=== PATIENT | female | born 1995 | race Caucasian/White ===

== ENCOUNTER 2021-08-24 21:49 | Emergency (ER) | payer MEDICAID, SELFPAY ==
[2021-08-24 21:51] VITALS: BP 116/81; PULSE 118; RESP 16; TEMP 36.3; O2SAT 97; BMI 26.7
--- NOTE | 2021-08-24 22:46 | EX.ED.VIS.UR ---
HPI HPI - URI History of Present Illness Chief Complaint: Cough Narrative Narrative: 26-year-old female with no significant past medical history presenting with fever, chills for the last few days. She states that started on Sunday. She has not been tested for COVID-19. She states she has had trouble getting appointment with her primary care physician. She denies any chest pain or shortness of breath. She denies nausea vomiting. She denies loss of taste or smell. She does have a mild cough. ROS ROS ED Constitutional Constitutional ED: Reports chills and fever(s) Eyes Eyes: Denies blurry vision or change in vision ENT ENT ED: Denies rhinorrhea or sore throat Cardiovascular Cardiovascular: Denies chest pain or palpitations Respiratory/Chest Respiratory/Chest: Reports cough; Denies dyspnea Gastrointestinal Gastrointestinal: Denies abdominal pain, nausea or vomiting Genitourinary Genitourinary ED: Denies dysuria or hematuria Musculoskeletal Musculoskeletal: Denies arthralgias or myalgias Integumentary Denies rash Neurologic Neurologic: Denies headache(s) or paresthesias Psychiatric Psychiatric: Denies anxiety or depression PFSH PFSH Home Medications NK 08/24/21 [History Last Taken Unknown] Allergy/AdvReac Type Severity Reaction Status Date / Time No Known Allergies Allergy Verified 08/24/21 21:51 Social History Smoking Status: Former smoker EXAM Physical Exam Const Vital Signs: 08/24/21 21:51 08/24/21 22:55 Temperature 97.4 F L Temperature Source Temporal Pulse Rate 118 H Respiratory Rate 16 Respiratory Effort Normal Respiratory Depth Normal Respiratory Pattern Normal Blood Pressure 116/81 H Blood Pressure Mean 92 Pulse Ox 97 Oxygen Delivery Method Room Air Positive well nourished General Appearance ED: NAD; Negative for pallor HEENT Reports moist mucous membranes normocephalic and atraumatic Eyes PERRL and EOMs intact bilaterally Neck supple and no meningeal signs Resp normal respiratory effort and clear to auscultation bilaterally Cardio Rate: tachycardic Rhythm: regular rhythm GI non-tender and non-distended Palpation: soft Psych mental status grossly normal Skin General Skin Exam: Negative for jaundice or pallor MDM MDM MDM Narrative Medical decision making narrative: Patient presents with Covid symptoms. She tested positive for COVID-19 today. She does qualify for monoclonal antibodies and is amenable to this. I do not believe she needs any other work-up or imaging currently. Patient is given return precautions. Impression: 1. COVID-19 Discharge Plan Triage Chief Complaint: Cough ED Provider: Abel Barker Dx/Rx/DC Orders Instructions: Coronavirus Disease 2019 (COVID-19): Caring for Yourself or Others Prescriptions: No Action NK RF: 0 Other Ambulatory Orders: COVID Outpatient Monoclonal Antibody Referral (Routine) Timeframe: 1 Day Facility: [facility] - Location: [facility] Ordered By: Dr. Abel Barker Primary Care Provider: Amanda Morris,Out of Referrals: Amanda Morris,Out of [Primary Care Provider] - Disposition Disposition: Home, Self Care
== END 2021-08-24 23:34 | disposition home or self-care (01) ==
LOC: ED 23:26
PROVIDERS: Emergency Provider Student in an Organized Health Care Education/Training Program
DX: U07.1 COVID-19 (principal); Z87.891 Personal history of nicotine dependence
CPT/HCPCS: 87426; 99282

== ENCOUNTER → 2022-07-10 | Outpatient (CLI) | payer MEDICAID, SELFPAY ==
[2022-07-10 10:58] LABS: Absolute Neutrophil Count 7.5 X10^3/uL (2.0-7.7); Basophil# 0.04 X10^3/uL; Basophil% 0.4 % (0-1); Eosinophil# 0.11 X10^3/uL; Eosinophils% 1.1 % (0-5); Hematocrit 36.5 % (37-47); Hemoglobin 12.2 g/dL (12.0-15.0); Lymphocyte % 17.3 % (19-41); Mean Corp Hgb Conc 33.4 g/dL (32-36); Mean Corpuscular Hgb 30.8 pg (27.0-32.0); Mean Corpuscular Volume 92.2 fL (81-99); Mean Platelet Vol. 9.3 fl (6.2-12.0); Monocyte# 0.91 X10^3/uL; Monocyte% 8.7 % (0-10); NRBC Flagged by Analyzer 0 % (0-5); Platelet Count 306 K/mm3 (150-450); RBC Distribution Width CV 12.2 % (11.6-14.6); RBC Distribution Width SD 41.4 fl (35.1-43.9); Red Blood Count 3.96 M/mm3 (4.2-5.4); White Blood Count 10.4 K/mm3 (4.4-11.0)
[2022-07-10 12:04] LABS: HIV - WCH Non-Reactive (Nonreactive); Hepatitis B Surface Antigen Non-Reactive (Nonreactive); Hepatitis C Antibody Non-Reactive (Nonreactive); Rubella IgG Reactive (Nonreactive); Syphilis Antibodies Non-reactive
[2022-07-10 16:36] LABS: Amphetamine Urine VISTA NEGATIVE (<1000 ng/mL); Barbiturate Urine VISTA NEGATIVE (< 200 ng/mL); Benzodiazepine Urine VISTA NEGATIVE (< 200 ng/mL); Cocaine Urine VISTA NEGATIVE (< 300 ng/mL); Ecstacy Urine VISTA NEGATIVE (< 500 ng/mL); Methadone Urine VISTA NEGATIVE (< 300 ng/mL); PCP Urine VISTA NEGATIVE (< 25 ng/mL); THC Urine VISTA NEGATIVE (< 50 ng/mL); Vista UDS pH Range 6
[2022-07-12 21:07] LABS: Chlamydia By Nucleic Acid AMP Negative (Negative)
[2022-07-13 11:25] LABS: Gonococcus By Nucleic Acid AMP Negative (Negative)
[2022-07-20 17:30] LABS: HPV APTIMA, High Risk Positive (Negative)
== END | disposition home or self-care (01) ==
PROVIDERS: PCP Family Medicine; Referring Provider Obstetrics & Gynecology; Visit Provider Obstetrics & Gynecology
DX: O09.90 Supervision of high risk pregnancy, unspecified, unspecified trimester (principal); Z3A.08 8 weeks gestation of pregnancy
CPT/HCPCS: 36415; 80307; 85025; 86703; 86762; 86780; 86803; 86850; 86900; 86901; 87086; 87340; 87491; 87591; 87624; 88175; G0145

== ENCOUNTER → 2022-08-09 | Outpatient (CLI) | payer MEDICAID, SELFPAY ==
[2022-08-09 12:21] LABS: NATERA MAILED SPECIMEN
== END | disposition home or self-care (01) ==
PROVIDERS: Referring Provider Obstetrics & Gynecology; Visit Provider Obstetrics & Gynecology
DX: Z34.82 Encounter for supervision of other normal pregnancy, second trimester (principal)
CPT/HCPCS: 36415

== ENCOUNTER → 2022-11-22 | Outpatient (CLI) | payer MEDICAID, SELFPAY ==
[2022-11-22 11:23] LABS: Absolute Lymphocyte Count 1.88 X10^3/uL (0.83-4.51); Absolute Neutrophil Count 7.8 X10^3/uL (2.0-7.7); Basophil# 0.03 X10^3/uL; Basophil% 0.3 % (0-1); Eosinophils% 0.9 % (0-5); Hematocrit 33.8 % (37-47); Lymphocyte # 1.88 X10^3/ul (0.83-4.51); Lymphocyte % 17.8 % (19-41); Mean Corp Hgb Conc 32.5 g/dL (32-36); Mean Corpuscular Hgb 30.5 pg (27.0-32.0); Mean Corpuscular Volume 93.6 fL (81-99); Mean Platelet Vol. 9.5 fl (6.2-12.0); Monocyte# 0.69 X10^3/uL; Monocyte% 6.5 % (0-10); NRBC Flagged by Analyzer 0 % (0-5); Neutrophil # 7.82 X10^3/uL (2.7-7.7); Platelet Count 284 K/mm3 (150-450); RBC Distribution Width SD 44.7 fl (35.1-43.9); Red Blood Count 3.61 M/mm3 (4.2-5.4); White Blood Count 10.6 K/mm3 (4.4-11.0)
[2022-11-22 11:42] LABS: Glucose Challenge Gest 1H 50g 101 mg/dL (70-140)
[2022-11-22 12:16] LABS: HIV - WCH Non-Reactive (Nonreactive); Syphilis Antibodies Non-reactive
== END | disposition home or self-care (01) ==
LOC: PAVLAB 10:54
PROVIDERS: Referring Provider Obstetrics & Gynecology; Visit Provider Obstetrics & Gynecology
DX: O09.90 Supervision of high risk pregnancy, unspecified, unspecified trimester (principal)
CPT/HCPCS: 36415; 82950; 85025; 86703; 86780

== ENCOUNTER → 2023-01-17 | Outpatient (CLI) | payer MEDICAID, SELFPAY | END | disposition home or self-care (01) | PROVIDERS: Referring Provider Obstetrics & Gynecology; Visit Provider Obstetrics & Gynecology | DX: O09.90 Supervision of high risk pregnancy, unspecified, unspecified trimester (principal) | CPT/HCPCS: 87081 ==

== ENCOUNTER 2023-02-05 22:35 | Inpatient (IN) | payer MEDICAID, SELFPAY ==
[2023-02-05] VITALS (8 sets, daily range): BP systolic 107–132; BP diastolic 62–80; PULSE 80–111; TEMP 36.8–37.1; O2SAT 98–99; BMI 36.0
--- NOTE | 2023-02-05 19:19 | OB.TRI.HP_ITS ---
HPI - General HPI Narrative LLUVIA HOLLINGSWORTH, is a 27 F who presents at 38+5 with contractions and lower back pain. no lof/vb. good fm. Maternal Data Information RUFINA Calculator Estimated Delivery Date Method Current WG Current Estimate 02/14/23 LMP (Certain) 38w 5d Other Estimates 02/11/23 Ultrasound #2 39w 1d PFSH PFSH Medical History History of depression Low-lying placenta in second trimester Home Medications vitamins no.163-iron bis-gly 20 mg-folate no.10 1 mg tablet (PNV Tabs 20-1) tab PO 07/05/22 [History Last Taken 02/05/23] cetirizine 10 mg capsule (Zyrtec) 10 mg PO DAILY 12/18/22 [History Last Taken Unknown] loratadine 10 mg tablet (Claritin) 10 mg PO DAILY PRN 12/18/22 [History Last Taken Unknown] Allergy/AdvReac Type Severity Reaction Status Date / Time No Known Allergies Allergy Verified 02/05/23 16:54 Family History Aunt Ovarian cancer, Onset Age: 45 Maternal Aunt Social History adopted: No household members: significant other housing: house current occupational status: employed 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 current occupational exposures/hazards: No pets and animals: Yes (not manage litterbox) pets and animals: cat(s) and dog(s) history of recent travel: Yes ([place]) out of state: Yes out of country: No sexually active: Yes Smoking Status: Former smoker alcohol intake: former details: rarely drinks, special occasions, not while substance use type: does not use well-balanced diet: daily or most days caffeine: Yes Type: coffee Number of servings: 1 eating out: 1-3 times/week during the past year weight has: increased > 10 lbs what type of physical activity do you participate in: walking frequency: daily chriss/taoism: None seatbelt use: always do you feel safe at home: Yes additional social history: Boyfriend- J Luis - Self employed History 1 Elective abortions Hx Para 0 Spontaneous abortions Hx # Term Pregnancies Ectopic pregnancies Hx # Pregnancies Multiple births # of living children Visit Details Expected Delivery Route/Plan Labor Preferences- CB/BF classes: Ed labor support person: [] labor intervention preferences: [] pain management options preferred: epidural cut cord/dad catch: yes : maybe PP control planned: discussed discussed possible routes of delivery and associated risks: [] special requests: [] Plans Covid status: discussed Flu vaccine: discussed Tdap vaccine: declines Rhogam: na LARC form signed: yes movement and labor precautions reviewed. Problem list reviewed and updated with the most current plan of care details and appropriate orders placed. Relevant counseling for the gestational age provided. Continue routine care and follow up unless otherwise noted in visit notes/problem list details OB Flowsheet Initial Weight: Not Recorded Date -?-?-?-?-?-?-?-?-?-?-?-?- EGA Weight BP Urine Prot -?-?-?-?-?-?-?-?-?-?-?-?- Glucose FHR FuHt Pres Dilation -?-?-?-?-?-?-?-?-?-?-?-?- Effaced St Visit Note 07/10/22 -?-?-?-?-?-?-?-?-?-?-?-?- 8w 5d 165 lb 111/74 -?-?-?-?-?-?-?-?-?-?-?-?- 160 -?-?-?-?-?-?-?-?-?-?-?-?- SM- CRL 2.2cm co ns with LMP 08/09/22 -?-?-?-?-?-?-?-?-?-?-?-?- 13w 0d 169 lb 99/66 Negative -?-?-?-?-?-?-?-?-?-?-?-?- Negative 154 -?-?-?-?-?-?-?-?-?-?-?-?- JV- no complaint s. now wants to do NIPT 08/17/22 -?-?-?-?-?-?-?-?-?-?-?-?- 14w 1d 173 lb 114/64 Negative -?-?-?-?-?-?-?-?-?-?-?-?- Negative 156 -?-?-?-?-?-?-?-?-?-?-?-?- JV- colp today f or lgsil. see office procedure. 09/05/22 -?-?-?-?-?-?-?-?-?-?-?-?- 16w 6d 176 lb 118/76 Negative -?-?-?-?-?-?-?-?-?-?-?-?- Negative 151 -?-?-?-?-?-?-?-?-?-?-?-?- MH-No VB. Thinks feels flutter. No Concerns 10/10/22 -?-?-?-?-?-?-?-?-?-?-?-?- 21w 6d 185 lb 116/74 Negative -?-?-?-?-?-?-?-?-?-?-?-?- Negative 151 -?-?-?-?-?-?-?-?-?-?-?-?- MH-No VB or cram ping. Feeling good movement. Denies concerns 11/08/22 -?--?-?-?-?-?-?-?-?-?-?-?- 26w 0d 191 lb 112/67 Negative -?-?-?-?-?-?-?-?-?-?-?-?- Negative 145 -?-?-?-?-?-?-?-?-?-?-?-?- JV- no lof, vagi nal bleeding, or dec fm currently. over weekend had spotting. has low lying placenta. rpt scan ordered in 2 weeks. bleeding precautions discussed. 11/22/22 -?-?-?-?-?-?-?-?-?-?-?-?- 28w 0d 191 lb 6 oz 110/68 Nega tive -?-?-?-?-?-?-?-?-?-?-?-?- Negative 141 -?-?-?-?-?-?-?-?-?-?-?-?- MH-Pt had light spotting after US at [facility] yesterday. Reviewed US:cx >4cm. Previa resolved. VB precautions reviewed. 12/07/22 -?-?-?-?-?-?-?-?-?-?-?-?- 30w 1d 197 lb 113/71 Negative -?-?-?-?-?-?-?-?-?-?-?-?- Negative 134 33 -?-?-?-?-?-?-?-?-?-?-?-?- JV- pt has a bad cavity on the left side of her mouth. she does not have a dentist. instructed to see [facility] and starting amoxicillin. She declines pain meds. 12/18/22 -?-?-?-?-?-?-?-?-?-?-?-?- 31w 5d 199 lb 111/75 -?-?-?-?-?-?-?-?-?-?-?-?- 135 34 -?-?-?-?-?-?-?-?-?-?-?-?- SM- no vb lof go od fm no regular ctx 01/03/23 -?-?-?-?-?-?-?-?-?-?-?-?- 34w 0d 202 lb 6 oz 112/75 Trac e -?-?-?-?-?-?-?-?-?-?-?-?- Negative 140 34 Cephalic -?-?-?-?-?-?-?-?-?-?-?-?- LC- no lof/vb/ct x. good fm. having increased backpain- recommended belly band. 01/17/23 -?-?--?-?-?-?-?-?-?-?-?-?- 36w 0d 203 lb 6 oz 108/74 Nega tive -?-?-?-?-?-?-?-?-?-?-?-?- Negative 134 36 Cephalic 0 -?-?-?-?-?-?-?-?-?-?-?-?- JV- no lof, vagi nal bleeding or dec fm. gbs collected. 01/24/23 -?-?-?-?-?-?-?-?-?-?-?-?- 37w 0d 208 lb 4 oz 108/70 Nega tive -?-?-?-?-?-?-?-?-?-?-?-?- Negative 153 38 Cephalic 0 .5 -?-?-?-?-?-?-?-?-?-?-?-?- 30 KW-no lo f/vb/ctx. +fm. GBS neg. no concerns KW-no lof/vb/ctx. +fm. GBS n eg. no concerns. 01/31/23 -?--?-?-?-?-?-?-?-?-?-?-?- 38w 0d 210 lb 4 oz 105/72 Nega tive -?-?-?-?-?-?-?-?-?-?-?-?- Negative 145 38 Cephalic 0 .5 -?-?-?-?-?-?-?-?-?-?-?-?- 60 -2 KW-+fm. no lof/vb/ctx. having low back pain. discussed IOL at 40 weeks KW-+fm. no lof/vb/ctx. shilpa g low back pain. discussed IOL at 40 weeks. recommended home options to induce labor. discussed it could be long and be moved per unit staffing. set up next week. NST FHR Rate Baby A Baseline: 125 Variability:: Moderate Accelerations:: 15 x 15 Decelerations:: None NST Reactive:: Yes FHR Category:: Category I Uterine Activity:: irregular Assessment & Plan (1) Uterine contractions: COMMENT: rule out labor. no cervical change. dc home with labor precautions. PLAN: Plan Patient presents for triage evaluation secondary to contractions no change in cervical exam after observation x1.5 hours. FHT: Moderate variability reactive no decelerations category I tracing [place]: irregular Contractions Assessment and plan: Reactive NST, reassuring maternal and status patient discharged to home to follow-up in office.See problem list details for additional plan information. Charges/Coding Procedures Urinary/Genital 52xxx-59xxx: 25055-77 non-stress test Interp
--- NOTE | 2023-02-05 19:19 | OB.TRI.NOTE ---
HPI - General HPI Narrative LLUVIA HOLLINGSWORTH, is a 27 F who presents at 38+5 with contractions and lower back pain. no lof/vb. good fm. Maternal Data Information RUFINA Calculator Estimated Delivery Date Method Current WG Current Estimate 02/14/23 LMP (Certain) 38w 5d Other Estimates 02/11/23 Ultrasound #2 39w 1d PFSH PFSH Medical History History of depression Low-lying placenta in second trimester Home Medications vitamins no.163-iron bis-gly 20 mg-folate no.10 1 mg tablet (PNV Tabs 20-1) tab PO 07/05/22 [History Last Taken 02/05/23] cetirizine 10 mg capsule (Zyrtec) 10 mg PO DAILY 12/18/22 [History Last Taken Unknown] loratadine 10 mg tablet (Claritin) 10 mg PO DAILY PRN 12/18/22 [History Last Taken Unknown] Allergy/AdvReac Type Severity Reaction Status Date / Time No Known Allergies Allergy Verified 02/05/23 16:54 Family History Aunt Ovarian cancer, Onset Age: 45 Maternal Aunt Social History adopted: No household members: significant other housing: house current occupational status: employed 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 current occupational exposures/hazards: No pets and animals: Yes (not manage litterbox) pets and animals: cat(s) and dog(s) history of recent travel: Yes ([place]) out of state: Yes out of country: No sexually active: Yes Smoking Status: Former smoker alcohol intake: former details: rarely drinks, special occasions, not while substance use type: does not use well-balanced diet: daily or most days caffeine: Yes Type: coffee Number of servings: 1 eating out: 1-3 times/week during the past year weight has: increased > 10 lbs what type of physical activity do you participate in: walking frequency: daily chriss/scientologist: None seatbelt use: always do you feel safe at home: Yes additional social history: Boyfriend- J Luis - Self employed History 1 Elective abortions Hx Para 0 Spontaneous abortions Hx # Term Pregnancies Ectopic pregnancies Hx # Pregnancies Multiple births # of living children Visit Details Expected Delivery Route/Plan Labor Preferences- CB/BF classes: Ed labor support person: [] labor intervention preferences: [] pain management options preferred: epidural cut cord/dad catch: yes : maybe PP control planned: discussed discussed possible routes of delivery and associated risks: [] special requests: [] Plans Covid status: discussed Flu vaccine: discussed Tdap vaccine: declines Rhogam: na LARC form signed: yes movement and labor precautions reviewed. Problem list reviewed and updated with the most current plan of care details and appropriate orders placed. Relevant counseling for the gestational age provided. Continue routine care and follow up unless otherwise noted in visit notes/problem list details OB Flowsheet Initial Weight: Not Recorded Date <del>?</del> EGA Weight BP Urine Prot <del>?</del> Glucose FHR FuHt Pres Dilation <del>?</del> Effaced St Visit Note 07/10/22 <del>?</del> 8w 5d 165 lb 111/74 <del>?</del> 160 <del>?</del> SM- CRL 2.2cm cons with LMP 08/09/22 <del>?</del> 13w 0d 169 lb 99/66 Negative <del>?</del> Negative 154 <del>?</del> JV- no complaints. now wants to do NIPT 08/17/22 <del>?</del> 14w 1d 173 lb 114/64 Negative <del>?</del> Negative 156 <del>?</del> JV- colp today for lgsil. see office procedure. 09/05/22 <del>?</del> 16w 6d 176 lb 118/76 Negative <del>?</del> Negative 151 <del>?</del> MH-No VB. Thinks feels flutter. No Concerns 10/10/22 <del>?</del> 21w 6d 185 lb 116/74 Negative <del>?</del> Negative 151 <del>?</del> MH-No VB or cramping. Feeling good movement. Denies concerns 11/08/22 <del>?</del> 26w 0d 191 lb 112/67 Negative <del>?</del> Negative 145 <del>?</del> JV- no lof, vaginal bleeding, or dec fm currently. over weekend had spotting. has low lying placenta. rpt scan ordered in 2 weeks. bleeding precautions discussed. 11/22/22 <del>?</del> 28w 0d 191 lb 6 oz 110/68 Negative <del>?</del> Negative 141 <del>?</del> MH-Pt had light spotting after US at [facility] yesterday. Reviewed US:cx >4cm. Previa resolved. VB precautions reviewed. 12/07/22 <del>?</del> 30w 1d 197 lb 113/71 Negative <del>?</del> Negative 134 33 <del>?</del> JV- pt has a bad cavity on the left side of her mouth. she does not have a dentist. instructed to see [facility] and starting amoxicillin. She declines pain meds. 12/18/22 <del>?</del> 31w 5d 199 lb 111/75 <del>?</del> 135 34 <del>?</del> SM- no vb lof good fm no regular ctx 01/03/23 <del>?</del> 34w 0d 202 lb 6 oz 112/75 Trace <del>?</del> Negative 140 34 Cephalic <del>?</del> LC- no lof/vb/ctx. good fm. having increased backpain- recommended belly band. 01/17/23 <del>?</del> 36w 0d 203 lb 6 oz 108/74 Negative <del>?</del> Negative 134 36 Cephalic 0 <del>?</del> JV- no lof, vaginal bleeding or dec fm. gbs collected. 01/24/23 <del>?</del> 37w 0d 208 lb 4 oz 108/70 Negative <del>?</del> Negative 153 38 Cephalic 0.5 <del>?</del> 30 KW-no lof/vb/ctx. +fm. GBS neg. no concerns KW-no lof/vb/ctx. +fm. GBS neg. no concerns. 01/31/23 <del>?</del> 38w 0d 210 lb 4 oz 105/72 Negative <del>?</del> Negative 145 38 Cephalic 0.5 <del>?</del> 60 -2 KW-+fm. no lof/vb/ctx. having low back pain. discussed IOL at 40 weeks KW-+fm. no lof/vb/ctx. having low back pain. discussed IOL at 40 weeks. recommended home options to induce labor. discussed it could be long and be moved per unit staffing. set up next week. NST FHR Rate Baby A Baseline: 125 Variability:: Moderate Accelerations:: 15 x 15 Decelerations:: None NST Reactive:: Yes FHR Category:: Category I Uterine Activity:: irregular Assessment & Plan (1) Uterine contractions: COMMENT: rule out labor. no cervical change. dc home with labor precautions. PLAN: Plan Patient presents for triage evaluation secondary to contractions no change in cervical exam after observation x1.5 hours. FHT: Moderate variability reactive no decelerations category I tracing [place]: irregular Contractions Assessment and plan: Reactive NST, reassuring maternal and status patient discharged to home to follow-up in office.See problem list details for additional plan information. Charges/Coding Procedures Urinary/Genital 52xxx-59xxx: 71495-65 non-stress test Interp
[2023-02-05] MEDS: LACTATED RINGERS 500 ML 999 ML IV (22:50)
[2023-02-05 23:16] LABS: Absolute Lymphocyte Count 1.98 X10^3/uL (0.83-4.51); Basophil# 0.04 X10^3/uL; Basophil% 0.2 % (0-1); Eosinophil# 0.02 X10^3/uL; Eosinophils% 0.1 % (0-5); Hematocrit 35.4 % (37-47); Hemoglobin 11.9 g/dL (12.0-15.0); Lymphocyte # 1.98 X10^3/ul (0.83-4.51); Lymphocyte % 11.5 % (19-41); Mean Corp Hgb Conc 33.6 g/dL (32-36); Mean Corpuscular Hgb 29.5 pg (27.0-32.0); Mean Corpuscular Volume 87.8 fL (81-99); Mean Platelet Vol. 10.3 fl (6.2-12.0); Monocyte# 0.97 X10^3/uL; Monocyte% 5.6 % (0-10); NRBC Flagged by Analyzer 0 % (0-5); Neutrophil # 14.02 X10^3/uL (2.7-7.7); Neutrophil % 81.7 % (47-70); Platelet Count 288 K/mm3 (150-450); RBC Distribution Width CV 15.1 % (11.6-14.6); RBC Distribution Width SD 48.6 fl (35.1-43.9); Red Blood Count 4.03 M/mm3 (4.2-5.4); White Blood Count 17.2 K/mm3 (4.4-11.0)
[2023-02-05] MEDS: fentaNYL-bupivacaine (epidural) 100 ML BAG EPIDURAL (23:57)
[2023-02-06] VITALS (40 sets, daily range): BP systolic 93–133; BP diastolic 55–89; PULSE 74–113; RESP 16; TEMP 36.2–37.9; O2SAT 97–100
[2023-02-06] MEDS: Lactated Ringers 1,000 ML 200 ML IV ×3 (00:14→09:07)
[2023-02-06 00:22] LABS: Syphilis Antibodies Non-reactive
--- NOTE | 2023-02-06 02:55 | HP.PCM.OB_ITS ---
HPI - General General Date of Admission: 02/05/23 Chief Complaint: contractions HPI Narrative LLUVIA HOLLINGSWORTH, is a 27 F who presents with increasing contractions strength and frequency, unable to breathe through contractions. denies lof/vb. good fm. uncomplicated. hx of depression no medications in . Maternal Data Information RUFINA Calculator Estimated Delivery Date Method Current WG Current Estimate 02/14/23 LMP (Certain) 38w 6d Other Estimates 02/11/23 Ultrasound #2 39w 2d Final RUFINA: 02/14/23 Final RUFINA Source: LMP Gestational age: 38+6 PFSH PFSH Medical History History of depression Low-lying placenta in second trimester Home Medications vitamins no.163-iron bis-gly 20 mg-folate no.10 1 mg tablet (PNV Tabs 20-1) 1 tab PO DAILY supplement 07/05/22 [History Last Taken 02/05/23] cetirizine 10 mg capsule (Zyrtec) 10 mg PO DAILY PRN allergies 12/18/22 [History Last Taken Unknown] Allergy/AdvReac Type Severity Reaction Status Date / Time No Known Allergies Allergy Verified 02/05/23 22:35 Family History Aunt Ovarian cancer, Onset Age: 45 Maternal Aunt Social History adopted: No household members: significant other housing: house current occupational status: employed 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 current occupational exposures/hazards: No pets and animals: Yes (not manage litterbox) pets and animals: cat(s) and dog(s) history of recent travel: Yes ([place]) out of state: Yes out of country: No sexually active: Yes Smoking Status: Former smoker alcohol intake: former details: rarely drinks, special occasions, not while substance use type: does not use well-balanced diet: daily or most days caffeine: Yes Type: coffee Number of servings: 1 eating out: 1-3 times/week during the past year weight has: increased > 10 lbs what type of physical activity do you participate in: walking frequency: daily chriss/advent: None seatbelt use: always do you feel safe at home: Yes additional social history: Boyfriend- J Luis - Self employed History 1 Elective abortions Hx Para 0 Spontaneous abortions Hx # Term Pregnancies Ectopic pregnancies Hx # Pregnancies Multiple births # of living children Visit Details Expected Delivery Route/Plan Labor Preferences- CB/BF classes: Ed labor support person: [] labor intervention preferences: [] pain management options preferred: epidural cut cord/dad catch: yes : maybe PP control planned: discussed discussed possible routes of delivery and associated risks: [] special requests: [] Plans Covid status: discussed Flu vaccine: discussed Tdap vaccine: declines Rhogam: na LARC form signed: yes movement and labor precautions reviewed. Problem list reviewed and updated with the most current plan of care details and appropriate orders placed. Relevant counseling for the gestational age provided. Continue routine care and follow up unless otherwise noted in visit notes/problem list details OB Flowsheet Initial Weight: Not Recorded Date -?-?-?-?-?-?-?-?-?-?-?-?- EGA Weight BP Urine Prot -?-?-?-?-?-?-?-?-?-?-?-?- Glucose FHR FuHt Pres Dilation -?-?-?-?-?-?-?-?-?-?-?-?- Effaced St Visit Note 07/10/22 -?-?-?-?-?-?-?-?-?-?-?-?- 8w 5d 165 lb 111/74 -?-?-?-?-?--?-?-?-?-?-?-?- 160 -?-?-?-?-?-?-?-?-?-?-?-?- SM- CRL 2.2cm co ns with LMP 08/09/22 -?-?-?-?-?-?-?-?-?-?-?-?- 13w 0d 169 lb 99/66 Negative -?-?-?-?-?-?-?-?-?-?-?-?- Negative 154 -?-?-?-?-?-?-?-?-?-?-?-?- JV- no complaint s. now wants to do NIPT 08/17/22 -?-?-?-?-?-?-?-?-?-?-?-?- 14w 1d 173 lb 114/64 Negative -?-?-?-?-?-?-?-?-?-?-?-?- Negative 156 -?-?-?-?-?-?-?-?-?-?-?-?- JV- colp today f or lgsil. see office procedure. 09/05/22 -?-?-?-?-?-?-?-?-?-?-?-?- 16w 6d 176 lb 118/76 Negative -?-?-?-?-?-?-?-?-?-?-?-?- Negative 151 -?-?-?-?-?-?-?-?-?-?-?-?- MH-No VB. Thinks feels flutter. No Concerns 10/10/22 -?-?-?-?-?-?-?-?-?-?-?-?- 21w 6d 185 lb 116/74 Negative -?-?-?-?-?-?-?-?-?-?-?-?- Negative 151 -?-?-?-?-?-?-?-?-?-?-?-?- MH-No VB or cram ping. Feeling good movement. Denies concerns 11/08/22 -?-?-?-?-?-?-?-?-?-?-?-?- 26w 0d 191 lb 112/67 Negative -?-?-?-?-?-?-?-?-?-?-?-?- Negative 145 -?-?-?-?-?-?-?-?-?-?-?-?- JV- no lof, vagi nal bleeding, or dec fm currently. over weekend had spotting. has low lying placenta. rpt scan ordered in 2 weeks. bleeding precautions discussed. 11/22/22 -?-?-?-?-?-?-?-?-?-?-?-?- 28w 0d 191 lb 6 oz 110/68 Nega tive -?-?-?-?-?-?-?-?-?-?-?-?- Negative 141 -?-?-?-?-?-?-?-?-?-?-?-?- MH-Pt had light spotting after US at [facility] yesterday. Reviewed US:cx >4cm. Previa resolved. VB precautions reviewed. 12/07/22 -?-?-?-?-?-?-?-?-?-?-?-?- 30w 1d 197 lb 113/71 Negative -?-?-?-?-?-?-?-?-?-?-?-?- Negative 134 33 -?-?-?--?-?-?-?-?-?-?-?-?- JV- pt has a bad cavity on the left side of her mouth. she does not have a dentist. instructed to see [facility] and starting amoxicillin. She declines pain meds. 12/18/22 -?-?-?-?-?-?-?-?-?-?-?-?- 31w 5d 199 lb 111/75 -?-?-?-?-?-?-?-?-?-?-?-?- 135 34 -?-?-?-?-?-?-?-?-?-?-?-?- SM- no vb lof go od fm no regular ctx 01/03/23 -?-?-?-?-?-?-?-?-?-?-?-?- 34w 0d 202 lb 6 oz 112/75 Trac e -?-?-?-?-?-?-?-?-?-?-?-?- Negative 140 34 Cephalic -?-?-?-?-?-?-?-?-?-?-?-?- LC- no lof/vb/ct x. good fm. having increased backpain- recommended belly band. 01/17/23 -?-?-?-?-?-?-?-?-?-?-?-?- 36w 0d 203 lb 6 oz 108/74 Nega tive -?-?-?-?-?-?-?-?-?-?-?-?- Negative 134 36 Cephalic 0 -?-?-?-?-?-?-?-?-?-?-?-?- JV- no lof, vagi nal bleeding or dec fm. gbs collected. 01/24/23 -?-?-?-?-?-?-?-?-?-?-?-?- 37w 0d 208 lb 4 oz 108/70 Nega tive -?-?-?-?-?-?-?-?-?-?-?-?- Negative 153 38 Cephalic 0 .5 -?-?--?-?-?-?-?-?-?-?-?-?- 30 KW-no lo f/vb/ctx. +fm. GBS neg. no concerns KW-no lof/vb/ctx. +fm. GBS n eg. no concerns. 01/31/23 -?-?-?-?-?-?-?-?-?-?-?-?- 38w 0d 210 lb 4 oz 105/72 Nega tive -?-?-?-?-?-?-?-?-?-?-?-?- Negative 145 38 Cephalic 0 .5 -?-?-?-?-?-?-?-?-?-?-?-?- 60 -2 KW-+fm. no lof/vb/ctx. having low back pain. discussed IOL at 40 weeks KW-+fm. no lof/vb/ctx. shilpa kessler low back pain. discussed IOL at 40 weeks. recommended home options to induce labor. discussed it could be long and be moved per unit staffing. set up next week. 02/05/23 -?-?-?-?-?-?-?-?-?-?-?-?- 38w 5d 123/79 129/80 132/73 115/65 107/62 114/80 114/72 126/60 119/78 118/72 120/75 116/61 104/74 -?-?-?-?-?-?-?-?-?-?-?-?- -?-?-?-?-?-?-?-?-?-?-?-?- NST FHR Rate Baby A Baseline: 135 Variability:: Moderate Accelerations:: 15 x 15 Decelerations:: None NST Reactive:: Yes FHR Category:: Category I Uterine Activity:: q2-7 minutes ROS Cardiovascular Cardiovascular: Denies abdominal pain, chest pain, diaphoresis or dyspnea Genitourinary Genitourinary: Reports change in urinary stream Musculoskeletal Musculoskeletal: Reports none Integumentary Integumentary: Reports none Neurologic Neurologic: Reports none Psychiatric Psychiatric: Reports none Endocrine Endocrinology: Reports none Hematologic/Lymphatic Hematologic/Lymphatic: Reports none Allergic/Immunologic Allergic/Immunologic: Reports none Vital Signs Vital Signs Vital Signs: 02/05/23 16:55 02/05/23 16:55 02/05/23 16:55 Temperature 98.2 F Temperature Source Tympanic Pulse Rate Blood Pressure BP Systolic BP Diastolic Pulse Ox 98 02/05/23 22:23 02/05/23 22:23 02/05/23 22:23 Temperature Temperature Source Pulse Rate 80 97 Blood Pressure 123/79 H BP Systolic 123 BP Diastolic 79 Pulse Ox 02/05/23 22:23 02/05/23 23:38 02/05/23 23:38 Temperature Temperature Source Pulse Rate 111 H Blood Pressure BP Systolic BP Diastolic Pulse Ox 99 99 02/05/23 22:23 02/05/23 22:23 02/05/23 22:23 Temperature 98.7 F Temperature Source Temporal Pulse Rate Blood Pressure BP Systolic BP Diastolic Pulse Ox 98 02/05/23 23:43 02/05/23 23:43 02/05/23 23:43 Temperature Temperature Source Pulse Rate 97 Blood Pressure 129/80 H BP Systolic 129 BP Diastolic 80 Pulse Ox 98 02/05/23 23:49 02/05/23 23:49 02/05/23 23:48 Temperature Temperature Source Pulse Rate 90 Blood Pressure 132/73 H BP Systolic 132 BP Diastolic 73 Pulse Ox 99 02/05/23 23:53 02/05/23 23:53 02/05/23 23:53 Temperature Temperature Source Pulse Rate 97 Blood Pressure 115/65 BP Systolic 115 BP Diastolic 65 Pulse Ox 98 02/05/23 23:58 02/05/23 23:58 02/05/23 23:58 Temperature Temperature Source Pulse Rate 96 Blood Pressure 107/62 BP Systolic 107 BP Diastolic 62 Pulse Ox 98 02/06/23 00:04 02/06/23 00:04 02/06/23 00:03 Temperature Temperature Source Pulse Rate 96 Blood Pressure 114/80 BP Systolic 114 BP Diastolic 80 Pulse Ox 99 02/06/23 00:08 02/06/23 00:08 02/06/23 00:08 Temperature Temperature Source Pulse Rate 106 H Blood Pressure 114/72 BP Systolic 114 BP Diastolic 72 Pulse Ox 99 02/06/23 00:13 02/06/23 00:13 02/06/23 00:15 Temperature Temperature Source Pulse Rate 87 Blood Pressure 126/60 H BP Systolic 126 BP Diastolic 60 Pulse Ox 100 02/06/23 00:15 02/06/23 00:18 02/06/23 00:18 Temperature Temperature Source Pulse Rate 88 90 Blood Pressure BP Systolic BP Diastolic Pulse Ox 100 02/06/23 00:20 02/06/23 00:20 02/06/23 00:23 Temperature Temperature Source Pulse Rate 84 94 Blood Pressure 119/78 BP Systolic 119 BP Diastolic 78 Pulse Ox 02/06/23 00:23 02/06/23 00:25 02/06/23 00:25 Temperature Temperature Source Pulse Rate 84 Blood Pressure 118/72 BP Systolic 118 BP Diastolic 72 Pulse Ox 99 02/06/23 00:29 02/06/23 00:29 02/06/23 00:28 Temperature Temperature Source Pulse Rate 93 Blood Pressure 120/75 BP Systolic 120 BP Diastolic 75 Pulse Ox 99 02/06/23 01:15 02/06/23 01:15 02/06/23 01:16 Temperature Temperature Source Pulse Rate 112 H Blood Pressure 116/61 BP Systolic 116 BP Diastolic 61 Pulse Ox 99 02/06/23 01:16 02/06/23 02:34 02/06/23 02:34 Temperature Temperature Source Pulse Rate 86 87 Blood Pressure BP Systolic BP Diastolic Pulse Ox 99 02/06/23 02:35 02/06/23 02:35 02/06/23 02:35 Temperature Temperature Source Temporal Pulse Rate 78 Blood Pressure 104/74 BP Systolic 104 BP Diastolic 74 Pulse Ox 02/06/23 02:35 Temperature 97.4 F L Temperature Source Pulse Rate Blood Pressure BP Systolic BP Diastolic Pulse Ox Weight Weight: 210 lb Body Mass Index (BMI) 36.0 Physical Exam Const alert and oriented x3 General Appearance: cooperative, comfortable and well kempt Orientation / Consciousness: awake Exam Limitations: no limitations Neck full ROM Chest inspection of chest normal Resp normal respiratory effort, normal air movement and no retractions Cardio regular rate Peripheral Pulses: pulses 2+ throughout GI normal to inspection, nondistended, normoactive bowel sounds Inspection: gravid no CVA tenderness and appearance of the vagina normal External Female Exam: normal appearance of the urethra; Negative for external lesion OB / External & Speculum: external exam normal Manual OB Exam: estimated gestational size appropriate and presentation cephalic Uterus Palpation: Negative for uterus tender Extremity normal to inspection Skin no rashes or lesions noted Psych Activity / Motor Behavior: appropriate eye contact Speech: normal speech Labs Labs Labs: Blood Type A POSITIVE Antibody Screen NEGATIVE Hct 35.4 % (37-47) L Hgb 11.9 g/dL (12.0-15.0) L Syphilis Total Ab Non-reactive Rubella IgG Antibody Reactive (Nonreactive) Hep Bs Antigen Non-Reactive (Nonreactive) Chlamydia DNA (ANDER) Negative (Negative) Neisseria gonorrhoeae DNA (ANDER) Negative (Negative) HIV 1&2 Antibody Non-Reactive (Nonreactive) Glucose 1 Hr 50 gm 101 mg/dL (70-140) Assessment & Plan (1) Spontaneous onset of labor: COMMENT: 38+5 with spontaneous labor. AROM for clear fluid PLAN: Patient presents IAL, plan expectant management for , pitocin/AROM PRN if needed. routine orders Pain management: plans epidural. GBS negative. Management of any complications: none I have reviewed the [facility] and made any clinically relevant updates. updated on admission, poc and exam. agrees with primary midwifery management.
[2023-02-06 03:39] LABS: Amphetamine Urine VISTA NEGATIVE (<1000 ng/mL); Barbiturate Urine VISTA NEGATIVE (< 200 ng/mL); Benzodiazepine Urine VISTA NEGATIVE (< 200 ng/mL); Cocaine Urine VISTA NEGATIVE (< 300 ng/mL); Ecstacy Urine VISTA NEGATIVE (< 500 ng/mL); Methadone Urine VISTA NEGATIVE (< 300 ng/mL); PCP Urine VISTA NEGATIVE (< 25 ng/mL); THC Urine VISTA NEGATIVE (< 50 ng/mL); Vista UDS pH Range 7
[2023-02-06] MEDS: fentaNYL-bupivacaine (epidural) 100 ML BAG EPIDURAL ×2 (04:23→09:34)
--- NOTE | 2023-02-06 07:43 | PN_ITS ---
Progress Note patient comfortable with epidural current tracing: FHT: 135 Moderate variability reactive no decelerations category I tracing [place]: regular strong Contractions every 2-3 minutes apart SVE: 8/90/0 at 0630 per nursing exam A/P: continue position changes Start pitocin PRN Anticipate Reviewed with JV, agrees with Plan of Care
[2023-02-06] MEDS: Oxytocin 15 Units/NS 250ml 15 UNITS/250 ML IV.SOLN 2 UNITS IV (11:02)
[2023-02-06] MEDS: Oxytocin 15 Units/NS 250ml 15 UNITS/250 ML IV.SOLN 83 UNITS IV (12:28)
--- NOTE | 2023-02-06 12:38 | OP.PCM_ITS ---
Assessment & Plan (1) Spontaneous vaginal delivery: COMMENT: KW IAL 38 weeks bottle feeding Maternal Data Information RUFINA Calculator Estimated Delivery Date Method Current WG Current Estimate 02/14/23 LMP (Certain) 38w 6d Other Estimates 02/11/23 Ultrasound #2 39w 2d Final RUFINA: 02/14/23 Gestational age: 38 weeks 6 days Vaginal Delivery Maternal Presentation Maternal Presentation: Active Labor Maternal Presentation: Patient began pushing and delivered the head in the APOLLO presentation. The head was delivered atraumatically. The anterior and posterior shoulders delivered without complication followed by the rest of the and the infant was placed on the maternal abdomen. Delayed cord clamping was employed for approximately 3 minutes. Cord was clamped and cut and gentle traction was applied to the cord and the placenta delivered spontaneously immediately following it was noted to be intact with three-vessel cord. The perineum and vagina were inspected and noted to have laceration was repaired by Dr De Jesus. EBL was 200 ml. Patient and infant tolerated delivery well. Apgars 9/9. Operative Information Date of Procedure: 02/06/23 Pre-Operative Diagnosis: See AP comments Post-Operative Diagnosis: Same Surgery / Procedure Performed: Spontaneous Vaginal Delivery Type of Anesthesia: Epidural Estimated Blood Loss: 200 Findings Presentation: Vertex Amniotic Membrane Rupture Type: Artificial Time of Membrane Rupture: 0240 Amniotic Fluid Description: Clear Placental Delivery Description: Spontaneous Placenta Disposition: [facility] Cord Vessel Description: 3 Vessels Cord Entanglement: None Infant A Gender: Male (1 minute): 9 (5 minute): 9 Delayed Cord Clamping: Yes Post Vaginal Delivery Medications Given After Delivery: IV Pitocin Episiotomy Description: None Laceration: 2nd degree (repaired by Dr De Jesus) Complication Complications: None Multi Select Codes Urinary/Genital Urinary/Genital CPT Codes: 22002 Vaginal Delivery+ PP Care([facility])
--- NOTE | 2023-02-06 12:48 | DCINST_ITS ---
Discharge Instructions Diet Discharge Diet: No restrictions Activity Discharge Activity: Return to Normal Activity May resume sexual activity in: 6-8 weeks Dressing / Incision Call your doctor if you observe: Fever of 101 or Higher, Coldness, Increased Pain, Numbness or Tingling, Change in Color, Inability to urinate, Inability to have a bowel movement, Using more than 1 pad per hour, Shortness of breath, Dizziness, Fainting spells, Swelling in the ankles, Chest pain, Increased palpitations (irregular heartbeat), Calf discomfort and Uncontrolled pain Follow Up Care Please Follow Up With: Lizzette Zheng CNM When: Please call the office to schedule your follow up appointment in 6 weeks. If you had high blood pressure please call to schedule an appointment in 2 weeks. Test Results: Test results from this visit will be discussed in further detail at your follow- up appointment, if applicable. Discharge Plan Admission Admit Date/Time: 02/05/23 22:35 Attending Provider: Lizzette Zheng Primary Care Provider: Care Physician,No Primary Instructions Patient Instructions: Kick Counts, ED False Labor, OB Triage: Return to Hospital or Notify Physician if you Experience: Discharge Orders/Prescriptions Prescriptions: No Action PNV Tabs 20-1 20 mg iron- 1 mg tablet 1 tab PO DAILY Zyrtec 10 mg capsule 10 mg PO DAILY PRN (Reason: allergies) Referrals / Follow Up: Care Physician,No Primary [Primary Care Provider] -
[2023-02-06] MEDS: 0.9% Saline Lock 10 ML Syringe IV (15:38)
[2023-02-06] MEDS: Ibuprofen 600 MG Tablet PO (16:29)
[2023-02-06] MEDS: Benzocaine/Lanolin/Aloe Vera 1 SPRAY EACH TOPICAL (16:30)
[2023-02-07] VITALS: BP 118/75; PULSE 108; RESP 18
[2023-02-07] MEDS: Ibuprofen 600 MG Tablet PO ×2 (03:02→15:37)
[2023-02-07 03:45] VITALS: BP 107/60; PULSE 80; RESP 16
--- NOTE | 2023-02-07 07:50 | PCM.PN.OB ---
Subjective Subjective Patient doing well without complaints. Tolerating PO. Ambulating and voiding without difficulty. Feeding well. Denies chest pain, shortness of breath, calf pain/swelling, fevers, chills, lightheadedness. Objective Data Objective Data Vital Signs: Vital Signs Temp Pulse Resp BP Pulse Ox O2 Del Method 98.9 F 80 16 107/60 97 Room Air 02/06/23 19:45 02/07/23 03:45 02/07/23 03:45 02/07/23 03:45 02/06/23 19:45 02/06/23 19:45 Oxygen Delivery Method Room Air Weight: 210 lb Body Mass Index (BMI) 36.0 Intake & Output: Intake and Output for Last 24 Hours 02/05/23 02/06/23 02/07/23 23:59 23:59 23:59 Intake Total 500 / 500 2732.20 / 2732.20 Output Total 1800 / 1800 500 / 500 Balance 500 / 500 932.20 / 932.20 -500 / -500 Lab / Micro Data Result Diagrams: 02/05/23 22:50 Physical Exam Const alert and oriented x3 HEENT normocephalic Eyes PERRL Neck full ROM Resp normal respiratory effort GI soft to palpation GI Narrative: FF below U Assessment & Plan (1) Spontaneous vaginal delivery: COMMENT: KW IAL 38 weeks bottle feeding [place] PLAN: Plan s/p PPD # 1 1. routine post delivery care 2. bottle feeding- support given 3. rh positive 4. rubella immune
[2023-02-07 08:32] VITALS: BP 113/66; PULSE 87; RESP 16; TEMP 36.6; O2SAT 98
[2023-02-07] MEDS: Acetaminophen 500 MG Tablet 1000 MG PO (08:57)
--- NOTE | 2023-02-07 11:19 | CASEMGMT ---
Social Work Assessment Labor and Delivery Unit Date/Time of Referral: 02/05/23, 22:56 Referred by: Opal Golden Date/Time of intervention: 02/07/23 at 11am Reason for referral: history of substance abuse History obtained from: TEE Household Composition: MOB and FOBlake, FOBlake's father lives there occasionally, and now baby [place]. TEE and FOBlake have been together for 3 years. Parent/Guardian Status: MOB is guardian of the child. Neither parent has any other children. Medical History: MOB: History of anxiety and depression, low lying placenta in the 2nd trimester. Baby: Born 02/06/23, 11:52am, 3740 grams, Apgars 9 and 9 at one and five minutes. Educational history: MOB completed high school, some college. ANJELICA also completed high school, some college. Financial Status: No concerns. ANJELICA has his own [employer] company. TEE was working, quit January 06. 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 Infant supplies: They have all needed supplies including car seat, bassinet, crib, clothing, diapers, wipes, formula and bottles Childcare/Caregivers: TEE's mom and sister can help, ANJELICA's dad and sister can also help Transportation: They have two vehicles, a truck and car Programs/Agencies involved: None Children's Services/Legal issues: None Behavioral Health issues: Substance abuse: FOB: None. MOB: MOB explains that she has been clean for several years. MOB states she quit smoking weed three years ago. She used Shauna and Acid senior year of high school, and quit using these substances 7 years ago. MOB states she drinks but very occasionally, only on special occasions. Her father also has a substance abuse history, she states he lives in [place] with his and she has no contact with him. Tox screens negative on 07/10/22 and 02/07/23, Tox screen for baby negative, meconium pending. Safety concerns: No safety concerns as per MOB. Mental Health: FOB: None. MOB: History of depression and anxiety. MOB states has not been in counseling since she was in elementary school. She has never taken medications for anxiety or depression, never felt like it was that bad to need this, or to need counseling at present. She states has been doing well since being . Prior to this, she states she had my moments but overall was managing well. Family/Social stressors: None reported other than being a new mom and learning what to do. MOB encouraged her to ask a lot of questions while here, she states the nurses have helped her to try different things, in particular around feeding. Support Systems: MOB reports family as outlined above and friends Depression and Anxiety/Shaken baby/Safe Sleeping/Help Me Grow/Mental Health Resources. SW gave MOB information on all of these topics and reviewed them with her. SW reviewed in particular the signs of depression and anxiety. SW suggested if she is having depressive or anxiety symptoms to speak w/her physician about medication as it can help some new moms who may be having symptoms. SW also suggested if she is having a difficult time w/depression and anxiety to consider counseling, list of counseling agencies given. MOB states understanding. Assessment: MOB appropriate, very tired. She was in labor for almost 24 hours. MOB answered all questions, did not observe interaction w/baby as baby was asleep in bassinet. Plan: Baby to go home w/MOB and FOB when discharged. No further social service needs requested or indicated. WILL [place]
[2023-02-07 15:20] VITALS: BP 113/56; PULSE 76; RESP 16; TEMP 36.8
[2023-02-07 21:03] VITALS: BP 104/55; PULSE 80; RESP 18
== END 2023-02-07 21:45 | disposition home or self-care (01) | DRG 560 ==
LOC: WPOUT 22:36 → WP 22:36
PROVIDERS: Admitting Provider Registered Nurse; Visit Provider Advanced Practice Midwife
DX: O70.1 Second degree perineal laceration during delivery (principal); Z37.0 Single live birth; Z87.891 Personal history of nicotine dependence; Z3A.38 38 weeks gestation of pregnancy
CPT/HCPCS: 59025; 59050; 80307; 85025; 86780; 86850; 86900; 86901; 99221; J7120; A4216; G0378

== ENCOUNTER → 2023-03-28 | Outpatient (CLI) | payer MEDICAID, SELFPAY ==
[2023-04-04 20:24] LABS: HPV Reflexed? NOT INDICATED
== END | disposition home or self-care (01) ==
LOC: LABSPEC 14:26
PROVIDERS: Referring Provider Advanced Practice Midwife; Visit Provider Advanced Practice Midwife
DX: Z12.4 Encounter for screening for malignant neoplasm of cervix (principal)
CPT/HCPCS: 88175; G0145

== ENCOUNTER → 2023-04-17 | Outpatient (CLI) | payer MEDICAID, SELFPAY ==
[2023-04-20 05:07] LABS: Chlamydia By Nucleic Acid AMP Negative (Negative); Gonococcus By Nucleic Acid AMP Negative (Negative)
== END | disposition home or self-care (01) ==
PROVIDERS: Referring Provider Advanced Practice Midwife; Visit Provider Advanced Practice Midwife
DX: Z11.3 Encounter for screening for infections with a predominantly sexual mode of transmission (principal); A07.8 Other specified protozoal intestinal diseases
CPT/HCPCS: 87070; 87077; 87205; 87491; 87591

== ENCOUNTER → 2023-05-17 | Outpatient (CLI) | payer MEDICAID, SELFPAY ==
--- NOTE | 2023-05-17 | IMM_PTH ---
PATIENT: LLUVIA HOLLINGSWORTH LOC: [facility] U#:[id number] AGE/SX: 27/F ROOM: RE05/17/[address]: Dr. Geni De Jesus DO : 1995 BED: DIS: 05/17/2023 SPEC #: [id number] RECD: 05/18/23 13:13 STATUS: MATTHEW RENatalie #: [id number] WARREN: 05/17/23 00:[address]: Shauna Gómez NP DEPT: IMMUNOHISTOCHEMISTRY RECD BY: Princess Hartman ENTERED: 05/18/23 13:15 SP TYPE: IMMUNO OTHR DR: Dr. Geni De Jesus DO Tissues: A - Uterine cervix, NOS Procedures: p16 (initial) KI-67 (add) PHYSICIAN & INSTITUTION [place] [id number] SPECIMEN INFORMATION: Tissue Source: A - Cervix at 6 o'clock Clinical Info: [facility] Specimen Number: [id number] CPT code: 83088, 31358 METHODOLOGY: Deparaffinized sections of prefer/formalin-fixed tissue or PAP/DQ stained slides are incubated with monoclonal/polyclonal antibodies/oligonucleotide probes. Localization is made via biotin free immunoperoxidase method. Appropriate controls are performed and reacted as expected. Results on target cell population are indicated in the following table: RESULTS: ANTIBODY / CLONE RESULT Block A P16 (E6H4) negative Ki-67 (30-9) positive, low These tests were developed and their performance characteristics determined by [facility]. They may not have been cleared or approved by the U.S. Food and Drug Administration. The FDA has determined that such clearance or approval is not necessary. The above immunohistochemical/dualISH markers are ordered and reviewed by the Pathologist. INTERPRETATION: A. Cervix at 6 o'clock, biopsy: No evidence of dysplasia. AM:mary 05/21/2023
--- NOTE | 2023-05-17 | CER_PTH ---
PATIENT: LLUVIA HOLLINGSWORTH [facility]: [facility] U#:[id number] AGE/SX: 27/F ROOM: RE05/17/[address]: Dr. Geni De Jesus DO : 1995 BED: DIS: 05/17/2023 SPEC #: [id number] RECD: 05/17/23 13:55 STATUS: MATTHEW REQ #: [id number] WARREN: 05/17/23 00:[address]: Shauna Gómez NP DEPT: SURGICAL PATHOLOGY RECD BY: Michael Dhillon ENTERED: 05/17/23 13:55 SP TYPE: CERV OTHR DR: No Primary Care Phys Tissues: A - Uterine cervix, NOS B - Endocervical Procedures: Surgery Specimen Level IV Comments: @ Originally on account #[id number] Req #[id number] HEADER OPERATION: Cervical biopsy PRE-OP DIAGNOSIS: LGSIL TISSUE SUBMITTED: A - Cervix 6 o'clock biopsy, B - Endocervical curettings MICROSCOPIC DIAGNOSIS A. Cervix, 6 o'clock, biopsy: Moderate acute and chronic inflammation. Negative for dysplasia. See comment. B. Endocervical curettings: Scant benign endocervical epithelial cells and mucous. See comment. SJ:mary 05/18/2023 COMMENT A. Immunohistochemistry ([id number]) for surrogate HPV marker (p16) supports the above diagnosis. B. The specimen contains a scant amount of mucoid tissue. Case has been reviewed in consultation with Dr. Marina who concurs with the above diagnosis. IDC:[email or web address] MICROSCOPIC DESCRIPTION Slides are reviewed. GROSS DESCRIPTION A - Received in fixative is one container labeled with the patient's name and designated 6 o'clock. The specimen consists of one irregular fragment of light ray soft tissue that measures 0.6 x 0.4 x 0.1 cm. The specimen is totally submitted in one cassette. B - Received is a metallic endoscopic cytobrush with adherent minute fragments of ray-red tissue brush in 2 ml of clear red fluid and labeled with the patient's name and and designated per the requisition as ECC brush. The material is dislodged from the brush and submitted for cytology preparation including cell block. / ERIKA:mary 05/17/2023 TC:3 CPT: 77585 x2
== END | disposition home or self-care (01) ==
LOC: LABSPEC 13:10
PROVIDERS: Referring Provider Obstetrics & Gynecology; Visit Provider Obstetrics & Gynecology
DX: R87.612 Low grade squamous intraepithelial lesion on cytologic smear of cervix (LGSIL) (principal)
CPT/HCPCS: 88305; 88341; 88342

== ENCOUNTER → 2024-04-22 | Outpatient (CLI) | payer MEDICAID, SELFPAY ==
[2024-04-25 07:08] LABS: Chlamydia By Nucleic Acid AMP Negative (Negative); Gonococcus By Nucleic Acid AMP Negative (Negative)
== END | disposition home or self-care (01) ==
PROVIDERS: Referring Provider Advanced Practice Midwife; Visit Provider Advanced Practice Midwife
DX: O99.210 Obesity complicating pregnancy, unspecified trimester (principal); E66.9 Obesity, unspecified; Z3A.00 Weeks of gestation of pregnancy not specified
CPT/HCPCS: 87086; 87491; 87591

== ENCOUNTER → 2024-05-02 | Outpatient (CLI) | payer MEDICAID, SELFPAY ==
[2024-05-02 11:45] LABS: Absolute Lymphocyte Count 2.17 X10^3/uL (0.83-4.51); Absolute Neutrophil Count 6.8 X10^3/uL (2.0-7.7); Basophil# 0.03 X10^3/uL; Basophil% 0.3 % (0-1); Eosinophil# 0.13 X10^3/uL; Eosinophils% 1.3 % (0-5); Hematocrit 38.9 % (37-47); Hemoglobin 13.3 g/dL (12.0-15.0); Lymphocyte # 2.17 X10^3/ul (0.83-4.51); Mean Corp Hgb Conc 34.2 g/dL (32-36); Mean Corpuscular Hgb 31.1 pg (27.0-32.0); Mean Corpuscular Volume 91.1 fL (81-99); Mean Platelet Vol. 9.4 fl (6.2-12.0); Monocyte# 0.73 X10^3/uL; Monocyte% 7.4 % (0-10); NRBC Flagged by Analyzer 0 % (0-5); Neutrophil # 6.79 X10^3/uL (2.7-7.7); Neutrophil % 68.7 % (47-70); Platelet Count 310 K/mm3 (150-450); RBC Distribution Width CV 12.7 % (11.6-14.6); RBC Distribution Width SD 41.6 fl (35.1-43.9); Red Blood Count 4.27 M/mm3 (4.2-5.4); White Blood Count 9.9 K/mm3 (4.4-11.0)
[2024-05-02 12:07] LABS: Hemoglobin A1c 4.8 % (3.8-5.6)
[2024-05-02 12:44] LABS: HIV - WCH Non-Reactive (Nonreactive); Hepatitis B Surface Antigen Non-Reactive (Nonreactive); Hepatitis C Antibody Non-Reactive (Nonreactive); Rubella IgG Equiv (Nonreactive); Syphilis Antibodies Non-reactive
== END | disposition home or self-care (01) ==
LOC: PAVLAB 11:16
PROVIDERS: Referring Provider Advanced Practice Midwife; Visit Provider Advanced Practice Midwife
DX: Z34.01 Encounter for supervision of normal first pregnancy, first trimester (principal)
CPT/HCPCS: 36415; 83036; 85025; 86703; 86762; 86780; 86803; 86850; 86900; 86901; 87340

== ENCOUNTER → 2024-06-16 | Outpatient (CLI) | payer MEDICAID, SELFPAY ==
[2024-06-19 13:34] LABS: Miscellaneous Lab Procedure A
== END | disposition home or self-care (01) ==
PROVIDERS: Referring Provider Nurse Practitioner Women's Health; Visit Provider Nurse Practitioner Women's Health
DX: Z34.90 Encounter for supervision of normal pregnancy, unspecified, unspecified trimester (principal); Z3A.00 Weeks of gestation of pregnancy not specified
CPT/HCPCS: 36415

== ENCOUNTER → 2024-09-11 | Outpatient (CLI) | payer MEDICAID, SELFPAY ==
[2024-09-11 14:49] LABS: Absolute Lymphocyte Count 1.49 X10^3/uL (0.83-4.51); Absolute Neutrophil Count 5.6 X10^3/uL (2.0-7.7); Basophil# 0.01 X10^3/uL; Basophil% 0.1 % (0-1); Eosinophil# 0.05 X10^3/uL; Eosinophils% 0.6 % (0-5); Hematocrit 36.2 % (37-47); Hemoglobin 12.2 g/dL (12.0-15.0); Lymphocyte # 1.49 X10^3/ul (0.83-4.51); Mean Corp Hgb Conc 33.7 g/dL (32-36); Mean Corpuscular Hgb 31.8 pg (27.0-32.0); Mean Corpuscular Volume 94.3 fL (81-99); Mean Platelet Vol. 9.8 fl (6.2-12.0); Monocyte# 0.72 X10^3/uL; Monocyte% 9.2 % (0-10); NRBC Flagged by Analyzer 0 % (0-5); Neutrophil # 5.55 X10^3/uL (2.7-7.7); Neutrophil % 70.7 % (47-70); Platelet Count 235 K/mm3 (150-450); RBC Distribution Width CV 13.8 % (11.6-14.6); RBC Distribution Width SD 47.8 fl (35.1-43.9); Red Blood Count 3.84 M/mm3 (4.2-5.4); White Blood Count 7.9 K/mm3 (4.4-11.0)
[2024-09-11 15:04] LABS: Glucose Challenge Gest 1H 50g 88 mg/dL (70-140)
[2024-09-11 15:50] LABS: HIV - WCH Non-Reactive (Nonreactive); Syphilis Antibodies Non-reactive
== END | disposition home or self-care (01) ==
LOC: BWCLAB 13:24
PROVIDERS: Obstetrics & Gynecology; Referring Provider Obstetrics & Gynecology; Visit Provider Obstetrics & Gynecology
DX: O09.92 Supervision of high risk pregnancy, unspecified, second trimester (principal); Z13.1 Encounter for screening for diabetes mellitus; Z3A.00 Weeks of gestation of pregnancy not specified
CPT/HCPCS: 36415; 82950; 85025; 86703; 86780

== ENCOUNTER → 2024-11-05 | Outpatient (CLI) | payer MEDICAID, SELFPAY | END | disposition home or self-care (01) | LOC: LABSPEC 14:56 | PROVIDERS: Referring Provider Obstetrics & Gynecology; Visit Provider Obstetrics & Gynecology | DX: O09.93 Supervision of high risk pregnancy, unspecified, third trimester (principal); Z3A.00 Weeks of gestation of pregnancy not specified | CPT/HCPCS: 87077; 87081; 87186 ==

== ENCOUNTER 2024-11-16 07:45 | Inpatient (IN) | payer MEDICAID, SELFPAY ==
[2024-11-16] VITALS (53 sets, daily range): BP systolic 90–126; BP diastolic 51–81; PULSE 75–116; RESP 16–18; TEMP 36.3–36.9; O2SAT 96–100; BMI 39.6
[2024-11-16 07:45] LABS: ROM Internal Control Test YES-OK TO RESULT pt. (Internal QC); ROM Patient Test POSITIVE (Negative)
[2024-11-16 07:46] LABS: Record Kit Lot#, ROM+ K2871
[2024-11-16] MEDS: Lactated Ringers 1,000 ML 50 ML IV ×2 (09:00→14:02)
[2024-11-16] MEDS: Penicillin G Pot 5,000,000 UNITS in 0.9% Normal Saline (100mL MB+) 100 ML 150 UNITS IV (09:11)
[2024-11-16 09:26] LABS: Absolute Lymphocyte Count 2.06 X10^3/uL (0.83-4.51); Absolute Neutrophil Count 7.9 X10^3/uL (2.0-7.7); Basophil# 0.03 X10^3/uL; Basophil% 0.3 % (0-1); Eosinophils% 0.9 % (0-5); Hematocrit 40.1 % (37-47); Hemoglobin 13.4 g/dL (12.0-15.0); Lymphocyte # 2.06 X10^3/ul (0.83-4.51); Lymphocyte % 18.7 % (19-41); Mean Corp Hgb Conc 33.4 g/dL (32-36); Mean Corpuscular Hgb 31.1 pg (27.0-32.0); Mean Platelet Vol. 10.7 fl (6.2-12.0); Monocyte# 0.83 X10^3/uL; Monocyte% 7.5 % (0-10); NRBC Flagged by Analyzer 0 % (0-5); Neutrophil # 7.94 X10^3/uL (2.7-7.7); Neutrophil % 72.1 % (47-70); Platelet Count 241 K/mm3 (150-450); RBC Distribution Width CV 13.7 % (11.6-14.6); RBC Distribution Width SD 46.7 fl (35.1-43.9); Red Blood Count 4.31 M/mm3 (4.2-5.4)
[2024-11-16 10:09] LABS: Syphilis Antibodies Non-reactive
--- NOTE | 2024-11-16 10:33 | HP.PCM.OB_ITS ---
HPI - General General Date of Admission: 11/16/24 HPI Narrative LLUVIA HOLLINGSWORTH, is a 29 y/o @ 38 weeks 5 days who presents to L&D with the complaint of leaking fluid starting at 5 am. She was not chaitanya initially but has started to supervisor opening and picking in the last hour with contractions every 3-4 minutes Maternal Data Information RUFINA Calculator Estimated Delivery Date Method Current WG Current Estimate 11/27/24 LMP (Certain) 38w 3d PFSH PFS Medical History Spontaneous vaginal delivery Spontaneous onset of labor Uterine contractions Low-lying placenta in second trimester Supervision of high-risk History of depression Home Medications ?Medication ?Instructions ?Recorded ?Last Taken ?Type multivitamin no.47-iron fum 27 1 cap PO DAILY pergnanc y 04/18/24 11/15/24 History mg-folate no.1 1 mg-dha 300 mg capsule (PNV-DHA) Allergy/AdvReac Type Severity Reaction Status Date / Time No Known Allergies Allergy Verified 11/16/24 07:07 Family History Aunt Ovarian cancer, Onset Age: 45 Maternal Aunt Mother Miscarriage 2 or 3 miscarriages- before and after of pt. Surgical History (Updated 11/16/24 @ 08:26 by Veronique Viveros) History of surgery Social History adopted: No household members: significant other and children housing: house number of children: 1 current occupational status: unemployed current occupation: [employer] current occupational exposures/hazards: No pets and animals: Yes (not manage litterbox) pets and animals: cat(s) and dog(s) history of recent travel: No ([place]) sexually active: Yes Smoking Status: Former smoker alcohol intake: former details: rarely drinks, special occasions, not while substance use type: does not use well-balanced diet: daily or most days caffeine: No eating out: 1-3 times/week during the past year weight has: remained stable what type of physical activity do you participate in: walking frequency: daily duration: 15-30 minutes/day chriss/hoahaoism: None seatbelt use: always do you feel safe at home: Yes additional social history: J Luis - Self employed History 2 Elective abortions Hx Para 1 Spontaneous abortions Hx # Term Pregnancies 1 Ectopic pregnancies Hx # Pregnancies Multiple births # of living children 1 Past Pregnancies Del. Date Name GA/Weeks Outcome Route Bth Weight Gen Labor Lgth Anesthesia Del Locatn Provider FOB 02/06/23 [facility] 38 live - full term 8#4oz Male epid ural [facility] J Luis Visit Details Expected Delivery Route/Plan Labor Preferences- CB/BF classes: [] labor support person: [] labor intervention preferences: [] pain management options preferred: [] cut cord/dad catch: [] : [] PP control planned: [] discussed possible routes of delivery and associated risks: [] special requests: [] Plans Covid status: [] Flu vaccine: no Tdap vaccine: [] Rhogam: na LARC form signed: [] Problem list reviewed and updated with the most current plan of care details and appropriate orders placed. Relevant counseling for the gestational age provided. Continue routine care and follow up unless otherwise noted in visit notes/problem list details OB Flowsheet Initial Weight: Not Recorded Date -?-?-?-?-?-?-?-?-?-?-?-?- EGA Weight BP Urine Prot -?-?-?-?-?-?-?-?-?-?-?-?- Glucose FHR FuHt Pres Dilation -?-?-?-?-?-?-?-?-?-?-?-?- Effaced St Visit Note 04/22/24 -?-?-?-?-?-?-?-?-?-?-?-?- 8w 5d 188 lb 2 oz 117/66 -?-?-?-?-?-?-?-?--?-?-?-?- 180 -?-?-?-?-?-?-?-?-?-?-?-?- KW- cons with da hilda. 21mm. accepts NIPT. 05/20/24 -?-?-?-?-?-?-?-?-?-?-?-?- 12w 5d 191 lb 107/69 Negative -?-?-?-?-?-?-?-?-?-?-?-?- Negative 160 -?-?-?-?-?-?-?-?-?-?-?-?- SM- no vb crmapi ng 06/16/24 -?-?-?-?-?-?-?-?-?-?-?-?- 16w 4d 195 lb 8 oz 100/68 Nega tive -?-?-?-?-?-?-?-?-?-?-?-?- Negative 152 -?-?-?-?-?-?-?-?-?-?-?-?- MH-No VB. Noting round ligament pain. Wants AFP. MFM US anatomy ordered. Also echo for 22 wk 07/14/24 -?-?-?-?-?-?-?-?-?-?-?-?- 20w 4d 204 lb 102/63 Negative -?-?-?-?-?-?-?-?-?-?-?-?- Negative 155 20 -?-?-?-?-?-?-?-?-?-?-?-?- KW- no vb/crampi ng. good fm. anatomy US nl. 08/13/24 -?-?-?-?-?-?-?-?-?-?-?-?- 24w 6d 211 lb 6 oz 105/72 Nega tive -?-?-?-?-?-?-?-?-?-?-?-?- Negative 161 24 -?-?-?-?-?-?-?-?-?-?-?-?- MH-No VB, LOF. G ood FM. Denies concerns 09/11/24 -?-?-?-?-?-?-?-?-?-?-?-?- 29w 0d 211 lb 4 oz 112/73 Nega tive -?-?-?-?-?-?-?-?-?-?-?-?- Negative 150 29 -?-?-?-?-?-?-?-?-?-?-?-?- JV_ gct done tod ay. results pending .declines tdap today but may do it next visit. no other complaints. just getting over GI virus 09/26/24 -?-?-?-?-?-?-?-?-?-?-?-?- 31w 1d 217 lb 4 oz 112/75 Trac e -?-?-?-?-?-?-?-?-?-?-?-?- Negative 150 32 Breech -?-?-?-?-?-?-?-?-?-?-?-?- LC- no vb/ctx/lo f. good fm. tdap next visit. larc done today 10/07/24 -?-?-?-?-?-?-?-?-?-?-?-?- 32w 5d 220 lb 6 oz 122/70 Nega tive -?-?-?-?-?-?-?-?-?-?-?-?- Negative 141 33 -?-?-?-?-?-?-?-?-?-?-?-?- MH-No Vb, LOF. G ood FM. Denies concerns 10/21/24 -?-?-?-?-?-?-?-?-?-?-?-?- 34w 5d 225 lb 2 oz 110/60 Nega tive -?-?-?-?-?-?-?-?-?-?-?-?- Negative 140 34 -?-?-?-?-?-?-?-?-?-?-?-?- SM- no vb lof go od fm no reuglar ctx co low back pain 11/05/24 -?-?-?-?-?-?-?-?-?-?-?-?- 36w 6d 228 lb 8 oz 124/74 Nega tive -?-?-?-?-?-?-?-?-?-?-?-?- Negative 145 37.5 Cephalic 1 -?-?-?-?-?-?-?-?-?-?-?-?- 0 -4 JV- gbs co llected today. no complaints other than some gio garcia. 11/13/24 -?-?-?-?-?-?-?-?-?-?-?-?- 38w 0d 231 lb 131/83 Negative -?-?-?-?-?-?-?-?-?-?-?-?- Negative 140 40 Cephalic 1 -?-?-?-?-?-?-?-?-?-?-?-?- -4 KW- no v b/lof/regular ctx. good fm. growth US ordered ROS Constitutional Constitutional: Denies change in weight, fatigue, fever(s), headache(s), poor appetite or weakness Eyes Eyes: Denies blurry vision, change in vision, seeing flashes or spots in vision ENT HEENT: Denies dizziness, headache(s), loss taste/smell or sore throat Cardiovascular Cardiovascular: Denies chest pain, dizziness, dyspnea, irregular heart rhythm, leg edema, palpitations, rapid heart rate or vomiting Respiratory/Chest Respiratory/Chest: Denies chest tightness, cough, dyspnea or breast pain Gastrointestinal Gastrointestinal: Denies abdominal pain, anorexia, constipation, cramping, diarrhea, hemorrhoids, vomiting or weight changes Genitourinary Genitourinary: Denies dysuria, flank pain, genital lesions, genital pain, urinary frequency or urinary urgency Musculoskeletal Musculoskeletal: Denies back pain, difficulty walking, joint pain, limited range of motion, muscle cramps or numbness Integumentary Integumentary: Denies lesions or unusual bruising Neurologic Neurologic: Denies abnormal movements, abnormal speech, dizziness, numbness, seizure-like activity or syncope Psychiatric Psychiatric: Denies anxiety, behavioral changes, change in appetite, change in libido, cognitive impairment, confusion, depression, difficulty concentrating, hallucinations or suicidal thoughts Endocrine Endocrinology: Denies excessive sweating, polydipsia or polyuria Hematologic/Lymphatic Hematologic/Lymphatic: Denies easy bleeding, easy bruising or lymphadenopathy Allergic/Immunologic Allergic/Immunologic: Denies itchy eyes, lip swelling, seasonal rhinorrhea, rhinitis, throat swelling, tongue swelling, eczemia, wheezing or asthma Vital Signs Vital Signs Vital Signs: 11/16/24 06:52 11/16/24 06:52 11/16/24 06:52 Temperature Temperature Source Pulse Rate 96 Respiratory Rate Blood Pressure 124/76 H BP Systolic 124 BP Diastolic 76 Pulse Ox 97 11/16/24 06:52 11/16/24 06:52 11/16/24 06:52 Temperature 97.6 F L Temperature Source Temporal Pulse Rate Respiratory Rate 18 Blood Pressure BP Systolic BP Diastolic Pulse Ox 11/16/24 10:30 11/16/24 10:30 11/16/24 10:30 Temperature Temperature Source Oral Pulse Rate 90 Respiratory Rate Blood Pressure 117/79 BP Systolic 117 BP Diastolic 79 Pulse Ox 11/16/24 10:30 11/16/24 10:30 11/16/24 10:30 Temperature 98.3 F Temperature Source Pulse Rate Respiratory Rate 16 Blood Pressure BP Systolic BP Diastolic Pulse Ox 97 Weight Weight: 231 lb Body Mass Index (BMI) 39.6 Physical Exam Const alert, oriented x3, no apparent distress and healthy appearing General Appearance: cooperative; Negative for anxious HEENT normocephalic Face and Sinus: normal facial exam Eyes EOMs intact bilaterally and no scleral icterus General Eye: normal appearance of both eyes Neck full ROM and supple Lymph Lymphatic: no lymphadenopathy noted Chest Chest: abnormal inspection of the chest Resp normal respiratory effort Effort and Inspection: able to speak in complete sentences Cardio regular rate GI soft to palpation and non-tender Inspection: gravid Palpation: soft; Negative for tender external exam normal Amniotic Fluid: ROM+plus Back/Spine no CVA tenderness Extremity normal to inspection, full ROM and no clubbing, cyanosis or edema General Extremity: Negative for calf tenderness or edema Skin Lesions: no lesions Rashes: no rashes Psych mental status grossly normal Labs Labs Labs: Blood Type A POSITIVE Antibody Screen NEGATIVE Hct 40.1 % (37-47) Hgb 13.4 g/dL (12.0-15.0) Syphilis Total Ab Non-reactive Rubella IgG Antibody Equiv (Nonreactive) Hep Bs Antigen Non-Reactive (Nonreactive) Hepatitis C Antibody Non-Reactive (Nonreactive) Chlamydia DNA (ANDER) Negative (Negative) N.gonorrhoeae DNA (ANDER) Negative (Negative) HIV 1&2 Antibody Non-Reactive (Nonreactive) Glucose 1 Hr 50 gm 88 mg/dL (70-140) Rhogam given: No Miscellaneous Test A Assessment & Plan (1) Positive GBS test: (2) Rubella non-immune status, antepartum: COMMENT: offer MMR PP (3) Obesity (BMI 30.0-34.9): COMMENT: HgbA1c 1 TM. BMI 32. encouraged healthy weight gain (4) Supervision of high-risk : QUALIFIERS: Trimester: third trimester Qualified Code(s): O09.93 - Supervision of high risk , unspecified, third trimester COMMENT: PRR,, RUFINA 11/27/24, girl Keysha Ahuja, J Luis (5) : QUALIFIERS: Weeks of gestation: 38 weeks Qualified Code(s): Z3A.38 - 38 weeks gestation of COMMENT: normal anatomy, low risk NIPT. carrier declined. AFP neg (6) LGSIL on Pap smear of cervix: COMMENT: colp normal on 08/17/22. rpt pap post . 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 MFM anatomy scan, echo @ 22 wks:nl (8) History of depression: COMMENT: untreated, feeling good now. PLAN: Plan Patient presents IOL, plan management for with pitocin Pain management: plans epidural. GBS positive- pcn started . Management of any complications: see above I have reviewed the [facility] and made any clinically relevant updates.
[2024-11-16] MEDS: Oxytocin 15 Units/NS 250ml 15 UNITS/250 ML IV.SOLN 2 UNITS IV (11:34)
[2024-11-16] MEDS: Hydrocortisone 2.5% Ointment 20 gm tube 1 APPLIC TOPICAL (11:54)
[2024-11-16] MEDS: Penicillin G 3,000,000 Units 50 ML 100 UNITS IV ×2 (13:24→18:03)
[2024-11-16] MEDS: Lactated Ringers 1,000 ML 200 ML IV (15:39)
[2024-11-16] MEDS: fentaNYL-bupivacaine (epidural) 100 ML BAG EPIDURAL (15:51)
--- NOTE | 2024-11-16 17:56 | PCM.PN.BLA ---
Progress Note patient is comfortable with epidural now. nurse is struggling to keep the monitor on and had to decrease the pitocin for tachysystole. She consents to internal monitors current tracing: FHT: 150 Moderate variability reactive no decelerations category I tracing Flushing: 1-4 minutes Contractions cx is 4/80/0 mid position and soft reviewed tracing abnormalities since last note: no changes A/P: srom- continue pitocin. making cervical change slowly
[2024-11-16] MEDS: LACTATED RINGERS 500 ML 999 ML IV (19:46)
--- NOTE | 2024-11-16 21:15 | OB.VAGDELI_ITS ---
Assessment & Plan (1) Uterine size date discrepancy : (2) Positive GBS test: (3) Rubella non-immune status, antepartum: COMMENT: offer MMR PP (4) Obesity (BMI 30.0-34.9): COMMENT: HgbA1c 1 TM. BMI 32. encouraged healthy weight gain (5) Supervision of high-risk : QUALIFIERS: Trimester: third trimester Qualified Code(s): O09.93 - Supervision of high risk , unspecified, third trimester COMMENT: PRR,, RUFINA 11/27/24, girl Keysha Ahuja, J Luis (6) : QUALIFIERS: Weeks of gestation: 38 weeks Qualified Code(s): Z3A.38 - 38 weeks gestation of COMMENT: normal anatomy, low risk NIPT. carrier declined. AFP neg (7) LGSIL on Pap smear of cervix: COMMENT: colp normal on 08/17/22. rpt pap post . 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 MFM anatomy scan, echo @ 22 wks:nl (9) History of depression: COMMENT: untreated, feeling good now. Maternal Data Information RUFINA Calculator Estimated Delivery Date Method Current WG Current Estimate 11/27/24 LMP (Certain) 38w 3d Final RUFINA: 11/27/24 Final RUFINA Source: LMP Vaginal Delivery Maternal Presentation Maternal Presentation: Spontaneous Rupture of Membranes Type of Induction: Pitocin Vaginal Delivery Information Procedure Performed: Spontaneous Vaginal Delivery Surgeon/Practitioner: Geni De Jesus Date of Procedure: 11/16/24 Pre-Procedure Diagnosis: 29 y/o @ 38 weeks 3 days, SROM Post-Procedure Diagnosis: 29 y/o @ 38 weeks 3 days, SROM Type of anesthesia: Epidural Estimated Blood Loss: 100cc Time of Delivery: 20:56 Findings Description of procedure: Patient began pushing and delivered the head in the JENN presentation. The head was delivered atraumatically. The anterior and posterior shoulders delivered without complication followed by the rest of the and the was placed on the maternal abdomen. Delayed cord clamping was employed for approximately 60 seconds. Cord was clamped and cut and gentle traction was applied to the cord and the placenta delivered spontaneously immediately following it was noted to be intact with three-vessel cord. The perineum and vagina were inspected and noted to have no laceration. EBL was 100 cc. Patient and tolerated delivery well. Procedure findings: viable female infant apgars 9/9 Keysha Presentation: Vertex Amniotic Membrane Rupture Type: Spontaneous Amniotic Fluid Description: Clear Placental Delivery Description: Spontaneous Placenta Disposition: [facility] Specimen collected: No Cord Vessel Description: 3 Vessels Cord Entanglement: None Infant A Gender: Female (1 minute): 9 (5 minute): 9 Delayed Cord Clamping: Yes Lens Generating Machine Tender supervisory aide: No Post Vaginal Deli Medications given after delivery: IV Pitocin Episiotomy Description: None Laceration: None Complication Complications: No Procedures Urinary/Genital [id number]: [id number] Vaginal Delivery Only
--- NOTE | 2024-11-16 21:18 | DCINST_ITS ---
Discharge Instructions Diet Discharge Diet: No restrictions DC O2, CPAP, BIPAP needs Home O2 Discharge instructions: No Dressing / Incision Discharge Activity: Return to Normal Activity, May Not Drive (while taking narcotic pain medications.) and May Shower May resume sexual activity in: 4-6 weeks Dressing / Incision Call your doctor if your incision/area has: Continuous Slow Oozing, Sudden Increased Bleeding, Increased Pain/ Swelling, Increased Redness and Foul Smelling Discharge Follow Up Care Please Follow Up With: Geni De Jesus DO When: Call [phone] to make an appointment with your doctor in 6 weeks. If you had elevated blood pressure or 4th degree laceration, you will need to be seen in 2 weeks. Test Results: Test results from this visit will be discussed in further detail at your follow- up appointment, if applicable. Discharge Plan Admission Admit Date/Time: 11/16/24 07:45 Attending Provider: Geni De Jesus Primary Care Provider: Care Physician,No Primary Discharge Orders/Prescriptions Prescriptions: No Action PNV-DHA 27 mg iron-1 mg -300 mg capsule 1 cap PO DAILY Referrals / Follow Up: Care Physician,No Primary [Primary Care Provider] -
[2024-11-16] MEDS: Oxytocin 15 Units/NS 250ml 15 UNITS/250 ML IV.SOLN 83 UNITS IV (22:11)
[2024-11-17] MEDS: Acetaminophen 500 MG Tablet 1000 MG PO ×2 (04:04→12:29)
[2024-11-17 04:10] VITALS: BP 118/80; PULSE 96; RESP 16; TEMP 36.7; O2SAT 97
[2024-11-17 07:54] VITALS: BP 113/72; PULSE 85; RESP 17; TEMP 36.7
[2024-11-17] MEDS: Ibuprofen 600 MG Tablet PO ×2 (08:09→21:18)
--- NOTE | 2024-11-17 08:55 | PN.OBGYN_ITS ---
Subjective Subjective Patient doing well without complaints. Tolerating PO. Ambulating and voiding without difficulty. Feeding well. Denies chest pain, shortness of breath, calf pain/swelling, fevers, chills, lightheadedness. Objective Data Objective Data Vital Signs: Vital Signs Temp Pulse Resp BP Pulse Ox O2 Del Method 98.0 F 85 17 113/72 97 Room Air 11/17/24 07:54 11/17/24 07:54 11/17/24 07:54 11/17/24 07:54 11/17/24 04:10 11/17/24 07:54 Oxygen Delivery Method Room Air Weight: 231 lb Body Mass Index (BMI) 39.6 Intake & Output: Intake and Output for Last 24 Hours 11/15/24 11/16/24 11/17/24 23:59 23:59 23:59 Intake Total 2973.00 / 2973.00 250 / 250 Output Total 500 / 500 1200 / 1200 Balance 2473.00 / 2473.00 -950 / -950 Lab / Micro Data 11/16/24 09:00 Labs: Laboratory Results - last 24 hr 11/16/24 09:00: WBC 11.0, RBC 4.31, Hgb 13.4, Hct 40.1, MCV 93.0, MCH 31.1, MCHC 33.4, RDW Std Deviation 46.7 H, RDW Coeff of Eli 13.7, Plt Count 241, MPV 10.7, Immature Gran % (Auto) 0.500, Neut % (Auto) 72.1 H, Lymph % (Auto) 18.7 L, [place]ax % (Auto) 7.5, Eos % (Auto) 0.9, Baso % (Auto) 0.3, Absolute Neuts (auto) 7.9 H, Absolute Lymphs (auto) 2.06, Nucleated RBC % 0, Syphilis Total Ab Non-reactive, Blood Type A POSITIVE, Antibody Screen NEGATIVE ROS Constitutional Constitutional: Reports systems reviewed and no addt'l complaints, except as documented; Denies anorexia or headache(s) Cardiovascular Cardiovascular: Reports systems reviewed and no addt'l complaints, except as documented; Denies dizziness, dyspnea, nausea or tachypnea Respiratory/Chest Respiratory/Chest: Reports systems reviewed and no addt'l complaints, except as documented; Denies cough, dyspnea, shortness of breath at rest or tachypnea Gastrointestinal Gastrointestinal: Reports systems reviewed and no addt'l complaints, except as documented; Denies abdominal pain, constipation or nausea Genitourinary Genitourinary: Reports systems reviewed and no addt'l complaints, except as documented; Denies burning urination, difficulty urinating, dysuria, urinary frequency or urinary incontinence Musculoskeletal Musculoskeletal: Reports systems reviewed and no addt'l complaints, except as documented Integumentary Integumentary: Reports systems reviewed and no addt'l complaints, except as documented Neurologic Neurologic: Reports systems reviewed and no addt'l complaints, except as documented; Denies abnormal speech, dizziness or headache(s) Psychiatric Psychiatric: Reports systems reviewed and no addt'l complaints, except as documented Endocrine Endocrinology: Reports systems reviewed and no addt'l complaints, except as documented Hematologic/Lymphatic Hematologic/Lymphatic: Reports systems reviewed and no addt'l complaints, except as documented Physical Exam Const alert, oriented x3 and no apparent distress Neck full ROM Resp normal respiratory effort, normal air movement and no retractions Effort and Inspection: able to speak in complete sentences and symmetric chest movement GI soft to palpation Bladder / Kidney Exam: bladder normal to palpation Uterus Palpation: uterus fundus firm Extremity normal to inspection and full ROM Psych mental status grossly normal, thought process normal and cooperative Assessment & Plan (1) Vaginal delivery: PLAN: s/p PPD # 1 1. routine post delivery care 2. breast feeding- support given 3. rh positive 4. rubella immune (2) Uterine size date discrepancy : (3) Positive GBS test: (4) Rubella non-immune status, antepartum: COMMENT: offer MMR PP (5) Supervision of high-risk : QUALIFIERS: Trimester: third trimester Qualified Code(s): O09.93 - Supervision of high risk , unspecified, third trimester COMMENT: PRR,, RUFINA 11/27/24, girl Keysha Ahuja, J Luis (6) : QUALIFIERS: Weeks of gestation: 38 weeks Qualified Code(s): Z 3A.38 - 38 weeks gestation of COMMENT: normal anatomy, low risk NIPT. carrier declined. AFP neg (7) LGSIL on Pap smear of cervix: COMMENT: colp normal on 08/17/22. rpt pap post . 03/2023 LSIL and +Trich (8) Obesity (BMI 30.0-34.9): COMMENT: HgbA1c 1 TM. BMI 32. encouraged healthy weight gain (9) History of cardiac anomaly: COMMENT: patient had two holes in her heart at but closed spontaneously. MFM anatomy scan, echo @ 22 wks:nl (10) History of depression: COMMENT: untreated, feeling good now. Charges/Coding Multi Select Codes Urinary/Genital Urinary/Genital CPT Codes: No Charge
[2024-11-17 12:25] VITALS: BP 106/70; PULSE 81; RESP 18; TEMP 36.8
[2024-11-17 16:07] VITALS: BP 112/73; PULSE 87; RESP 17; TEMP 36.7
[2024-11-17 20:55] VITALS: BP 122/75; PULSE 86; RESP 15; TEMP 36.8; O2SAT 97
[2024-11-18 01:47] VITALS: BP 123/73; PULSE 78; RESP 16; TEMP 36.6; O2SAT 100
[2024-11-18 07:34] VITALS: BP 122/83; PULSE 80; RESP 16; TEMP 36.8; O2SAT 99
--- NOTE | 2024-11-18 07:52 | PCM.PN.OB ---
Subjective Subjective Patient doing well without complaints. Tolerating PO. Ambulating and voiding without difficulty. Feeding well. Denies chest pain, shortness of breath, calf pain/swelling, fevers, chills, lightheadedness. Objective Data Objective Data Vital Signs: Vital Signs Temp Pulse Resp BP Pulse Ox O2 Del Method 98.2 F 80 16 122/83 H 99 Room Air 11/18/24 07:34 11/18/24 07:34 11/18/24 07:34 11/18/24 07:34 11/18/24 07:34 11/18/24 07:34 Oxygen Delivery Method Room Air Weight: 231 lb Body Mass Index (BMI) 39.6 Intake & Output: Intake and Output for Last 24 Hours 11/16/24 11/17/24 11/18/24 23:59 23:59 23:59 Intake Total 2973.00 / 2973.00 250 / 250 Output Total 500 / 500 1200 / 1200 Balance 2473.00 / 2473.00 -950 / -950 Lab / Micro Data 11/16/24 09:00 Physical Exam Const alert and oriented x3 HEENT normocephalic Eyes PERRL Neck full ROM Resp normal respiratory effort GI soft to palpation GI Narrative: FF below U Assessment & Plan (1) Vaginal delivery: COMMENT: 11/16/24 PRIYA Chopra (2) Rubella non-immune status, antepartum: COMMENT: offer MMR PP PLAN: Plan s/p PPD # 2 1. routine post delivery care 2. breast feeding- support given 3. rh positive 4. rubella non immune 5. home today
--- NOTE | 2024-11-18 07:58 | DCINST_ITS ---
Discharge Instructions Diet Discharge Diet: No restrictions DC O2, CPAP, BIPAP needs Home O2 Discharge instructions: No Dressing / Incision Discharge Activity: Return to Normal Activity, May Not Drive (while taking narcotic pain medications.) and May Shower May resume sexual activity in: 4-6 weeks Additional Activity Instructions:: Nothing in the vagina for 4-6 weeks. You may return to work/school in 6 weeks. Dressing / Incision Call your doctor if your incision/area has: Continuous Slow Oozing, Sudden Increased Bleeding, Increased Pain/ Swelling, Increased Redness and Foul Smelling Discharge Follow Up Care Please Follow Up With: Geni De Jesus, DO When: Call to make an appointment with your doctor in 6 weeks. If you had elevated Blood Pressure or 4th degree laceration you will need to be seen in 2 weeks. Test Results: Test results from this visit will be discussed in further detail at your follow- up appointment, if applicable. Discharge Plan Admission Admit Date/Time: 11/16/24 07:45 Attending Provider: Geni De Jesus Primary Care Provider: Care Physician,Shana Primary Discharge Orders/Prescriptions Prescriptions: No Action PNV-DHA 27 mg iron-1 mg -300 mg capsule 1 cap PO DAILY Referrals / Follow Up: Care Physician,No Primary [Primary Care Provider] - Disposition Disposition (needs filled in before D/C Order can be placed): Home, Self Care
[2024-11-18 14:05] VITALS: BP 118/68; PULSE 89; RESP 18; TEMP 36.6; O2SAT 96
[2024-11-18] MEDS: Acetaminophen 500 MG Tablet 1000 MG PO (14:12)
--- NOTE | 2024-11-18 15:10 | CASEMGMT ---
Social Work Assessment - Labor and Delivery Unit Patient Address: [address] [place] [address] Phone number: [phone] Date and Time of Referral:?11/17/24, 0209 Referred By: Dr. De Jesus Date and time of intervention:? 11/18/24, 1230 Reason for Referral:?? mental health Sw completed chart review and acknowledges social work consult due to maternal mental health. Sw presented to bedside and introduced self to mother of baby (MOB- Lucy) and father of baby (FOB- J Luis Franks). Sw explained reason for sw involvement and completed psychosocial assessment. Informant:?? Medical record and mother of baby (MOB) and father of baby (FOB) History:? TEE is 29 year old female who is 2, para 1- now 2 following labor and delivery of . TEE received routine care during with [facility]. TEE presented to hospital and delivered baby via vaginal delivery on 11/16/24 at 38 weeks gestation. Baby girl named Keysha Santana, was born weighing 8lb 6oz with apgars of 9 and 9 at one and five minutes of life, respectfully. This is second baby for MOB and FOB together, they also have a 1 year old, Seymour. At this time TEE's mom and sister are caring for Seymour while parents are at the hospital. TEE reports that she currentloy resides with paternal grandpa, and states that there are no housing concerns- the home is safe and secure. TEE has reliable transportation and has obtained all necessary baby supplies, including: car seat, safe sleep space, clothes, diapers and wipes. TEE states that she graduated high school and has some college education but did not graduate. At this time TEE is unemployed and paternal grandpa and FOB provide for MOB financially. TEE is connected to community resources through [employer] and medical. FOB reports to being self employed. TEE reports to having been diagnosed with anxiety and depression, she is not currently prescribed any medications to help her manage symptoms. TEE states that she did not experience any baby blues or after her son was born, and currently reports to feeling well mentally- denies feeling anxious, sad or overwhelmed. TEE states that she has cried some here and there, but knows that some emotions are normal to experience after baby is born. Sw educated MOB on what is normal/ to be expected and at what point her symptoms may be a red flag and she should speak to a mental health provider. MOB expressed understanding. MOB denies substance use prior to and during , and does admit that her mom was an addict previously, but is now sober after going through treatment. MOB encouraged to utilize safe and healthy coping mechanisms opposed to seeking comfort from drugs and/ or alcohol. MOB expresses understanding. Assessment:?MOB and baby admitted following labor and delivery. MOB was receptive to meeting with sw and was open and talkative throughout completion of psychosocial assessment. MOB states that she and FOB have been together for five years after meeting while previously working together at [facility] [employer]. MOB denies any domestic violence or intimate partner violence. MOB states that she has a lot of natural supports in place and has obtained all necessary baby supplies. MOB reports to having a strong means with baby, which was demonstrated by MOB holding and caring for baby. MOB fed baby while meeting with sw and cared for her tenderly. Plan:??? MOB and baby to be discharged when medically ready. Handouts provided, including: safe sleep, shaken baby prevention, Help Me Grow, list of community resources and signs and symptoms of baby blues and depression/ anxiety. No further needs requested or indicated Chuck Dickerson, TECHNICIAN [employer], DIRECTOR OF GLOBAL MARKETING
== END 2024-11-18 17:45 | disposition home or self-care (01) | DRG 566 ==
LOC: WPOUT 08:13 → WP 08:14
PROVIDERS: Admitting Provider Obstetrics & Gynecology; Visit Provider Obstetrics & Gynecology
DX: O26.843 Uterine size-date discrepancy, third trimester (principal); E66.9 Obesity, unspecified; O99.213 Obesity complicating pregnancy, third trimester; O99.820 Streptococcus B carrier state complicating pregnancy; Z3A.38 38 weeks gestation of pregnancy; Z87.891 Personal history of nicotine dependence
CPT/HCPCS: 59025; 59050; 84112; 85025; 86780; 86850; 86900; 86901

== ENCOUNTER 2025-01-12 15:51 | Observation (INO) | payer MEDICAID, SELFPAY ==
[2025-01-12] VITALS (8 sets, daily range): BP systolic 100–136; BP diastolic 69–88; PULSE 74–103; RESP 15–19; TEMP 36.3–36.8; O2SAT 94–99; BMI 34.5; BMI 34.7
[2025-01-12 16:57] LABS: Absolute Lymphocyte Count 1.61 X10^3/uL (0.83-4.51); Absolute Neutrophil Count 15.4 X10^3/uL (2.0-7.7); Basophil# 0.06 X10^3/uL; Basophil% 0.3 % (0-1); Eosinophil# 0.27 X10^3/uL; Eosinophils% 1.4 % (0-5); Hematocrit 39.6 % (37-47); Hemoglobin 13.1 g/dL (12.0-15.0); Lymphocyte # 1.61 X10^3/ul (0.83-4.51); Lymphocyte % 8.6 % (19-41); Mean Corp Hgb Conc 33.1 g/dL (32-36); Mean Corpuscular Hgb 30.8 pg (27.0-32.0); Mean Platelet Vol. 9.9 fl (6.2-12.0); Monocyte# 1.32 X10^3/uL; NRBC Flagged by Analyzer 0 % (0-5); Neutrophil % 82.1 % (47-70); Platelet Count 307 K/mm3 (150-450); RBC Distribution Width CV 12.5 % (11.6-14.6); Red Blood Count 4.26 M/mm3 (4.2-5.4); White Blood Count 18.8 K/mm3 (4.4-11.0)
--- NOTE | 2025-01-12 17:08 | ED.VIS.BACK ---
HPI History of Present Illness Chief Complaint: Back [facility] Medical History Contraceptive management Spontaneous vaginal delivery Spontaneous onset of labor Uterine contractions Low-lying placenta in second trimester Supervision of high-risk History of depression Home Medications ?Medication ?Instructions ?Recorded ?Last Taken ?Type multivitamin no.47-iron fum 27 1 cap PO DAILY pergnancy 04/18/24 11/15/24 History mg-folate no.1 1 mg-dha 300 mg capsule (PNV-DHA) Allergy/AdvReac Type Severity Reaction Status Date / Time No Known Allergies Allergy Verified 12/29/24 15:29 Family History Aunt Ovarian cancer, Onset Age: 45 Maternal Aunt Mother Miscarriage 2 or 3 miscarriages- before and after of pt. Surgical History History of surgery Social History adopted: No household members: significant other and children housing: house number of children: 1 current occupational status: unemployed current occupation: [employer] current occupational exposures/hazards: No pets and animals: Yes (not manage litterbox) pets and animals: cat(s) and dog(s) history of recent travel: No ([place]) sexually active: Yes Smoking Status: Current some day smoker tobacco type: e-cigarettes alcohol intake: former details: rarely drinks, special occasions, not while substance use type: does not use well-balanced diet: daily or most days caffeine: No eating out: 1-3 times/week during the past year weight has: remained stable what type of physical activity do you participate in: walking frequency: daily duration: 15-30 minutes/day chriss/jain: None seatbelt use: always do you feel safe at home: Yes additional social history: J Luis - Self employed EXAM Physical Exam Const Vital Signs: 01/12/25 15:52 01/12/25 15:53 01/12/25 17:23 Temperature 97.4 F L 97.4 F L Temperature Source Oral Temporal Pulse Rate 101 H 103 H Respiratory Rate 19 H 18 Respiratory Effort Normal Non-Labored Respiratory Pattern Normal Blood Pressure 136/80 H 136/80 H Blood Pressure Mean 98 98 Pulse Ox 99 99 Oxygen Delivery Method Room Air Room Air 01/12/25 17:28 01/12/25 19:00 Temperature Temperature Source Pulse Rate 81 Respiratory Rate 16 Respiratory Effort Respiratory Pattern Blood Pressure 100/69 Blood Pressure Mean 79 Pulse Ox 98 96 Oxygen Delivery Method Room Air [facility] Narrative Medical decision making narrative: HISTORY OF PRESENT ILLNESS: Chief complaint: Back pain 29-year-old female G3, P2 presents with multiple complaints. She states the reason she presents to the ED was because she was concerned about lower abdominal pain began this morning. No she still has her appendix. Notes nausea. No severe pain in the right lower quadrant. Normal bowel movements. Normal urinary habits. No history of kidney stones. She is currently 8 weeks REVIEW OF SYSTEMS: Pertinent positives: Abdominal pain, left breast pain Pertinent negatives: Vomiting, vaginal bleeding PHYSICAL EXAM: Nursing triage notes reviewed, Vital signs reviewed Constitutional: please see [facility] HENT: MMM Eyes: Pupils equal round and reactive to light, Extraocular muscles intact Neck: No stridor, no JVD, full neck ROM Lungs: Clear to auscultation, No wheezing or rales. No increased work of breathing, no conversational dyspnea, no accessory muscle use, no nasal flaring. No respiratory distress noted Heart: Regular rate and rhythm, No murmurs, No rubs and No gallops, 2+ distal pulses (radial, femoral, posterior tibial) in all extremities Breast: Performed with Chetna JIN present showed signs of left breast redness, mastitis, no palpable abscess noted. Abdomen: Soft, right lower quadrant TTP but no rigidity, rebound or guarding, no obvious peritoneal signs, no palpable pulsatile abdominal masses, no auscultated abdominal bruit : No CVAT Extremities: No edema Neuro: No new focal neurological deficits, cranial nerves II through XII intact, 5/5 strength in all present extremities. Intact sensation to light touch in all present extremities, 2+ reflexes bilateral patella tendons. Skin: No rash or lesions noted MEDICAL DECISION MAKING: Chief Complaint: please see [facility] External records reviewed: Reviewed prior imaging studies, allergies Factors affecting care: none Social determinants of health: none History obtained from others: none Consults: General Surgery (Dr. Martin) [facility] Narrative: The patient was initially hemodynamically stable, afebrile saturating 99% on room air. Exam with right lower quadrant TTP. Left breast consistent with mastitis. Cannot palpate an obvious abscess. Initially treat the patient 1 L normal saline, 4 mg IV Zofran and 15 mg IV Toradol. I considered the following differential diagnosis: AAA, small bowel obstruction, abdominal perforation, appendicitis, pancreatitis, hepatobiliary pathology (acute cholecystitis), mesenteric ischemia, pathology (ie nephrolithiasis, pyelonephritis). ALL IMAGES (IF OBTAINED) HAVE BEEN PERSONALLY REVIEWED AND INTERPRETED BY MYSELF. CBC with leukocytosis suggestive of systemic summation, no anemia or thrombocytopenia noted BMP without evidence of significant electrolyte abnormalities, no anion gap, no acute kidney injury. LFTs with mild elevation alk phos and ALT, no evidence of hyperbilirubinemia Lipase is wnl indicating no pancreatic inflammation. Urine has Urinalysis shows no evidence of urinary inflammation suggestive of UTI CT scan of the abdomen pelvis with IV contrast showed evidence of acute appendicitis Urine test negative The synthesis of the patient's history, physical exam, labs images suggest likely acute appendicitis as well as mastitis. Patient was given Zosyn for antimicrobial prophylaxis for appendicitis and vancomycin for antimicrobial prophylaxis for mastitis. I discussed the case with general surgery Dr. Martin to recommend admitting to his service to await prompt operation in the a.m. Patient was admitted in stable condition. The patient and/or family, caregivers express understanding. The patient and/or family, caregivers agrees with the plan. Shared decision making: I will have a discussion with the patient and or visitors regarding risk/benefits of further testing or admission. They will be made aware of of the risk/benefits inherent in this decision they will be given the opportunity to voice understanding. Total critical care time today provided was at least 0 minutes. This excludes separately billable procedures. Critical care time (if documented) is secondary to the patient having high probability of clinically significant/life threatening deterioration in the patient's condition which required my urgent intervention. Impression: 1. Acute abdominal pain 2. Acute appendicitis 3. Mastitis Dispo: Discharge This note was generated with Localist dictation software. It may contain incorrect words, spelling, and punctuation that were not noted in review of the chart prior to signing. Lab Data Labs: Laboratory Results - last 24 hr 01/12/25 01/12/25 16:30 17:35 WBC 18.8 H RBC 4.26 Hgb 13.1 Hct 39.6 MCV 93.0 MCH 30.8 MCHC 33.1 RDW Std Deviation 43.0 RDW Coeff of Eli 12.5 Plt Count 307 MPV 9.9 Immature Gran % (Auto) 0.600 Neut % (Auto) 82.1 H Lymph % (Auto) 8.6 L [place] % (Auto) 7.0 Eos % (Auto) 1.4 Baso % (Auto) 0.3 Absolute Neuts (auto) 15.4 H Absolute Lymphs (auto) 1.61 Nucleated RBC % 0 Sodium 138 Potassium 4.2 Chloride 104 Carbon Dioxide 20.7 L Anion Gap 14 BUN 14 Creatinine 0.68 L Estim Creat Clear Calc 134.83 Est GFR (MDRD) Non-Af 122 BUN/Creatinine Ratio 21.3 H Glucose 99 Calcium 9.3 Total Bilirubin 0.46 AST 23 ALT 38 H Alkaline Phosphatase 152 H Total Protein 7.6 Albumin 4.3 Globulin 3.3 Albumin/Globulin Ratio 1.3 Lipase 21 Serum , Qual NEGATIVE Urine Color Yellow Urine Clarity Clear Urine pH 7.0 Ur Specific [place] 1.010 Urine Protein 15 H Urine Glucose (UA) Normal Urine Ketones Negative Urine Occult Blood 10 H Urine Nitrite Negative Urine Bilirubin Negative Urine Urobilinogen Normal Ur Leukocyte Esterase Negative Urine RBC 0 SEEN Urine WBC 0 SEEN Ur Squamous Epith Cells 0-5 SEEN Urine Bacteria RARE Urine Mucus 0 SEEN Radiography Diagnostic Testing: Clinical Impression(s) from Imaging Studies Abdomen/Pelvis CT 01/12/25 17:58 IMPRESSION: Mildly dilated appendix with wall thickening mild hyperemia surrounding soft tissue stranding, concerning for acute appendicitis. Hepatomegaly and a 12 mm right hepatic lobe slightly enhancing lesion. Differential considerations include hemangioma, adenoma versus FNH. Recommend further evaluation with MRI of the liver with contrast. Reading Location: [facility] Discharge Plan Disposition Disposition: Acute Care Hospital [facility] Discharge Date/Time: 01/12/25 20:59
[2025-01-12 17:15] LABS: ALB/GLOB Ratio 1.3 RATIO (0.9-2.4); AST(SGOT) 23 U/L (<=31); Alanine Aminotransfer ALT/SGPT 38 U/L (<=34); Albumin, Serum 4.3 g/dL (3.5-5.0); Alkaline Phosphatase 152 U/L (35-104); Anion Gap 14 (5-15); BUN 14 mg/dL (4-19); BUN/Creat Ratio 21.3 RATIO (10-20); Calcium,Total 9.3 mg/dL (7.6-11.0); Carbon Dioxide 20.7 mmol/L (21.0-32.0); Chloride 104 mmol/L (98-108); Creatinine, Serum 0.68 mg/dL (0.70-1.20); EST Glomerular Filtration Rate 122 (>60); Estimated Creatinine Clearance 134.83 ml/min (50-250); Globulin 3.3 g/dL (2.2-4.2); Glucose 99 mg/dL (70-99); Lipase 21 U/L (13-75); Potassium 4.2 mmol/L (3.3-5.1); Protein, Total 7.6 g/dL (5.9-8.4); Sodium Level 138 mmol/L (133-145); Total Bilirubin 0.46 mg/dL (0.00-1.30)
[2025-01-12 17:18] LABS: Internal QC Validated? YES +Cl - CLEAR BKGD; Pregnancy, Serum, hCG Quali. NEGATIVE Negative
--- NOTE | 2025-01-12 17:58 | CT_ITS ---
PROCEDURE: ABDOMEN/PELVIS W IV CONT ONLY 01/12/2025 REASON FOR EXAM: RIGHT LOWER QUADRANT ABDOMINAL PAIN TECHNIQUE: Abdomen and pelvis CT with intravenous contrast. Coronal and Sagittal reconstruction series were provided. PATIENT PREPARATION: Per protocol ORAL CONTRAST TYPE: None. AMOUNT: mL CONTRAST: Omnipaque 350 VOLUME: 100 mL Gauge IV One or more dose reduction techniques were used (e.g., Automated exposure control, adjustment of the mA and/or kV according to patient size, use of iterative reconstruction technique. COMPARISON: None FINDINGS: Lung bases: Unremarkable. Liver: Hepatomegaly, craniocaudal length 19.7 cm. Homogeneous attenuation. 12 mm posterior right hepatic lobe slightly enhancing lesion (series 2, image 22).. Gallbladder: No intrahepatic or extrahepatic ductal dilation. Gallbladder is unremarkable. Spleen: Normal size. Pancreas: Normal size without evidence of mass surrounding inflammation or ductal dilation. Adrenals: Unremarkable. Kidneys: Normal renal sizes. No hydronephrosis. Bladder: No abnormal urinary bladder wall thickening. Reproductive Organs: Bilateral adnexal cysts. Small amount of fluid within the endometrial canal. Bowel: Stomach is unremarkable. No bowel dilation. Descending colon and rectosigmoid wall thickening and mild surrounding mesenteric soft tissue stranding, concerning for infectious colitis. Moderate colonic stool. Appendix: Mildly dilated appendix with wall thickening, submucosal hyperemia and surrounding soft tissue stranding (series 2 images 73-86, series 601 image 56). Findings suggestive of acute appendicitis. Lymph nodes: Unremarkable. Vasculature: The abdominal aorta and IVC are normal. Peritoneum / Retroperitoneum: No pneumoperitoneum. No ascites. Bones: No acute osseous abnormality. CT/Abdomen/Pelvis W IV Cont ONLY IMPRESSION: Mildly dilated appendix with wall thickening mild hyperemia surrounding soft ti ssue stranding, concerning for acute appendicitis. Hepatomegaly and a 12 mm right hepatic lobe slightly enhancing lesion. Differe ntial considerations include hemangioma, adenoma versus FNH. Recommend further evaluation with MRI of the liver with contrast. Reading Location: [facility]
[2025-01-12] MEDS: Ondansetron 4 MG/2 ML Vial IV (18:34)
[2025-01-12] MEDS: 0.9% Normal Saline (1000mL) 1,000 ML 999 ML IV (18:34)
[2025-01-12] MEDS: Ketorolac 15 MG/ML Vial IV (18:35)
[2025-01-12 18:37] LABS: Mucous, Urine 0 SEEN /hpf (<or=2+); Red Blood Cells-Urine 0 SEEN /hpf (0-5); White Blood Cells 0 SEEN /hpf (0-5)
[2025-01-12 18:39] LABS: Color, Urine Yellow (Yellow); Glucose, Dipstick Normal (Normal); Ketone-Dipstick Negative (Negative); Leukocyte Esterase-Dipstick Negative /ul (Negative); Nitrite-Dipstick Negative (Negative); Occult Blood-Urine 10 /ul (Negative); Protein-Dipstick 15 mg/dl (Negative); Urine Bilirubin Dipstick Negative (Negative); Urine Clarity Clear (Clear); Urine Urobilinogen Normal (Normal)
[2025-01-12 18:47] LABS: Bacteria RARE /hpf (None Seen); Squamous Epithelial Cells - UA 0-5 SEEN /hpf (5-10)
--- NOTE | 2025-01-12 20:31 | HP.PCM.SX_ITS ---
HPI - General HPI Narrative LLUVIA HOLLINGSWORTH, is a 29 F who presents with lower abdominal pain. Patient says that yesterday she was feeling like she had the chills and then she was feeling little bit better but then this morning she started having severe pain. She has the pain is in the lower abdomen area. She denies nausea or vomiting. She denies fever. [facility] Medical History (Updated 01/12/25 @ 20:[address] Anthony Martin MD) Contraceptive management Spontaneous vaginal delivery Spontaneous onset of labor Uterine contractions Low-lying placenta in second trimester Supervision of high-risk History of depression Home Medications ?Medication ?Instructions ?Recorded ?Last Taken ?Type multivitamin no.47-iron fum 27 1 cap PO DAILY pergnanc y 04/18/24 11/15/24 History mg-folate no.1 1 mg-dha 300 mg capsule (PNV-DHA) Allergy/AdvReac Type Severity Reaction Status Date / Time No Known Allergies Allergy Verified 12/29/24 15:29 Family History Aunt Ovarian cancer, Onset Age: 45 Maternal Aunt Mother Miscarriage 2 or 3 miscarriages- before and after of pt. Surgical History History of surgery Social History adopted: No household members: significant other and children housing: house number of children: 1 current occupational status: unemployed current occupation: [employer] current occupational exposures/hazards: No pets and animals: Yes (not manage litterbox) pets and animals: cat(s) and dog(s) history of recent travel: No ([place]) sexually active: Yes Smoking Status: Current some day smoker tobacco type: e-cigarettes alcohol intake: former details: rarely drinks, special occasions, not while substance use type: does not use well-balanced diet: daily or most days caffeine: No eating out: 1-3 times/week during the past year weight has: remained stable what type of physical activity do you participate in: walking frequency: daily duration: 15-30 minutes/day chriss/moravian: None seatbelt use: always do you feel safe at home: Yes additional social history: J Luis - Self employed Vital Signs Vital Signs Vital Signs: 01/12/25 15:52 01/12/25 15:53 01/12/25 17:23 Temperature 97.4 F L 97.4 F L Temperature Source Oral Temporal Pulse Rate 101 H 103 H Respiratory Rate 19 H 18 Respiratory Effort Normal Non-Labored Respiratory Pattern Normal Blood Pressure 136/80 H 136/80 H Blood Pressure Mean 98 98 Pulse Ox 99 99 Oxygen Delivery Method Room Air Room Air 01/12/25 17:28 01/12/25 19:00 Temperature Temperature Source Pulse Rate 81 Respiratory Rate 16 Respiratory Effort Respiratory Pattern Blood Pressure 100/69 Blood Pressure Mean 79 Pulse Ox 98 96 Oxygen Delivery Method Room Air Weight Weight: 201 lb 4.8 oz Body Mass Index (BMI) 34.5 Physical Exam Const oriented x3 and no apparent distress Resp normal respiratory effort Cardio regular rate and regular rhythm GI soft to palpation Palpation: tender RLQ and suprapubic Extremity normal to inspection Results Lab / Micro Data 01/12/25 16:30 01/12/25 16:30 Labs: Laboratory Results - last 24 hr 01/12/25 16:30: WBC 18.8 H, RBC 4.26, Hgb 13.1, Hct 39.6, MCV 93.0, MCH 30.8, MCHC 33.1, RDW Std Deviation 43.0, RDW Coeff of Eli 12.5, Plt Count 307, MPV 9.9, Immature Gran % (Auto) 0.600, Neut % (Auto) 82.1 H, Lymph % (Auto) 8.6 L, [place] % (Auto) 7.0, Eos % (Auto) 1.4, Baso % (Auto) 0.3, Absolute Neuts (auto) 15.4 H, Absolute Lymphs (auto) 1.61, Nucleated RBC % 0, Sodium 138, Potassium 4.2, Chloride 104, Carbon Dioxide 20.7 L, Anion Gap 14, BUN 14, Creatinine 0.68 L, Estim Creat Clear Calc 134.83, Est GFR (MDRD) Non-Af 122, BUN/Creatinine Ratio 21.3 H, Glucose 99, Calcium 9.3, Total Bilirubin 0.46, AST 23, ALT 38 H, A lkaline Phosphatase 152 H, Total Protein 7.6, Albumin 4.3, Globulin 3.3, Albumin/Globulin Ratio 1.3, Lipase 21, Serum , Qual NEGATIVE 01/12/25 17:35: Urine Color Yellow, Urine Clarity Clear, Urine pH 7.0, Ur Specific [place] 1.010, Urine Protein 15 H, Urine Glucose (UA) Normal, Urine Ketones Negative, Urine Occult Blood 10 H, Urine Nitrite Negative, Urine Bilirubin Negative, Urine Urobilinogen Normal, Ur Leukocyte Esterase Negative, Urine RBC 0 SEEN, Urine WBC 0 SEEN, Ur Squamous Epith Cells 0-5 SEEN, Urine Bacteria RARE, Urine Mucus 0 SEEN Imaging Radiology Impression Abdomen/Pelvis CT 01/12/25 17:58 IMPRESSION: Mildly dilated appendix with wall thickening mild hyperemia surrounding soft tissue stranding, concerning for acute appendicitis. Hepatomegaly and a 12 mm right hepatic lobe slightly enhancing lesion. Differential considerations include hemangioma, adenoma versus FNH. Recommend further evaluation with MRI of the liver with contrast. Reading Location: [facility] Assessment & Plan Assessment/Plan (1) Acute appendicitis: PLAN: The patient a CT scan which showed acute appendicitis. The patient has a white count and right lower quadrant pain as well as chills. I discussed performing a laparoscopic appendectomy in the morning. The patient understands the risks. I discussed the risks of bleeding, infection, injury other organs such as the bowel, bladder, ureter. Patient understands all the risks and is willing to proceed. Patient will be given antibiotics and admitted to the floor until surgery in the morning. Anthony Martin MD Pager: [facility] [address] [place] [address], [address] [place] [address] Office:
[2025-01-12] MEDS: Piperacil/Tazobactam 3.375 GM in 0.9% Normal Saline (50mL MB+) 50 ML IV (20:50)
[2025-01-12] MEDS: Vancomycin HCl 1,250 MG in 0.9% Normal Saline (250mL Bag) 250 ML 167 MG IV (21:39)
[2025-01-12] MEDS: 0.9% Normal Saline (1000mL) 1,000 ML 100 ML IV (21:54)
[2025-01-12] MEDS: Morphine 2 MG/ML Syringe IV (23:05)
[2025-01-13] VITALS (13 sets, daily range): BP systolic 90–131; BP diastolic 59–90; PULSE 56–116; RESP 15–18; TEMP 36.3–37.4; O2SAT 89–99; BMI 34.4
[2025-01-13] MEDS: Ketorolac 15 MG/ML Vial IV (04:04)
[2025-01-13] MEDS: Piperacil/Tazobactam 3.375 GM in 0.9% Normal Saline (50mL MB+) 50 ML IV ×3 (06:00→22:07)
--- NOTE | 2025-01-13 06:01 | PCM.PRE.AN2 ---
ASA Classification* ASA Classification ASA Classification: 2 and E Assessment & Plan Anesthesia* Anesthesia Assessment Anesthesia Assessment: Discussed sedation and/or anesthesia options, risks, benefits, and alternatives with patient/parents/legal guardian/POA. Questions invited. The patient/parents/legal guardian/POA seems to understand and agrees to proceed with anesthesia plan. Reviewed the physical assessment, medical history, allergy history and patient home medications list prior to surgery/procedure/anesthetic and documented any changes. Performed airway and anesthesia risk assessments. Anesthesia Type Anesthesia Type: General History Source History Obtained from:: Patient and Chart Anesthesia Focused Assessment* Temperature: 98.3 F Pulse Rate: 95 Blood Pressure: 104/59 Respiratory Rate: 15 Pulse Ox: 98 Oxygen Delivery Method: Room Air Airway Assessment Mouth opens: >3 cm Mallampati Score: III Teeth Condition: Intact Neck Range of motion (ROM): Full ROM Focused Labs Anesthesia Preop lab: CBC WBC 18.8 K/mm3 (4.4-11.0) H 01/12/25 16:30 01/12/25 RBC 4.26 M/mm3 (4.2-5.4) 01/12/25 16:30 01/12/25 Hgb 13.1 g/dL (12.0-15.0) 01/12/25 16:30 01/12/25 Hct 39.6 % (37-47) 01/12/25 16:30 01/12/25 Plt Count 307 K/mm3 (150-450) 01/12/25 16:30 01/12/25 CHEMISTRY Potassium 4.2 mmol/L (3.3-5.1) 01/12/25 16:30 01/12/25 Sodium 138 mmol/L (133-145) 01/12/25 16:30 01/12/25 BUN 14 mg/dL (4-19) 01/12/25 16:30 01/12/25 Creatinine 0.68 mg/dL (0.70-1.20) L 01/12/25 16:30 01/12/25 Glucose 99 mg/dL (70-99) 01/12/25 16:30 01/12/25 COAG Tst Clinic Negative 05/17/23 10:01 08/10/23 Pre-Assessment Diagnosis/Proposed Procedure Planned Operative Procedure(s): Laparoscopic appendectomy Anesthesia History Anesthesia History - human resources records clerk: Anesthesia History - human resources records clerk Hx Hospitalization Any Problems With Anesthesia No 01/12/25 21:33 Cholinesterase deficiency No 01/12/25 21:33 You/Your Family Experience No 01/12/25 21:33 fever (hyperthermia) with Relationship Recent Exposure to Contagious No 01/12/25 21:33 Disease Does patient have nerve No 01/12/25 21:33 stimulator Patient instructed to have No 01/12/25 21:33 device shut off --Does patient have Pacemaker No 01/13/25 04:08 or ICD? When Was Last Pacemaker Check QUESTION #4 FULL TEXT: You/Your Family Experience fever (hyperthermia) with Anesthesia Last Oral Intake Last Oral intake: Last Oral Intake NPO since 00:00 01/13/25 04:08 Meds taken in AM with sips of water? Meds patient instructed to take am of surgery PONV PONV - human resources records clerk: PONV - human resources records clerk Female HX of Motion Sickness HX of N/V After Surgery Non-Smoker Duration of Surgery greater than 60 minutes Number of Risk Factors PONV Score Height & Weight Height & Weight: Anesthesia: Height & Weight Height 5 ft 4 in 01/13/25 04:08 Weight: 91 kg 01/13/25 04:08 Body Mass Index (BMI) 34.4 01/13/25 04:08 Respiratory Assessment Respiratory Assessment - human resources records clerk: Respiratory Tract Infection Hx - human resources records clerk Hx Respiratory Tract Infection No 01/12/25 21:33 STOP Sleep Apnea STOP Sleep Apnea - human resources records clerk: STOP Sleep Apnea - human resources records clerk Hx Hypertension No 01/12/25 21:32 Hx Sleep Apnea No 01/12/25 21:32 CPAP BIPAP Do you snore loudly (louder Yes 01/12/25 21:32 than talking or can be heard Do you often feel tired/ No 01/12/25 21:32 fatigued/ sleepy during daytime? Has anyone observed you stop No 01/12/25 21:32 breathing during sleep? STOP Results Negative 01/12/25 21:32 QUESTION #5 FULL TEXT : Do you snore loudly (louder than talking or can be heard through closed doors)? Tobacco Use History Tobacco Use History - human resources records clerk: Tobacco Use History - human resources records clerk Tobacco Use Smoking Status Current some day smoker 01/12/25 21:32 Hx Tobacco Use Yes: Vaping-prior to 01/12/25 21:32 Years Smoking Packs Smoked per Day Smoking Cessation Date was within the last 15 years Hx Smoking Cessation Date 01/12/25 17:21 Hx Smoking Cessation Counseling Hematologic Medial History Hematologic Hx - human resources records clerk: Hematologic Medical Hx - contamination consultant Hx of Blood Transfusion No 01/12/25 21:32 Hx of Transfusion in last 3 No 01/12/25 21:32 Months Date of Last Transfusion (if within last 3 months) Ever experience any problems No 01/12/25 21:32 with transfusion(s)? Specify any problems Hx of Preganancy in last 3 No 01/12/25 21:32 Months Nurse Filling Out Transfusion DREDICK 01/12/25 21:32 & Questions: Date: 01/12/25 01/12/25 21:32 Time: 21:33 01/12/25 21:32 Patient unable to answer at this time (ie. confused, unrespo /Reproduction History /Reproductive History - human resources records clerk: /Reproductive Hx- human resources records clerk Hx Now No 01/12/25 21:33 Gestational Age (in weeks): EDC: Hx Hx Para Hx Section SAB Yes 01/12/25 21:33 Active Medications Active Medications: Current Medications Generic Name Dose Route Start Last Admin Trade Name Freq PRN Reason Stop Dose Admin Sodium Chloride 1,000 mls @ 100 mls/hr 01/12/25 20:35 01/12/25 21:54 IV 100 mls/hr .Q10H ANAYA Administration Piperacillin Sod/Tazobactam 50 mls @ 12.5 mls/hr 01/13/25 06:00 Sod 3.375 gm/ Sodium Chloride IV Q8 ANAYA Sodium Chloride 100 mls @ 15 mls/hr 01/12/25 21:28 IV .Q6H40M PRN Saline Flush Sodium Chloride 100 mls @ 15 mls/hr 01/12/25 21:28 IV .Q6H40M PRN Additional IVPB Infusion Ketorolac Tromethamine 15 mg 01/12/25 20:33 01/13/25 04:04 Ketorolac 15 Mg/Ml Vial IV 01/14/25 20:34 15 mg Q8H PRN PRN Administration Pain Score 4-10 Morphine Sulfate 2 - 4 mg 01/12/25 20:33 01/12/25 23:05 Morphine 2 Mg/Ml Syringe IV 2 mg Q2H PRN PRN Administration Pain Score 4-10 Morphine Sulfate 2 - 4 mg 01/12/25 20:46 Morphine 4 Mg/Ml Syringe IV Q2H PRN PRN Pain Score 4-10 Ondansetron HCl 4 mg 01/12/25 20:33 Ondansetron 4 Mg/2 Ml Vial IV Q6H PRN PRN NAUSEA/VOMITING Sodium Chloride 10 - 40 ml 01/12/25 20:33 0.9% Saline Lock 10 Ml Syringe IV UD PRN SALINE FLUSH Sodium Chloride 10 - 40 ml 01/12/25 21:28 0.9% Saline Lock 10 Ml Syringe IV UD PRN SALINE FLUSH PFSH Medical History Contraceptive management Spontaneous vaginal delivery Spontaneous onset of labor Uterine contractions Low-lying placenta in second trimester Supervision of high-risk History of depression Home Medications ?Medication ?Instructions ?Recorded ?Last Taken ?Type multivitamin no.47-iron fum 27 1 cap PO DAILY pergnancy 04/18/24 11/15/24 History mg-folate no.1 1 mg-dha 300 mg capsule (PNV-DHA) Allergy/AdvReac Type Severity Reaction Status Date / Time No Known Allergies Allergy Verified 12/29/24 15:29 Family History Aunt Ovarian cancer, Onset Age: 45 Maternal Aunt Mother Miscarriage 2 or 3 miscarriages- before and after of pt. Surgical History History of surgery Social History adopted: No household members: significant other and children housing: house number of children: 1 current occupational status: unemployed current occupation: [employer] current occupational exposures/hazards: No pets and animals: Yes (not manage litterbox) pets and animals: cat(s) and dog(s) history of recent travel: No ([place]) sexually active: Yes Smoking Status: Current some day smoker tobacco type: e-cigarettes alcohol intake: former details: rarely drinks, special occasions, not while substance use type: does not use well-balanced diet: daily or most days caffeine: No eating out: 1-3 times/week during the past year weight has: remained stable what type of physical activity do you participate in: walking frequency: daily duration: 15-30 minutes/day chriss/anabaptist: None seatbelt use: always do you feel safe at home: Yes additional social history: J [employer] - Self employed Review of Systems (Anesthesia) ROS Narrative System reviewed and no additional complaints, except as documented.
--- NOTE | 2025-01-13 06:20 | APP_PTH ---
PATIENT: LLUVIA HOLLINGSWORTH LOC: [facility] U#:[id number] AGE/SX: 29/F ROOM: [facility]319 RE01/12/[address]: Dr. Anthony Martin MD : 1995 BED: 1 DIS: 01/14/2025 SPEC #: [id number] RECD: 01/13/25 10:51 STATUS: MATTHEW REAGAN #: [id number] WARREN: 01/13/25 06:[address]: Anthony Martin DEPT: SURGICAL PATHOLOGY RECD BY: Riki Vickers ENTERED: 01/13/25 10:51 SP TYPE: APPENDIX OTHR DR: Shana Primary Care Phys Tissues: A - Appendix, NOS Procedures: Surgery Specimen Level III HEADER OPERATION: Laparoscopic appendectomy PRE-OP DIAGNOSIS: Acute appendicitis TISSUE SUBMITTED: A- Appendix MICROSCOPIC DIAGNOSIS A. Appendix, acute appendicitis, appendectomy: * Acute appendicitis, acute serositis. MICROSCOPIC DESCRIPTION Slides are reviewed. GROSS DESCRIPTION A. Received in formalin in a container labeled with the patient's name, date of , and appendix is an intact 7.2 x 1.0 cm appendectomy specimen with mesoappendix measuring up to 3 cm in thickness. The serosa is ray-pink and roughened with an abundance of adherent white-velez exudate. The stapled resection margin is inked black and serial sections reveal a 0.4 cm lumen filled with red and brown creamy material. There is an average wall thickness of 0.4 cm. No distinct perforation or fecalith is grossly recognized. Vending Machine Assembler sections:A1. Margin, en face with cross-sectionsA2. Tip, bisected [facility] 01-13-2025 CPT:46040
[2025-01-13] MEDS: Bupiv/Epi 0.25% 30 ML Vial (06:31)
--- NOTE | 2025-01-13 06:41 | OP.PCM_ITS ---
Operative Report (Standard) Operative Information Date of Procedure: 01/13/25 Pre-Operative Diagnosis: Acute appendicitis Post-Operative Diagnosis: Acute appendicitis Surgery/Procedure Performed: Laparoscopic appendectomy saw superintendent: No Type of Anesthesia: General/Regional RN Documented Start/Stop Times: Operation Date: 01/13/25 06:20 Case Time Anesthesia Start 01/13/25 06:00 Into Room 01/13/25 06:00 Procedure Start 01/13/25 06:15 Anesthesia End 01/13/25 06:34 Out of Room 01/13/25 06:34 Procedure End 01/13/25 06:34 Procedure Start Time: 06:15 Procedure Stop Time: 06:34 Select all DRAINS/GRAFTS/IMPLANTS that apply: None Estimated Blood Loss: 5 Specimen collected: Yes Description of specimen(s) removed: Appendix Description of surgery: The patient was brought into the operating room and general anesthesia was induced. The left arm was tucked and the abdomen was prepped and draped in usual sterile fashion. A small midline incision was made superior to the umbilicus and deepened to the level of the fascia. The fascia was elevated and incised. The peritoneum was also elevated and incised. A finger sweep was p erformed and a balloon trocar was placed into the abdomen and inflated. The abdomen was insufflated to 15 mmHg and the camera was inserted and the abdomen was inspected for any injuries upon entering the abdomen. There were none. The patient was placed in Trendelenburg position and a 5 mm ports placed in the left lower quadrant and suprapubic areas under direct visualization. Next using atraumatic bowel graspers the appendix was identified. The appendix was grasped and elevated and Enseal was used to take down the mesoappendix. A stapler was used to come across the base of the appendix. The appendix was then placed in Endo Catch bag and removed through the umbilical incision. The staple line was inspected and found to be hemostatic and intact. The 2 5 mm ports are removed under direct visualization. The balloon trocar was deflated and removed and all the air was removed from the abdomen. The umbilical incision fascia was closed with an 0 Vicryl [id number] suture. The incisions were then irrigated with saline and dried. Local anesthetic was injected into the incision sites. The skin incisions were then closed with interrupted 4-0 Monocryl suture and Steri- Strips. Bandages were applied and the patient was awoken and taken to PACU in stable condition. Patient tolerated the procedure well. Surgical Findings: Inflamed appendix with purulence wound class III Complications Complications: No Admit VTE Documentation VTE Mechan Device Prophylaxis: SCD's
--- NOTE | 2025-01-13 06:44 | DCINST_ITS ---
Discharge Instructions Procedure Appendectomy Diet Discharge Diet: Light diet - advance as tolerated Activity Discharge Activity: May Not Drive (for 2-3 days or while taking narcotic pain medications.) May shower in (days): 1 Lifting Restrictions: 20 lbs for 2 weeks Dressing / Incision Call your doctor if your incision/area has: Continuous Slow Oozing, Sudden Increased Bleeding, Increased Pain/ Swelling, Increased Redness and Foul Smelling Discharge Call your doctor if you observe: Fever of 101 or Higher Suture Line Care: Avoid Pulling/Pushing and Avoid Pinching/Bending Remove Dressing in: 2 days Cleanse incision/area with: Soap & Water Additional Dressing/Incision Instructions:: Keep dressing clean and dry. Change or remove dressing in 2 days. Leave steri strips for 1 week. May protect with a gauze bandaid. Follow Up Care Please Follow Up With: Anthony Martin MD When: Please call to schedule 2 week follow up appointment. [phone] Test Results: Test results from this visit will be discussed in further detail at your follow- up appointment, if applicable. Discharge Plan Admission Admit Date/Time: 01/12/25 20:33 Attending Provider: Anthony Martin Primary Care Provider: Care Physician,No Primary Discharge Orders/Prescriptions Prescriptions: New oxycodone 5 mg Tablet 5 - 10 mg PO Q4H PRN PRN (Reason: Pain Score 4-10) 5 Days Qty: 14 0RF Continued PNV-DHA 27 mg iron-1 mg -300 mg capsule 1 cap PO DAILY Referrals / Follow Up: Care Physician,No Primary [Primary Care Provider] - Disposition Disposition (needs filled in before D/C Order can be placed): Home, Self Care
--- NOTE | 2025-01-13 06:45 | PCM.POST.ANE ---
Anesthesia: Postop Eval I Current Vital Signs Temperature: 98 F Pulse Rate: 94 Blood Pressure: 110/66 Respiratory Rate: 16 Pulse Ox: 94 Oxygen Delivery Method: Room Air Assessment Airway patent: Yes Spontaneous unlabored respirations: Yes Mental status: Awake and Calm nausea: No Vomiting: No Anesthesia Complication: No Fluid Hydration Crystalloid volume administer (ml): 500 Total IV fluid infused: 500 Progress Note Anesthesia document: Postop Eval 1 completed: Yes
--- NOTE | 2025-01-13 09:24 | CASEMGMT ---
ANNABEL CM into pt room, pt sitting up in bed. Pt reports being indep at home, denies any homegoing needs. Provided pt with a local healthcare directory pamphlet as pt does not have a pcp. Pt states she is able to set up the appt on own and denies need for assistance with this.
[2025-01-13] MEDS: oxyCODONE 5 MG Tablet PO ×2 (10:05→18:55)
--- NOTE | 2025-01-13 12:33 | POSTOPAN2_ITS ---
Anesthesia Postop Eval I Sum Postop Eval Completion status Anesthesia document: Postop Eval 1 completed: Yes Anesthesia Postop Eval I Summary Anesthesia Postop Eval I Summary: Anesthesia Postop Eval I: Assessment Summary Airway patent Yes 01/13/25 06:45 PANTS CLOSER.MDOT Spontaneous unlabored Yes 01/13/25 06:45 PANTS CLOSER.MDOT respirations Mental status Awake,Calm 01/13/25 06:45 PANTS CLOSER.MDOT nausea No 01/13/25 06:45 PANTS CLOSER.MDOT Vomiting No 01/13/25 06:45 PANTS CLOSER.MDOT Anesthesia Postop Eval I: Fluid Summary Crystalloid volume administer 500 01/13/25 06:45 PANTS CLOSER.MDOT (ml) Colloids volume administered ( ml) Blood Product volume administered (ml) Total IV fluid infused 500 01/13/25 06:45 PANTS CLOSER.MDOT Anesthesia Postop Eval I: Summary Notes Anesthesia Complication No 01/13/25 06:45 PANTS CLOSER.MDOT Anesthesia Complication Comment: Post-operative progress note Anesthesia: Postop Eval II Evaluation Mental status: Awake and Calm Pain Level: 1 nausea: No Vomiting: No Complications Anesthesia Complication: No
--- NOTE | 2025-01-13 12:33 | PCM.POSTANE2 ---
Anesthesia Postop Eval I Sum Postop Eval Completion status Anesthesia document: Postop Eval 1 completed: Yes Anesthesia Postop Eval I Summary Anesthesia Postop Eval I Summary: Anesthesia Postop Eval I: Assessment Summary Airway patent Yes 01/13/25 06:45 DIP TANKER.MDOT Spontaneous unlabored Yes 01/13/25 06:45 DIP TANKER.MDOT respirations Mental status Awake,Calm 01/13/25 06:45 DIP TANKER.MDOT nausea No 01/13/25 06:45 DIP TANKER.MDOT Vomiting No 01/13/25 06:45 DIP TANKER.MDOT Anesthesia Postop Eval I: Fluid Summary Crystalloid volume administer 500 01/13/25 06:45 DIP TANKER.MDOT (ml) Colloids volume administered ( ml) Blood Product volume administered (ml) Total IV fluid infused 500 01/13/25 06:45 DIP TANKER.MDOT Anesthesia Postop Eval I: Summary Notes Anesthesia Complication No 01/13/25 06:45 DIP TANKER.MDOT Anesthesia Complication Comment: Post-operative progress note Anesthesia: Postop Eval II Evaluation Mental status: Awake and Calm Pain Level: 1 nausea: No Vomiting: No Complications Anesthesia Complication: No
--- NOTE | 2025-01-13 13:50 | NURSING ---
IBCLC at the bedside speaking with the patient. The patient states she is trying to dry my milk up myself and for the last few days has noted a red streak up the breast with tenderness. Pt had other symptoms of potential mastitis, but also had appendicitis and unsure if the two were related. Pt no longer has a red streak, but does have some discoloration to the left breast on the inner part of her breast. Pt does have pain, but her breasts are a bit engorged. Pt has pumped once today, but feels like the pain is tolerable so she does not wish to pump yet. Pt does leak a lot, so she has a towel on her breast. Encouraged the pt to make sure she is changing out the towel when wet. Discussed ways to manage symptoms and to help dry her milk. Pt aware to use ice packs and motrin for pain/inflammation. Pt to discuss with provider and this IBCLC will discuss with her RN medications to use to try to dry her milk up. I.e. Sudafed or Benadryl. Pt has a f/u up with her OB in one week, but is aware that if the symptoms persist or get worse to reach out to her provider. OPENER TENDER from the unit reached out to this IBCLC and she is updated on recommendations and encouraged to prescribe or provide dosages for Sudafed or Benadryl.
--- NOTE | 2025-01-13 15:26 | PHA.DC.MC.R ---
Pharmacy [facility] has performed discharge medication reconciliation and counseling for this patient. The patient's discharge medication list was reviewed for discrepancies and discrepancies were resolved. The patient was counseled on the following discharge medications and changes in medications for homegoing were reviewed. The Reason for Use, instructions for use, and potential side effects were reviewed for all new medications. The patient's questions regarding all of their medications were answered. 1. Oxycodone 5-10 mg PO Q4H PRN pain x 5 days The patient was able to verbally demonstrate an understanding of their discharge medications. Medications at Discharge Home Medications multivitamin no.47-iron fum 27 mg-folate no.1 1 mg-dha 300 mg capsule (PNV-DHA) 1 cap PO DAILY pergnancy 04/18/24 oxycodone 5 mg tablet 5 - 10 mg (1 - 2 x 5 mg) PO Q4H PRN PRN Pain Score 4-10 5 days #14 tabs 01/13/25
--- NOTE | 2025-01-13 15:33 | PCM.PN.BLA ---
Progress Note Patient evaluated this afternoon. Patient has been dealing with mastitis that started yesterday with a red streak on her inner upper quadrant of the breast. She notes being able to try an wean herself from . She apparently is pumping and dumping. She has been trying to dry up for weeks. She has not tried any medication, however she has tried icing. She notes the red streak is gone. She notes her abdomen is painful and she is requesting to stay over night for additional observation. We will continue IV antibiotics. She will receive a dose of Sudafed today. Likely discharge tomorrow morning. She will need to be d/c' d home on dicloxacillin 500 mg q 6H for 10 days for the mastitis and follow-up with OB in 1 week, which she already has an appointment in 1 week.
[2025-01-13] MEDS: 0.9% Normal Saline (1000mL) 1,000 ML 100 ML IV (18:55)
[2025-01-14 04:00] VITALS: BP 136/93; PULSE 65; RESP 15; TEMP 36.6; O2SAT 97
[2025-01-14] MEDS: Piperacil/Tazobactam 3.375 GM in 0.9% Normal Saline (50mL MB+) 50 ML IV (06:21)
[2025-01-14] MEDS: oxyCODONE 5 MG Tablet PO (06:24)
[2025-01-14 07:40] LABS: Absolute Lymphocyte Count 2.39 X10^3/uL (0.83-4.51); Absolute Neutrophil Count 9.2 X10^3/uL (2.0-7.7); Basophil# 0.03 X10^3/uL; Basophil% 0.2 % (0-1); Eosinophil# 0.13 X10^3/uL; Lymphocyte # 2.39 X10^3/ul (0.83-4.51); Lymphocyte % 18.7 % (19-41); Mean Corp Hgb Conc 33.3 g/dL (32-36); Mean Corpuscular Hgb 30.9 pg (27.0-32.0); Mean Corpuscular Volume 92.7 fL (81-99); Mean Platelet Vol. 10.1 fl (6.2-12.0); Monocyte# 0.95 X10^3/uL; Monocyte% 7.4 % (0-10); NRBC Flagged by Analyzer 0 % (0-5); Neutrophil # 9.22 X10^3/uL (2.7-7.7); Neutrophil % 72.2 % (47-70); Platelet Count 261 K/mm3 (150-450); RBC Distribution Width CV 12.5 % (11.6-14.6); RBC Distribution Width SD 43.1 fl (35.1-43.9); Red Blood Count 3.56 M/mm3 (4.2-5.4); White Blood Count 12.8 K/mm3 (4.4-11.0)
[2025-01-14 07:57] VITALS: BP 131/86; PULSE 52; RESP 16; TEMP 36.5; O2SAT 96
[2025-01-14 08:13] LABS: Anion Gap 17 (5-15); BUN 8 mg/dL (4-19); Calcium,Total 8.3 mg/dL (7.6-11.0); Carbon Dioxide 13.5 mmol/L (21.0-32.0); Chloride 105 mmol/L (98-108); Creatinine, Serum 0.49 mg/dL (0.70-1.20); EST Glomerular Filtration Rate 132 (>60); Estimated Creatinine Clearance 186.78 ml/min (50-250); Glucose 80 mg/dL (70-99); Potassium 4.1 mmol/L (3.3-5.1); Sodium Level 136 mmol/L (133-145)
--- NOTE | 2025-01-14 08:53 | PCM.DC.SUM ---
Providers Date of Admission: 01/12/25 Primary Care Physician: No Primary Care Phys Reason For Visit: ACUTE APPENDICITIS Diagnosis Discharge Diagnosis (1) Acute appendicitis: Status: Acute Code(s): K35.80 - Unspecified acute appendicitis Medications at Discharge Home Medications multivitamin no.47-iron fum 27 mg-folate no.1 1 mg-dha 300 mg capsule (PNV-DHA) 1 cap PO DAILY pergnancy 04/18/24 oxycodone 5 mg tablet 5 - 10 mg (1 - 2 x 5 mg) PO Q4H PRN PRN Pain Score 4-10 5 days #14 tabs 01/13/25 dicloxacillin 500 mg capsule 500 mg PO Q6H 10 days #40 caps 01/14/25 Hospital Course Operations appendectomy Summary of Care Provided Minutes Spent on Discharge: 30 Hospital Course: Patient is a 29 y/o F who presented with abdominal pain in the lower right quadrant x 1 day. She associated this pain with flu-like symptoms. Pain became worse and she presented to the ED. A CT scan of the ab/pel was obtained and demonstrated acute appendicitis. Dr. Martin performed a laparoscopic appendectomy on 01/13/25. Patient tolerated the procedure well. Patient also mentioned during her hospitalization she was dealing with left sided breast mastitis as she is 2 months post- and trying to wean from . She was evaluated by the nurse and Sudafed was provided to the patient over 2 days. Patient stated this was helping with decreasing her milk production. I spoke with Dr. Castro who recommended Dicloxacillin 500 mg 4 times per day. Patient will follow-up with their office next Sunday. She will need to follow-up with our office in 2 weeks for a follow-up. Upon discharge, patient's abdominal pain was well controlled. She is tolerating her diet well. She denies any nausea, vomiting. She voices readiness for discharge. Weight / BMI Weight Weight: 200 lb 9.93 oz Body Mass Index (BMI) 34.4 ABG / Lab / Microbiology Data 01/14/25 07:16 01/14/25 07:16 Laboratory: Laboratory Results - last 24 hr 01/14/25 07:16: WBC 12.8 H, RBC 3.56 L, Hgb 11.0 L, Hct 33.0 L, MCV 92.7, MCH 30.9, MCHC 33.3, RDW Std Deviation 43.1, RDW Coeff of Eli 12.5, Plt Count 261, MPV 10.1, Immature Gran % (Auto) 0.500, Neut % (Auto) 72.2 H, Lymph % (Auto) 18.7 L, [place] % (Auto) 7.4, Eos % (Auto) 1.0, Baso % (Auto) 0.2, Absolute Neuts (auto) 9.2 H, Absolute Lymphs (auto) 2.39, Nucleated RBC % 0, Sodium 136, Potassium 4.1, Chloride 105, Carbon Dioxide 13.5 L, Anion Gap 17 H, BUN 8, Creatinine 0.49 L, Estim Creat Clear Calc 186.78, Est GFR (MDRD) Non-Af 132, BUN/Creatinine Ratio 17.0, Glucose 80, Calcium 8.3 D/C Instructions Discharge Diet: Light diet - advance as tolerated May shower in (days): 1 Call your doctor if your incision/area has: Continuous Slow Oozing, Sudden Increased Bleeding, Increased Pain/ Swelling, Increased Redness and Foul Smelling Discharge Call your doctor if you observe: Fever of 101 or Higher Suture Line Care: Avoid Pulling/Pushing and Avoid Pinching/Bending Cleanse incision/area with: Soap & Water Additional Dressing/Incision Instructions: Keep dressing clean and dry. Change or remove dressing in 2 days. Leave steri strips for 1 week. May protect with a gauze bandaid. DC O2, CPAP, BIPAP Needs Home O2 Discharge instructions: No Please Follow Up With: Anthony Martin MD When: Please call to schedule 2 week follow up appointment. [phone] Meaningful Use Info Meaningful Use Meaningful Use Diagnoses (Choose all that apply): None applicable Ischemic Stroke Statin Dosing Therapy Reference: STATIN DOSE THERAPY REFERENCE: * Patients > 75 years receive moderate or high dose statin therapy. * Patients 75 years or YOUNGER should receive HIGH intensity statin dose unless contraindicated. You will be required to document reason for non-treatment if statin daily dose does not meet guidelines. HIGH DOSE STATIN THERAPY DAILY Atorvastatin > than or = to 40 mg Rosuvastatin > than or = to 20 mg Amlodipine + Atorvastatin > than or = to 2.5/40 mg Ezetimibe + Simvastatin 10/80 mg Simvastatin 80mg Discharge Plan Admission Admit Date/Time: 01/12/25 20:33 Primary Reason for Your Visit: ACUTE APPENDICITIS Attending Provider: Anthony Martin Primary Care Provider: Care Physician,No Primary Discharge Orders/Prescriptions Prescriptions: New oxycodone 5 mg Tablet 5 - 10 mg PO Q4H PRN PRN (Reason: Pain Score 4-10) 5 Days Qty: 14 0RF dicloxacillin 500 mg capsule 500 mg PO Q6H 10 Days Qty: 40 0RF Continued PNV-DHA 27 mg iron-1 mg -300 mg capsule 1 cap PO DAILY Referrals / Follow Up: Care Physician,No Primary [Primary Care Provider] - Disposition Disposition (needs filled in before D/C Order can be placed): Home, Self Care Charges/Coding Visit Charges Inpatient E&M: 13307 Disch Hosp (no charge; post-op)
[2025-01-14 10:30] VITALS: BP 128/78; PULSE 77; RESP 16; TEMP 36.6; O2SAT 97
--- NOTE | 2025-01-14 10:51 | PHA.DC.MC.R ---
Pharmacy [facility] Service has performed discharge medication reconciliation and counseling for this patient. 1. DICLOXACILLIN 500MG PO Q6H X 10 DAYS The patient's discharge medication list was reviewed for discrepancies and discrepancies were resolved. The patient was counseled on the following discharge medications and changes in medications for homegoing were reviewed. The Reason for Use, instructions for use, and potential side effects were reviewed for all new medications. The patient's questions regarding all of their medications were answered. The patient was able to verbally demonstrate an understanding of their discharge medications. Medications at Discharge Home Medications multivitamin no.47-iron fum 27 mg-folate no.1 1 mg-dha 300 mg capsule (PNV-DHA) 1 cap PO DAILY pergnancy 04/18/24 oxycodone 5 mg tablet 5 - 10 mg (1 - 2 x 5 mg) PO Q4H PRN PRN Pain Score 4-10 5 days #14 tabs 01/13/25 dicloxacillin 500 mg capsule 500 mg PO Q6H 10 days #40 caps 01/14/25
== END 2025-01-14 11:22 | disposition home or self-care (01) ==
LOC: ED 17:16 → MS3 20:43
PROVIDERS: Physician Assistant; Admitting Provider Surgery; Emergency Provider Emergency Medicine; Visit Provider Surgery
PROC: 0DTJ4ZZ Resection of Appendix, Percutaneous Endoscopic Approach (ICD-10-PCS; CPT 44970; principal; 2025-01-13 06:00)
DX: K35.80 Unspecified acute appendicitis (principal); N61.0 Mastitis without abscess; F17.290 Nicotine dependence, other tobacco product, uncomplicated
CPT/HCPCS: 44970; 00840; 36415; 74177; 80048; 80053; 81001; 83690; 84703; 85025; 88304; 96361; 96365; 96366; 96367; 96375; 96376; 99221; 99285; Q9967; A4216; G0378; J2405

== ENCOUNTER → 2025-01-20 | Outpatient (CLI) | payer MEDICAID, SELFPAY ==
[2025-01-24 08:25] LABS: HPV Reflexed? NOT INDICATED
== END | disposition home or self-care (01) ==
LOC: LABSPEC 11:40
PROVIDERS: Referring Provider Nurse Practitioner Women's Health; Visit Provider Nurse Practitioner Women's Health
DX: R87.612 Low grade squamous intraepithelial lesion on cytologic smear of cervix (LGSIL) (principal)
CPT/HCPCS: 88175; G0145

== ENCOUNTER 2025-05-10 21:36 | Emergency (ER) | payer MEDICAID, SELFPAY ==
[2025-05-10 21:36] VITALS: BP 131/74; PULSE 87; RESP 16; TEMP 36.6; O2SAT 100; BMI 34.4
--- NOTE | 2025-05-10 22:15 | ED.VIS.LOWEX ---
HPI History of Present Illness Chief Complaint: Lower Extremity Injury Informant: patient and spouse/S.O. Narrative Narrative: Worsening right foot pain over the past couple months. Symptoms started after stepping on a rock outside. Progressively worsening last week. No additional injuries. Pain under the heel. Use ibuprofen previously with transient minimal relief. No history of similar. She states she runs around the 2-year-old and a 6-month-old. Prior similar symptoms: No PFSH PFSH Medical History Acute appendicitis Vaginal delivery Rubella non-immune status, antepartum Contraceptive management Spontaneous vaginal delivery Spontaneous onset of labor Uterine contractions Low-lying placenta in second trimester Supervision of high-risk History of depression Home Medications ?Medication ?Instructions ?Recorded ?Last Taken ?Type multivitamin no.47-iron fum 27 1 cap PO DAILY pergnancy 04/18/24 11/15/24 History mg-folate no.1 1 mg-dha 300 mg capsule (PNV-DHA) levonorgestrel (Mirena) 1 device intrauterine ONCE 02/19/25 Unknown History Allergy/AdvReac Type Severity Reaction Status Date / Time No Known Allergies Allergy Verified 05/10/25 21:38 Family History Aunt Ovarian cancer, Onset Age: 45 Maternal Aunt Mother Miscarriage 2 or 3 miscarriages- before and after of pt. Surgical History History of appendectomy History of surgery Social History adopted: No household members: significant other and children housing: house number of children: 1 current occupational status: unemployed current occupation: [employer] current occupational exposures/hazards: No pets and animals: Yes (not manage litterbox) pets and animals: cat(s) and dog(s) history of recent travel: [place] ([place]) sexually active: Yes Smoking Status: Current every day smoker tobacco type: e-cigarettes alcohol intake: former details: rarely drinks, special occasions, not while substance use type: does not use well-balanced diet: daily or most days caffeine: No eating out: 1-3 times/week during the past year weight has: remained stable what type of physical activity do you participate in: walking frequency: daily duration: 15-30 minutes/day chriss/bahai: None seatbelt use: always do you feel safe at home: Yes additional social history: [employer] - Self employed ROS ROS ED Constitutional Constitutional ED: Denies fever(s) Cardiovascular Cardiovascular: Denies chest pain Respiratory/Chest Respiratory/Chest: Denies cough Gastrointestinal Gastrointestinal: Denies diarrhea or vomiting Musculoskeletal Musculoskeletal: Reports none and other Details: Right foot pain Integumentary Denies rash or wounds Neurologic Neurologic: Denies weakness EXAM Physical Exam Const Vital Signs: 05/10/25 21:36 Temperature 97.8 F Temperature Source Oral Pulse Rate 87 Respiratory Rate 16 Blood Pressure 131/74 H Blood Pressure Mean 93 Pulse Ox 100 Oxygen Delivery Method Room Air Positive well nourished and well developed General Appearance ED: well developed HEENT normocephalic and atraumatic Eyes General Eye ED: Yes normal appearance of both eyes Neck full ROM Resp normal respiratory effort and normal air movement Cardio regular rate and regular rhythm GI soft to palpation Extremity Extremity Narrative: Right lower extremity: No ankle or midfoot tenderness. No proximal or distal tenderness. Tender palpation at the heel and medial aspect of insertion of the plantar fascia. Skin is intact. No erythema. No swelling. Neuro oriented x3 Skin no rashes or lesions noted and no wounds MDM MDM MDM Narrative Medical decision making narrative: Interventions / MDM: Differential diagnosis: Plantar fasciitis, heel spur Diagnosis considered but do not suspect: Fracture x-ray negative My EKG interpretation: N/A Imaging independently reviewed and interpreted by myself: Right foot x-ray 3 views: Small heel spur. No fractures. Also read by radiology. External documents reviewed: N/A Test considered but not ordered:N/A ED course: Worsening right heel pain after stepping on a rock. Pain at the heel and right at the plantar fascia. Ibuprofen ordered, right foot x-ray. X-rays small calcaneal spur noted. Clinical plantar fasciitis. Postop shoe provided. She has ibuprofen at home to use up to 10 mg every 6 hours as needed. Referred to podiatry for outpatient evaluation and further treatment plans. All questions were answered. Re-evaluation: stable Disposition discussed with patient/family/significant other: Patient and significant other Case discussed with consulting clinician: N/A This note was generated with [employer] software. It may contain incorrect words, spelling, and punctuation that were not noted in checking the note before signing. Radiography Diagnostic Testing: Clinical Impression(s) from Imaging Studies Foot X-Ray 05/10/25 22:20 IMPRESSION: No acute findings. Reading Location: [place] [address] Discharge Plan Triage Chief Complaint: Lower Extremity Injury ED Provider: Ramy Quach Dx/Rx/DC Orders Clinical Impression: Calcaneal spur, right, Plantar fasciitis of right foot Instructions: ED Heel Spur, ED Plantar Fasciitis Prescriptions: No Action PNV-DHA 27 mg iron-1 mg -300 mg capsule 1 cap PO DAILY Mirena 21 mcg/24hr (up to 8 yrs) 52 mg intrauterine device 1 device intrauterine ONCE Rx Instructions: as a single dose Primary Care Provider: Care Physician,No Primary Referrals: Darvin Saba DPM [Med Staff - Active Staff] - 1-2 Weeks Care Physician,No Primary [Primary Care Provider] - Activity Restrictions/Additional Instructions: X-ray negative for fracture small heel spur. Also clinical plantar fasciitis. Postop shoe for comfort. Continue ibuprofen up to 600 once every 6 hours. Follow-up with podiatry. Print Language: Mexican Disposition Disposition: Home, Self Care
--- NOTE | 2025-05-10 22:20 | RAD_ITS ---
PROCEDURE: FOOT MIN 3 VIEWS 05/10/2025 REASON FOR EXAM: HEEL PAIN TECHNIQUE: FOOT MIN 3 VIEWS COMPARISON: No FINDINGS: Small plantar calcaneal spur. No acute bone or soft tissue pathology. RAD/Foot min 3 Views IMPRESSION: No acute findings. Reading Location: [place] [address]
--- OUTSIDE RECORDS SUMMARY | 2025-05-10 22:40 | XMS RPT_ITS | CCD ---
Author Organization [facility] Care Team Providers Care Croze Cutter Helper Name Role Phone [facility] Doctor, Out of Primary Care Provider Unavai [facility] Doctor, Out of Referring Provider Unavailab Dr. Lenora Torres Attending Provider [phone] Dr. Geni De Jesus Attending Provider [phone] Dr. Rosalina Perez Primary Care Provider [facility] Doctor, Out of Referring Provider Unavailab Dr. Rosalina Eckert Referring Provider Care Physician, No Primary Primary Care Provider Unavailable Rico BUSINESS CONTINUITY DIRECTOR, BUSINESS CONTINUITY DIRECTOR-C Ken Attending Provider [phone] Care Physician, No Primary Referring Provider Un available Care Physician, No Primary Primary Care Provider Unavailable Care Physician, No Primary Referring Provider Un available Rico BUSINESS CONTINUITY DIRECTOR, BUSINESS CONTINUITY DIRECTOR-C Ken Attending Provider [phone] Dr. Geni De Jesus Attending Provider [phone] Dr. Lenora Castro Attending Provider [phone] CLARA Golden Attending Provider CLARA Zheng Attending Provider [phone] CLARA Golden Other Provider CLARA Golden Admit Provider CLARA Zheng Other Provider [phone] Care Physician, No Primary Primary Care Provider Unavailable Care Physician, No Primary Referring Provider Un available Dr. Geni De Jesus Attending Provider [phone] Rico BUSINESS CONTINUITY DIRECTOR, BUSINESS CONTINUITY DIRECTOR-C Ken Attending Provider Care Physician, No Primary Primary Care Provider Unavailable Care Physician, No Primary Referring Provider Un available Dr. Geni De Jesus Attending Provider Care Physician, No Primary Primary Care Provider Unavailable Care Physician, No Primary Referring Provider Un available CLARA Golden Attending Provider [phone] Geni De Jesus Attending Provider [phone] RICO KEN S Referring Unavailable SARA STEPHENSONRINA Primary Care Unavailable SILVANO HORTA Attending Unavailable SILVANO HORTA Attending Unavailable RICO, KEN S Referring Unavailable SRIKANTH SOM, JOSE ALFREDO Primary Care Unavailable Care Physician, No Primary Primary Care Provider Unavailable Care Physician, No Primary Referring Provider Un available Opal Golden CNM Attending Provider [phone] Rico BUSINESS CONTINUITY DIRECTOR-CKen Attending Provider [phone] Gasper MARIE, Dr. Cooley Attending Provider Dr. Geni De Jesus DO Attending Provider Dr. Geni De Jesus DO Referring Provider Lizzette Zheng CNM Attending Provider [phone] Dr. Geni De eJsus DO Admit Provider [phone] Dr. Geni De Jesus DO Other Provider [phone] Dr. Mookie Morales DO Emergency Provider Dr. Anthony Martin MD Attending Provider [phone] Veronica MARIE, Dr. Cruz Admit Provider Veronica MARIE, Dr. Cruz Other Provider Sharmin Bautista PA-C Attending Provider Care Physician, No Primary Primary Care Provider Unavailable Care Physician, No Primary Referring Provider Un available Rico BUSINESS CONTINUITY DIRECTOR-CKen Attending Provider Sharmin Bautista PA-C Attending Provider Rico BUSINESS CONTINUITY DIRECTOR-CKen Referring Provider Care Physician, No Primary Primary Care Unava ilable Geni De Jesus Attending Unavailabl e Hortenciae Tatiana, Geni Referring Unavailabl e Lizzette Zheng Referring Unavailable Lizzette Zheng Attending Unavailable Care Physician, No Primary Primary Care Unava ilable Rico BUSINESS CONTINUITY DIRECTOR, Ken Attending Unavailable Care Physician, No Primary Primary Care Unava ilable [place] BUSINESS CONTINUITY DIRECTOR, Ken Referring Unavailable Care Physician, No Primary Primary Care Unava ilable Rico BUSINESS CONTINUITY DIRECTOR, Ken Attending Unavailable Rico BUSINESS CONTINUITY DIRECTOR, Ken Referring Unavailable Care Physician, No Primary Referring Unava ilable Care Physician, No Primary Primary Care Unava ilable Lenora Castro Attending Unavailable Care Physician, No Primary Referring Unava ilable Care Physician, No Primary Primary Care Unava ilable Lenora Castro Attending Unavailable Care Physician, No Primary Referring Unava ilable Care Physician, No Primary Primary Care Unava ilable Geni De Jesus Attending Unavailabl e Anthony Martin Admitting Unavailable Care Physician, No Primary Primary Care Unava ilable Anthony Martin Attending Unavailable Care Physician, No Primary Referring Unava ilable Care Physician, No Primary Primary Care Unava ilable Geni De Jesus Attending Unavailabl e Care Physician, No Primary Primary Care Unava ilable Anthony Martin Attending Unavailable Care Physician, No Primary Primary Care Unava ilable Geni De Jesus Consulting Unavailabl e Hortenciae Tatiana, Geni Attending Unavailabl e Hortenciae Vellon, Geni Admitting Unavailabl e CalAnthony little Admitting Unavailable Anthony Martin Consulting Unavailable Care Physician, No Primary Primary Care Unava ilable Anthony Martin Attending Unavailable Sharmin Lackey Attending Unavailable Lizzette Zheng Attending Unavailable Rico BUSINESS CONTINUITY DIRECTOR, Ken Attending Unavailable Care Physician, No Primary Referring Unava ilable Care Physician, No Primary Primary Care Unava ilable Opal Golden Attending Unavailable [place] BUSINESS CONTINUITY DIRECTOR, Ken Attending Unavailable Care Physician, No Primary Referring Unava ilable Care Physician, No Primary Primary Care Unava ilable Care Physician, No Primary Referring Unava ilable Care Physician, No Primary Primary Care Unava ilable Rico BUSINESS CONTINUITY DIRECTOR, Ken Attending Unavailable Care Physician, No Primary Referring Unava ilable Care Physician, No Primary Primary Care Unava ilable Sharmin Lackey Attending Unavailable Care Physician, No Primary Referring Unava ilable Care Physician, No Primary Primary Care Unava ilable Rico BUSINESS CONTINUITY DIRECTOR, Ken Attending Unavailable Care Physician, No Primary Referring Unava ilable Care Physician, No Primary Primary Care Unava ilable Rico BUSINESS CONTINUITY DIRECTOR, Ken Attending Unavailable Care Physician, No Primary Primary Care Unava ilable Geni De Jesus Attending Unavailabl e Geni De Jesus Admitting Unavailabl e Care Physician, No Primary Referring Unava ilable Care Physician, No Primary Primary Care Unava ilable Lizzette Zheng Attending Unavailable Care Physician, No Primary Primary Care Unava ilable Lizzette Zheng Referring Unavailable Norm, Lizzette Attending Unavailable Norm, Lizzette Attending Unavailable Care Physician, No Primary Referring Unava ilable Care Physician, No Primary Primary Care Unava ilable Lizzette Zheng Attending Unavailable Rico BUSINESS CONTINUITY DIRECTOR, Ken Attending Unavailable Care Physician, No Primary Referring Unava ilable Care Physician, No Primary Primary Care Unava ilable Care Physician, No Primary Referring Unava ilable Care Physician, No Primary Primary Care Unava ilable Lenora Castro Attending Unavailable Care Physician, No Primary Primary Care Unava ilable Care Physician, No Primary Referring Unava ilable Lizzette Zheng Attending Unavailable Care Physician, No Primary Primary Care Unava ilable Lenora Castro Attending Unavailable Lenora Castro Referring Unavailable Allergies Allergy Classification Reported Allergen(s) Allergy Type Date of Onset Reaction(s) Facility (1 source) Seasonal allergy; Translations: [SEASONAL ALLERGIES] Propensity to adverse reactions (disorder) 3 [facility] Repository Medications Current Medications Medication Drug Class(es) Dates Sig (Normalized) Sig (Original) levonorgestrel 0.344550 mg/hr intrauterine system (1 source) Progestin, Progestin-containi ng Intrauterine Device Start: 02-19-2025 Levonorgestrel (Mirena) 21 mcg/24hr (up to 8 yrs) 52 mg intrauterine device Active 1 NMA INTRA-UTER ONCE February 19, 2025 12:00am as a single dose loratadine 10 mg oral tablet (1 source) Start: 12-18-2022 take 1 tablet by mouth once daily Loratadine (Claritin) 10 mg tablet Active 10 MG PO DAILY December 18, 2022 12:00am Multivit 76-Tnem-Vzfnwn 1-Dha (Pnv-Dha) 27 mg iron-1 mg -300 mg capsule (3 sources) Start: 04-18-2024 Multivit 77-Gsvl-Ofjxap 1-Dha (Pnv-Dha) 27 mg iron-1 mg -300 mg capsule Active 1 NMA PO DAILY April 18, 2024 12:00am Completed/Discontinued Medications Medication Drug Class(es) Dates Sig (Normalized) Sig (Original) amoxicillin 500 mg oral capsule (8 sources) Penicillin-class Antibacterial Start: 12-07-2022 End: 12-18-2022 take 1 capsule by mouth twice daily Amoxicillin 500 mg capsule Discontinued 500 mg PO TWICE A DAY December 07, 2022 1:00am December 18, 2022 11:54am cetirizine hydrochloride 10 mg oral capsule (8 sources) Histamine-1 Receptor Antagonist Start: 12-18-2022 End: 11-16-2024 take 1 capsule by mouth once daily as needed Cetirizine (Zyrtec) 10 mg capsule Discontinued 10 mg PO DAILY as needed for allergies December 18, 2022 12:00am November 16, 2024 8:08am dicloxacillin 500 mg oral capsule (2 sources) Penicillin-class Antibacterial Start: 01-14-2025 End: 03-03-2025 take 1 capsule by mouth every six hours Dicloxacillin 500 mg capsule Discontinued 500 mg PO EVERY 6 HOURS 40 10 January 14, 2025 12:00am March 03, 2025 10:53am Iron (10 sources) Start: 07-05-2022 End: 05-17-2023 Pnv No.944-Rnvd-Ithtkn No.10 (Pnv Tabs 20-1) 20 mg iron- 1 mg tablet Discontinued 1 {tbl} PO DAILY July 05, 2022 12:00am May 17, 2023 9:59am Start: 07-05-2022 End: 05-17-2023 Pnv No.852-Tvpp-Uliscw No.10 (Pnv Tabs 20-1) 20 mg iron- 1 mg tablet Discontinued 1 TABLET PO DAILY July 05, 2022 12:00am May 17, 2023 9:59am Start: 07-05-2022 Pnv No.163-Iro n-Folate No.10 (Pnv Tabs 20-1) 20 mg iron- 1 mg tablet Active 1 TABLET PO DAILY July 05, 2022 12:00am Start: 07-05-2022 Pnv No.163-Iro n-Folate No.10 (Pnv Tabs 20-1) 20 mg iron- 1 mg tablet Active TABLET PO July 05, 2022 12:00am Start: 07-05-2022 Pnv No.163-Iro n-Folate No.10 (Pnv Tabs 20-1) 20 mg iron- 1 mg tablet Active TABLET PO July 04, 2022 11:00pm metroNIDAZOLE 500 mg oral tablet (10 sources) Nitroimidazole Antimicrobial Start: 04-20-2023 End: 05-17-2023 take 1 tablet by mouth twice daily Metronidazole 500 mg tablet Discontinued 500 mg PO TWICE A DAY April 20, 2023 12:00am May 17, 2023 9:58am Start: 04-04-2023 End: 04-17-2023 take 1 tablet by mouth twice daily Metronidazole 500 mg tablet Discontinued 500 mg PO TWICE A DAY April 04, 2023 12:00am April 17, 2023 10:59am oxyCODONE hydrochloride 5 mg oral tablet (2 sources) Opioid Agonist Start: 01-13-2025 End: 03-03-2025 take 5-10 mg by mouth every four hours as needed for pain Oxycodone 5 mg Tablet Discontinued 5 - 10 mg PO EVERY 4 HOURS NEEDED as needed for Pain Score 4-10 14 5 January 13, 2025 March 03, 2025 10:53am Problems Active Problems Problem Classification Problem Date Documented Date Episodic/Chronic Abdominal pain (1 source) Unspecified abdominal pain; Translations: [Unspecified abdominal pain] Onset: 01-23-2025 Episodic Appendicitis and other appendiceal conditions (7 sources) Acute appendicitis; Translations: [Unspecified acute appendicitis] Onset: 01-23-2025 01-12-2025 Episodic Cancer of cervix (20 sources) Low grade squamous intraepithelial lesion on cervical Papanicolaou smear; Translations: [Low grade squamous intraepithelial lesion on cytologic smear of cervix (LGSIL)] Onset: 11-27-2024 Episodic Comment on above: colp normal on 08/17. rpt pap post . 03/2023 LSIL and +Trich colp normal on 08/17. rpt pap post . 03/2023 LSIL and +Trich; 01/2025 neg pap Contraceptive and procreative management (5 sources) Intrauterine contraceptive device in situ; Translations: [Presence of (intrauterine) contraceptive device] Onset: 01-20-2025 01-20-2025 Episodic Early or threatened labor (7 sources) Uterine contractions present; Translations: [False labor, unspecified] 02-06-2023 Episodic Comment on above: rule out labor. no c ervical change. dc home with labor precautions. Genitourinary symptoms and ill-defined conditions (11 sources) History of urinary tract infection; Translations: [Personal history of urinary (tract) infections] Episodic Comment on above: 2 this year Hemorrhage during ; abruptio placenta; placenta previa (20 sources) Low lying placenta; Translations: [Low lying placenta NOS or without hemorrhage, second trimester] 11-22-2022 Episodic Comment on above: repeat US @ 28 wks: 11/20 resolved Other complications of (1 source) Obesity complicating , unspecified trimester; Translations: [Obesity complicating , unspecified trimester] Onset: 05-08-2024 Chronic Other complications of (20 sources) High risk ; Translations: [Supervision of high risk , unspecified, unspecified trimester] 09-05-2022 Episodic Comment on above: PRR,, RUFINA 6, girl Keysha BRANDIN Ahuja, J Luis PRR , boy, Bentl ey RUFINA 02/14/23, Boyfriend- J Luis Other complications of (18 sources) Rubella non-immune; Translations: [Supervision of other high risk pregnancies, unspecified trimester] 05-05-2024 Episodic Comment on above: offer MMR PP Other complications of (9 sources) Fundal height high for dates; Translations: [Uterine size-date discrepancy, unspecified trimester] 11-21-2024 Episodic Other female genital disorders (10 sources) History of gynecological disorder; Translations: [Personal history of other diseases of the female genital tract] 07-10-2022 Episodic Other nutritional; endocrine; and metabolic disorders (18 sources) Obese class I; Translations: [Class 1 obesity] 05-20-2024 Chronic Comment on above: HgbA1c 1 TM. BMI 32. encouraged healthy weight gain Other nutritional; endocrine; and metabolic disorders (2 sources) Obesity, unspecified; Translations: [Obesity, unspecified] Onset: 11-13-2024 Chronic Other nutritional; endocrine; and metabolic disorders (10 sources) Overweight in adulthood with body mass index of 25 or more but less than 30; Translations: [Body mass index (BMI) 26.0-26.9, adult] 07-10-2022 Episodic Other and delivery including normal (20 sources) ; Translations: [Encounter for supervision of normal , unspecified, unspecified trimester] Onset: 05-26-2024 Episodic Comment on above: 11/16/24 PRIYA Chopra KW IAL 38 weeks bottle feeding Ahuja normal anatomy, low risk NIPT. carrier declined. AFP neg GBS Negative, anatom y nl, NIPT low risk, declined carrier testing, nl 1 HR GCT, Other upper respiratory disease (10 sources) Seasonal allergy; Translations: [Other seasonal allergic rhinitis] 07-10-2022 Chronic Comment on above: worst in Spring & [place] mmer Unclassified (2 sources) Other underimmunization status; Translations: [Other underimmunization status] Onset: 11-13-2024 Viral infection (10 sources) Disease caused by 2019-nCoV; Translations: [COVID-19] 07-10-2022 Episodic Past or Other Problems Problem Classification Problem Date Documented Date Episodic/Chronic Bacterial infection; unspecified site (10 sources) Bacteria present; Translations: [Streptococcus, group B, as the cause of diseases classified elsewhere] Onset: 11-13-2024 11-10-2024 Episodic Cardiac and circulatory congenital anomalies (20 sources) H/O: cardiac anomaly; Translations: [Personal history of (corrected) congenital malformations of heart and circulatory system] Onset: 11-13-2024 Episodic Comment on above: patient had two hole s in her heart at but closed spontaneously. MFM anatomy scan, echo @ 22 wks:nl Immunizations and screening for infectious disease (11 sources) Patient encounter status; Translations: [Encounter for screening for infections with a predominantly sexual mode of transmission] Onset: 04-22-2024 04-17-2023 Episodic Comment on above: No PA needed for IUD with insurance type Intestinal infection (6 sources) Intestinal trichomoniasis; 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] Onset: 04-22-2024 04-04-2023 Episodic Other complications of (16 sources) Supervision of high risk , unspecified, unspecified trimester; Translations: [Supervision of unspecified high-risk ] Onset: 05-20-2024 Episodic Other complications of (2 sources) Supervision of other high risk pregnancies, unspecified trimester; Translations: [Supervision of other high risk pregnancies, unspecified trimester] Onset: 11-13-2024 Episodic Other complications of (2 sources) Supervision of high risk , unspecified, third trimester; Translations: [Supervision of high risk , unspecified, third trimester] Onset: 11-27-2024 Episodic Other complications of (2 sources) Uterine size-date discrepancy, unspecified trimester; Translations: [Uterine size-date discrepancy, unspecified trimester] Onset: 11-13-2024 Episodic Other complications of (1 source) Supervision of high risk , unspecified, second trimester; Translations: [Supervision of high risk , unspecified, second trimester] Onset: 10-10-2024 Episodic Residual codes; unclassified (2 sources) 38 weeks gestation of ; Translations: [38 weeks gestation of ] Onset: 11-13-2024 Episodic Residual codes; unclassified (1 source) 36 weeks gestation of ; Translations: [36 weeks gestation of ] Onset: 11-05-2024 Episodic Residual codes; unclassified (1 source) 31 weeks gestation of ; Translations: [31 weeks gestation of ] Onset: 09-26-2024 Episodic Residual codes; unclassified (1 source) 20 weeks gestation of ; Translations: [20 weeks gestation of ] Onset: 07-14-2024 Episodic Residual codes; unclassified (1 source) 16 weeks gestation of ; Translations: [16 weeks gestation of ] Onset: 06-16-2024 Episodic Residual codes; unclassified (1 source) 12 weeks gestation of ; Translations: [12 weeks gestation of ] Onset: 05-20-2024 Episodic Screening and history of mental health and substance abuse codes (20 sources) H/O: depression; Translations: [Personal history of other mental and behavioral disorders] Onset: 11-13-2024 Episodic Comment on above: untreated, feeling g ood now. Unclassified (7 sources) Spontaneous onset of labor; Translations: [Spontaneous onset of labor] 02-06-2023 Comment on above: 38+5 with spontaneou s labor. AROM for clear fluid Results Test Name Value Interpretation Reference Range Facility 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 Reporton 03-03-2025 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 Report [facility] [address] [place] [address], [address] [place] [address] OFFICE VISIT Date of Service: 03/03/25 MR#: [id number] Acct: [id number] Name: LLUVIA HOLLINGSWORTH Rep #: [id number] : 1995 Provider: LUIS cox Age/Sex: 29/F Location: [facility] Status: Signed Intake Vital Signs 01/20/25 10:26 03/03/25 10:50 03/03/25 10:54 Height 5 ft 4 in 5 ft 4 in 5 ft 4 in Weight: 205 lb 2 oz BMI 35.2 BP 124/70 H Intake Visit Reasons: 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 Skill Training Program Required: No Is patient in pain?: No Allergies No Known Allergies Allergy (Verified 03/03/25 10:50) Medications ???Medication ???Instructions ???Recorded ???Confirmed ???Type multivitamin no.47-iron fum 27 1 cap PO DAILY pergnancy 04/18/24 03/03/25 History mg-folate no.1 1 mg-dha 300 mg capsule (PNV-DHA) levonorgestrel (Mirena) 1 device intrauterine ONCE 5 02/19/25 History Is last menstrual period known: No Post menopausal: No Patient : No : No Control Method: Mirena [facility] Medical History Acute appendicitis Vaginal delivery Rubella non-immune status, antepartum Contraceptive management Spontaneous vaginal delivery Spontaneous onset of labor Uterine contractions Low-lying placenta in second trimester Supervision of high-risk History of depression Surgical History History of appendectomy History of surgery Family History Aunt Ovarian cancer, Onset Age: 45 Maternal Aunt Mother Miscarriage 2 or 3 miscarriages- before and after of pt. Social History adopted: No household members: significant other and children housing: house number of children: 1 current occupational status: unemployed current occupation: [employer] current occupational exposures/hazards: No pets and animals: Yes (not manage litterbox) pets and animals: cat(s) and dog(s) history of recent travel: No ([place]) sexually active: Yes Smoking Status: Current some day smoker tobacco type: e-cigarettes alcohol intake: former details: rarely drinks, special occasions, not while substance use type: does not use well-balanced diet: daily or most days caffeine: No eating out: 1-3 times/week during the past year weight has: remained stable what type of physical activity do you participate in: walking frequency: daily duration: 15-30 minutes/day chriss/baptism: None seatbelt use: always do you feel safe at home: Yes additional social history: J Luis - Self employed HPI 6 wk string check Details: LLUVIA HOLLINGSWORTH is a 29 year old who presents for IUD check. States some initial spotting but has resolved and denies discomfort. History 2 Elective abortions Hx Para 1 Spontaneous abortions Hx # Term Pregnancies 2 Ectopic pregnancies Hx # Pregnancies Multiple births # of living children 2 Past Pregnancies Del. Date Name GA/Weeks Outcome Route Bth Weight Infant Gen Labor Lgth Anesthesia Del Locatn Provider FOB 02/06/23 [place] 38 live - full term 8#4oz Male epidural [facility] KW J Luis 11/16/24 Renetta 38 live - full term 8lb 6oz Female epidural [facility] J V J Luis Delivery Date: 11/16/24 Last Updated by: Sammie Law RN See problem list for complications ROS Const Constitutional: Reports system reviewed and no additional complaints, except as documented Eyes Eyes: Reports system reviewed and no additional complaints, except as documented GI GI: Denies abdominal pain or change in bowel habits : Reports as per HPI Exam Const General: cooperative and no acute distress Orientation: oriented x3 General: bladder normal to palpation External Female Exam: normal external appearance and normal appearance of the urethra Urethra: normal appearance of the urethra Speculum Exam - Vagina: normal appearance of the vagina, normal vaginal discharge, no lesions and nontender Speculum Exam - Cervix: normal appearance of the cervix (IUD strings noted 3cm from os) Bimanual Exam- Vagina Uterus: normal bimanual exam, uterine size normal, bladder normal to palpation, uterine shape normal, uterine mobility normal and non-tender Bimanual Exam- Adnexa, other: normal adnexae, no masses and non-tender Coding Level of Care Code Off vis,est,level 2 Diagnoses IUD check up Z30.431 Assessment and Plan Assessment and Plan (1) IUD check up: Plan IUD appropriately placed RTO annual exam, prn 03/03/25 1101 Date _ (more content not included)... Normal [facility] Surgery Visit Reporton 01-27 Surgery Visit Report [facility] [address] [place] [address] OFFICE VISIT Date of Service: 01/27/25 MR#: [id number] Acct: [id number] Name: LLUVIA HOLLINGSWORTH Rep #: [id number] : 1995 Provider: CODY kauffman Age/Sex: 29/F Location: [facility] Status: Signed Intake Vital Signs 01/13/25 04:08 01/20/25 10:26 Height 5 ft 4 in 5 ft 4 in Intake Visit Reasons: APPY 4-8 Chief Complaint: F/U Appendectomy 01/13/25 Coordinator Skill Training Program Required: No Is patient in pain?: No Allergies No Known Allergies Allergy (Verified 01/27/25 13:23) Medications ???Medication ???Instructions ???Recorded ???Confirmed ???Type multivitamin no.47-iron fum 27 1 cap PO DAILY pergnancy 04/18/24 01/27/25 History mg-folate no.1 1 mg-dha 300 mg capsule (PNV-DHA) oxycodone 5 mg tablet 5 - 10 mg (1 - 2 x 5 mg) PO Q4H 01/27/25 Rx PRN PRN Pain Score 4-10 5 days #14 tabs dicloxacillin 500 mg capsule 500 mg PO Q6H 10 days #40 caps 07/0201/27/25 Rx Subjective Details: Patient is a 29 y/o F I am following s/p laparoscopic appendectomy with Dr. Martin on 01/13/25. Patient tolerated the procedure well. Patient denies any nausea, vomiting, fever since the procedure. Patient denies any abdominal or incisional pain/discomfort. Patient notes appetite and bowel habits are slowly returning to normal. Patient notes her mastitis has resolved. Pathology demonstrated acute appendicitis. Objective Details: Abdomen- soft, nontender. Incisions c/d/i. No erythema or infection noted. Coding Level of Care Code Global Post Op Diagnoses S/P appendectomy Z90.49 [facility] Medical History Acute appendicitis Vaginal delivery Rubella non-immune status, antepartum Contraceptive management Spontaneous vaginal delivery Spontaneous onset of labor Uterine contractions Low-lying placenta in second trimester Supervision of high-risk History of depression Surgical History (Updated 01/27/25 @ 13:33 by Sharmin KENNY, PASharynC) History of appendectomy History of surgery Family History Aunt Ovarian cancer, Onset Age: 45 Maternal Aunt Mother Miscarriage 2 or 3 miscarriages- before and after of pt. Social History adopted: No household members: significant other and children housing: house number of children: 1 current occupational status: unemployed current occupation: [employer] current occupational exposures/hazards: No pets and animals: Yes (not manage litterbox) pets and animals: cat(s) and dog(s) history of recent travel: [place] ([place]) sexually active: Yes Smoking Status: Current some day smoker tobacco type: e-cigarettes alcohol intake: former details: rarely drinks, special occasions, not while substance use type: does not use well-balanced diet: daily or most days caffeine: No eating out: 1-3 times/week during the past year weight has: remained stable what type of physical activity do you participate in: walking frequency: daily duration: 15-30 minutes/day chriss/baptism: None seatbelt use: always do you feel safe at home: Yes additional social history: J Luis - Self employed Assessment and Plan (No Qualifiers) Assessment and Plan (1) S/P appendectomy: Status: Acute Plan: Recommend no strenuous activity for 2 weeks Discussed signs of infection Follow-up as needed 01/27/25 1337 Date Sharmin Michele Godwinigner Signature: Date (if applicable) CC: Normal [facility] PAP I-G w/rfx hrHPV-Aptimaon 01-23-2025 ADEQ Comment Normal . [facility] Comment on above: Order Comment: Michael hancock Comment: [id number] Comment: Source.............CervixSpecimen Comment: LMP / Prev Treat...[id number] Comment: No. of containers..01 ThinPrep Vial Result Comment: Sati sfactory for evaluation. Endocervical and/or squamous metaplastic cells (endocervical component) are present. Performed By: #### L 7400.0353 ####[facility] [address] [place], [address] COMM . Normal . [facility] Comment on above: Order Comment: Michael hancock Comment: [id number] Comment: Source.............CervixSpecimen Comment: LMP / Prev Treat...[id number] Comment: No. of containers..01 ThinPrep Vial Performed By: #### L 7400.0353 ####[facility] [address] [facility] [place], [place], [id number] COMMENT Comment Normal . [facility] Comment on above: Order Comment: Michael hancock Comment: [id number] Comment: Source.............CervixSpecimen Comment: LMP / Prev Treat...[id number] Comment: No. of containers..01 ThinPrep Vial Result Comment: This liquid based ThinPrep(R) pap test was screened with the use of an image guided system. Performed By: #### L 7400.0353 ####[facility] [address] [place], [place], [id number] DIAG Comment Normal . [facility] Comment on above: Order Comment: Speci men Comment: [id number] Comment: Source.............CervixSpecimen Comment: LMP / Prev Treat...[id number] Comment: No. of containers..01 ThinPrep Vial Result Comment: NEGA TIVE FOR INTRAEPITHELIAL LESION OR MALIGNANCY. Performed By: #### L 7400.0353 ####[facility] [address] [place], [place], [id number] HPV RFLX Comment Normal . [facility] Comment on above: Order Comment: Speci men Comment: [id number] Comment: Source.............CervixSpecimen Comment: LMP / Prev Treat...[id number] Comment: No. of containers..01 ThinPrep Vial Result Comment: The HPV DNA reflex criteria were not met with this specimen result therefore, no HPV testing was performed. Performed at: [address] [id number] Change Room Attendant: Noe Amador PhD, Phone: [phone] Performed at: [address] [id number] Change Room Attendant: Megan Lawrence MD, Phone: [phone] Performed By: #### L 7400.0353 ####[facility] [address] [place], [place], [id number] PAPSMR Comment Normal . [facility] Comment on above: Order Comment: Speci men Comment: [id number] Comment: Source.............CervixSpecimen Comment: LMP / Prev Treat...[id number] Comment: No. of containers..01 ThinPrep Vial Result Comment: The Pap smear is a screening test designed to aid in the detection of premalignant and malignant conditions of the uterine cervix. It is not a diagnostic procedure and should not be used as the sole means of detecting cervical cancer. Both false-positive and false-negative reports do occur. Performed By: #### L 7400.0353 ####[facility] [address] [place], [address] PERFORM Comment Normal . [facility] Comment on above: Order Comment: Speci men Comment: [id number] Comment: Source.............CervixSpecimen Comment: LMP / Prev Treat...[id number] Comment: No. of containers..01 ThinPrep Vial Result Comment: Tala Sotelo, Viticulturist (ASCP) Performed By: #### L 7400.0353 ####[facility] [address] [place], [address] Cervical or vagninal specime n microscopic examination by cytology stain (reported asOrdered By: Ken Gómez on 01-20-2025 Cytology report Cyto stain Doc (Cvx/Vag) Comment . [facility] Comment on above: The Pap smear is a s creening test designed to aid in thedetection of premalignant and malignant conditions of theuterine cervix. It is not a diagnostic procedure andshould not be used as the sole means of detecting cervicalcancer. Both false-positive and false-negative reports dooccur. Laboratory - Chemistry and C hemistry - challengeOrdered By: Ken Gómez on 01-20-2025 HCG ( test) Ql (U) Negative [facility] Laboratory - CytologyOrdered By: Ken Gómez on 01-20-2025 Rock Mason Apprentice Cyto stain Nom (Cvx/Vag) [ID] Comment . [facility] Comment on above: Kindra Sotelo, Viticulturist (ASCP) Laboratory - Miscellaneous t estsOrdered By: Ken Gómez on 01-20-2025 Service comment (Unsp spec) [Interp] . . [facility] No Panel InformationOrdered By: Ken Gómez on 01-20-2025 Pap Smear Specimen Adequacy Comment . [facility] Comment on above: Satisfactory for alex luation. Endocervical and/or squamous metaplasticcells (endocervical component) are present. 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 Reporton 01-20-2025 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 Report [facility] [address], [address] [place] [address] OFFICE VISIT Date of Service: 01/20/25 MR#: [id number] Acct: [id number] Name: LLUVIA HOLLINGSWORTH Rep #: [id number] : 1995 Provider: LUIS cox Age/Sex: 29/F Location[facility] Status: Signed Intake Vital Signs 12/29/24 15:25 01/13/25 04:08 01/20/25 10:15 01/20/25 10:26 Height 5 ft 4 in 5 ft 4 in 5 ft 4 in 5 ft 4 in Weight: 200 lb 4 oz BMI 34.3 BP 120/76 Intake Visit Reasons: IUD insertion Mirena Chief Complaint: IUD insertion Coordinator Skill Training Program Required: No Is patient in pain?: No Allergies No Known Allergies Allergy (Verified 01/20/25 10:32) Medications ???Medication ???Instructions ???Recorded ???Confirmed ???Type multivitamin no.47-iron fum 27 1 cap PO DAILY pergnancy 04/18/24 01/20/25 History mg-folate no.1 1 mg-dha 300 mg capsule (PNV-DHA) oxycodone 5 mg tablet 5 - 10 mg (1 - 2 x 5 mg) PO Q4H 01/20/25 Rx PRN PRN Pain Score 4-10 5 days #14 tabs dicloxacillin 500 mg capsule 500 mg PO Q6H 10 days #40 caps 07/0201/20/25 Rx Is last menstrual period known: Yes Last Menstrual Period: 01/03/25 Post menopausal: No Patient : No : No PFSH PFSH Medical History (Updated 01/20/25 @ 10:45 by Ken Gómez BUSINESS CONTINUITY DIRECTOR, BUSINESS CONTINUITY DIRECTOR-C) Vaginal delivery Rubella non-immune status, antepartum Contraceptive management Spontaneous vaginal delivery Spontaneous onset of labor Uterine contractions Low-lying placenta in second trimester Supervision of high-risk History of depression Surgical History History of surgery Family History Aunt Ovarian cancer, Onset Age: 45 Maternal Aunt Mother Miscarriage 2 or 3 miscarriages- before and after of pt. Social History adopted: No household members: significant other and children housing: house number of children: 1 current occupational status: unemployed current occupation: [employer] current occupational exposures/hazards: No pets and animals: Yes (not manage litterbox) pets and animals: cat(s) and dog(s) history of recent travel: No ([place]) sexually active: Yes Smoking Status: Current some day smoker tobacco type: e-cigarettes alcohol intake: former details: rarely drinks, special occasions, not while substance use type: does not use well-balanced diet: daily or most days caffeine: No eating out: 1-3 times/week during the past year weight has: remained stable what type of physical activity do you participate in: walking frequency: daily duration: 15-30 minutes/day chriss/baptism: None seatbelt use: always do you feel safe at home: Yes 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 Date Name GA/Weeks Outcome Route Bth Weight Infant Gen Labor Lgth Anesthesia Del Locatn Provider ANJELICA 02/06/23 Se[place] 38 live - full term 8#4oz Male epidural [facility] J Luis 11/16/24 Renetta 38 live - full term 8lb 6oz Female epidural [facility] Christine Dietz Delivery Date: 11/16/24 Last Updated by: Sammie Law RN See problem list for complications HPI IUD insertion Mirena Details: LLUVIA HOLLINGSWORTH is a 29 year old who presents for mirena IUD insertion. Female Reproductive History Last Menstrual Period: 01/03/25 ROS Const Constitutional: Reports system reviewed and no additional complaints, except as documented Eyes Eyes: Reports system reviewed and no additional complaints, except as documented GI GI: Denies abdominal pain or change in bowel habits : Reports as per HPI Office Procedures IUD Insertion IUD GC/Chlamydia:: not done Test: Yes Negative Consent Signed: Yes Time out checklist: patient, procedure, site marked/identified, positioning of patient, supplies available, allergies confirmed and team agrees on procedure IUD: Yes Mirena IUD inserted Time out time: 10:30 Details: Sign in Communication: Completed Sign out documentation: Completed The uterus sounded to 7 cm. After prepping the cervix with betadine and using sterile technique, the cervix was grasped with a single tooth tenaculum and the IUD was inserted without difficulty and the string was cut to 3cm from the external os of the cervix. All instruments were removed from the vagina and excellent hemostasis was noted. Procedure Summary: patient tolerated the pro (more content not included)... Normal [facility] Absolute lymphocyte countOrd ered By: Sharmin Bautista on 01-14-2025 Lymphocytes Auto (Unsp spec) [#/Vol] 2.39 10*3/uL 0.83-4.51 [facility] Absolute neutrophil countOrd ered By: Sharmin Bautista on 01-14-2025 Neutrophils (Bld) [#/Vol] 9.2 10*3/uL High 2.0-7.7 [facility] Anion gap in Serum or Plasma Ordered By: Sharmin Bautista on 01-14-2025 Anion gap [Moles/Vol] 17 mmol/L High 5-15 [facility] Automated lymphocyte count a s percentage of total leukocytesOrdered By: Sharmin Bautista on 01-14-2025 Lymphocytes/100 WBC Auto (Unsp spec) 18.7 % Low 19-41 [facility] BUN/creatinine ratioOrdered By: Sharmin Bautista on 01-14-2025 Urea nitrogen/Creatinine [Mass ratio] 17.0 mg/mg 10-20 [facility] Basic Metabolic Profile (BMP )on 01-14-2025 BUN/CRE 17.0 RATIO Normal - [facility] Comment on above: Performed By: #### L 500.2500, L100.0100 ####[facility] [address] [place], [address] Calcium [Mass/Vol] 8.3 mg/dL Normal 7.6-11.0 [facility] Comment on above: Performed By: #### L 500.2500, L100.0100 ####[facility] [address] [place], [address] Chloride [Moles/Vol] 105 mmol/L Normal 98-108 [facility] Comment on above: Performed By: #### L 500.2500, L100.0100 ####[facility] [address] [place], [address] CO2 [Moles/Vol] 13.5 mmol/L Low 21.0-32.0 [facility] Comment on above: Performed By: #### L 500.2500, L100.0100 ####[facility] [address] [place], [address] Creatinine [Mass/Vol] 0.49 mg/dL Low 0.70-1.20 [facility] Comment on above: Performed By: #### L 500.2500, L100.0100 ####[facility] [address] [place], [address] ECRCL 186.78 ml/min Normal 50-250 [facility] Comment on above: Performed By: #### L 500.2500, L100.0100 ####[facility] [address] [place], [address] GAP 17 High 5-15 [facility] Comment on above: Performed By: #### L 500.2500, L100.0100 ####[facility] [address] [place], [address] GFR/1.73 sq M.predicted among non-blacks MDRD (S/P/Bld) [Vol rate/Area] 132 mL/min/{1.73_m2} Normal >60 [facility] Comment on above: Result Comment: mL/m in/1.73m2 CKD-EPI Creatinine Equation (2020) Performed By: #### L 500.2500, L100.0100 ####[facility] [address] [place], [address] Glucose [Mass/Vol] 80 mg/dL Normal 70-99 [facility] Comment on above: Performed By: #### L 500.2500, L100.0100 ####[facility] [address] [place], [address] Potassium [Moles/Vol] 4.1 mmol/L Normal 3.3-5.1 [facility] Comment on above: Performed By: #### L 500.2500, L100.0100 ####[facility] [address] [place], [address] Sodium [Moles/Vol] 136 mmol/L Normal 133-145 [facility] Comment on above: Performed By: #### L 500.2500, L100.0100 ####[facility] [address] [place], [address] Urea nitrogen [Mass/Vol] 8 mg/dL Normal 4-19 [facility] Comment on above: Performed By: #### L 500.2500, L100.0100 ####[facility] [address] [place], [address] Basophil percentageOrdered B y: Sharmin Bautista on 01-14-2025 Basophils/100 WBC (Bld) 0.2 % 0-1 [facility] CBC W/Diff, Automatedon 04-0 Absolute Lymph 2.39 X10 3/uL Normal 0.83-4.51 [facility] Comment on above: Performed By: #### L 500.2500, L100.0100 ####[facility] [address] [place], [address] Absolute Neut 9.2 X10 3/uL High 2.0-7.7 [facility] Comment on above: Performed By: #### L 500.2500, L100.0100 ####[facility] [address] [place], [address] Basophils/100 WBC (Bld) 0.2 % Normal 0-1 [facility] Comment on above: Performed By: #### L 500.2500, L100.0100 ####[facility] [address] [place], [address] Eosinophils/100 WBC (Bld) 1.0 % Normal 0-5 [facility] Comment on above: Performed By: #### L 500.2500, L100.0100 ####[facility] [address] [place], [address] Erythrocyte distribution width (RBC) [Ratio] 12.5 % Normal 11.6-14.6 [facility] Comment on above: Performed By: #### L 500.2500, L100.0100 ####[facility] [address] [place], [address] Hematocrit (Bld) [Volume fraction] 33.0 % Low 37-47 [facility] Comment on above: Performed By: #### L 500.2500, L100.0100 ####[facility] [address] [place], [address] Hemoglobin (Bld) [Mass/Vol] 11.0 g/dL Low 12.0-15.0 [facility] Comment on above: Performed By: #### L 500.2500, L100.0100 ####[facility] [address] [place], [address] IG% 0.500 Normal 0.0-0.9 [facility] Comment on above: Result Comment: IG% - Immature Granulocytes (promyelocytes, myelocytes and metamyelocytes) > 1% indicates that a LEFT SHIFT is Present. Performed By: #### L 500.2500, L100.0100 ####[facility] [address] [place], [address] Lymphocytes/100 WBC (Bld) 18.7 % Low 19-41 [facility] Comment on above: Performed By: #### L 500.2500, L100.0100 ####[facility] [address] [place], [address] MCH (RBC) [Entitic mass] 30.9 pg Normal 27.0-32.0 [facility] Comment on above: Performed By: #### L 500.2500, L100.0100 ####[facility] [address] [place], [address] MCHC (RBC) [Mass/Vol] 33.3 g/dL Normal 32-36 [facility] Comment on above: Performed By: #### L 500.2500, L100.0100 ####[facility] [address] [place], [address] MCV (RBC) [Entitic vol] 92.7 fL Normal 81-99 [facility] Comment on above: Performed By: #### L 500.2500, L100.0100 ####[facility] [address] [place], [address] Monocytes/100 WBC (Bld) 7.4 % Normal 0-10 [facility] Comment on above: Performed By: #### L 500.2500, L100.0100 ####[facility] [address] [place], [address] Neutrophils/100 WBC (Bld) 72.2 % High 47-70 [facility] Comment on above: Performed By: #### L 500.2500, L100.0100 ####[facility] [address] [place], [address] Nucleated RBC (Bld) [#/Vol] 0 10*3/uL Normal 0-5 [facility] Comment on above: Performed By: #### L 500.2500, L100.0100 ####[facility] [address] [place], [address] Platelet mean volume (Bld) [Entitic vol] 10.1 fL Normal 6.2-12.0 [facility] Comment on above: Performed By: #### L 500.2500, L100.0100 ####[facility] [address] [place], [address] Platelets (Bld) [#/Vol] 261 10*3/uL Normal 150-450 [facility] Comment on above: Performed By: #### L 500.2500, L100.0100 ####[facility] [address] [place], [address] RBC (Bld) [#/Vol] 3.56 10*6/uL Low 4.2-5.4 [facility] Comment on above: Performed By: #### L 500.2500, L100.0100 ####[facility] [address] [place], [address] RDW SD 43.1 fl Normal 35.1-43.9 [facility] Comment on above: Performed By: #### L 500.2500, L100.0100 ####[facility] [address] [place], [address] WBC (Bld) [#/Vol] 12.8 10*3/uL High 4.4-11.0 [facility] Comment on above: Performed By: #### L 500.2500, L100.0100 ####[facility] [address] [place], [address] Carbon dioxide, total [Moles /volume] in Central venous bloodOrdered By: Sharmin Bautista on 01-14-2025 CO2 [Moles/Vol] 13.5 mmol/L Low 21.0-32.0 [facility] Chloride assayOrdered By: Peter Bautista on 01-14-2025 Chloride [Moles/Vol] 105 mmol/L 98-108 [facility] Eosinophil percentageOrdered By: Sharmin Bautista on 01-14-2025 Eosinophils/100 WBC (Bld) 1.0 % 0-5 [facility] Erythrocyte distribution wid th (RBC) [Ratio]Ordered By: Sharmin Bautista on 01-14-2025 Erythrocyte distribution width (RBC) [Entitic vol] 43.1 fL 35.1-43.9 [facility] Erythrocyte distribution wid th ratioOrdered By: Sharmin Bautista on 01-14-2025 Erythrocyte distribution width (RBC) [Ratio] 12.5 % 11.6-14.6 [facility] Erythrocyte distribution wid th standard deviationOrdered By: Sharmin Bautista on 01-14-2025 Erythrocyte distribution width (RBC) [Ratio] 43.1 fl 35.1-43.9 [facility] Estimation of creatinine mary ellen aranceOrdered By: Sharmin Bautista on 01-14-2025 Estimated Creatinine Clearance Calc 186.78 ml/min 50-250 [facility] GFR/1.73 sq M.predicted gabrielle g non-blacks MDRD (S/P/Bld) [Vol rate/Area]Ordered By: Sharmin Bautista on 01-14-2025 Estimated GFR (MDRD) Non-Af Amer 132 >60 [facility] Comment on above: mL/min/1.73m2 CKD-EP I Creatinine Equation (2020) Glomerular filtration rate ( GFR) estimation/1.73 sq m using serum, plasma, or whole bOrdered By: Sharmin Bautista on 01-14-2025 GFR/1.73 sq M.predicted among non-blacks MDRD (S/P/Bld) [Vol rate/Area] 132 mL/min/{1.73_m2} >60 [facility] Comment on above: mL/min/1.73m2 CKD-EP I Creatinine Equation (2020) Hematocrit Auto (Bld) [Volum e fraction]Ordered By: Sharmin Bautista on 01-14-2025 Hematocrit (Bld) [Volume fraction] 33.0 % Low 37-47 [facility] [place] Hemoglobin measurementOrdere d By: Sharmin Bautista on 01-14-2025 Hemoglobin (Bld) [Mass/Vol] 11.0 g/dL Low 12.0-15.0 [facility] [place] Immature granulocytes/100 WB C Auto (Bld)Ordered By: Sharmin Bautista on 01-14-2025 Immature granulocytes/100 WBC (Bld) 0.500 % 0.0-0.9 [facility] [place] Comment on above: IG% - Immature Granu locytes (promyelocytes, myelocytes and metamyelocytes) > 1% indicates that a LEFT SHIFT is Present. Lymphocytes Auto (Unsp spec) [#/Vol]Ordered By: Sharmin Bautista on 01-14-2025 Lymphocytes (Bld) [#/Vol] 2.39 10*3/uL 0.83-4.51 [facility] [place] Lymphocytes/100 WBC Auto (Un sp spec)Ordered By: Sharmin Bautista on 01-14-2025 Lymphocytes/100 WBC (Bld) 18.7 % Low 19-41 [facility] MCV (mean corpuscular volume ) determinationOrdered By: Sharmin Bautista on 01-14-2025 MCV (RBC) [Entitic vol] 92.7 fL 81-99 [facility] Mean corpuscular hemoglobin (MCH) determinationOrdered By: Sharmin Bautista on 01-14-2025 MCH (RBC) [Entitic mass] 30.9 pg 27.0-32.0 [facility] Mean corpuscular hemoglobin concentration (MCHC) determinationOrdered By: Sharmin Bautista on 01-14-2025 MCHC (RBC) [Mass/Vol] 33.3 g/dL 32-36 [facility] Mean platelet volume determi nationOrdered By: Sharmin Bautista on 01-14-2025 Platelet mean volume (Bld) [Entitic vol] 10.1 fL 6.2-12.0 [facility] Monocyte percentageOrdered B y: Sharmin Bautista on 01-14-2025 Monocytes/100 WBC (Bld) 7.4 % 0-10 [facility] Neutrophil percentageOrdered By: Sharmin Bautista on 01-14-2025 Neutrophils/100 WBC (Bld) 72.2 % High 47-70 [facility] [place] Nucleated red blood cell per centageOrdered By: Sharmin Bautista on 01-14-2025 Nucleated RBC/100 WBC (Bld) [Ratio] 0 % 0-5 [facility] Platelet countOrdered By: Peter Bautista on 01-14-2025 Platelets (Bld) [#/Vol] 261 10*3/uL 150-450 [facility] Potassium (Unsp spec) [Mass/ Vol]Ordered By: Sharmin Bautista on 01-14-2025 Potassium [Moles/Vol] 4.1 mmol/L 3.3-5.1 [facility] Potassium measurement (mass/ volume)Ordered By: Sharmin Bautista on 01-14-2025 Potassium (Unsp spec) [Mass/Vol] 4.1 mmol/L 3.3-5.1 [facility] RBC Auto (Bld) [#/Vol]Ordere d By: Sharmin Bautista on 01-14-2025 RBC (Bld) [#/Vol] 3.56 10*6/uL Low 4.2-5.4 [facility] Serum creatinine measurement (mass/volume)Ordered By: Sharmin Bautista on 01-14-2025 Creatinine [Mass/Vol] 0.49 mg/dL Low 0.70-1.20 [facility] Serum glucose measurement (m ass/volume)Ordered By: Sharmin Bautista on 01-14-2025 Glucose [Mass/Vol] 80 mg/dL 70-99 [facility] Serum or plasma calcium jocelyn urement (mass/volume)Ordered By: Sharmin Bautista on 01-14-2025 Calcium [Mass/Vol] 8.3 mg/dL 7.6-11.0 [facility] Serum or plasma urea nitroge n measurement (mass/volume)Ordered By: Sharmin Bautista on 01-14-2025 Urea nitrogen [Mass/Vol] 8 mg/dL 4-19 [facility] Sodium levelOrdered By: Linus Mccurdy on 01-14-2025 Sodium [Moles/Vol] 136 mmol/L 133-145 [facility] White blood cell (WBC) count Ordered By: Sharmin Bautista on 01-14-2025 WBC (Bld) [#/Vol] 12.8 10*3/uL High 4.4-11.0 [facility] Discharge Instructionon 04-0 Discharge Instruction [facility] Medical Records Department [address] [place] [address] Instructions for Home/Discharge Instructions 01/13/25 0644 MR#: [id number] Acct: [id number] Name: LLUVIA HOLLINGSWORTH Rep #: [id number] : 1995 29 From: Anthony Martin MD PCP: Care Physician,No Primary Status:ADM FARTUN Discharge Instructions Procedure Appendectomy Diet Discharge Diet: Light diet - advance as tolerated Activity Discharge Activity: May Not Drive (for 2-3 days or while taking narcotic pain medications.) May shower in (days): 1 Lifting Restrictions: 20 lbs for 2 weeks Dressing / Incision Call your doctor if your incision/area has: Continuous Slow Oozing, Sudden Increased Bleeding, Increased Pain/ Swelling, Increased Redness and Foul Smelling Discharge Call your doctor if you observe: Fever of 101 or Higher Suture Line Care: Avoid Pulling/Pushing and Avoid Pinching/Bending Remove Dressing in: 2 days Cleanse incision/area with: Soap Water Additional Dressing/Incision Instructions:: Keep dressing clean and dry. Change or remove dressing in 2 days. Leave steri strips for 1 week. May protect with a gauze bandaid. Follow Up Care Please Follow Up With: Anthony Martin MD When: Please call to schedule 2 week follow up appointment. [phone] Test Results: Test results from this visit will be discussed in further detail at your follow-up appointment, if applicable. Discharge Plan Admission Admit Date/Time: 01/12/25 20:33 Attending Provider: Anthony Martin Primary Care Provider: Care Physician,No Primary Discharge Orders/Prescriptions Prescriptions: New oxycodone 5 mg Tablet 5 - 10 mg PO Q4H PRN PRN (Reason: Pain Score 4-10) 5 Days Qty: 14 0RF Continued PNV-DHA 27 mg iron-1 mg -300 mg capsule 1 cap PO DAILY Referrals / Follow Up: Care Physician,No Primary [Primary Care Provider] - Disposition Disposition (needs filled in before D/C Order can be placed): Home, Self Care 01/13/25644 Anthony Martin MD CC: No Primary Care Physician Signed [facility] MR/POSTOP.ANE 01-13-2025 MR/POSTOP.[facility] Medical Records Department [address] [place] [address] Anesthesia Postop Eval I 01/13/2545 MR#: [id number] Acct: [id number] Name: LLUVIA HOLLINGSWORTH Rep #: [id number] : 1995 29 From: Luis E Villareal PCP: Care Physician,No Primary Status:ADM FARTUN Y Race: C Location: [place] [address] Anesthesia: Postop Eval I Current Vital Signs Temperature: 98 F Pulse Rate: 94 Blood Pressure: 110/66 Respiratory Rate: 16 Pulse Ox: 94 Oxygen Delivery Method: Room Air Assessment Airway patent: Yes Spontaneous unlabored respirations: Yes Mental status: Awake and Calm nausea: No Vomiting: No Anesthesia Complication: No Fluid Hydration Crystalloid volume administer (ml): 500 Total IV fluid infused: 500 Progress Note Anesthesia document: Postop Eval 1 completed: Yes 01/13/2545 Date Luis E Nascimento Signature: Date CC: Signed [facility] MR/[id number] 01-13-2025 MR/POST[address] Medical Records Department [address] [place] [address] Anesthesia Postop Eval II 01/13/25 1233 MR#: [id number] Acct: [id number] Name: LLUVIA HOLLINGSWORTH Rep #: [id number] : 1995 29 From: Nile Ross MD PCP: Care Physician,No Primary Status:ADM FARTUN Y Race: C [place] [facility] [id number] Anesthesia Postop Eval I Sum Postop Eval Completion status Anesthesia document: Postop Eval 1 completed: Yes Anesthesia Postop Eval I Summary Anesthesia Postop Eval I Summary: Anesthesia Postop Eval I: Assessment Summary Airway patent Yes 01/13/25 06:45 PLANT FACILITIES TECHNICIAN.MDOT Spontaneous unlabored Yes 01/13/25 06:45 PLANT FACILITIES TECHNICIAN.MDOT respirations Mental status Awake,Calm 01/13/25 06:45 PLANT FACILITIES TECHNICIAN.MDOT nausea No 01/13/25 06:45 PLANT FACILITIES TECHNICIAN.MDOT Vomiting No 01/13/25 06:45 PLANT FACILITIES TECHNICIAN.MDOT Anesthesia Postop Eval I: Fluid Summary Crystalloid volume administer 500 01/13/25 06:45 PLANT FACILITIES TECHNICIAN.MDOT (ml) Colloids volume administered ( ml) Blood Product volume administered (ml) Total IV fluid infused 500 01/13/25 06:45 PLANT FACILITIES TECHNICIAN.MDOT Anesthesia Postop Eval I: Summary Notes Anesthesia Complication No 01/13/25 06:45 PLANT FACILITIES TECHNICIAN.MDOT Anesthesia Complication Comment: Post-operative progress note Anesthesia: Postop Eval II Evaluation Mental status: Awake and Calm Pain Level: 1 nausea: No Vomiting: No Complications Anesthesia Complication: No 01/13/25 1233 Date Nile Ross MD Cosigner Signature: Date CC: Signed Normal [facility] Operative Reporton 5 Operative Report [facility] Medical Records Department [address] [place] [address] Operative Report 01/13/25 0641 MR#: [id number] Acct: [id number] Name: LLUVIA HOLLINGSWORTH Rep #: [id number] : 1995 29 From: Anthony Martin MD PCP: Care Physician,No Primary Status:ADM FARTUN Location: [place] [id number] Operative Report (Standard) Operative Information Date of Procedure: 01/13/25 Pre-Operative Diagnosis: Acute appendicitis Post-Operative Diagnosis: Acute appendicitis Surgery/Procedure Performed: Laparoscopic appendectomy vegetable scullion: No Type of Anesthesia: General/Regional RN Documented Start/Stop Times: Operation Date: 01/13/25 06:20 Case Time Anesthesia Start 01/13/25 06:00 Into Room 01/13/25 06:00 Procedure Start 01/13/25 06:15 Anesthesia End 01/13/25 06:34 Out of Room 01/13/25 06:34 Procedure End 01/13/25 06:34 Procedure Start Time: 06:15 Procedure Stop Time: 06:34 Select all DRAINS/GRAFTS/IMPLANTS that apply: None Estimated Blood Loss: 5 Specimen collected: Yes Description of specimen(s) removed: Appendix Description of surgery: The patient was brought into the operating room and general anesthesia was induced. The left arm was tucked and the abdomen was prepped and draped in usual sterile fashion. A small midline incision was made superior to the umbilicus and deepened to the level of the fascia. The fascia was elevated and incised. The peritoneum was also elevated and incised. A finger sweep was performed and a balloon trocar was placed into the abdomen and inflated. The abdomen was insufflated to 15 mmHg and the camera was inserted and the abdomen was inspected for any injuries upon entering the abdomen. There were none. The patient was placed in Trendelenburg position and a 5 mm ports placed in the left lower quadrant and suprapubic areas under direct visualization. Next using atraumatic bowel graspers the appendix was identified. The appendix was grasped and elevated and Enseal was used to take down the mesoappendix. A stapler was used to come across the base of the appendix. The appendix was then placed in Endo Catch bag and removed through the umbilical incision. The staple line was inspected and found to be hemostatic and intact. The 2 5 mm ports are removed under direct visualization. The balloon trocar was deflated and removed and all the air was removed from the abdomen. The umbilical incision fascia was closed with an 0 Vicryl [id number] suture. The incisions were then irrigated with saline and dried. Local anesthetic was injected into the incision sites. The skin incisions were then closed with interrupted 4-0 Monocryl suture and Steri- Strips. Bandages were applied and the patient was awoken and taken to PACU in stable condition. Patient tolerated the procedure well. Surgical Findings: Inflamed appendix with purulence wound class III Complications Complications: No Admit VTE Documentation VTE Mechan Device Prophylaxis: SCD's 01/13/25 0643 Cosigner Signature (if applicable): CC: Dr. Anthony Martin MD; No Primary Care Physician Signed Normal [facility] Surgery Specimen Level IIIon 01-13-2025 Surgery Specimen Level III Patient Age/Sex Location Account Attending Physician LLUVIA HOLLINGSWORTH 29/F MS3 [id number] Dr. Anthony Martin MD Specimen: [id number] Received: 01/13/25 Status: MATTHEW Méndez Num: [id number] Spec Type: APPENDIX Subm Dr: Dr. Anthony Martin MD HEADER OPERATION: Laparoscopic appendectomy PRE-OP DIAGNOSIS: Acute appendicitis TISSUE SUBMITTED: A- Appendix MICROSCOPIC DIAGNOSIS A. Appendix, acute appendicitis, appendectomy: * Acute appendicitis, acute serositis. MICROSCOPIC DESCRIPTION Slides are reviewed. GROSS DESCRIPTION A. Received in formalin in a container labeled with the patient's name, date of , and appendix is an intact 7.2 x 1.0 cm appendectomy specimen with mesoappendix measuring up to 3 cm in thickness. The serosa is ray-pink and roughened with an abundance of adherent white-velez exudate. The stapled resection margin is inked black and serial sections reveal a 0.4 cm lumen filled with red and brown creamy material. There is an average wall thickness of 0.4 cm. No distinct perforation or fecalith is grossly recognized. Protein Scientist sections:A1. Margin, en face with cross-sectionsA2. Tip, bisected [facility] 01-13-2025 CPT:05874 Patient Age/Sex Location Account Attending Physician LLUVIA HOLLINGSWORTH 29/ MS3 [id number] Dr. Anthony Martin MD Signed (signature on file) Dr. Portia Rothman MD 01/22/25 1552 Normal [facility] Comment on above: Performed By: #### P SUIII ####[facility] [address] [facility] [place], [place], [id number] Abdomen/Pelvis W IV Cont ONL Yon 01-12-2025 Abdomen/Pelvis W IV Cont ONLY [facility] Imaging Services [address] [place], [place] [address] Abdomen/Pelvis W IV Cont ONLY MR#: [id number] Acct: [id number] Name: LLUVIA HOLLINGSWORTH Rep #: [id number] : 1995 F 29 From: Sal turk MD PCP: Care Physician,No Primary Status: REG ER Study: Abdomen/Pelvis W IV Cont ONLY Date of Exam: Exam# [id number] Ordering Dr: Mookie Morales DO PROCEDURE: ABDOMEN/PELVIS W IV CONT ONLY 01/12/2025 REASON FOR EXAM: RIGHT LOWER QUADRANT ABDOMINAL PAIN TECHNIQUE: Abdomen and pelvis CT with intravenous contrast. Coronal and Sagittal reconstruction series were provided. PATIENT PREPARATION: Per protocol ORAL CONTRAST TYPE: None. AMOUNT: mL CONTRAST: Omnipaque 350 VOLUME: 100 mL Gauge IV One or more dose reduction techniques were used (e.g., Automated exposure control, adjustment of the mA and/or kV according to patient size, use of iterative reconstruction technique. COMPARISON: None FINDINGS: Lung bases: Unremarkable. Liver: Hepatomegaly, craniocaudal length 19.7 cm. Homogeneous attenuation. 12 mm posterior right hepatic lobe slightly enhancing lesion (series 2, image 22).. Gallbladder: No intrahepatic or extrahepatic ductal dilation. Gallbladder is unremarkable. Spleen: Normal size. Pancreas: Normal size without evidence of mass surrounding inflammation or ductal dilation. Adrenals: Unremarkable. Kidneys: Normal renal sizes. No hydronephrosis. Bladder: No abnormal urinary bladder wall thickening. Reproductive Organs: Bilateral adnexal cysts. Small amount of fluid within the endometrial canal. Bowel: Stomach is unremarkable. No bowel dilation. Descending colon and rectosigmoid wall thickening and mild surrounding mesenteric soft tissue stranding, concerning for infectious colitis. Moderate colonic stool. Appendix: Mildly dilated appendix with wall thickening, submucosal hyperemia and surrounding soft tissue stranding (series 2 images 73-86, series 601 image 56). Findings suggestive of acute appendicitis. Lymph nodes: Unremarkable. Vasculature: The abdominal aorta and IVC are normal. Peritoneum / Retroperitoneum: No pneumoperitoneum. No ascites. Bones: No acute osseous abnormality. CT/Abdomen/Pelvis W IV Cont ONLY IMPRESSION: Mildly dilated appendix with wall thickening mild hyperemia surrounding soft tissue stranding, concerning for acute appendicitis. Hepatomegaly and a 12 mm right hepatic lobe slightly enhancing lesion. Differential considerations include hemangioma, adenoma versus FNH. Recommend further evaluation with MRI of the liver with contrast. Reading Location: [facility] CC: Dr. Mookie Morales, DO; No Primary Care Physician Railway Switchman: Signed Normal [facility] Absolute neutrophil countOrd ered By: ED PROVIDER on 01-12-2025 Neutrophils (Bld) [#/Vol] 15.4 10*3/uL High 2.0-7.7 [facility] Anion gap in Serum or Plasma Ordered By: Mookie Morales on 01-12-2025 Anion gap [Moles/Vol] 14 mmol/L 5-15 [facility] BUN/creatinine ratioOrdered By: Mookie Morales on 01-12-2025 Urea nitrogen/Creatinine [Mass ratio] 21.3 mg/mg High 10-20 [facility] Bacteria LM.HPF (Urine sed) [#/Area]Ordered By: Mookie Morales on 01-12-2025 Urine Bacteria RARE /hpf None Seen [facility] Basophil percentageOrdered B y: ED PROVIDER on 01-12-2025 Basophils/100 WBC (Bld) 0.3 % 0-1 [facility] Beta HCG ( test) Ql Ordered By: Mookie Morales on 01-12-2025 Serum Test, Qualitative Negative [facility] Bilirubin Test strip Ql (U)O rdered By: Mookie Morales on 01-12-2025 Bilirubin Ql (U) Negative Negative [facility] Bilirubin, totalOrdered By: Mookie Morales on 01-12-2025 Bilirubin [Mass/Vol] 0.46 mg/dL 0.00-1.30 [facility] CBC W/Diff, Automatedon Absolute Lymph 1.61 X10 3/uL Normal 0.83-4.51 [facility] Comment on above: Performed By: #### L 500.4050, L700.6800, L100.0100, L501.2450 ####[facility] [address] [place], [address] Absolute Neut 15.4 X10 3/uL High 2.0-7.7 [facility] Comment on above: Performed By: #### L 500.4050, L700.6800, L100.0100, L501.2450 ####[facility] [address] [place], [address] Basophils/100 WBC (Bld) 0.3 % Normal 0-1 [facility] Comment on above: Performed By: #### L 500.4050, L700.6800, L100.0100, L501.2450 ####[facility] [address] [place], [address] Eosinophils/100 WBC (Bld) 1.4 % Normal 0-5 [facility] Comment on above: Performed By: #### L 500.4050, L700.6800, L100.0100, L501.2450 ####[facility] [address] [place], [address] Erythrocyte distribution width (RBC) [Ratio] 12.5 % Normal 11.6-14.6 [facility] Comment on above: Performed By: #### L 500.4050, L700.6800, L100.0100, L501.2450 ####[facility] [address] [place], [address] Hematocrit (Bld) [Volume fraction] 39.6 % Normal 37-47 [facility] Comment on above: Performed By: #### L 500.4050, L700.6800, L100.0100, L501.2450 ####[facility] [address] [place], [address] Hemoglobin (Bld) [Mass/Vol] 13.1 g/dL Normal 12.0-15.0 [facility] Comment on above: Performed By: #### L 500.4050, L700.6800, L100.0100, L501.2450 ####[facility] [address] [place], [address] IG% 0.600 Normal 0.0-0.9 [facility] Comment on above: Result Comment: IG% - Immature Granulocytes (promyelocytes, myelocytes and metamyelocytes) > 1% indicates that a LEFT SHIFT is Present. Performed By: #### L 500.4050, L700.6800, L100.0100, L501.2450 ####[facility] [address] [place], [address] Lymphocytes/100 WBC (Bld) 8.6 % Low 19-41 [facility] Comment on above: Performed By: #### L 500.4050, L700.6800, L100.0100, L501.2450 ####[facility] [address] [place], [address] MCH (RBC) [Entitic mass] 30.8 pg Normal 27.0-32.0 [facility] Comment on above: Performed By: #### L 500.4050, L700.6800, L100.0100, L501.2450 ####[facility] [address] [place], [address] MCHC (RBC) [Mass/Vol] 33.1 g/dL Normal 32-36 [facility] Comment on above: Performed By: #### L 500.4050, L700.6800, L100.0100, L501.2450 ####[facility] [address] [place], [address] MCV (RBC) [Entitic vol] 93.0 fL Normal 81-99 [facility] Comment on above: Performed By: #### L 500.4050, L700.6800, L100.0100, L501.2450 ####[facility] [address] [place], [address] Monocytes/100 WBC (Bld) 7.0 % Normal 0-10 [facility] Comment on above: Performed By: #### L 500.4050, L700.6800, L100.0100, L501.2450 ####[facility] [address] [place], [address] Neutrophils/100 WBC (Bld) 82.1 % High 47-70 [facility] Comment on above: Performed By: #### L 500.4050, L700.6800, L100.0100, L501.2450 ####[facility] [address] [place], [address] Nucleated RBC (Bld) [#/Vol] 0 10*3/uL Normal 0-5 [facility] Comment on above: Performed By: #### L 500.4050, L700.6800, L100.0100, L501.2450 ####[facility] [address] [place], [address] Platelet mean volume (Bld) [Entitic vol] 9.9 fL Normal 6.2-12.0 [facility] Comment on above: Performed By: #### L 500.4050, L700.6800, L100.0100, L501.2450 ####[facility] [address] [place], [address] Platelets (Bld) [#/Vol] 307 10*3/uL Normal 150-450 [facility] Comment on above: Performed By: #### L 500.4050, L700.6800, L100.0100, L501.2450 ####[facility] [address] [place], [address] RBC (Bld) [#/Vol] 4.26 10*6/uL Normal 4.2-5.4 [facility] Comment on above: Performed By: #### L 500.4050, L700.6800, L100.0100, L501.2450 ####[facility] [address] [place], [address] RDW SD 43.0 fl Normal 35.1-43.9 [facility] Comment on above: Performed By: #### L 500.4050, L700.6800, L100.0100, L501.2450 ####[facility] [address] [place], [address] WBC (Bld) [#/Vol] 18.8 10*3/uL High 4.4-11.0 [facility] Comment on above: Performed By: #### L 500.4050, L700.6800, L100.0100, L501.2450 ####[facility] [address] [place], [address] [place] dioxide, total [Moles /volume] in Central venous bloodOrdered By: Mookie Morales on 01-12-2025 CO2 [Moles/Vol] 20.7 mmol/L Low 21.0-32.0 [facility] Chloride assayOrdered By: Shruti Morales on 01-12-2025 Chloride [Moles/Vol] 104 mmol/L 98-108 [facility] Comprehensive Metabolic Prof ilon 01-12-2025 Albumin [Mass/Vol] 4.3 g/dL Normal 3.5-5.0 [facility] Comment on above: Performed By: #### L 500.4050, L700.6800, L100.0100, L501.2450 ####[facility] [address] [place], [address] Albumin/Globulin [Mass ratio] 1.3 {ratio} Normal 0.9-2.4 [facility] Comment on above: Performed By: #### L 500.4050, L700.6800, L100.0100, L501.2450 ####[facility] [address] [place], [address] ALK PHOS 152 U/L High 35-104 [facility] Comment on above: Performed By: #### L 500.4050, L700.6800, L100.0100, L501.2450 ####[facility] [address] [place], [address] ALT [Catalytic activity/Vol] 38 U/L High <=34 [facility] Comment on above: Performed By: #### L 500.4050, L700.6800, L100.0100, L501.2450 ####[facility] [address] [place], [address] AST [Catalytic activity/Vol] 23 U/L Normal <=31 [facility] Comment on above: Performed By: #### L 500.4050, L700.6800, L100.0100, L501.2450 ####[facility] [address] [place], [address] Bilirubin [Mass/Vol] 0.46 mg/dL Normal 0.00-1.30 [facility] Comment on above: Performed By: #### L 500.4050, L700.6800, L100.0100, L501.2450 ####[facility] [id number] [place], [address] BUN/CRE 21.3 RATIO High 10-20 [facility] Comment on above: Performed By: #### L 500.4050, L700.6800, L100.0100, L501.2450 ####[facility] [address] [place], [address] Calcium [Mass/Vol] 9.3 mg/dL Normal 7.6-11.0 [facility] Comment on above: Performed By: #### L 500.4050, L700.6800, L100.0100, L501.2450 ####[facility] [address] [place], [address] Chloride [Moles/Vol] 104 mmol/L Normal 98-108 [facility] Comment on above: Performed By: #### L 500.4050, L700.6800, L100.0100, L501.2450 ####[facility] [address] [place], [address] CO2 [Moles/Vol] 20.7 mmol/L Low 21.0-32.0 [facility] Comment on above: Performed By: #### L 500.4050, L700.6800, L100.0100, L501.2450 ####[facility] [address] [place], [address] Creatinine [Mass/Vol] 0.68 mg/dL Low 0.70-1.20 [facility] Comment on above: Performed By: #### L 500.4050, L700.6800, L100.0100, L501.2450 ####[facility] [address] [place], [address] ECRCL 134.83 ml/min Normal 50-250 [facility] Comment on above: Performed By: #### L 500.4050, L700.6800, L100.0100, L501.2450 ####[facility] [address] [place], [address] GAP 14 Normal 5-15 [facility] Comment on above: Performed By: #### L 500.4050, L700.6800, L100.0100, L501.2450 ####[facility] [address] [place], [address] GFR/1.73 sq M.predicted among non-blacks MDRD (S/P/Bld) [Vol rate/Area] 122 mL/min/{1.73_m2} Normal >60 [facility] Comment on above: Result Comment: mL/m in/1.73m2 CKD-EPI Creatinine Equation (2020) Performed By: #### L 500.4050, L700.6800, L100.0100, L501.2450 ####[facility] [address] [place], [address] Globulin (S) [Mass/Vol] 3.3 g/dL Normal 2.2-4.2 [facility] Comment on above: Performed By: #### L 500.4050, L700.6800, L100.0100, L501.2450 ####[facility] [address] [place], [address] Glucose [Mass/Vol] 99 mg/dL Normal 70-99 [facility] Comment on above: Performed By: #### L 500.4050, L700.6800, L100.0100, L501.2450 ####[facility] [address] [place], [address] Potassium [Moles/Vol] 4.2 mmol/L Normal 3.3-5.1 [facility] Comment on above: Performed By: #### L 500.4050, L700.6800, L100.0100, L501.2450 ####[facility] [address] [place], [address] Sodium [Moles/Vol] 138 mmol/L Normal 133-145 [facility] Comment on above: Performed By: #### L 500.4050, L700.6800, L100.0100, L501.2450 ####[facility] [address] [place], [address] T PROT 7.6 g/dL Normal 5.9-8.4 [facility] Comment on above: Performed By: #### L 500.4050, L700.6800, L100.0100, L501.2450 ####[facility] [address] [place], [address] Urea nitrogen [Mass/Vol] 14 mg/dL Normal 4-19 [facility] Comment on above: Performed By: #### L 500.4050, L700.6800, L100.0100, L501.2450 ####[facility] [address] [place], [address] Emergency Department Summary on 01-12-2025 Emergency Department Summary [facility] Medical Records Department [address] [place] [address] Emergency Department Summary 01/12/25 MR#: [id number] Acct: [id number] Name: LLUVIA HOLLINGSWORTH Rep #: [id number] : 1995 29 From: Mookie Morales DO PCP: Care Physician,No Primary Status:ADM FARTUN Location: MS3 [id number] [facility] History of Present Illness Chief Complaint: Back PFSH PFS Medical History Contraceptive management Spontaneous vaginal delivery Spontaneous onset of labor Uterine contractions Low-lying placenta in second trimester Supervision of high-risk History of depression Home Medications ???Medication ???Instructions ???Recorded ???Last Taken ???Type multivitamin no.47-iron fum 27 1 cap PO DAILY pergnancy 04/18/24 11/15/24 History mg-folate no.1 1 mg-dha 300 mg capsule (PNV-DHA) Allergy/AdvReac Type Severity Reaction Status Date / Time No Known Allergies Allergy Verified 12/29/24 15:29 Family History Aunt Ovarian cancer, Onset Age: 45 Maternal Aunt Mother Miscarriage 2 or 3 miscarriages- before and after of pt. Surgical History History of surgery Social History adopted: No household members: significant other and children housing: house number of children: 1 current occupational status: unemployed current occupation: [employer] current occupational exposures/hazards: No pets and animals: Yes (not manage litterbox) pets and animals: cat(s) and dog(s) history of recent travel: No ([place]) sexually active: Yes Smoking Status: Current some day smoker tobacco type: e-cigarettes alcohol intake: former details: rarely drinks, special occasions, not while substance use type: does not use well-balanced diet: daily or most days caffeine: No eating out: 1-3 times/week during the past year weight has: remained stable what type of physical activity do you participate in: walking frequency: daily duration: 15-30 minutes/day chriss/baptism: None seatbelt use: always do you feel safe at home: Yes additional social history: [employer] - Self employed EXAM Physical Exam Const Vital Signs: 01/12/25 15:52 01/12/25 15:53 01/12/25 17:23 Temperature 97.4 F L 97.4 F L Temperature Source Oral Temporal Pulse Rate 101 H 103 H Respiratory Rate 19 H 18 Respiratory Effort Normal Non-Labored Respiratory Pattern Normal Blood Pressure 136/80 H 136/80 H Blood Pressure Mean 98 98 Pulse Ox 99 99 Oxygen Delivery Method Room Air Room Air 01/12/25 17:28 01/12/25 19:00 Temperature Temperature Source Pulse Rate 81 Respiratory Rate 16 Respiratory Effort Respiratory Pattern Blood Pressure 100/69 Blood Pressure Mean 79 Pulse Ox 98 96 Oxygen Delivery Method Room Air MDM MDM MDM Narrative Medical decision making narrative: HISTORY OF PRESENT ILLNESS: Chief complaint: Back pain 29-year-old female G3, P2 presents with multiple complaints. She states the reason she presents to the ED was because she was concerned about lower abdominal pain began this morning. No she still has her appendix. Notes nausea. No severe pain in the right lower quadrant. Normal bowel movements. Normal urinary habits. No history of kidney stones. She is currently 8 weeks REVIEW OF SYSTEMS: Pertinent positives: Abdominal pain, left breast pain Pertinent negatives: Vomiting, vaginal bleeding PHYSICAL EXAM: Nursing triage notes reviewed, Vital signs reviewed Constitutional: please see mdm HENT: MMM Eyes: Pupils equal round and reactive to light, Extraocular muscles intact Neck: No stridor, no JVD, full neck ROM Lungs: Clear to auscultation, No wheezing or rales. No increased work of breathing, no conversational dyspnea, no accessory muscle use, no nasal flaring. No respiratory distress noted Heart: Regular rate and rhythm, No murmurs, No rubs and No gallops, 2+ distal pulses (radial, femoral, posterior tibial) in all extremities Breast: Performed with Chetna JIN present showed signs of left breast redness, mastitis, no palpable abscess noted. Abdomen: Soft, right lower quadrant TTP but no rigidity, rebound or guarding, no obvious peritoneal signs, no palpable pulsatile abdominal masses, no auscultated abdominal bruit : No CVAT Extremities: No edema Neuro: No new focal neurological deficits, cranial nerves II through XII intact, 5/5 strength in all present extremities. Intact sensation to light touch in all present extremities, 2+ reflexes bilateral patella tendons. Skin: No rash or lesions noted MEDICAL DECISION MAKING: C (more content not included)... Normal [facility] Eosinophil percentageOrdered By: ED PROVIDER on 01-12-2025 Eosinophils/100 WBC (Bld) 1.4 % 0-5 [facility] Epithelial cells.squamous LM Ql (Urine sed)Ordered By: Mookie Morales on 01-12-2025 Epithelial cells.squamous LM.HPF (Urine sed) [#/Area] 0 /[HPF] 5-10 [facility] Erythrocyte distribution wid th (RBC) [Ratio]Ordered By: ED PROVIDER on 01-12-2025 Erythrocyte distribution width (RBC) [Entitic vol] 43.0 fL 35.1-43.9 [facility] Erythrocyte distribution wid th ratioOrdered By: ED PROVIDER on 01-12-2025 Erythrocyte distribution width (RBC) [Ratio] 12.5 % 11.6-14.6 [facility] Estimation of creatinine mary ellen aranceOrdered By: Mookie Morales on 01-12-2025 Estimated Creatinine Clearance Calc 134.83 ml/min 50-250 [facility] GFR/1.73 sq M.predicted gabrielle g non-blacks MDRD (S/P/Bld) [Vol rate/Area]Ordered By: Mookie Morales on 01-12-2025 Estimated GFR (MDRD) Non-Af Amer 122 >60 [facility] Comment on above: mL/min/1.73m2 CKD-EP I Creatinine Equation (2020) Glucose Ql (U)Ordered By: Shruti Morales on 01-12-2025 Urine Glucose (UA) Normal mg/dl Normal [facility] H AND P Exam - Surgicalon H&P Exam - Surgical [facility] Medical Records Department [address] [place] [address] H P Exam - Surgical 01/12/252030 MR#: [id number] Acct: [id number] Name: LLUVIA HOLLINGSWORTH Rep #: [id number] : 1995 29 From: Anthony Martin MD PCP: Care Physician,No Primary Status:REG ER Location: ED HPI - General HPI Narrative LLUVIA HOLLINGSWORTH, is a 29 F who presents with lower abdominal pain. Patient says that yesterday she was feeling like she had the chills and then she was feeling little bit better but then this morning she started having severe pain. She has the pain is in the lower abdomen area. She denies nausea or vomiting. She denies fever. [facility] Medical History (Updated 01/12/25 @ 20:[address] Anthony Martin MD) Contraceptive management Spontaneous vaginal delivery Spontaneous onset of labor Uterine contractions Low-lying placenta in second trimester Supervision of high-risk History of depression Home Medications ???Medication ???Instructions ???Recorded ???Last Taken ???Type multivitamin no.47-iron fum 27 1 cap PO DAILY pergnancy 04/18/24 11/15/24 History mg-folate no.1 1 mg-dha 300 mg capsule (PNV-DHA) Allergy/AdvReac Type Severity Reaction Status Date / Time No Known Allergies Allergy Verified 12/29/24 15:29 Family History Aunt Ovarian cancer, Onset Age: 45 Maternal Aunt Mother Miscarriage 2 or 3 miscarriages- before and after of pt. Surgical History History of surgery Social History adopted: No household members: significant other and children housing: house number of children: 1 current occupational status: unemployed current occupation: [employer] current occupational exposures/hazards: No pets and animals: Yes (not manage litterbox) pets and animals: cat(s) and dog(s) history of recent travel: No ([place]) sexually active: Yes Smoking Status: Current some day smoker tobacco type: e-cigarettes alcohol intake: former details: rarely drinks, special occasions, not while substance use type: does not use well-balanced diet: daily or most days caffeine: No eating out: 1-3 times/week during the past year weight has: remained stable what type of physical activity do you participate in: walking frequency: daily duration: 15-30 minutes/day chriss/baptism: None seatbelt use: always do you feel safe at home: Yes additional social history: [employer] - Self employed Vital Signs Vital Signs Vital Signs: 01/12/25 15:52 01/12/25 15:53 01/12/25 17:23 Temperature 97.4 F L 97.4 F L Temperature Source Oral Temporal Pulse Rate 101 H 103 H Respiratory Rate 19 H 18 Respiratory Effort Normal Non-Labored Respiratory Pattern Normal Blood Pressure 136/80 H 136/80 H Blood Pressure Mean 98 98 Pulse Ox 99 99 Oxygen Delivery Method Room Air Room Air 01/12/25 17:28 01/12/25 19:00 Temperature Temperature Source Pulse Rate 81 Respiratory Rate 16 Respiratory Effort Respiratory Pattern Blood Pressure 100/69 Blood Pressure Mean 79 Pulse Ox 98 96 Oxygen Delivery Method Room Air Weight Weight: 201 lb 4.8 oz Body Mass Index (BMI) 34.5 Physical Exam Const oriented x3 and no apparent distress Resp normal respiratory effort Cardio regular rate and regular rhythm GI soft to palpation Palpation: tender RLQ and suprapubic Extremity normal to inspection Results Lab / Micro Data 01/12/25 16:30 01/12/25 16:30 Labs: Laboratory Results - last 24 hr 01/12/25 16:30: WBC 18.8 H, RBC 4.26, Hgb 13.1, Hct 39.6, MCV 93.0, MCH 30.8, MCHC 33.1, RDW Std Deviation 43.0, RDW Coeff of Eli 12.5, Plt Count 307, MPV 9.9, Immature Gran % (Auto) 0.600, Neut % (Auto) 82.1 H, Lymph % (Auto) 8.6 L, [place] % (Auto) 7.0, Eos % (Auto) 1.4, Baso % (Auto) 0.3, A bsolute Neuts (auto) 15.4 H, Absolute Lymphs (auto) 1.61, Nucleated RBC % 0, Sodium 138, Potassium 4.2, Chloride 104, Carbon Dioxide 20.7 L, Anion Gap 14, BUN 14, Creatinine 0.68 L, Estim Creat Clear Calc 134.83, Est GFR (MDRD) Non-Af 122, BUN/Creatinine Ratio 21.3 H, Glucose 99, Calcium 9.3, Total Bilirubin 0.46, AST 23, ALT 38 H, Alkaline Phosphatase 152 H, Total Protein 7.6, Albumin 4.3, Globulin 3.3, Albumin/Globulin Ratio 1.3, Lipase 21, Serum , Qual NEGATIVE 01/12/25 17:35: Urine Color Yellow, Urine Clarity Clear, Urine pH 7.0, Ur Specific [place] 1.010, U rine Protein 15 H, Urine Glucose (UA) Normal, Urine Ketones Negative, Urine Occult Blood 10 H, Urine Nitrite Negative, Urine Bilirubin Negative, Urine Urobilinogen Normal, Ur Leukocyte Esterase Negative, Urine RBC 0 SEEN, Urine WBC 0 (more content not included)... Normal [facility] Hematocrit Auto (Bld) [Volum e fraction]Ordered By: ED PROVIDER on 01-12-2025 Hematocrit (Bld) [Volume fraction] 39.6 % 37-47 [facility] Hemoglobin measurementOrdere d By: ED PROVIDER on 01-12-2025 Hemoglobin (Bld) [Mass/Vol] 13.1 g/dL 12.0-15.0 [facility] Immature granulocytes/100 WB C Auto (Bld)Ordered By: ED PROVIDER on 01-12-2025 Immature granulocytes/100 WBC (Bld) 0.600 % 0.0-0.9 [facility] Comment on above: IG% - Immature Granu locytes (promyelocytes, myelocytes and metamyelocytes) > 1% indicates that a LEFT SHIFT is Present. Ketones Test strip Ql (U)Ord ered By: Mookie Morales on 01-12-2025 Ketones Ql (U) Negative Negative [facility] Laboratory - Chemistry and C hemistry - challengeOrdered By: Mookie Morales on 01-12-2025 AST [Catalytic activity/Vol] 23 U/L <32 [facility] Lipaseon 01-12-2025 Lipase [Catalytic activity/Vol] 21 U/L Normal 13-75 [facility] Comment on above: Result Comment: Tomer corona note: LIPASE revised reference range effective 23. New Lipase methodology. Expected to produce lower values than the previous assay method. NEW Reference Range: 13 - 75 U/L Performed By: #### L 500.4050, L700.6800, L100.0100, L501.2450 ####[facility] [address] [place], [address] Lipase measurementOrdered By : Mookie Morales on 01-12-2025 Lipase [Catalytic activity/Vol] 21 U/L 13-75 [facility] Comment on above: Please note:LIPASE r evised reference range effective 23. New Lipase methodology. Expected to produce lower values than the previous assay method. NEW Reference Range: 13 - 75 U/L Lymphocytes Auto (Unsp spec) [#/Vol]Ordered By: ED PROVIDER on 01-12-2025 Lymphocytes (Bld) [#/Vol] 1.61 10*3/uL 0.83-4.51 [facility] Lymphocytes/100 WBC Auto (Un sp spec)Ordered By: ED PROVIDER on 01-12-2025 Lymphocytes/100 WBC (Bld) 8.6 % Low 19-41 [facility] MCV (mean corpuscular volume ) determinationOrdered By: ED PROVIDER on 01-12-2025 MCV (RBC) [Entitic vol] 93.0 fL 81-99 [facility] Mean corpuscular hemoglobin (MCH) determinationOrdered By: ED PROVIDER on 01-12-2025 MCH (RBC) [Entitic mass] 30.8 pg 27.0-32.0 [facility] Mean corpuscular hemoglobin concentration (MCHC) determinationOrdered By: ED PROVIDER on 01-12-2025 MCHC (RBC) [Mass/Vol] 33.1 g/dL 32-36 [facility] Mean platelet volume determi nationOrdered By: ED PROVIDER on 01-12-2025 Platelet mean volume (Bld) [Entitic vol] 9.9 fL 6.2-12.0 [facility] Microscopic analysis of urin e for red blood cells (RBC)Ordered By: Mookie Morales on 01-12-2025 Microscopic analysis of urine for red blood cells (RBC) 0 SEEN /hpf 0-5 [facility] Urine RBC 0 SEEN /hpf 0-5 [facility] Monocyte percentageOrdered B y: ED PROVIDER on 01-12-2025 Monocytes/100 WBC (Bld) 7.0 % 0-10 [facility] Mucus LM Ql (Urine sed)Order ed By: Mookie Morales on 01-12-2025 Mucus Ql (Urine sed) 0 SEEN /hpf [facility] Neutrophil percentageOrdered By: ED PROVIDER on 01-12-2025 Neutrophils/100 WBC (Bld) 82.1 % High 47-70 [facility] Nitrite Test strip Ql (U)Ord ered By: Mookie Morales on 01-12-2025 Nitrite Ql (U) Negative Negative [facility] Nucleated red blood cell per centageOrdered By: ED PROVIDER on 01-12-2025 Nucleated RBC/100 WBC (Bld) [Ratio] 0 % 0-5 [facility] Platelet countOrdered By: ED PROVIDER on 01-12-2025 Platelets (Bld) [#/Vol] 307 10*3/uL 150-450 [facility] Potassium (Unsp spec) [Mass/ Vol]Ordered By: Mookie Morales on 01-12-2025 Potassium [Moles/Vol] 4.2 mmol/L 3.3-5.1 [facility] ,Serum,hCG Quali.on 01-12-2025 HCG, SERUM QUAL Negative Normal [facility] Comment on above: Performed By: #### L 500.4050, L700.6800, L100.0100, L501.2450 ####[facility] [address] [place], [place], [id number] Protein Test strip Ql (U)Ord ered By: Mookie Morales on 01-12-2025 Protein Ql (U) 15 mg/dl High Negative [facility] RBC Auto (Bld) [#/Vol]Ordere d By: ED PROVIDER on 01-12-2025 RBC (Bld) [#/Vol] 4.26 10*6/uL 4.2-5.4 [facility] Serum beta-hCG test, qualita tiveOrdered By: Mookie Morales on 01-12-2025 Beta HCG ( test) Ql Negative [facility] Serum creatinine measurement (mass/volume)Ordered By: Mookie Morales on 01-12-2025 Creatinine [Mass/Vol] 0.68 mg/dL Low 0.70-1.20 [facility] Serum globulin measurementOr dered By: Mookie Morales on 01-12-2025 Globulin (S) [Mass/Vol] 3.3 g/dL 2.2-4.2 [facility] Serum glucose measurement (m ass/volume)Ordered By: Mookie Morales on 01-12-2025 Glucose [Mass/Vol] 99 mg/dL 70-99 [facility] Serum or plasma alanine coy otransferase (ALT) measurementOrdered By: Mookie Morales on 01-12-2025 ALT [Catalytic activity/Vol] 38 U/L High <35 [facility] Serum or plasma albumin jocelyn urement (mass/volume)Ordered By: Mookie Morales on 01-12-2025 Albumin [Mass/Vol] 4.3 g/dL 3.5-5.0 [facility] Serum or plasma albumin/glob ulin mass ratioOrdered By: Mookie Morales on 01-12-2025 Albumin/Globulin [Mass ratio] 1.3 {ratio} 0.9-2.4 [facility] Serum or plasma alkaline kvng sphatase measurementOrdered By: Mookie Morales on 01-12-2025 ALP [Catalytic activity/Vol] 152 U/L High 35-104 [facility] Serum or plasma calcium jocelyn urement (mass/volume)Ordered By: Mookie Morales on 01-12-2025 Calcium [Mass/Vol] 9.3 mg/dL 7.6-11.0 [facility] Serum or plasma urea nitroge n measurement (mass/volume)Ordered By: Mookie Morales on 01-12-2025 Urea nitrogen [Mass/Vol] 14 mg/dL 4-19 [facility] Sodium levelOrdered By: Suleiman Morales on 01-12-2025 Sodium [Moles/Vol] 138 mmol/L 133-145 [facility] Squamous epithelial cells de tection in urine sediment by light microscopyOrdered By: Mookie Morales on 01-12-2025 Epithelial cells.squamous LM Ql (Urine sed) 0-5 SEEN /hpf 5-10 [facility] Total proteinOrdered By: Rosio Morales on 01-12-2025 Protein [Mass/Vol] 7.6 g/dL 5.9-8.4 [facility] Urinalysis, Completeon 01-12 BACTERIA RARE Normal None Seen [facility] Comment on above: Order Comment: CLEAN CATCH Performed By: #### L 400.0001 ####[facility] [id number] [place], [address] EPI,SQUAMOUS 0-5 SEEN Normal 5-10 [facility] Comment on above: Order Comment: CLEAN CATCH Performed By: #### L 400.0001 ####[facility] [id number] [place], [place], [id number] Mucus Ql (Urine sed) 0 SEEN Normal [facility] Comment on above: Order Comment: CLEAN CATCH Performed By: #### L 400.0001 ####[facility] [id number] [place], [address] RBC 0 SEEN Normal 0-5 [facility] Comment on above: Order Comment: CLEAN CATCH Performed By: #### L 400.0001 ####[facility] [id number] [place], [place], [id number] WBC 0 SEEN Normal 0-5 [facility] Comment on above: Order Comment: CLEAN CATCH Performed By: #### L 400.0001 ####[facility] [id number] [place], [place], [id number] Urine blood detectionOrdered By: Mookie Morales on 01-12-2025 Urine Occult Blood 10 /ul High Negative [facility] Urine clarityOrdered By: Rosio Morales on 01-12-2025 Clarity (U) Clear Clear [facility] Urine color determinationOrd ered By: Mookie Morales on 01-12-2025 Color (U) Yellow Yellow [facility] Urine glucose detectionOrder ed By: Mookie Morales on 01-12-2025 Glucose Ql (U) Normal mg/dl Normal [facility] Urine leukocyte esterase det ection by dipstickOrdered By: Mookie Morales on 01-12-2025 Leukocyte esterase Test strip Ql (U) Negative Negative [facility] Urine pHOrdered By: Mookie webb on 01-12-2025 pH (U) 7.0 [pH] 5.0 - 8.0 [facility] Urine sediment bacteria coun t by microscopy (number/high power field)Ordered By: Mookie Morales on 01-12-2025 Bacteria LM.HPF (Urine sed) [#/Area] RARE /hpf None Seen [facility] Urine specific gravity measu rementOrdered By: Mookie Morales on 01-12-2025 Specific gravity (U) [Rel density] 1.010 1.002-1.030 [facility] Urine urobilinogen measureme ntOrdered By: Mookie Morales on 01-12-2025 Urobilinogen Ql (U) Normal mg/dl Normal [facility] Urobilinogen Ql (U)Ordered B y: Mookie Morales on 01-12-2025 Urine Urobilinogen Normal mg/dl Normal [facility] White blood cell (WBC) count Ordered By: ED PROVIDER on 01-12-2025 WBC (Bld) [#/Vol] 18.8 10*3/uL High 4.4-11.0 [facility] White blood cell countOrdere d By: Mookie Morales on 01-12-2025 Urine WBC 0 SEEN /hpf 0-5 [facility] White blood cell count 0 SEEN /hpf 0-5 [facility] 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 Reporton 12-29-2024 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 Report [facility] [address], [address] [place] [address] OFFICE VISIT Date of Service: 12/29/24 MR#: [id number] Acct: [id number] Name: LLUVIA HOLLINGSWORTH Rep #: [id number] : 1995 Provider: CLARA Shrestha ams Age/Sex: 29/F Location: [facility] Status: Signed Intake Vital Signs 11/16/24 06:40 12/29/24 15:25 Height 5 ft 4 in 5 ft 4 in Weight: 200 lb BMI 34.3 BP 124/82 H Intake Visit Reasons: visit (obstetrics) Chief Complaint: visit Is patient in pain?: No Allergies No Known Allergies Allergy (Verified 12/29/24 15:29) Medications ???Medication ???Instructions ???Recorded ???Confirmed ???Type multivitamin no.47-iron fum 27 1 cap PO DAILY pergnancy 04/18/24 12/29/24 History mg-folate no.1 1 mg-dha 300 mg capsule (PNV-DHA) : No PFSH Medical History Spontaneous vaginal delivery Spontaneous onset of labor Uterine contractions Low-lying placenta in second trimester Supervision of high-risk History of depression Surgical History History of surgery Family History Aunt Ovarian cancer, Onset Age: 45 Maternal Aunt Mother Miscarriage 2 or 3 miscarriages- before and after of pt. Social History adopted: No household members: significant other and children housing: house number of children: 1 current occupational status: unemployed current occupation: [employer] current occupational exposures/hazards: No pets and animals: Yes (not manage litterbox) pets and animals: cat(s) and dog(s) history of recent travel: [place] ([place]) sexually active: Yes Smoking Status: Former smoker alcohol intake: former details: rarely drinks, special occasions, not while substance use type: does not use well-balanced diet: daily or most days caffeine: No eating out: 1-3 times/week during the past year weight has: remained stable what type of physical activity do you participate in: walking frequency: daily duration: 15-30 minutes/day chriss/baptism: None seatbelt use: always do you feel safe at home: Yes 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 Date Name GA/Weeks Outcome Route Bth Weight Gen Labor Lgth Anesthesia Del Locatn Provider FOB 02/06/23 Ahuja 38 live - full term 8#4oz Male epidural [facility] KW J Luis 11/16/24 Renetta 38 live - full term 8lb 6oz Female epidural [facility] Christine Dietz Delivery Date: 11/16/24 Last Updated by: Sammie Law, RN See problem list for complications Depression Screen PHQ-2/9 PHQ-2 Over the last 2 weeks, how often have you been bothered by any of the following problems? 1. Little interest or pleasure in doing things: not at all 2. Feeling down, depressed, or hopeless: not at all Total score: 0 Post HPI Routine Follow-Up: Details: LLUVIA HOLLINGSWORTH is a 29 year old who presents for her post visit. Having right sided breast pain. Infant Feeding: Both Menses resumed: No [place] since delivery: No Emotional Support: Yes Last Pap:: 2022 Control Method: IUD ROS Const All systems reviewed are unremarkable except as noted in H Reports system reviewed and no additional complaints, except as documented Card Reports system reviewed and no additional complaints, except as documented GI Reports system reviewed and no additional complaints, except as documented Neuro Yes system reviewed and no additional complaints, except as documented Psych Reports system reviewed and no additional complaints, except as documented, Denies anhedonia, Denies depression, Denies homicidal ideation and Denies suicidal ideation Exam Const General: cooperative, healthy appearing and comfortable Nutritional Appearance: average body habitus Orientation: alert, awake and oriented x3 Neck Neck: normal visual inspection and full ROM Resp Effort Inspection: normal respiratory effort, able to speak in complete sentences and symmetric chest movement GI Inspection: normal to inspection Palpation: soft External Female Exam: normal external appearance and normal appearance of the urethra Urethra: normal appearance of the urethra Speculum Exam - Vagina: normal appearance of the vagina and normal vaginal discharge Bimanual Exam- Vagina Uterus: normal bimanual exam, normal palpation (more content not included)... Normal [facility] Discharge Instructionon 11-08 Discharge Instruction [facility] Medical Records Department [address] [place] [address] Instructions for Home/Discharge Instructions 11/18/24 0758 MR#: [id number] Acct: [id number] Name: LLUVIA HOLLINGSWORTH Rep #: [id number] : 1995 29 From: Ken Gómez NP BUSINESS CONTINUITY DIRECTOR-C PCP: Care Physician,No Primary Status:ADM IN Discharge Instructions Diet Discharge Diet: No restrictions DC O2, CPAP, BIPAP needs Home O2 Discharge instructions: No Dressing / Incision Discharge Activity: Return to Normal Activity, May Not Drive (while taking narcotic pain medications.) and May Shower May resume sexual activity in: 4-6 weeks Additional Activity Instructions:: Nothing in the vagina for 4-6 weeks. You may return to work/school in 6 weeks. Dressing / Incision Call your doctor if your incision/area has: Continuous Slow Oozing, Sudden Increased Bleeding, Increased Pain/ Swelling, Increased Redness and Foul Smelling Discharge Follow Up Care Please Follow Up With: Geni De Jesus DO When: Call to make an appointment with your doctor in 6 weeks. If you had elevated Blood Pressure or 4th degree laceration you will need to be seen in 2 weeks. Test Results: Test results from this visit will be discussed in further detail at your follow-up appointment, if applicable. Discharge Plan Admission Admit Date/Time: 11/16/24 07:45 Attending Provider: Geni De Jesus Primary Care Provider: Care Physician,Shana Primary Discharge Orders/Prescriptions Prescriptions: No Action PNV-DHA 27 mg iron-1 mg -300 mg capsule 1 cap PO DAILY Referrals / Follow Up: Care Physician,No Primary [Primary Care Provider] - Disposition Disposition (needs filled in before D/C Order can be placed): Home, Self Care 11/18/24 0758 Ken Gómez NP BUSINESS CONTINUITY DIRECTOR-C CC: No Primary Care Physician Signed Normal [facility] (ROM) Rupture Of Membraneson 11-16-2024 ROM Positive Abnormal Negative [facility] Comment on above: Result Comment: Amni otic fluid present indicates rupture of Membranes. RESULTS CALLED TO VERONIQUE LEE 11/16/24 5222 Fabiola Carter. REPORT READ BACK BY SAME. Performed By: #### L 509.8000, L100.0100, L501.0250, L3890.6005 #### [facility] Laboratory [address] [place], [address] Absolute lymphocyte countOrd ered By: Geni Simpson on 11-16-2024 Lymphocytes Auto (Unsp spec) [#/Vol] 2.06 10*3/uL 0.83-4.51 [facility] Absolute neutrophil countOrd ered By: Geni Simpson on 11-16-2024 Neutrophils (Bld) [#/Vol] 7.9 10*3/uL High 2.0-7.7 [facility] Automated blood erythrocyte countOrdered By: Geni Simpson on 11-16-2024 RBC (Bld) [#/Vol] 4.31 10*6/uL Normal 4.2-5.4 [facility] Comment on above: Performed By: #### L 509.8000, L100.0100, L501.0250, L3890.6005 #### [facility] Laboratory [address] [place], [address] Automated blood hematocrit ( percentage)Ordered By: Geni Simpson on 11-16-2024 Hematocrit (Bld) [Volume fraction] 40.1 % Normal 37-47 [facility] Comment on above: Performed By: #### L 509.8000, L100.0100, L501.0250, L3890.6005 #### [facility] Laboratory [address] [place], [address] Automated lymphocyte count a s percentage of total leukocytesOrdered By: Geni Simpson on 11-16-2024 Lymphocytes/100 WBC (Bld) 18.7 % Low 19-41 [facility] Comment on above: Performed By: #### L 509.8000, L100.0100, L501.0250, L3890.6005 #### [facility] Laboratory [address] [place], [address] Lymphocytes/100 WBC Auto (Unsp spec) 18.7 % Low -41 [facility] Basophil percentageOrdered B y: Geni Simpson on 11-16-2024 Basophils/100 WBC (Bld) 0.3 % Normal 0-1 [facility] Comment on above: Performed By: #### L 509.8000, L100.0100, L501.0250, L3890.6005 #### [facility] Laboratory [address] [place], [address] CBC W/Diff, Automatedon 02-0 Absolute Lymph 2.06 X10 3/uL Normal 0.83-4.51 [facility] Comment on above: Performed By: #### L 509.8000, L100.0100, L501.0250, L3890.6005 #### [facility] Laboratory [address] [place], [address] Absolute Neut 7.9 X10 3/uL High 2.0-7.7 [facility] Comment on above: Performed By: #### L 509.8000, L100.0100, L501.0250, L3890.6005 #### [facility] Laboratory [address] [place], [address] IG% 0.500 Normal 0.0-0.9 [facility] Comment on above: Result Comment: IG% - Immature Granulocytes (promyelocytes, myelocytes and metamyelocytes) > 1% indicates that a LEFT SHIFT is Present. Performed By: #### L 509.8000, L100.0100, L501.0250, L3890.6005 #### [facility] Laboratory [address] [place], [address] Nucleated RBC (Bld) [#/Vol] 0 10*3/uL Normal 0-5 [facility] Comment on above: Performed By: #### L 509.8000, L100.0100, L501.0250, L3890.6005 #### [facility] Laboratory [address] [place], [address] RDW SD 46.7 fl High 35.1-43.9 [facility] Comment on above: Performed By: #### L 509.8000, L100.0100, L501.0250, L3890.6005 #### [facility] Laboratory [address] [place], [address] Discharge Instructionon Discharge Instruction [facility] Medical Records Department [address] [place] [address] Instructions for Home/Discharge Instructions 11/16/248 MR#: [id number] Acct: [id number] Name: DARRICKLLUVIA DICKINSON Rep #: [id number] : 1995 29 From: Geni De Jesus DO PCP: Jovanny PhysicianShana Primary Status:ADM IN Discharge Instructions Diet Discharge Diet: No restrictions DC O2, CPAP, BIPAP needs Home O2 Discharge instructions: No Dressing / Incision Discharge Activity: Return to Normal Activity, May Not Drive (while taking narcotic pain medications.) and May Shower May resume sexual activity in: 4-6 weeks Dressing / Incision Call your doctor if your incision/area has: Continuous Slow Oozing, Sudden Increased Bleeding, Increased Pain/ Swelling, Increased Redness and Foul Smelling Discharge Follow Up Care Please Follow Up With: Geni De Jesus DO When: Call [phone] to make an appointment with your doctor in 6 weeks. If you had elevated blood pressure or 4th degree laceration, you will need to be seen in 2 weeks. Test Results: Test results from this visit will be discussed in further detail at your follow-up appointment, if applicable. Discharge Plan Admission Admit Date/Time: 11/16/24 07:45 Attending Provider: Geni De Jesus Primary Care Provider: Jovanny Physician,Shana Primary Discharge Orders/Prescriptions Prescriptions: No Action PNV-DHA 27 mg iron-1 mg -300 mg capsule 1 cap PO DAILY Referrals / Follow Up: Jovanny Taylor,No Primary [Primary Care Provider] - 11/16/242117 Geni De Jesus DO CC: No Primary Care Physician Signed Normal [facility] Eosinophil percentageOrdered By: Geni Simpson on 11-16-2024 Eosinophils/100 WBC (Bld) 0.9 % Normal 0-5 [facility] Comment on above: Performed By: #### L 509.8000, L100.0100, L501.0250, L3890.6005 #### [facility] [address] [place], [address] Erythrocyte distribution wid th (RBC) [Ratio]Ordered By: Geni Simpson on 11-16-2024 Erythrocyte distribution width (RBC) [Entitic vol] 46.7 fL High 35.1-43.9 [facility] Erythrocyte distribution wid th ratioOrdered By: Geni Simpson on 11-16-2024 Erythrocyte distribution width (RBC) [Ratio] 13.7 % Normal 11.6-14.6 [facility] Comment on above: Performed By: #### L 509.8000, L100.0100, L501.0250, L3890.6005 #### [facility] Laboratory [address] [place], [address] Erythrocyte distribution wid th standard deviationOrdered By: Geni Simpson on 11-16-2024 Erythrocyte distribution width (RBC) [Ratio] 46.7 fl High 35.1-43.9 [facility] H AND P Exam - OB/GYNon H&P Exam - NET APPLICATION SUPPORT SPECIALIST [facility] Medical Records Department [address] [place] [address] H P Exam - NET APPLICATION SUPPORT SPECIALIST 11/16/24 1033 MR#: [id number] Acct: [id number] Name: LLUVIA HOLLINGSWORTH Rep #: [id number] : 1995 29 From: Geni De Jesus DO PCP: Care Physician,No Primary Status:ADM IN Location: [place] 134706-1 HPI - General General Date of Admission: 11/16/24 HPI Narrative LLUVIA HOLLINGSWORTH, is a 29 y/o @ 38 weeks 5 days who presents to L D with the complaint of leaking fluid starting at 5 am. She was not chaitanya initially but has started to picker packer in the last hour with contractions every 3-4 minutes Maternal Data Information RUFINA Calculator Estimated Delivery Date Method Current WG Current Estimate 11/27/24 LMP (Certain) 38w 3d PFSH PFS Medical History Spontaneous vaginal delivery Spontaneous onset of labor Uterine contractions Low-lying placenta in second trimester Supervision of high-risk History of depression Home Medications ???Medication ???Instructions ???Recorded ???Last Taken ???Type multivitamin no.47-iron fum 27 1 cap PO DAILY pergnancy 04/18/24 11/15/24 History mg-folate no.1 1 mg-dha 300 mg capsule (PNV-DHA) Allergy/AdvReac Type Severity Reaction Status Date / Time No Known Allergies Allergy Verified 11/16/24 07:07 Family History Aunt Ovarian cancer, Onset Age: 45 Maternal Aunt Mother Miscarriage 2 or 3 miscarriages- before and after of pt. Surgical History (Updated 11/16/24 @ 08:26 by Veronique Lee) History of surgery Social History adopted: No household members: significant other and children housing: house number of children: 1 current occupational status: unemployed current occupation: [employer] current occupational exposures/hazards: No pets and animals: Yes (not manage litterbox) pets and animals: cat(s) and dog(s) history of recent travel: No ([place]) sexually active: Yes Smoking Status: Former smoker alcohol intake: former details: rarely drinks, special occasions, not while substance use type: does not use well-balanced diet: daily or most days caffeine: No eating out: 1-3 times/week during the past year weight has: remained stable what type of physical activity do you participate in: walking frequency: daily duration: 15-30 minutes/day chriss/baptism: None seatbelt use: always do you feel safe at home: Yes additional social history: J Luis - Self employed History 2 Elective abortions Hx Para 1 Spontaneous abortions Hx # Term Pregnancies 1 Ectopic pregnancies Hx # Pregnancies Multiple births # of living children 1 Past Pregnancies Del. Date Name GA/Weeks Outcome Route Bth Weight Infant Gen Labor Lgth Anesthesia Del [facility] Provider FOB 02/06/23 Seymour 38 live - full term 8#4oz Male epidural [facility] TINY Dietz Visit Details Expected Delivery Route/Plan Labor Preferences- CB/BF classes: [] labor support person: [] labor intervention preferences: [] pain management options preferred: [] cut cord/dad catch: [] : [] PP control planned: [] discussed possible routes of delivery and associated risks: [] special requests: [] Plans Covid status: [] Flu vaccine: no Tdap vaccine: [] Rhogam: na LARC form signed: [] Problem list reviewed and updated with the most current plan of care details and appropriate orders placed. Relevant counseling for the gestational age provided. Continue routine care and follow up unless otherwise noted in visit notes/problem list details OB Flowsheet Initial Weight: Not Recorded Date -???-???-???-???-???-?? ?-???-???-???-???-???-? ??- EGA Weight BP Urine Prot -???-???-???-???-???-?? ?-???-???-???-???-???-? ??- Glucose FHR FuHt Pres Dilation -???-???-???-???-???-?? ?-???-???-???-???-???-? ??- Effaced St Visit Note 04/22/24 -???-???-???-???-???-?? ?-???-???-???-???-???-? ??- 8w 5d 188 lb 2 oz 117/66 -???-???-???-???-???-?? ?-???-???-???-???-???-? ??- 180 -???-???-???-???-???-?? ?-???-???-???-???-???-? ??- KW- cons wit h dates. 21mm. accepts NIPT. 05/20/24 -???-???-???-???-???-?? ?-???-???-???-???-???-? ??- 12w 5d 191 lb 107/69 Negative -???-???-???-???-???-?? ?-???-???-???-???-???-? ??- Negative 160 -???-???-???-???-???-?? ?-???-???-???-???-???-? ??- SM- no vb cr maping 06/16/24 -???-???-???-???-???-?? ?-???-???-???-???-???-? ??- 16w 4d 195 lb 8 oz 100/68 Negative -???-???-???-???-???-?? ?-???-???-???-???-???-? ??- Negative 152 -???-???-???-???-???-?? ?-???-???-???-???-???-? ??- MH-No VB. No ting r (more content not included)... Normal [facility] Hemoglobin measurementOrdere d By: Geni Simpson on 11-16-2024 Hemoglobin (Bld) [Mass/Vol] 13.4 g/dL Normal 12.0-15.0 [facility] Comment on above: Performed By: #### L 509.8000, L100.0100, L501.0250, L3890.6005 #### [facility] Laboratory [address] [place], [address] Immature granulocytes/100 WB C Auto (Bld)Ordered By: Geni Simpson on 11-16-2024 Immature granulocytes/100 WBC (Bld) 0.500 % 0.0-0.9 [facility] Comment on above: IG% - Immature Granu locytes (promyelocytes, myelocytes and metamyelocytes) > 1% indicates that a LEFT SHIFT is Present. L509.8000on 11-16-2024 Syphilis Abs Non-Reactive Normal [facility] Comment on above: Performed By: #### L 509.8000, L100.0100, L501.0250, L3890.6005 #### [facility] Laboratory [address] [place], [address] Lymphocytes Auto (Unsp spec) [#/Vol]Ordered By: Geni Tatiana on 11-16-2024 Lymphocytes (Bld) [#/Vol] 2.06 10*3/uL 0.83-4.51 [facility] MCV (mean corpuscular volume ) determinationOrdered By: Geni Simpson on 11-16-2024 MCV (RBC) [Entitic vol] 93.0 fL Normal 81-99 [facility] Comment on above: Performed By: #### L 509.8000, L100.0100, L501.0250, L3890.6005 #### [facility] Laboratory [address] [facility] [place], [place], [id number] MR/OB.VAGDELIon 11-16-2024 MR/OB.VAGCRITICAL ACCESS [facility]OSPITALI [facility] Medical Records Department [address] [place] [address] OB Vaginal Delivery 11/16/242114 MR#: [id number] Acct: [id number] Name: LLUVIA HOLLING[place]ORTH Rep #: [id number] : 1995 29 From: Geni De Jesus DO PCP: Care Physician,No Primary Status:ADM IN Location: [place] 134706-1 Assessment Plan (1) Uterine size date discrepancy : (2) Positive GBS test: (3) Rubella non-immune status, antepartum: COMMENT: offer MMR PP (4) Obesity (BMI 30.0-34.9): COMMENT: HgbA1c 1 TM. BMI 32. encouraged healthy weight gain (5) Supervision of high-risk : QUALIFIERS: Trimester: third trimester Qualified Code(s): O09.93 - Supervision of high risk , unspecified, third trimester COMMENT: PRR,, RUFINA 11/27/24, girl Keysha Ahuja, J Luis (6) : QUALIFIERS: Weeks of gestation: 38 weeks Qualified Code(s): Z3A.38 - 38 weeks gestation of COMMENT: normal anatomy, low risk NIPT. carrier declined. AFP neg (7) LGSIL on Pap smear of cervix: COMMENT: colp normal on 08/17/22. rpt pap post . 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 MFM anatomy scan, echo @ 22 wks:nl (9) History of depression: COMMENT: untreated, feeling good now. Maternal Data Information RUFINA Calculator Estimated Delivery Date Method Current WG Current Estimate 11/27/24 LMP (Certain) 38w 3d Final RUFINA: 11/27/24 Final RUFINA Source: LMP Vaginal Delivery Maternal Presentation Maternal Presentation: Spontaneous Rupture of Membranes Type of Induction: Pitocin Vaginal Delivery Information Procedure Performed: Spontaneous Vaginal Delivery Surgeon/Practitioner: Geni De Jesus Date of Procedure: 11/16/24 Pre-Procedure Diagnosis: 29 y/o @ 38 weeks 3 days, SROM Post-Procedure Diagnosis: 29 y/o @ 38 weeks 3 days, SROM Type of anesthesia: Epidural Estimated Blood Loss: 100cc Time of Delivery: 20:56 Findings Description of procedure: Patient began pushing and delivered the head in the JENN presentation. The head was delivered atraumatically. The anterior and posterior shoulders delivered without complication followed by the rest of the infant and the infant was placed on the maternal abdomen. Delayed cord clamping was employed for approximately 60 seconds. Cord was clamped and cut and gentle traction was applied to the cord and the placenta delivered spontaneously immediately following it was noted to be intact with three-vessel cord. The perineum and vagina were inspected and noted to have no laceration. EBL was 100 cc. Patient and infant tolerated delivery well. Procedure findings: viable female infant apgars 9/9 Keysha Presentation: Vertex Amniotic Membrane Rupture Type: Spontaneous Amniotic Fluid Description: Clear Placental Delivery Description: Spontaneous Placenta Disposition: [facility] Specimen collected: No Cord Vessel Description: 3 Vessels Cord Entanglement: None A Gender: Female (1 minute): 9 (5 minute): 9 Delayed Cord Clamping: Yes Sales Account Executive vegetable scullion: No Post Vaginal Deli Medications given after delivery: IV Pitocin Episiotomy Description: None Laceration: None Complication Complications: No Procedures Urinary/Genital 52xxx-59xxx: 98748 Vaginal Delivery Only 11/16/242117 Cosigner Signature (if applicable): CC: Dr. Geni De Jesus DO; No Primary Care Physician Signed Normal [facility] Mean corpuscular hemoglobin (MCH) determinationOrdered By: Geni Simpson on 11-16-2024 MCH (RBC) [Entitic mass] 31.1 pg Normal 27.0-32.0 [facility] Comment on above: Performed By: #### L 509.8000, L100.0100, L501.0250, L3890.6005 #### [facility] Laboratory [address] [place], [place], [phone] Mean corpuscular hemoglobin concentration (MCHC) determinationOrdered By: Geni Simpson on 11-16-2024 MCHC (RBC) [Mass/Vol] 33.4 g/dL Normal 32-36 [facility] Comment on above: Performed By: #### L 509.8000, L100.0100, L501.0250, L3890.6005 #### [facility] Laboratory [address] [place], [place], [id number] Mean platelet volume determi nationOrdered By: Geni Simpson on 11-16-2024 Platelet mean volume (Bld) [Entitic vol] 10.7 fL Normal 6.2-12.0 [facility] Comment on above: Performed By: #### L 509.8000, L100.0100, L501.0250, L3890.6005 #### [facility] Laboratory [address] [place], [place], [phone] Monocyte percentageOrdered B y: Geni Simpson on 11-16-2024 Monocytes/100 WBC (Bld) 7.5 % Normal 0-10 [facility] Comment on above: Performed By: #### L 509.8000, L100.0100, L501.0250, L3890.6005 #### [facility] Laboratory [address] [place], [address] Neutrophil percentageOrdered By: Geni Simpson on 11-16-2024 Neutrophils/100 WBC (Bld) 72.1 % High 47-70 [facility] Comment on above: Performed By: #### L 509.8000, L100.0100, L501.0250, L3890.6005 #### [facility] Laboratory [address] [place], [address] Nucleated red blood cell per centageOrdered By: Geni Simpson on 11-16-2024 Nucleated RBC/100 WBC (Bld) [Ratio] 0 % 0-5 [facility] Platelet countOrdered By: Anderson Simpson on 11-16-2024 Platelets (Bld) [#/Vol] 241 10*3/uL Normal 150-450 [facility] Comment on above: Performed By: #### L 509.8000, L100.0100, L501.0250, L3890.6005 #### [facility] Laboratory [address] [place], [address] Serum Treponema species anti body detectionOrdered By: Geni Simpson on 11-16-2024 Treponema sp Ab Ql (S) Non-Reactive [facility] Testing for ruptured membran esOrdered By: Geni Simpson on 11-16-2024 Vaginal Amniotic Fluid Detection Positive High Negative [facility] Comment on above: Amniotic fluid prese nt indicates rupture of Membranes. RESULTS CALLED TO VERONIQUE LEE 11/16/24 0745 Fabiola Carter.REPORT READ BACK BY SAME. Treponema sp Ab Ql (S)Ordere d By: Geni Simpson on 11-16-2024 Syphilis Total Antibody Non-Reactive [facility] Type AND Screenon 11-16-2024 Ab SCREEN GEL Negative Normal [facility] Comment on above: Order Comment: Labor Performed By: #### L 509.8000, L100.0100, L501.0250, L3890.6005 #### [facility] Laboratory [address] [place], [place], [phone] White blood cell (WBC) count Ordered By: Geni Simpson on 11-16-2024 WBC (Bld) [#/Vol] 11.0 10*3/uL Normal 4.4-11.0 [facility] Comment on above: Performed By: #### L 509.8000, L100.0100, L501.0250, L3890.6005 #### [facility] Laboratory [address] [place], [address] Laboratory - Chemistry and C hemistry - challengeOrdered By: Lizzette Zheng on 11-13-2024 Glucose Ql (U) Negative [facility] Laboratory - UrinalysisOrder ed By: Lizzette Zheng on 11-13-2024 Protein Ql (U) Negative [facility] 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 Reporton 11-13-2024 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 Report [facility], [address] [place] [address] OFFICE VISIT Date of Service: 11/13/24 MR#: [id number] Acct: [id number] Name: LLUVIA HOLLINGSWORTH Rep #: [id number] : 1995 Provider: CLARA Shrestha ams Age/Sex: 29/F Location: [facility] Status: Signed Intake Vital Signs 08/13/24 13:52 11/05/24 13:24 11/13/24 10:53 Height 5 ft 4 in 5 ft 4 in 5 ft 4 in Weight: 231 lb BMI 39.6 BP 131/83 H Intake Visit Reasons: 37 WK OB Chief Complaint: 37wk OB Is patient in pain?: No Allergies No Known Allergies Allergy (Verified 11/13/24 10:55) Medications ???Medication ???Instructions ???Recorded ???Confirmed ???Type cetirizine 10 mg capsule (Zyrtec) 10 mg PO DAILY PRN allergies 12/0611/13/24 History multivitamin no.47-iron fum 27 cap PO 04/18/24 11/13/24 History mg-folate no.1 1 mg-dha 300 mg capsule (PNV-DHA) Last Menstrual Period: 02/21/24 : No PFSH PFSH Medical History Spontaneous vaginal delivery Spontaneous onset of labor Uterine contractions Low-lying placenta in second trimester Supervision of high-risk History of depression Family History Aunt Ovarian cancer, Onset Age: 45 Maternal Aunt Mother Miscarriage 2 or 3 miscarriages- before and after of pt. Social History adopted: No household members: significant other and children housing: house number of children: 1 current occupational status: unemployed current occupation: [employer] current occupational exposures/hazards: No pets and animals: Yes (not manage litterbox) pets and animals: cat(s) and dog(s) history of recent travel: No ([place]) sexually active: Yes Smoking Status: Former smoker alcohol intake: former details: rarely drinks, special occasions, not while substance use type: does not use well-balanced diet: daily or most days caffeine: No eating out: 1-3 times/week during the past year weight has: remained stable what type of physical activity do you participate in: walking frequency: daily duration: 15-30 minutes/day chriss/baptism: None seatbelt use: always do you feel safe at home: Yes additional social history: J Luis - Self employed History 2 Elective abortions Hx Para 1 Spontaneous abortions Hx # Term Pregnancies 1 Ectopic pregnancies Hx # Pregnancies Multiple births # of living children 1 Past Pregnancies Del. Date Name GA/Weeks Outcome Route Bth Weight Gen Labor Lgth Anesthesia Del Locatn Provider FOB 02/06/23 [place] 38 live - full term 8#4oz Male epidural [facility] J Luis HPI 37 WK OB Details: LLUVIA HOLLINGSWORTH is a 29 year old who presents for routine OB visit. OB Visit RUFINA Calculator Estimated Delivery Date Method Current WG Current Estimate 11/27/24 LMP (Certain) 38w 0d Expected Delivery Route/Plan Labor Preferences- CB/BF classes: [] labor support person: [] labor intervention preferences: [] pain management options preferred: [] cut cord/dad catch: [] : [] PP control planned: [] discussed possible routes of delivery and associated risks: [] special requests: [] Specific Issue/Plans Covid status: [] Flu vaccine: no Tdap vaccine: [] Rhogam: na LARC form signed: [] Problem list reviewed and updated with the most current plan of care details and appropriate orders placed. Relevant counseling for the gestational age provided. Continue routine care and follow up unless otherwise noted in visit notes/problem list details Initial Weight: Not Recorded Date -???-???-???-???-???-?? ?-???-???-???-???-???-? ??- EGA Weight BP Urine Prot -???-???-???-???-???-?? ?-???-???-???-???-???-? ??- Glucose FHR FuHt Pres Dilation -???-???-???-???-???-?? ?-???-???-???-???-???-? ??- Effaced St Visit Note 04/22/24 -???-???-???-???-???-?? ?-???-???-???-???-???-? ??- 8w 5d 188 lb 2 oz 117/66 -???-???-???-???-???-?? ?-???-???-???-???-???-? ??- 180 -???-???-???-???-???-?? ?-???-???-???-???-???-? ??- KW- cons wit h dates. 21mm. accepts NIPT. 05/20/24 -???-???-???-???-???-?? ?-???-???-???-???-???-? ??- 12w 5d 191 lb 107/69 Negative -???-???-???-???-???-?? ?-???-???-???-???-???-? ??- Negative 160 -???-???-???-???-???-?? ?-???-???-???-???-???-? ??- SM- no vb cr maping 06/16/24 -???-???-???-???-???-?? ?-???-???-???-???-???-? ??- 16w 4d 195 lb 8 oz 100/68 Negative -???-???-???-???-???-?? ?-???-???-???-???-???-? ??- Negative 152 -???-???-???-???-???-?? ?-???-???-???-???-???-? ??- MH-No VB. No ting round ligament pa (more content not included)... Normal [facility] Rule out Beta Strep (Grp. B) on 11-09-2024 MILLICENT Streptococcus agalactiae (B) Amount Growth Growth Streptococcus agalactiae (B): REACTION Ampicillin Islt KIARA <=0.25 cefTRIAXone Islt KIARA <=0.12 S Clindamycin Islt KIARA >=1 R Clindamycin.induced Susc Islt NEG Linezolid Islt KIARA <=2 S Vancomycin Islt KIARA 0.5 S Normal [facility] Comment on above: Performed By: #### M [id number] ####[facility] [id number] [place], [address] Laboratory - Chemistry and C hemistry - challengeon 11-05-2024 Glucose Ql (U) Negative [facility] Laboratory - Urinalysison Protein Ql (U) Negative [facility] 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 Reporton 11-05-2024 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 Report [address], [address] [place] [address] OFFICE VISIT Date of Service: 11/05/24 MR#: [id number] Acct: [id number] Name: LLUVIA HOLLINGSWORTH Rep #: [id number] : 1995 Provider: Dr. Geni Maynard DO Age/Sex: 29/F Location: [facility] Status: Signed Intake Vital Signs 08/13/24 13:52 10/21/24 09:21 11/05/24 13:22 11/05/24 13:24 Height 5 ft 4 in 5 ft 4 in 5 ft 4 in 5 ft 4 in Weight: 228 lb 8 oz BMI 39.2 BP 124/74 H Intake Visit Reasons: 36 WK OB Coordinator Skill Training Program Required: No Is patient in pain?: No Allergies No Known Allergies Allergy (Verified 11/05/24 13:22) Medications ???Medication ???Instructions ???Recorded ???Confirmed ???Type cetirizine 10 mg capsule (Zyrtec) 10 mg PO DAILY PRN allergies 12/18/22 11/05/24 History multivitamin no.47-iron fum 27 cap PO 04/18/24 11/05/24 History mg-folate no.1 1 mg-dha 300 mg capsule (PNV-DHA) Last Menstrual Period: 02/21/24 Zika: Zika virus screening: Negative : No PFSH PFSH Medical History Spontaneous vaginal delivery Spontaneous onset of labor Uterine contractions Low-lying placenta in second trimester Supervision of high-risk History of depression Family History Aunt Ovarian cancer, Onset Age: 45 Maternal Aunt Mother Miscarriage 2 or 3 miscarriages- before and after of pt. Social History adopted: No household members: significant other and children housing: house number of children: 1 current occupational status: unemployed current occupation: [employer] current occupational exposures/hazards: No pets and animals: Yes (not manage litterbox) pets and animals: cat(s) and dog(s) history of recent travel: No ([place]) sexually active: Yes Smoking Status: Former smoker alcohol intake: former details: rarely drinks, special occasions, not while substance use type: does not use well-balanced diet: daily or most days caffeine: No eating out: 1-3 times/week during the past year weight has: remained stable what type of physical activity do you participate in: walking frequency: daily duration: 15-30 minutes/day chriss/baptism: None seatbelt use: always do you feel safe at home: Yes additional social history: J Luis - Self employed History 2 Elective abortions Hx Para 1 Spontaneous abortions Hx # Term Pregnancies 1 Ectopic pregnancies Hx # Pregnancies Multiple births # of living children 1 Past Pregnancies Del. Date Name GA/Weeks Outcome Route Bth Weight Gen Labor Lgth Anesthesia Del Locatn Provider FOB 02/06/23 [place] 38 live - full term 8#4oz Male epidural [facility] J Luis HPI 36 WK OB Details: LLUVIA HOLLINGSWORTH is a 29 year old who presents for routine OB visit. OB Visit RUFINA Calculator Estimated Delivery Date Method Current WG Current Estimate 11/27/24 LMP (Certain) 36w 6d Expected Delivery Route/Plan Labor Preferences- CB/BF classes: [] labor support person: [] labor intervention preferences: [] pain management options preferred: [] cut cord/dad catch: [] : [] PP control planned: [] discussed possible routes of delivery and associated risks: [] special requests: [] Specific Issue/Plans Covid status: [] Flu vaccine: no Tdap vaccine: [] Rhogam: na LARC form signed: [] Problem list reviewed and updated with the most current plan of care details and appropriate orders placed. Relevant counseling for the gestational age provided. Continue routine care and follow up unless otherwise noted in visit notes/problem list details Initial Weight: Not Recorded Date -???-???-???-???-???-?? ?-???-???-???-???-???-? ??- EGA Weight BP Urine Prot -???-???-???-???-???-?? ?-???-???-???-???-???-? ??- Glucose FHR FuHt Pres Dilation -???-???-???-???-???-?? ?-???-???-???-???-???-? ??- Effaced St Visit Note 04/22/24 -???-???-???-???-???-?? ?-???-???-???-???-???-? ??- 8w 5d 188 lb 2 oz 117/66 -???-???-???-???-???-?? ?-???-???-???-???-???-? ??- 180 -???-???-???-???-???-?? ?-???-???-???-???-???-? ??- KW- cons wit h dates. 21mm. accepts NIPT. 05/20/24 -???-???-???-???-???-?? ?-???-???-???-???-???-? ??- 12w 5d 191 lb 107/69 Negative -???-???-???-???-???-?? ?-???-???-???-???-???-? ??- Negative 160 -???-???-???-???-???-?? ?-???-???-???-???-???-? ??- SM- no vb cr maping 06/16/24 -???-???-???-???-???-?? ?-???-???-???-???-???-? ??- 16w 4d 195 lb 8 oz 100/68 Negative -???-???-???-???-???-?? ?-???-???-???-???-???-? ??- Negative 152 -???-???-?? (more content not included)... Normal [facility] Screening beta-hemolytic Str eptococcus cultureOrdered By: Geni Simpson on 11-05-2024 Beta-hemolytic Streptococcus culture Streptococcus agalactiae (B) Abnormal [facility] Group B Streptococcus Culture Streptococcus agalactiae (B) Abnormal [facility] Laboratory - Chemistry and C hemistry - challengeon 10-21-2024 Glucose Ql (U) Negative [facility] Laboratory - Urinalysison Protein Ql (U) Negative [facility] 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 Reporton 10-21-2024 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 Report [facility] [address], [address] [place] [address] OFFICE VISIT Date of Service: 10/21/24 MR#: [id number] Acct: [id number] Name: LLUVIA HOLLINGSWORTH Rep #: [id number] : 1995 Provider: Dr. Lenora escobedo MD Age/Sex: 29/F Location: [facility] Status: Signed Intake Vital Signs 08/13/24 13:52 10/07/24 10:54 10/21/24 09:21 Height 5 ft 4 in 5 ft 4 in 5 ft 4 in Weight: 220 lb 6 oz 225 lb 2 oz BMI 37.8 38.6 BP 122/70 H 110/60 Intake Visit Reasons: 34 WK OB Coordinator Skill Training Program Required: No Is patient in pain?: No Feel stressed/tense/nervous/ anxious/difficulty sleeping: not at all Allergies No Known Allergies Allergy (Verified 10/21/24 09:21) Medications ???Medication ???Instructions ???Recorded ???Confirmed ???Type cetirizine 10 mg capsule (Zyrtec) 10 mg PO DAILY PRN allergies 12/18/22 10/21/24 History multivitamin no.47-iron fum 27 cap PO 04/18/24 10/21/24 History mg-folate no.1 1 mg-dha 300 mg capsule (PNV-DHA) Last Menstrual Period: 02/21/24 Zika: Zika virus screening: Negative : No Have you fallen in the past year?: No PFSH PFSH Medical History Spontaneous vaginal delivery Spontaneous onset of labor Uterine contractions Low-lying placenta in second trimester Supervision of high-risk History of depression Family History Aunt Ovarian cancer, Onset Age: 45 Maternal Aunt Mother Miscarriage 2 or 3 miscarriages- before and after of pt. Social History adopted: No household members: significant other and children housing: house number of children: 1 current occupational status: unemployed current occupation: [employer] current occupational exposures/hazards: No pets and animals: Yes (not manage litterbox) pets and animals: cat(s) and dog(s) history of recent travel: No ([place]) sexually active: Yes Smoking Status: Former smoker alcohol intake: former details: rarely drinks, special occasions, not while substance use type: does not use well-balanced diet: daily or most days caffeine: No eating out: 1-3 times/week during the past year weight has: remained stable what type of physical activity do you participate in: walking frequency: daily duration: 15-30 minutes/day chriss/baptism: None seatbelt use: always do you feel safe at home: Yes additional social history: J Luis - Self employed History 2 Elective abortions Hx Para 1 Spontaneous abortions Hx # Term Pregnancies 1 Ectopic pregnancies Hx # Pregnancies Multiple births # of living children 1 Past Pregnancies Del. Date Name GA/Weeks Outcome Route Bth Weight Gen Labor Lgth Anesthesia Del Locatn Provider FOB 02/06/23 [place] 38 live - full term 8#4oz Male epidural [facility] K[facility] J Luis HPI 34 WK OB Details: LLUVIA HOLLINGSWORTH is a 29 year old who presents for routine OB visit. OB Visit RUFINA Calculator Estimated Delivery Date Method Current WG Current Estimate 11/27/24 LMP (Certain) 34w 6d Expected Delivery Route/Plan Labor Preferences- CB/BF classes: [] labor support person: [] labor intervention preferences: [] pain management options preferred: [] cut cord/dad catch: [] : [] PP control planned: [] discussed possible routes of delivery and associated risks: [] special requests: [] Specific Issue/Plans Covid status: [] Flu vaccine: no Tdap vaccine: [] Rhogam: na LARC form signed: [] Problem list reviewed and updated with the most current plan of care details and appropriate orders placed. Relevant counseling for the gestational age provided. Continue routine care and follow up unless otherwise noted in visit notes/problem list details Initial Weight: Not Recorded Date -???-???-???-???-???-?? ?-???-???-???-???-???-? ??- EGA Weight BP Urine Prot -???-???-???-???-???-?? ?-???-???-???-???-???-? ??- Glucose FHR FuHt Pres Dilation -???-???-???-???-???-?? ?-???-???-???-???-???-? ??- Effaced St Visit Note 04/22/24 -???-???-???-???-???-?? ?-???-???-???-???-???-? ??- 8w 5d 188 lb 2 oz 117/66 -???-???-???-???-???-?? ?-???-???-???-???-???-? ??- 180 -???-???-???-???-???-?? ?-???-???-???-???-???-? ??- KW- cons wit h dates. 21mm. accepts NIPT. 05/20/24 -???-???-???-???-???-?? ?-???-???-???-???-???-? ??- 12w 5d 191 lb 107/69 Negative -???-???-???-???-???-?? ?-???-???-???-???-???-? ??- Negative 160 -???-???-???-???-???-?? ?-???-???-???-???-???-? ??- SM- no vb cr maping 06/16/24 -???-???-???-???-???-?? ?-???-???-???-???-???-? ??- 16w 4d 195 lb 8 oz (more content not included)... Normal [facility] Laboratory - Chemistry and C hemistry - challengeon 10-07-2024 Glucose Ql (U) Negative [facility] Laboratory - Urinalysison Protein Ql (U) Negative [facility] 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 Reporton 10-07-2024 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 Report [facility] [address], [address] [place] [address] OFFICE VISIT Date of Service: 10/07/24 MR#: [id number] Acct: [id number] Name: LLUVIA HOLLINGSWORTH Rep #: [id number] : 1995 Provider: LUIS cox Age/Sex: 29/F Location: [facility] Status: Signed Intake Vital Signs 08/13/24 13:52 09/26/24 13:12 10/07/24 10:54 Height 5 ft 4 in 5 ft 4 in 5 ft 4 in Weight: 220 lb 6 oz BMI 37.8 BP 122/70 H Intake Visit Reasons: 32 WK OB Chief Complaint: 32 Week OB Coordinator Skill Training Program Required: No Is patient in pain?: No Allergies No Known Allergies Allergy (Verified 10/07/24 10:53) Medications ???Medication ???Instructions ???Recorded ???Confirmed ???Type cetirizine 10 mg capsule (Zyrtec) 10 mg PO DAILY PRN allergies 12/18/22 10/07/24 History multivitamin no.47-iron fum 27 cap PO 04/18/24 10/07/24 History mg-folate no.1 1 mg-dha 300 mg capsule (PNV-DHA) Last Menstrual Period: 02/21/24 Zika: Zika virus screening: Negative : No PFSH PFSH Medical History Spontaneous vaginal delivery Spontaneous onset of labor Uterine contractions Low-lying placenta in second trimester Supervision of high-risk History of depression Family History Aunt Ovarian cancer, Onset Age: 45 Maternal Aunt Mother Miscarriage 2 or 3 miscarriages- before and after of pt. Social History adopted: No household members: significant other and children housing: house number of children: 1 current occupational status: unemployed current occupation: [employer] current occupational exposures/hazards: No pets and animals: Yes (not manage litterbox) pets and animals: cat(s) and dog(s) history of recent travel: No ([place]) sexually active: Yes Smoking Status: Former smoker alcohol intake: former details: rarely drinks, special occasions, not while substance use type: does not use well-balanced diet: daily or most days caffeine: No eating out: 1-3 times/week during the past year weight has: remained stable what type of physical activity do you participate in: walking frequency: daily duration: 15-30 minutes/day chriss/baptism: None seatbelt use: always do you feel safe at home: Yes additional social history: J Luis - Self employed History 2 Elective abortions Hx Para 1 Spontaneous abortions Hx # Term Pregnancies 1 Ectopic pregnancies Hx # Pregnancies Multiple births # of living children 1 Past Pregnancies Del. Date Name GA/Weeks Outcome Route Bth Weight Gen Labor Lgth Anesthesia Del Locatn Provider FOB 02/06/23 [place] 38 live - full term 8#4oz Male epidural [facility] KW J Luis HPI 32 WK OB Details: LLUVIA HOLLINGSWORTH is a 29 year old who presents for routine OB visit. OB Visit RUFINA Calculator Estimated Delivery Date Method Current WG Current Estimate 11/27/24 LMP (Certain) 32w 5d Expected Delivery Route/Plan Labor Preferences- CB/BF classes: [] labor support person: [] labor intervention preferences: [] pain management options preferred: [] cut cord/dad catch: [] : [] PP control planned: [] discussed possible routes of delivery and associated risks: [] special requests: [] Specific Issue/Plans Covid status: [] Flu vaccine: no Tdap vaccine: [] Rhogam: na LARC form signed: [] Problem list reviewed and updated with the most current plan of care details and appropriate orders placed. Relevant counseling for the gestational age provided. Continue routine care and follow up unless otherwise noted in visit notes/problem list details Initial Weight: Not Recorded Date -???-???-???-???-???-?? ?-???-???-???-???-???-? ??- EGA Weight BP Urine Prot -???-???-???-???-???-?? ?-???-???-???-???-???-? ??- Glucose FHR FuHt Pres Dilation -???-???-???-???-???-?? ?-???-???-???-???-???-? ??- Effaced St Visit Note 04/22/24 -???-???-???-???-???-?? ?-???-???-???-???-???-? ??- 8w 5d 188 lb 2 oz 117/66 -???-???-???-???-???-?? ?-???-???-???-???-???-? ??- 180 -???-???-???-???-???-?? ?-???-???-???-???-???-? ??- KW- cons wit h dates. 21mm. accepts NIPT. 05/20/24 -???-???-???-???-???-?? ?-???-???-???-???-???-? ??- 12w 5d 191 lb 107/69 Negative -???-???-???-???-???-?? ?-???-???-???-???-???-? ??- Negative 160 -???-???-???-???-???-?? ?-???-???-???-???-???-? ??- SM- no vb cr maping 06/16/24 -???-???-???-???-???-?? ?-???-???-???-???-???-? ??- 16w 4d 195 lb 8 oz 100/68 Negative -???-???-???-???-???-?? ?-???-???-???-???-???-? ??- Negative 152 -???-???-???-? (more content not included)... Normal [facility] Laboratory - Chemistry and C hemistry - challengeon 09-26-2024 Glucose Ql (U) Negative [facility] Laboratory - Urinalysison Protein Ql (U) Trace [facility] 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 Reporton 09-26-2024 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 Report [facility] [address], [address] [place] [address] OFFICE VISIT Date of Service: 09/26/24 MR#: [id number] Acct: [id number] Name: LLUVIA HOLLINGSWORTH Rep #: [id number] : 1995 Provider: CLARA petit Age/Sex: 29/F Location: [facility] Status: Signed Intake Vital Signs 08/13/24 13:52 09/11/24 13:27 09/26/24 13:12 Height 5 ft 4 in 5 ft 4 in 5 ft 4 in Weight: 217 lb 4 oz BMI 37.3 BP 112/75 Intake Visit Reasons: 30 WK OB Coordinator Skill Training Program Required: No Is patient in pain?: No Allergies No Known Allergies Allergy (Verified 09/26/24 13:12) Medications ???Medication ???Instructions ???Recorded ???Confirmed ???Type cetirizine 10 mg capsule (Zyrtec) 10 mg PO DAILY PRN allergies 12/18/22 09/26/24 History multivitamin no.47-iron fum 27 cap PO 04/18/24 09/26/24 History mg-folate no.1 1 mg-dha 300 mg capsule (PNV-DHA) Last Menstrual Period: 02/21/24 Zika: Zika virus screening: Negative : No Have you fallen in the past year?: No PFSH PFSH Medical History Spontaneous vaginal delivery Spontaneous onset of labor Uterine contractions Low-lying placenta in second trimester Supervision of high-risk History of depression Family History Aunt Ovarian cancer, Onset Age: 45 Maternal Aunt Mother Miscarriage 2 or 3 miscarriages- before and after of pt. Social History adopted: No household members: significant other and children housing: house number of children: 1 current occupational status: unemployed current occupation: [employer] current occupational exposures/hazards: No pets and animals: Yes (not manage litterbox) pets and animals: cat(s) and dog(s) history of recent travel: No ([place]) sexually active: Yes Smoking Status: Former smoker alcohol intake: former details: rarely drinks, special occasions, not while substance use type: does not use well-balanced diet: daily or most days caffeine: No eating out: 1-3 times/week during the past year weight has: remained stable what type of physical activity do you participate in: walking frequency: daily duration: 15-30 minutes/day chriss/baptism: None seatbelt use: always do you feel safe at home: Yes additional social history: J Luis - Self employed History 2 Elective abortions Hx Para 1 Spontaneous abortions Hx # Term Pregnancies 1 Ectopic pregnancies Hx # Pregnancies Multiple births # of living children 1 Past Pregnancies Del. Date Name GA/Weeks Outcome Route Bth Weight Gen Labor Lgth Anesthesia Del Locatn Provider FOB 02/06/23 [place] 38 live - full term 8#4oz Male epidural [facility] K[facility] J Luis HPI 30 WK OB Details: LLUVIA HOLLINGSWORTH is a 29 year old who presents for routine OB visit. OB Visit RUFINA Calculator Estimated Delivery Date Method Current WG Current Estimate 11/27/24 LMP (Certain) 31w 1d Expected Delivery Route/Plan Labor Preferences- CB/BF classes: [] labor support person: [] labor intervention preferences: [] pain management options preferred: [] cut cord/dad catch: [] : [] PP control planned: [] discussed possible routes of delivery and associated risks: [] special requests: [] Specific Issue/Plans Covid status: [] Flu vaccine: no Tdap vaccine: [] Rhogam: na LARC form signed: [] Problem list reviewed and updated with the most current plan of care details and appropriate orders placed. Relevant counseling for the gestational age provided. Continue routine care and follow up unless otherwise noted in visit notes/problem list details Initial Weight: Not Recorded Date -???-???-???-???-???-?? ?-???-???-???-???-???-? ??- EGA Weight BP Urine Prot -???-???-???-???-???-?? ?-???-???-???-???-???-? ??- Glucose FHR FuHt Pres Dilation -???-???-???-???-???-?? ?-???-???-???-???-???-? ??- Effaced St Visit Note 04/22/24 -???-???-???-???-???-?? ?-???-???-???-???-???-? ??- 8w 5d 188 lb 2 oz 117/66 -???-???-???-???-???-?? ?-???-???-???-???-???-? ??- 180 -???-???-???-???-???-?? ?-???-???-???-???-???-? ??- KW- cons wit h dates. 21mm. accepts NIPT. 05/20/24 -???-???-???-???-???-?? ?-???-???-???-???-???-? ??- 12w 5d 191 lb 107/69 Negative -???-???-???-???-???-?? ?-???-???-???-???-???-? ??- Negative 160 -???-???-???-???-???-?? ?-???-???-???-???-???-? ??- SM- no vb cr maping 06/16/24 -???-???-???-???-???-?? ?-???-???-???-???-???-? ??- 16w 4d 195 lb 8 oz 100/68 Negative -???-???-???-???-???-?? ?-???-???-???-???-???-? ??- Negative 152 -???-???-???-???-???- (more content not included)... Normal [facility] CBC W/Diff, Automatedon 12-0 -2023 Absolute Lymph 1.49 X10 3/uL Normal 0.83-4.51 [facility] Comment on above: Performed By: #### L 509.8000, L100.0100, L501.0250, L3890.6005 #### [facility] Laboratory [address] [place], [address] Absolute Neut 5.6 X10 3/uL Normal 2.0-7.7 [facility] Comment on above: Performed By: #### L 509.8000, L100.0100, L501.0250, [id number] #### [facility] [address] [place], [address] Basophils/100 WBC (Bld) 0.1 % Normal 0-1 [facility] Comment on above: Performed By: #### L 509.8000, L100.0100, L501.0250, [id number] #### [facility] [address] [place], [address] Eosinophils/100 WBC (Bld) 0.6 % Normal 0-5 [facility] Comment on above: Performed By: #### L 509.8000, L100.0100, L501.0250, [id number] #### [facility] [address] [place], [address] Erythrocyte distribution width (RBC) [Ratio] 13.8 % Normal 11.6-14.6 [facility] Comment on above: Performed By: #### L 509.8000, L100.0100, L501.0250, [id number] #### [facility] [address] [place], [address] Hematocrit (Bld) [Volume fraction] 36.2 % Low 37-47 [facility] Comment on above: Performed By: #### L 509.8000, L100.0100, L501.0250, [id number] #### [facility] [address] [place], [address] Hemoglobin (Bld) [Mass/Vol] 12.2 g/dL Normal 12.0-15.0 [facility] Comment on above: Performed By: #### L 509.8000, L100.0100, L501.0250, [id number] #### [facility] [address] [place], [address] IG% 0.400 Normal 0.0-0.9 [facility] Comment on above: Result Comment: IG% - Immature Granulocytes (promyelocytes, myelocytes and metamyelocytes) > 1% indicates that a LEFT SHIFT is Present. Performed By: #### L 509.8000, L100.0100, L501.0250, L3890.6005 #### [facility] [address] [place], [address] Lymphocytes/100 WBC (Bld) 19.0 % Normal 19-41 [facility] Comment on above: Performed By: #### L 509.8000, L100.0100, L501.0250, [id number] #### [facility] [address] [place], [address] MCH (RBC) [Entitic mass] 31.8 pg Normal 27.0-32.0 [facility] Comment on above: Performed By: #### L 509.8000, L100.0100, L501.0250, [id number] #### [facility] [address] [place], [address] MCHC (RBC) [Mass/Vol] 33.7 g/dL Normal 32-36 [facility] Comment on above: Performed By: #### L 509.8000, L100.0100, L501.0250, [id number] #### [facility] [address] [place], [address] MCV (RBC) [Entitic vol] 94.3 fL Normal 81-99 [facility] Comment on above: Performed By: #### L 509.8000, L100.0100, L501.0250, [id number] #### [facility] [address] [place], [address] Monocytes/100 WBC (Bld) 9.2 % Normal 0-10 [facility] Comment on above: Performed By: #### L 509.8000, L100.0100, L501.0250, [id number] #### [facility] [address] [place], [address] Neutrophils/100 WBC (Bld) 70.7 % High 47-70 [facility] Comment on above: Performed By: #### L 509.8000, L100.0100, L501.0250, [id number] #### [facility] [address] [place], [address] Nucleated RBC (Bld) [#/Vol] 0 10*3/uL Normal 0-5 [facility] Comment on above: Performed By: #### L 509.8000, L100.0100, L501.0250, [id number] #### [facility] [address] [place], [address] Platelet mean volume (Bld) [Entitic vol] 9.8 fL Normal 6.2-12.0 [facility] Comment on above: Performed By: #### L 509.8000, L100.0100, L501.0250, [id number] #### [facility] [address] [place], [address] Platelets (Bld) [#/Vol] 235 10*3/uL Normal 150-450 [facility] Comment on above: Performed By: #### L 509.8000, L100.0100, L501.0250, [id number] #### [facility] [address] [place], [address] RBC (Bld) [#/Vol] 3.84 10*6/uL Low 4.2-5.4 [facility] Comment on above: Performed By: #### L 509.8000, L100.0100, L501.0250, [id number] #### [facility] [address] [place], [address] RDW SD 47.8 fl High 35.1-43.9 [facility] Comment on above: Performed By: #### L 509.8000, L100.0100, L501.0250, [id number] #### [facility] [address] [place], [address] WBC (Bld) [#/Vol] 7.9 10*3/uL Normal 4.4-11.0 [facility] Comment on above: Performed By: #### L 509.8000, L100.0100, L501.0250, [id number] #### [facility] [address] [place], [address] Glucose Challenge Gest 1H 50 roberto 09-11-2024 GLU GEST 50g 1H 88 mg/dL Normal 70-140 [facility] Comment on above: Performed By: #### L 509.8000, L100.0100, L501.0250, [id number] #### [facility] [address] [place], [address] HIV - WCHon 09-11-2024 HIV Non-Reactive Normal Nonreactive [facility] Comment on above: Performed By: #### L 509.8000, L100.0100, L501.0250, [id number] #### [facility] [address] [place], [address] L509.8000on 09-11-2024 Syphilis Abs Non-Reactive Normal [facility] Comment on above: Performed By: #### L 509.8000, L100.0100, L501.0250, [id number] #### [facility] [address] [place], [address] 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 Reporton 09-11-2024 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 Report [facility] [address], [address] [place] [address] OFFICE VISIT Date of Service: 09/11/24 MR#: [id number] Acct: [id number] Name: LLUVIA HOLLINGSWORTH Rep #: [id number] : 1995 Provider: Dr. Geni Maynard DO Age/Sex: 29/F Location: [facility] Status: Signed Intake Vital Signs 08/13/24 13:52 09/11/24 13:26 09/11/24 13:27 Height 5 ft 4 in 5 ft 4 in 5 ft 4 in Weight: 211 lb 4 oz BMI 36.2 BP 112/73 Intake Visit Reasons: 28 WK OB/GLUCOSE Coordinator Skill Training Program Required: No Is patient in pain?: No Allergies No Known Allergies Allergy (Verified 09/11/24 13:26) Medications ???Medication ???Instructions ???Recorded ???Confirmed ???Type cetirizine 10 mg capsule (Zyrtec) 10 mg PO DAILY PRN allergies 12/18/22 09/11/24 History multivitamin no.47-iron fum 27 cap PO 04/18/24 09/11/24 History mg-folate no.1 1 mg-dha 300 mg capsule (PNV-DHA) Last Menstrual Period: 02/21/24 Zika: Zika virus screening: Negative : No PFSH PFSH Medical History Spontaneous vaginal delivery Spontaneous onset of labor Uterine contractions Low-lying placenta in second trimester Supervision of high-risk History of depression Family History Aunt Ovarian cancer, Onset Age: 45 Maternal Aunt Mother Miscarriage 2 or 3 miscarriages- before and after of pt. Social History adopted: No household members: significant other and children housing: house number of children: 1 current occupational status: unemployed current occupation: [employer] current occupational exposures/hazards: No pets and animals: Yes (not manage litterbox) pets and animals: cat(s) and dog(s) history of recent travel: No ([place]) sexually active: Yes Smoking Status: Former smoker alcohol intake: former details: rarely drinks, special occasions, not while substance use type: does not use well-balanced diet: daily or most days caffeine: No eating out: 1-3 times/week during the past year weight has: remained stable what type of physical activity do you participate in: walking frequency: daily duration: 15-30 minutes/day chriss/baptism: None seatbelt use: always do you feel safe at home: Yes additional social history: J Luis - Self employed History 2 Elective abortions Hx Para 1 Spontaneous abortions Hx # Term Pregnancies 1 Ectopic pregnancies Hx # Pregnancies Multiple births # of living children 1 Past Pregnancies Del. Date Name GA/Weeks Outcome Route Bth Weight Gen Labor Lgth Anesthesia Del Locatn Provider FOB 02/06/23 [place] 38 live - full term 8#4oz Male epidural [facility] J Luis HPI 28 WK OB/GLUCOSE Details: LLUVIA HOLLINGSWORTH is a 29 year old who presents for routine OB visit. OB Visit RUFINA Calculator Estimated Delivery Date Method Current WG Current Estimate 11/27/24 LMP (Certain) 29w 0d Expected Delivery Route/Plan Labor Preferences- CB/BF classes: [] labor support person: [] labor intervention preferences: [] pain management options preferred: [] cut cord/dad catch: [] : [] PP control planned: [] discussed possible routes of delivery and associated risks: [] special requests: [] Specific Issue/Plans Covid status: [] Flu vaccine: no Tdap vaccine: [] Rhogam: na LARC form signed: [] Problem list reviewed and updated with the most current plan of care details and appropriate orders placed. Relevant counseling for the gestational age provided. Continue routine care and follow up unless otherwise noted in visit notes/problem list details Initial Weight: Not Recorded Date -???-???-???-???-???-?? ?-???-???-???-???-???-? ??- EGA Weight BP Urine Prot -???-???-???-???-???-?? ?-???-???-???-???-???-? ??- Glucose FHR FuHt Pres Dilation -???-???-???-???-???-?? ?-???-???-???-???-???-? ??- Effaced St Visit Note 04/22/24 -???-???-???-???-???-?? ?-???-???-???-???-???-? ??- 8w 5d 188 lb 2 oz 117/66 -???-???-???-???-???-?? ?-???-???-???-???-???-? ??- 180 -???-???-???-???-???-?? ?-???-???-???-???-???-? ??- KW- cons wit h dates. 21mm. accepts NIPT. 05/20/24 -???-???-???-???-???-?? ?-???-???-???-???-???-? ??- 12w 5d 191 lb 107/69 Negative -???-???-???-???-???-?? ?-???-???-???-???-???-? ??- Negative 160 -???-???-???-???-???-?? ?-???-???-???-???-???-? ??- SM- no vb cr maping 06/16/24 -???-???-???-???-???-?? ?-???-???-???-???-???-? ??- 16w 4d 195 lb 8 oz 100/68 Negative -???-???-???-???-???-?? ?-???-???-???-???-???-? ??- Negative 152 -???-???-???-???-???-?? ? (more content not included)... Normal [facility] 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 Reporton 08-13-2024 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 Report [facility] [address], [address] [place] [address] OFFICE VISIT Date of Service: 08/13/24 MR#: [id number] Acct: [id number] Name: LLUVIA HOLLINGSWORTH Rep #: [id number] : 1995 Provider: LUIS cox Age/Sex: 28/F Location: [facility] Status: Signed Intake Vital Signs 07/14/24 13:35 08/13/24 13:52 08/13/24 13:52 Height 5 ft 4 in 5 ft 4 in 5 ft 4 in Weight: 211 lb 6 oz BMI 36.3 BP 105/72 Intake Visit Reasons: 24 WK OB Coordinator Skill Training Program Required: No Is patient in pain?: No Allergies No Known Allergies Allergy (Verified 08/13/24 13:51) Medications ???Medication ???Instructions ???Recorded ???Confirmed ???Type cetirizine 10 mg capsule (Zyrtec) 10 mg PO DAILY PRN allergies 12/18/22 08/13/24 History multivitamin no.47-iron fum 27 cap PO 04/18/24 08/13/24 History mg-folate no.1 1 mg-dha 300 mg capsule (PNV-DHA) Last Menstrual Period: 02/21/24 Zika: Zika virus screening: Negative : No PFSH PFSH Medical History Spontaneous vaginal delivery Spontaneous onset of labor Uterine contractions Low-lying placenta in second trimester Supervision of high-risk History of depression Family History Aunt Ovarian cancer, Onset Age: 45 Maternal Aunt Mother Miscarriage 2 or 3 miscarriages- before and after of pt. Social History adopted: No household members: significant other and children housing: house number of children: 1 current occupational status: unemployed current occupation: [employer] current occupational exposures/hazards: No pets and animals: Yes (not manage litterbox) pets and animals: cat(s) and dog(s) history of recent travel: No ([place]) sexually active: Yes Smoking Status: Former smoker alcohol intake: former details: rarely drinks, special occasions, not while substance use type: does not use well-balanced diet: daily or most days caffeine: No eating out: 1-3 times/week during the past year weight has: remained stable what type of physical activity do you participate in: walking frequency: daily duration: 15-30 minutes/day chriss/baptism: None seatbelt use: always do you feel safe at home: Yes additional social history: J Luis - Self employed History 2 Elective abortions Hx Para 1 Spontaneous abortions Hx # Term Pregnancies 1 Ectopic pregnancies Hx # Pregnancies Multiple births # of living children 1 Past Pregnancies Del. Date Name GA/Weeks Outcome Route Bth Weight Infant Gen Labor Lgth Anesthesia Del Locatn Provider FOB 02/06/23 [place] 38 live - full term 8#4oz Male epidural [facility] J Luis HPI 24 WK OB Details: LLUVIA HOLLINGSWORTH is a 28 year old who presents for routine OB visit. OB Visit RUFINA Calculator Estimated Delivery Date Method Current WG Current Estimate 11/27/24 LMP (Certain) 24w 6d Expected Delivery Route/Plan Labor Preferences- CB/BF classes: [] labor support person: [] labor intervention preferences: [] pain management options preferred: [] cut cord/dad catch: [] : [] PP control planned: [] discussed possible routes of delivery and associated risks: [] special requests: [] Specific Issue/Plans Covid status: [] Flu vaccine: no Tdap vaccine: [] Rhogam: na LARC form signed: [] Problem list reviewed and updated with the most current plan of care details and appropriate orders placed. Relevant counseling for the gestational age provided. Continue routine care and follow up unless otherwise noted in visit notes/problem list details Initial Weight: Not Recorded Date -???-???-???-???-???-?? ?-???-???-???-???-???-? ??- EGA Weight BP Urine Prot -???-???-???-???-???-?? ?-???-???-???-???-???-? ??- Glucose FHR FuHt Pres Dilation -???-???-???-???-???-?? ?-???-???-???-???-???-? ??- Effaced St Visit Note 04/22/24 -???-???-???-???-???-?? ?-???-???-???-???-???-? ??- 8w 5d 188 lb 2 oz 117/66 -???-???-???-???-???-?? ?-???-???-???-???-???-? ??- 180 -???-???-???-???-???-?? ?-???-???-???-???-???-? ??- KW- cons wit h dates. 21mm. accepts NIPT. 05/20/24 -???-???-???-???-???-?? ?-???-???-???-???-???-? ??- 12w 5d 191 lb 107/69 Negative -???-???-???-???-???-?? ?-???-???-???-???-???-? ??- Negative 160 -???-???-???-???-???-?? ?-???-???-???-???-???-? ??- SM- no vb cr maping 06/16/24 -???-???-???-???-???-?? ?-???-???-???-???-???-? ??- 16w 4d 195 lb 8 oz 100/68 Negative -???-???-???-???-???-?? ?-???-???-???-???-???-? ??- Negative 152 -???-???-???-???-???-?? ?-???-???-???-???-???-? ??- (more content not included)... Normal [facility] 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 Reporton 07-14-2024 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 Report [facility] [address], [address] [place] [address] OFFICE VISIT Date of Service: 07/14/24 MR#: [id number] Acct: [id number] Name: LLUVIA HOLLINGSWORTH Rep #: [id number] : 1995 Provider: CLARA Shrestha ams Age/Sex: 28/F Location: [facility] Status: Signed Intake Vital Signs 05/20/24 14:53 06/16/24 13:37 07/14/24 13:35 Height 5 ft 4 in 5 ft 4 in 5 ft 4 in Weight: 204 lb BMI 35.0 BP 102/63 Intake Visit Reasons: 20 WK OB Coordinator Skill Training Program Required: No Is patient in pain?: No Allergies No Known Allergies Allergy (Verified 07/14/24 13:37) Medications ???Medication ???Instructions ???Recorded ???Confirmed ???Type cetirizine 10 mg capsule (Zyrtec) 10 mg PO DAILY PRN allergies 12/18/22 07/14/24 History multivitamin no.47-iron fum 27 cap PO 04/18/24 07/14/24 History mg-folate no.1 1 mg-dha 300 mg capsule (PNV-DHA) Last Menstrual Period: 05/16/24 Zika: Zika virus screening: Negative Have you fallen in the past year?: No PFSH PFSH Medical History Spontaneous vaginal delivery Spontaneous onset of labor Uterine contractions Low-lying placenta in second trimester Supervision of high-risk History of depression Family History Aunt Ovarian cancer, Onset Age: 45 Maternal Aunt Mother Miscarriage 2 or 3 miscarriages- before and after of pt. Social History adopted: No household members: significant other and children housing: house number of children: 1 current occupational status: unemployed current occupation: [employer] current occupational exposures/hazards: No pets and animals: Yes (not manage litterbox) pets and animals: cat(s) and dog(s) history of recent travel: No ([place]) sexually active: Yes Smoking Status: Former smoker alcohol intake: former details: rarely drinks, special occasions, not while substance use type: does not use well-balanced diet: daily or most days caffeine: No eating out: 1-3 times/week during the past year weight has: remained stable what type of physical activity do you participate in: walking frequency: daily duration: 15-30 minutes/day chriss/baptism: None seatbelt use: always do you feel safe at home: Yes additional social history: [employer] - Self employed History 2 Elective abortions Hx Para 1 Spontaneous abortions Hx # Term Pregnancies 1 Ectopic pregnancies Hx # Pregnancies Multiple births # of living children 1 Past Pregnancies Del. Date Name GA/Weeks Outcome Route Bth Weight Gen Labor Lgth Anesthesia Del Locatn Provider FOB 02/06/23 [place] 38 live - full term 8#4oz Male epidural [facility] K[facility] J Luis HPI 20 WK OB Details: LLUVIA HOLLINGSWORTH is a 28 year old who presents for routine OB visit. OB Visit RUFINA Calculator Estimated Delivery Date Method Current WG Current Estimate 11/27/24 LMP (Certain) 20w 4d Expected Delivery Route/Plan Labor Preferences- CB/BF classes: [] labor support person: [] labor intervention preferences: [] pain management options preferred: [] cut cord/dad catch: [] : [] PP control planned: [] discussed possible routes of delivery and associated risks: [] special requests: [] Specific Issue/Plans Covid status: [] Flu vaccine: [] Tdap vaccine: [] Rhogam: [] LARC form signed: [] Problem list reviewed and updated with the most current plan of care details and appropriate orders placed. Relevant counseling for the gestational age provided. Continue routine care and follow up unless otherwise noted in visit notes/problem list details Initial Weight: Not Recorded Date -???-???-???-???-???-?? ?-???-???-???-???-???-? ??- EGA Weight BP Urine Prot -???-???-???-???-???-?? ?-???-???-???-???-???-? ??- Glucose FHR FuHt Pres Dilation -???-???-???-???-???-?? ?-???-???-???-???-???-? ??- Effaced St Visit Note 04/22/24 -???-???-???-???-???-?? ?-???-???-???-???-???-? ??- 8w 5d 188 lb 2 oz 117/66 -???-???-???-???-???-?? ?-???-???-???-???-???-? ??- 180 -???-???-???-???-???-?? ?-???-???-???-???-???-? ??- KW- cons wit h dates. 21mm. accepts NIPT. 05/20/24 -???-???-???-???-???-?? ?-???-???-???-???-???-? ??- 12w 5d 191 lb 107/69 Negative -???-???-???-???-???-?? ?-???-???-???-???-???-? ??- Negative 160 -???-???-???-???-???-?? ?-???-???-???-???-???-? ??- SM- no vb cr maping 06/16/24 -???-???-???-???-???-?? ?-???-???-???-???-???-? ??- 16w 4d 195 lb 8 oz 100/68 Negative -???-???-???-???-???-?? ?-???-???-???-???-???-? ??- Negative 152 -???-???-???-???-???-?? ?-???-??? (more content not included)... [facility] LAB TEST A Normal [facility] Comment on above: Order Comment: [id number] msAFP SERUM RT [id number] msAFP SERUM RT Result Comment: TEST RESULTS LIMITS AFP, Serum, Open Spina Bifida Results Report Test Results: *Screen Negative* Gest. Age on Collection Date 16.6 weeks Gestat. Age Based On LMP Recalculations are not recommended when gestational dating by LMP and ultrasound are within 10 days. [age] RUFINA [age] yr Race Weight 196 lbs Insulin Dep Diabetes No Multiple Gestation No AFP Value 24.2 ng/mL AFP MoM 0.80 OSBR Risk 1 [place] [id number] Interpretation Interpretation: Screen Negative This result is screen negative for OSB. The AFP MoM calculated is based on the gestational age provided. MS-AFP can identify up to 80% of open neural tube defects. Closed neural tube defects and some open defects may not be detected by this test. This test does not screen for Down Syndrome or Trisomy 18. If screening for Down Syndrome or Trisomy 18 is desired, contact [facility] [facility] to discuss available options. The [employer] recommends amniocentesis be offered to women age 35 and older. Comment: Joleen Vasquez, Ph.D., [facility] Director References: Available Upon Request. Multiples Of Median Cutoffs For AFP Elevations Beltran 2.5 Black 2.8 IDD 2.0 Twins 4.5 Abbreviation Definitions IDD - Insulin Dep Diabetes OSBR - Open Spina Bifida Risk For further inquiries contact [employer] [facility] at [phone]. This test was developed and its performance characteristics determined by [employer]. It has not been cleared or approved by the Food and Drug Administration. TESTING PERFORMED AT [facility]. ORIGINAL REPORT ON FILE IN LAB CONTAINS ADDITIONAL TEST SITE INFORMATION. Performed By: #### L 801.1541 #### [facility] Laboratory [address] [place], [address] 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 Reporton 06-16-2024 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 Report [facility] [address], [address] [place] [address] OFFICE VISIT Date of Service: 06/16/24 MR#: [id number] Acct: [id number] Name: LLUVIA HOLLINGSWORTH Rep #: [id number] : 1995 Provider: LUIS cox Age/Sex: 28/F Location[facility] Status: Signed Intake Vital Signs 05/20/24 14:53 06/16/24 13:37 Height 5 ft 4 in 5 ft 4 in Weight: 195 lb 8 oz BMI 33.5 BP 100/68 Intake Visit Reasons: 16 WK OB Chief Complaint: 16 Week OB Coordinator Skill Training Program Required: No Is patient in pain?: No Allergies No Known Allergies Allergy (Verified 06/16/24 13:34) Medications ???Medication ???Instructions ???Recorded ???Confirmed ???Type cetirizine 10 mg capsule (Zyrtec) 10 mg PO DAILY PRN allergies 12/18/22 06/16/24 History multivitamin no.47-iron fum 27 cap PO 04/18/24 06/16/24 History mg-folate no.1 1 mg-dha 300 mg capsule (PNV-DHA) Last Menstrual Period: 02/21/24 Zika: Zika virus screening: Negative : No PFSH PFSH Medical History Spontaneous vaginal delivery Spontaneous onset of labor Uterine contractions Low-lying placenta in second trimester Supervision of high-risk History of depression Family History Aunt Ovarian cancer, Onset Age: 45 Maternal Aunt Mother Miscarriage 2 or 3 miscarriages- before and after of pt. Social History adopted: No household members: significant other and children housing: house number of children: 1 current occupational status: unemployed current occupation: [employer] current occupational exposures/hazards: No pets and animals: Yes (not manage litterbox) pets and animals: cat(s) and dog(s) history of recent travel: No ([place]) sexually active: Yes Smoking Status: Former smoker alcohol intake: former details: rarely drinks, special occasions, not while substance use type: does not use well-balanced diet: daily or most days caffeine: No eating out: 1-3 times/week during the past year weight has: remained stable what type of physical activity do you participate in: walking frequency: daily duration: 15-30 minutes/day chriss/baptism: None seatbelt use: always do you feel safe at home: Yes additional social history: [employer] - Self employed History 2 Elective abortions Hx Para 1 Spontaneous abortions Hx # Term Pregnancies 1 Ectopic pregnancies Hx # Pregnancies Multiple births # of living children 1 Past Pregnancies Del. Date Name GA/Weeks Outcome Route Bth Weight Infant Gen Labor Lgth Anesthesia Del Locatn Provider FOB 02/06/23 [place] 38 live - full term 8#4oz Male epidural [facility] K[facility] J Luis HPI 16 WK OB Details: LLUVIA HOLLINGSWORTH is a 28 year old who presents for routine OB visit. OB Visit RUFINA Calculator Estimated Delivery Date Method Current WG Current Estimate 11/27/24 LMP (Certain) 16w 4d Expected Delivery Route/Plan Labor Preferences- CB/BF classes: [] labor support person: [] labor intervention preferences: [] pain management options preferred: [] cut cord/dad catch: [] : [] PP control planned: [] discussed possible routes of delivery and associated risks: [] special requests: [] Specific Issue/Plans Covid status: [] Flu vaccine: [] Tdap vaccine: [] Rhogam: [] LARC form signed: [] Problem list reviewed and updated with the most current plan of care details and appropriate orders placed. Relevant counseling for the gestational age provided. Continue routine care and follow up unless otherwise noted in visit notes/problem list details Initial Weight: Not Recorded Date -???-???-???-???-???-?? ?-???-???-???-???-???-? ??- EGA Weight BP Urine Prot -???-???-???-???-???-?? ?-???-???-???-???-???-? ??- Glucose FHR FuHt Pres Dilation -???-???-???-???-???-?? ?-???-???-???-???-???-? ??- Effaced St Visit Note 04/22/24 -???-???-???-???-???-?? ?-???-???-???-???-???-? ??- 8w 5d 188 lb 2 oz 117/66 -???-???-???-???-???-?? ?-???-???-???-???-???-? ??- 180 -???-???-???-???-???-?? ?-???-???-???-???-???-? ??- KW- cons wit h dates. 21mm. accepts NIPT. 05/20/24 -???-???-???-???-???-?? ?-???-???-???-???-???-? ??- 12w 5d 191 lb 107/69 Negative -???-???-???-???-???-?? ?-???-???-???-???-???-? ??- Negative 160 -???-???-???-???-???-?? ?-???-???-???-???-???-? ??- SM- no vb cr maping 06/16/24 -???-???-???-???-???-?? ?-???-???-???-???-???-? ??- 16w 4d 195 lb 8 oz 100/68 Negative -???-???-???-???-???-?? ?-???-???-???-???-???-? ??- Negative 152 -???-???-???-???-???-?? ?-???-???-???-???-?? (more content not included)... Normal [facility] 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 Reporton 05-20-2024 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 Report [facility] [address], [address] [place] [address] OFFICE VISIT Date of Service: 05/20/24 MR#: [id number] Acct: [id number] Name: DARRICKLLUVIA DICKINSON Rep #: [id number] : 1995 Provider: Dr. Lenora escobedo MD Age/Sex: 28/F Location: [facility] Status: Signed Intake Vital Signs 03/17/24 10:29 04/22/24 13:03 05/20/24 14:50 05/20/24 14:53 Height 5 ft 4 in 5 ft 4 in 5 ft 4 in 5 ft 4 in Weight: 191 lb BMI 32.8 BP 107/69 Intake Visit Reasons: 12wk OB Coordinator Skill Training Program Required: No Is patient in pain?: No Allergies No Known Allergies Allergy (Verified 05/20/24 14:51) Medications ???Medication ???Instructions ???Recorded ???Confirmed ???Type cetirizine 10 mg capsule (Zyrtec) 10 mg PO DAILY PRN allergies 12/18/22 05/20/24 History multivitamin no.47-iron fum 27 cap PO 04/18/24 05/20/24 History mg-folate no.1 1 mg-dha 300 mg capsule (PNV-DHA) Last Menstrual Period: 02/21/24 Zika: Zika virus screening: Negative : No Have you fallen in the past year?: No PFSH PFSH Medical History Spontaneous vaginal delivery Spontaneous onset of labor Uterine contractions Low-lying placenta in second trimester Supervision of high-risk History of depression Family History Aunt Ovarian cancer, Onset Age: 45 Maternal Aunt Mother Miscarriage 2 or 3 miscarriages- before and after of pt. Social History adopted: No household members: significant other and children housing: house number of children: 1 current occupational status: unemployed current occupation: [employer] current occupational exposures/hazards: No pets and animals: Yes (not manage litterbox) pets and animals: cat(s) and dog(s) history of recent travel: No ([place]) sexually active: Yes Smoking Status: Former smoker alcohol intake: former details: rarely drinks, special occasions, not while substance use type: does not use well-balanced diet: daily or most days caffeine: No eating out: 1-3 times/week during the past year weight has: remained stable what type of physical activity do you participate in: walking frequency: daily duration: 15-30 minutes/day chriss/baptism: None seatbelt use: always do you feel safe at home: Yes additional social history: J Luis - Self employed History 2 Elective abortions Hx Para 1 Spontaneous abortions Hx # Term Pregnancies 1 Ectopic pregnancies Hx # Pregnancies Multiple births # of living children 1 Past Pregnancies Del. Date Name GA/Weeks Outcome Route Bth Weight Infant Gen Labor Lgth Anesthesia Del Locatn Provider FOB 02/06/23 [place] 38 live - full term 8#4oz Male epidural [facility] K[facility] J Luis HPI 12wk OB Details: LLUVIA HOLLINGSWORTH is a 28 year old who presents for routine OB visit. OB Visit RUFINA Calculator Estimated Delivery Date Method Current WG Current Estimate 11/27/24 LMP (Certain) 12w 5d Expected Delivery Route/Plan Labor Preferences- CB/BF classes: [] labor support person: [] labor intervention preferences: [] pain management options preferred: [] cut cord/dad catch: [] : [] PP control planned: [] discussed possible routes of delivery and associated risks: [] special requests: [] Specific Issue/Plans Covid status: [] Flu vaccine: [] Tdap vaccine: [] Rhogam: [] LARC form signed: [] Problem list reviewed and updated with the most current plan of care details and appropriate orders placed. Relevant counseling for the gestational age provided. Continue routine care and follow up unless otherwise noted in visit notes/problem list details Initial Weight: Not Recorded Date -???-???-???-???-???-?? ?-???-???-???-???-???-? ??- EGA Weight BP Urine Prot -???-???-???-???-???-?? ?-???-???-???-???-???-? ??- Glucose FHR FuHt Pres Dilation -???-???-???-???-???-?? ?-???-???-???-???-???-? ??- Effaced St Visit Note 04/22/24 -???-???-???-???-???-?? ?-???-???-???-???-???-? ??- 8w 5d 188 lb 2 oz 117/66 -???-???-???-???-???-?? ?-???-???-???-???-???-? ??- 180 -???-???-???-???-???-?? ?-???-???-???-???-???-? ??- KW- cons wit h dates. 21mm. accepts NIPT. 05/20/24 -???-???-???-???-???-?? ?-???-???-???-???-???-? ??- 12w 5d 191 lb 107/69 -???-???-???-???-???-?? ?-???-???-???-???-???-? ??- 160 -???-???-???-???-???-?? ?-???-???-???-???-???-? ??- SM- no vb cr maping ACOG First Trimester First Trimester: Desire for , Alcohol, Tobacco Cessation, Illicit/Recreational Drug/Substance Use, Intimate Partner Violence, Barriers to car (more content not included)... Normal [facility] CBC W/Diff, Automatedon 07-2 Absolute Lymph 2.17 X10 3/uL Normal 0.83-4.51 [facility] Comment on above: Performed By: #### L 3890.6100, L509.8000, L900.0098, L3890.6300, L501.9985, L100.0100, L509.4005, L3890.6005, BTS #### [facility] Laboratory [address] [place], [address] Absolute Neut 6.8 X10 3/uL Normal 2.0-7.7 [facility] Comment on above: Performed By: #### L 3890.6100, L509.8000, L900.0098, L3890.6300, L501.9985, L100.0100, L509.4005, L3890.6005, BTS #### [facility] [address] [place], [address] Basophils/100 WBC (Bld) 0.3 % Normal 0-1 [facility] Comment on above: Performed By: #### L 3890.6100, L509.8000, L900.0098, L3890.6300, L501.9985, L100.0100, L509.4005, L3890.6005, BTS #### [facility] [address] [place], [address] Eosinophils/100 WBC (Bld) 1.3 % Normal 0-5 [facility] Comment on above: Performed By: #### L 3890.6100, L509.8000, L900.0098, L3890.6300, L501.9985, L100.0100, L509.4005, L3890.6005, BTS #### [facility] [address] [place], [address] Erythrocyte distribution width (RBC) [Ratio] 12.7 % Normal 11.6-14.6 [facility] Comment on above: Performed By: #### L 3890.6100, L509.8000, L900.0098, L3890.6300, L501.9985, L100.0100, L509.4005, L3890.6005, BTS #### [facility] [address] [place], [address] Hematocrit (Bld) [Volume fraction] 38.9 % Normal 37-47 [facility] Comment on above: Performed By: #### L 3890.6100, L509.8000, L900.0098, L3890.6300, L501.9985, L100.0100, L509.4005, L3890.6005, BTS #### [facility] [address] [place], [address] Hemoglobin (Bld) [Mass/Vol] 13.3 g/dL Normal 12.0-15.0 [facility] Comment on above: Performed By: #### L 3890.6100, L509.8000, L900.0098, L3890.6300, L501.9985, L100.0100, L509.4005, L3890.6005, BTS #### [facility] [address] [place], [address] IG% 0.300 Normal 0.0-0.9 [facility] Comment on above: Result Comment: IG% - Immature Granulocytes (promyelocytes, myelocytes and metamyelocytes) > 1% indicates that a LEFT SHIFT is Present. Performed By: #### L 3890.6100, L509.8000, L900.0098, L3890.6300, L501.9985, L100.0100, L509.4005, L3890.6005, BTS #### [facility] [address] [place], [address] Lymphocytes/100 WBC (Bld) 22.0 % Normal 19-41 [facility] Comment on above: Performed By: #### L 3890.6100, L509.8000, L900.0098, L3890.6300, L501.9985, L100.0100, L509.4005, L3890.6005, BTS #### [facility] [address] [place], [address] MCH (RBC) [Entitic mass] 31.1 pg Normal 27.0-32.0 [facility] Comment on above: Performed By: #### L 3890.6100, L509.8000, L900.0098, L3890.6300, L501.9985, L100.0100, L509.4005, L3890.6005, BTS #### [facility] [address] [place], [address] MCHC (RBC) [Mass/Vol] 34.2 g/dL Normal 32-36 [facility] Comment on above: Performed By: #### L 3890.6100, L509.8000, L900.0098, L3890.6300, L501.9985, L100.0100, L509.4005, L3890.6005, BTS #### [facility] [address] [place], [address] MCV (RBC) [Entitic vol] 91.1 fL Normal 81-99 [facility] Comment on above: Performed By: #### L 3890.6100, L509.8000, L900.0098, L3890.6300, L501.9985, L100.0100, L509.4005, L3890.6005, BTS #### [facility] [address] [place], [address] Monocytes/100 WBC (Bld) 7.4 % Normal 0-10 [facility] Comment on above: Performed By: #### L 3890.6100, L509.8000, L900.0098, L3890.6300, L501.9985, L100.0100, L509.4005, L3890.6005, BTS #### [facility] [address] [place], [address] Neutrophils/100 WBC (Bld) 68.7 % Normal 47-70 [facility] Comment on above: Performed By: #### L 3890.6100, L509.8000, L900.0098, L3890.6300, L501.9985, L100.0100, L509.4005, L3890.6005, BTS #### [facility] [address] [place], [address] Nucleated RBC (Bld) [#/Vol] 0 10*3/uL Normal 0-5 [facility] Comment on above: Performed By: #### L 3890.6100, L509.8000, L900.0098, L3890.6300, L501.9985, L100.0100, L509.4005, L3890.6005, BTS #### [facility] [address] [place], [address] ( Platelet mean volume (Bld) [Entitic vol] 9.4 fL Normal 6.2-12.0 [facility] Comment on above: Performed By: #### L 3890.6100, L509.8000, L900.0098, L3890.6300, L501.9985, L100.0100, L509.4005, L3890.6005, BTS #### [facility] [address], [address] Platelets (Bld) [#/Vol] 310 10*3/uL Normal 150-450 [facility] Comment on above: Performed By: #### L 3890.6100, L509.8000, L900.0098, L3890.6300, L501.9985, L100.0100, L509.4005, L3890.6005, BTS #### [facility] [address] [place], [address] RBC (Bld) [#/Vol] 4.27 10*6/uL Normal 4.2-5.4 [facility] Comment on above: Performed By: #### L 3890.6100, L509.8000, L900.0098, L3890.6300, L501.9985, L100.0100, L509.4005, L3890.6005, BTS #### [facility] [address] [place], [address] RDW SD 41.6 fl Normal 35.1-43.9 [facility] Comment on above: Performed By: #### L 3890.6100, L509.8000, L900.0098, L3890.6300, L501.9985, L100.0100, L509.4005, L3890.6005, BTS #### [facility] [address] [place], [address] WBC (Bld) [#/Vol] 9.9 10*3/uL Normal 4.4-11.0 [facility] Comment on above: Performed By: #### L 3890.6100, L509.8000, L900.0098, L3890.6300, L501.9985, L100.0100, L509.4005, L3890.6005, BTS #### [facility] [address] [place], [address] HIV - WCHon 05-02-2024 HIV Non-Reactive Normal Nonreactive [facility] Comment on above: Order Comment: Reaso n for Exam: Performed By: #### L 3890.6100, L509.8000, L900.0098, L3890.6300, L501.9985, L100.0100, L509.4005, L3890.6005, BTS ####[facility] [address] [place], [address] Hemoglobin A1con 05-02-2024 HbA1c (Bld) [Mass fraction] 4.8 % Normal 3.8-5.6 [facility] Comment on above: Result Comment: Norm al < 5.7 % Prediabetic 5.7 - 6.4 % Diabetic >or= 6.5 % Please note range changes. Performed By: #### L 3890.6100, L509.8000, L900.0098, L3890.6300, L501.9985, L100.0100, L509.4005, L3890.6005, BTS #### [facility] Laboratory [address] [place], [place], [id number] Hepatitis B Surface Antigeno n 05-02-2024 HEP B Surf Ag Non-Reactive Normal Nonreactive [facility] Comment on above: Order Comment: Reaso n for Exam: Performed By: #### L 3890.6100, L509.8000, L900.0098, L3890.6300, L501.9985, L100.0100, L509.4005, L3890.6005, BTS ####[facility] [id number] [place], [address] Hepatitis C Antibodyon 05-02 Hepatitis C AB Non-Reactive Normal Nonreactive [facility] Comment on above: Order Comment: Reaso n for Exam: Result Comment: Non Reactive: < 0.8 Equivocal: >/= 0.8 to < 1.0 Reactive: >/= 1.0 The CDC requires that a reactive/equivocal HCV antibody result be sent out for confirmation. HCV Quant by PCR testing. Performed By: #### L 3890.6100, L509.8000, L900.0098, L3890.6300, L501.9985, L100.0100, L509.4005, L3890.6005, BTS ####[facility] [id number] [place], [place], [id number] L509.8000on 05-02-2024 Syphilis Abs Non-Reactive Normal [facility] Comment on above: Order Comment: Reaso n for Exam: Performed By: #### L 3890.6100, L509.8000, L900.0098, L3890.6300, L501.9985, L100.0100, L509.4005, L3890.6005, BTS ####[facility] [id number] [place], [address] NATERAon 05-02-2024 NATURA SEE SCANNED REPORT Normal [facility] Comment on above: Order Comment: Comme nts: NIPT Only Performed By: #### L 3890.6100, L509.8000, L900.0098, L3890.6300, L501.9985, L100.0100, L509.4005, L3890.6005, BTS ####[facility] [id number] [place], [address] Rubella IgGon 05-02-2024 Rubella IgG Equiv Normal Nonreactive [facility] Comment on above: Order Comment: Reaso n for Exam: Result Comment: Anti body Results Interpretation of Immune Status Non Reactive Presumed Non-Immune Equivocal Equivocal Reactive Presumed Immune Performed By: #### L 3890.6100, L509.8000, L900.0098, L3890.6300, L501.9985, L100.0100, L509.4005, L3890.6005, BTS ####[facility] [id number] [place], [place], [id number] Type AND Screenon 05-02-2024 ABO and Rh group Nom (Bld) Blood group A Rh(D) positive Normal [facility] Comment on above: Order Comment: PN Performed By: #### L 3890.6100, L509.8000, L900.0098, L3890.6300, L501.9985, L100.0100, L509.4005, L3890.6005, BTS ####[facility] [id number] [place], [place], [id number] Chlamydia/GC ANDER aptimaon CHLAMY,NUC ACID Negative Normal Negative [facility] Comment on above: Performed By: #### L 509.8000, L100.0100, L501.0250, L3890.6005 #### [facility] Laboratory [address] [place], [address] GC BY NUC ACID Negative Normal Negative [facility] Comment on above: Result Comment: Perf ormed at: =G - [facility] [address] [place] [id number] Change Room Attendant: Megan Lawrence MD, Phone: [phone] Performed By: #### L 509.8000, L100.0100, L501.0250, L3890.6005 #### [facility] Laboratory [address] [place], [address] Urine Cultureon 04-23-2024 URC Culture exhibits no growth. Normal [facility] Comment on above: Performed By: #### L 509.8000, L100.0100, L501.0250, L3890.6003 #### [facility] Laboratory [address] [place], [address] 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 Reporton 04-22-2024 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 Report [facility] [address] [place] [address] OFFICE VISIT Date of Service: 04/22/24 MR#: [id number] Acct: [id number] Name: LLUVIA HOLLINGSWORTH Rep #: [id number] : 1995 Provider: CLARA Shrestha ams Age/Sex: 28/F Location: [facility] Status: Signed Intake Vital Signs 03/17/24 10:29 04/22/24 13:03 Height 5 ft 4 in 5 ft 4 in Weight: 188 lb 2 oz BMI 32.3 BP 117/66 Intake Visit Reasons: NOB LMP 02/20 Coordinator Skill Training Program Required: No Is patient in pain?: No Allergies No Known Allergies Allergy (Verified 04/22/24 13:07) Medications ???Medication ???Instructions ???Recorded ???Confirmed ???Type cetirizine 10 mg capsule (Zyrtec) 10 mg PO DAILY PRN allergies 12/18/22 04/22/24 History multivitamin no.47-iron fum 27 cap PO 04/18/24 04/22/24 History mg-folate no.1 1 mg-dha 300 mg capsule (PNV-DHA) Last Menstrual Period: 02/21/24 PFSH PFSH Medical History Spontaneous vaginal delivery Spontaneous onset of labor Uterine contractions Low-lying placenta in second trimester Supervision of high-risk History of depression Family History Aunt Ovarian cancer, Onset Age: 45 Maternal Aunt Mother Miscarriage 2 or 3 miscarriages- before and after of pt. Social History adopted: No household members: significant other and children housing: house number of children: 1 current occupational status: unemployed current occupation: [employer] current occupational exposures/hazards: No pets and animals: Yes (not manage litterbox) pets and animals: cat(s) and dog(s) history of recent travel: No ([place]) sexually active: Yes Smoking Status: Former smoker alcohol intake: former details: rarely drinks, special occasions, not while substance use type: does not use well-balanced diet: daily or most days caffeine: No eating out: 1-3 times/week during the past year weight has: remained stable what type of physical activity do you participate in: walking frequency: daily duration: 15-30 minutes/day chriss/baptism: None seatbelt use: always do you feel safe at home: Yes additional social history: J Luis - Self employed History 2 Elective abortions Hx Para 1 Spontaneous abortions Hx # Term Pregnancies 1 Ectopic pregnancies Hx # Pregnancies Multiple births # of living children 1 Past Pregnancies Del. Date Name GA/Weeks Outcome Route Bth Weight Infant Gen Labor Lgth Anesthesia Del Locatn Provider FOB 02/06/23 [place] 38 live - full term 8#4oz Male epidural [facility] J Luis HPI NOB LMP 02/20 Details: LLUVIA HOLLINGSWORTH is a 28 year old who presents for New OB visit. OB Visit RUFINA Calculator Estimated Delivery Date Method Current WG Current Estimate 11/27/24 LMP (Certain) 8w 5d Comments: HIV: Urine Culture: Sequential Screen: NIPT Screen: Estimated Due Date: 11/27/24 Expected Delivery Route/Plan Labor Preferences- CB/BF classes: [] labor support person: [] labor intervention preferences: [] pain management options preferred: [] cut cord/dad catch: [] : [] PP control planned: [] discussed possible routes of delivery and associated risks: [] special requests: [] Specific Issue/Plans Covid status: [] Flu vaccine: [] Tdap vaccine: [] Rhogam: [] LARC form signed: [] Problem list reviewed and updated with the most current plan of care details and appropriate orders placed. Relevant counseling for the gestational age provided. Continue routine care and follow up unless otherwise noted in visit notes/problem list details Initial Weight: Not Recorded Date -???-???-???-???-???-?? ?-???-???-???-???-???-? ??- EGA Weight BP Urine Prot -???-???-???-???-???-?? ?-???-???-???-???-???-? ??- Glucose FHR FuHt Pres Dilation -???-???-???-???-???-?? ?-???-???-???-???-???-? ??- Effaced St Visit Note 04/22/24 -???-???-???-???-???-?? ?-???-???-???-???-???-? ??- 8w 5d 188 lb 2 oz 117/66 -???-???-???-???-???-?? ?-???-???-???-???-???-? ??- 180 -???-???-???-???-???-?? ?-???-???-???-???-???-? ??- KW- cons wit h dates. 21mm. accepts NIPT. Menstrual History Last Menstrual Period: 02/21/24 Reported LMP: definite Normal amount/duration: No (spotted 2 days prior to starting menses) Frequency in days: 26-30 On hormonal BC at conception: No hCG+: 03/15/24 Antepartum Record Genetic Screening: Congenital Heart Defect: Other, Neural Tube Defect: Other, Hemoglobinopathy Or Carrier: Other, Cystic Fibrosis: Other, Chromosome Abnormality: O (more content not included)... Normal [facility] Laboratory - Chemistry and C hemistry - challengeon 05-17-2023 HCG ( test) Ql (U) Negative [facility] Chlamydia trachomatis rRNA d etection by probe and target amplification methodOrdered By: Lizzette Zheng on 04-17-2023 C. trachomatis rRNA ANDER+probe Ql (Unsp spec) Negative Negative [facility] Gram stain for investigation of transfusion reactionOrdered By: Lizzette Zheng on 04-17-2023 Microscopic observation Gram stain Nom (Unsp spec) [facility] Laboratory - Microbiology an d Antimicrobial susceptibilityOrdered By: Lizzette Zheng on 04-17-2023 N. gonorrhoeae DNA ANDER+probe Ql (Unsp spec) Negative Negative [facility] Comment on above: Performed at: =[address] [id number] Director: Megan Lawrence MD, Phone: [phone] No Panel Informationon 04-17 POC Trichomonas (Rapid) Negative [facility] Thin prep Papanicolaou smear with manual screeningOrdered By: Lizzette Zheng on 04-17-2023 Genital Culture Gardnerella vaginalis [facility] Cervical or vagninal specime n microscopic examination by cytology stain (reported asOrdered By: Lizzette Zheng on 03-28-2023 Cytology report Cyto stain Doc (Cvx/Vag) Comment . [facility] Comment on above: The Pap smear is a s creening test designed to aid in thedetection of premalignant and malignant conditions of theuterine cervix. It is not a diagnostic procedure andshould not be used as the sole means of detecting cervicalcancer. Both false-positive and false-negative reports dooccur. Laboratory - CytologyOrdered By: Lizzette Zheng on 03-28-2023 Rock Mason Apprentice Cyto stain Nom (Cvx/Vag) [ID] Comment . [facility] Comment on above: Lisa Feliciano, Cytot echnologist (ASCP) Pathologist Cyto stain Nom (Cvx/Vag) [ID] Comment . [facility] Comment on above: Shavonne Torres MD, Pa thologist Recommended follow-up Cyto stain Nom (Cvx/Vag) Comment . [facility] Comment on above: Suggest follow up as clinically appropriate. Laboratory - Miscellaneous t estsOrdered By: Lizzette Zheng on 03-28-2023 Service comment (Unsp spec) [Interp] Comment . [facility] Comment on above: This liquid based Th inPrep(R) pap test was screened withthe use of an image guided system. Service comment (Unsp spec) [Interp] . . [facility] No Panel InformationOrdered By: Lizzette Zheng on 03-28-2023 Human Papillomavirus Screen Comment . [facility] Comment on above: The HPV DNA reflex c riteria were not met with this specimenresult therefore, no HPV testing was performed.Performed at: [address] [id number] Director: Megan Lawrence MD, Phone: [phone] Pathology report final diagnosis Narrative Comment . [facility] Comment on above: EPITHELIAL CELL ABNO RMALITY.LOW GRADE SQUAMOUS INTRAEPITHELIAL LESION (LSIL).TRICHOMONAS VAGINALIS IS PRESENT. R87.612, R87.5 Laboratory - Drug toxicology Ordered By: Opal Golden on 02-06-2023 Benzodiazepines Ql (U) Negative < 200 ng/mL [facility] Cannabinoids Screen Ql (U) Negative < 50 ng/mL [facility] Cocaine Ql (U) Negative < 300 ng/mL [facility] Opiates Ql (U) Negative < 300 ng/mL [facility] No Panel InformationOrdered By: Opal Golden on 02-06-2023 MDMA (Ecstasy) Screen Negative < 500 ng/mL [facility] Urine Barbiturates Screen Negative < 200 ng/mL [facility] Urine Drug Screen Comment [facility] Comment on above: CONFIRMATORY TESTING FOR ALL POSITIVE URINE DRUG SCREENRESULTS WILL ONLY BE SENT OUT UPON PHYSICIAN ORDER. VISTA Urine Drug Screen methods provide only preliminaryanalytical test results. A more specific alternate chemicalmethod must be used in order to obtain a confirmedanalytical result. Gas chromatography/mass spectrometery(GC/MS) is the preferred confirmatory method. Clinicalconsideration and professional judgement should be appliedto any drug of abuse test result, particularly whenpreliminary positive results are used. URINE TCA TESTING MUST BE ORDERED SEPARATELY. USE TESTMNEMONIC: [facility] Urine Methadone Screen Negative < 300 ng/mL [facility] Urine amphetamine measuremen t (moles/volume)Ordered By: Opal Golden on 02-06-2023 Amphetamine (U) [Moles/Vol] Negative <1000 ng/mL [facility] Urine phencyclidine (PCP) de tectionOrdered By: Opal Golden on 02-06-2023 Phencyclidine Ql (U) Negative < 25 ng/mL [facility] Absolute lymphocyte countOrd ered By: Opal Golden on 02-05-2023 Lymphocytes Auto (Unsp spec) [#/Vol] 1.98 10*3/uL 0.83-4.51 [facility] Basophil percentageOrdered B y: Opal Golden on 02-05-2023 Basophils/100 WBC (Bld) 0.2 % 0-1 [facility] Eosinophils/100 WBC (Bld) 0.1 % 0-5 [facility] Neutrophils (Bld) [#/Vol] 14.0 10*3/uL 2.0-7.7 [facility] Neutrophils/100 WBC (Bld) 81.7 % 47-70 [facility] WBC (Bld) [#/Vol] 17.2 10*3/uL 4.4-11.0 [facility] Blood erythrocytes count (nu mber/volume)Ordered By: Opal Golden on 02-05-2023 RBC (Bld) [#/Vol] 4.03 10*6/uL 4.2-5.4 [facility] Blood hemoglobin measurement (mass/volume)Ordered By: Opal Golden on 02-05-2023 Hemoglobin (Bld) [Mass/Vol] 11.9 g/dL 12.0-15.0 [facility] Blood lymphocytes/100 leukoc ytesOrdered By: Opal Golden on 02-05-2023 Lymphocytes/100 WBC (Bld) 11.5 % 19-41 [facility] Blood monocytes/100 leukocyt esOrdered By: Opal Golden on 02-05-2023 Monocytes/100 WBC (Bld) 5.6 % 0-10 [facility] Blood platelet mean volumeOr dered By: Opal Gloden on 02-05-2023 Platelet mean volume (Bld) [Entitic vol] 10.3 fL 6.2-12.0 [facility] Determination of erythrocyte mean corpuscular volume (MCV)Ordered By: Opal Golden on 02-05-2023 MCV (RBC) [Entitic vol] 87.8 fL 81-99 [facility] Hematocrit Auto (Bld) [Volum e fraction]Ordered By: Opal Golden on 02-05-2023 Hematocrit (Bld) [Volume fraction] 35.4 % 37-47 [facility] Laboratory - Hematology and Cell countsOrdered By: Opal Golden on 02-05-2023 Erythrocyte distribution width (RBC) [Entitic vol] 48.6 fL 35.1-43.9 [facility] Erythrocyte distribution width (RBC) [Ratio] 15.1 % 11.6-14.6 [facility] Immature granulocytes/100 WBC (Bld) 0.900 % 0.0-0.9 [facility] Comment on above: IG% - Immature Granu locytes (promyelocytes, myelocytes and metamyelocytes) > 1% indicates that a LEFT SHIFT is Present. MCH (RBC) [Entitic mass] 29.5 pg 27.0-32.0 [facility] Nucleated RBC/100 WBC (Bld) [Ratio] 0 % 0-5 [facility] MCHC Auto (RBC) [Mass/Vol]Or dered By: Opal Golden on 02-05-2023 MCHC (RBC) [Mass/Vol] 33.6 g/dL 32-36 [facility] Platelets bldOrdered By: Linda Golden on 02-05-2023 Platelets (Bld) [#/Vol] 288 10*3/uL 150-450 [facility] Serum Treponema species anti body detectionOrdered By: Opal Golden on 02-05-2023 Treponema sp Ab Ql (S) Non-Reactive [facility] Laboratory - Chemistry and C hemistry - challengeon 01-31-2023 Glucose Ql (U) Negative [facility] Laboratory - Urinalysison Protein Ql (U) Negative [facility] Laboratory - Chemistry and C hemistry - challengeon 01-24-2023 Glucose Ql (U) Negative [facility] Laboratory - Urinalysison Protein Ql (U) Negative [facility] No Panel InformationOrdered By: Dr. Simpson on 01-20-2023 Group B Streptococcus Culture Group B Beta Streptococcus is not isolated. [facility] Laboratory - Chemistry and C hemistry - challengeon 01-17-2023 Glucose Ql (U) Negative [facility] Laboratory - Urinalysison Protein Ql (U) Negative [facility] No Panel InformationOrdered By: Geni Simpson on 01-17-2023 Group B Streptococcus Culture Group B Beta Streptococcus is not isolated. [facility] Laboratory - Chemistry and C hemistry - challengeon 01-03-2023 Glucose Ql (U) Negative [facility] Laboratory - Urinalysison Protein Ql (U) Trace [facility] Laboratory - Chemistry and C hemistry - challengeon 12-07-2022 Glucose Ql (U) Negative [facility] Laboratory - Urinalysison Protein Ql (U) Negative [facility] Absolute lymphocyte countOrd ered By: Dr. Simpson on 11-22-2022 Lymphocytes Auto (Unsp spec) [#/Vol] 1.88 10*3/uL 0.83-4.51 [facility] Basophil percentageOrdered B y: Dr. Simpson on 11-22-2022 Basophils/100 WBC (Bld) 0.3 % 0-1 [facility] Eosinophils/100 WBC (Bld) 0.9 % 0-5 [facility] Neutrophils (Bld) [#/Vol] 7.8 10*3/uL 2.0-7.7 [facility] Neutrophils/100 WBC (Bld) 74.0 % 47-70 [facility] WBC (Bld) [#/Vol] 10.6 10*3/uL 4.4-11.0 [facility] Blood erythrocytes count (nu mber/volume)Ordered By: Dr. Simpson on 11-22-2022 RBC (Bld) [#/Vol] 3.61 10*6/uL 4.2-5.4 [facility] Blood hemoglobin measurement (mass/volume)Ordered By: Dr. Simpson on 11-22-2022 Hemoglobin (Bld) [Mass/Vol] 11.0 g/dL 12.0-15.0 [facility] Blood lymphocytes/100 leukoc ytesOrdered By: Dr. Simpson on 11-22-2022 Lymphocytes/100 WBC (Bld) 17.8 % 19-41 [facility] Blood monocytes/100 leukocyt esOrdered By: Dr. Simpson on 11-22-2022 Monocytes/100 WBC (Bld) 6.5 % 0-10 [facility] Blood platelet mean volumeOr dered By: Dr. Simpson on 11-22-2022 Platelet mean volume (Bld) [Entitic vol] 9.5 fL 6.2-12.0 [facility] Determination of erythrocyte mean corpuscular volume (MCV)Ordered By: Dr. Simpson on 11-22-2022 MCV (RBC) [Entitic vol] 93.6 fL 81-99 [facility] Gestational diabetes screen 1-hour screen with 50g oral glucose loadOrdered By: Dr. Simpson on 11-22-2022 Glucose 1 Hr post 50 g glucose PO [Mass/Vol] 101 mg/dL 70-140 [facility] HIV 1 and HIV-2 antibody ass ay with HIV-1 p24 antigen detectionOrdered By: Dr. Simpson on 11-22-2022 HIV 1+2 Ab+HIV1 p24 Ag IA Ql Non-Reactive Nonreactive [facility] Hematocrit Auto (Bld) [Volum e fraction]Ordered By: Dr. Simpson on 11-22-2022 Hematocrit (Bld) [Volume fraction] 33.8 % 37-47 [facility] Laboratory - Chemistry and C hemistry - challengeon 11-22-2022 Glucose Ql (U) Negative [facility] Laboratory - Hematology and Cell countsOrdered By: Dr. Simpson on 11-22-2022 Erythrocyte distribution width (RBC) [Entitic vol] 44.7 fL 35.1-43.9 [facility] Erythrocyte distribution width (RBC) [Ratio] 13.0 % 11.6-14.6 [facility] Immature granulocytes/100 WBC (Bld) 0.500 % 0.0-0.9 [facility] Comment on above: IG% - Immature Granu locytes (promyelocytes, myelocytes and metamyelocytes) > 1% indicates that a LEFT SHIFT is Present. MCH (RBC) [Entitic mass] 30.5 pg 27.0-32.0 [facility] Nucleated RBC/100 WBC (Bld) [Ratio] 0 % 0-5 [facility] Laboratory - Urinalysison Protein Ql (U) Negative [facility] MCHC Auto (RBC) [Mass/Vol]Or dered By: Dr. Simpson on 11-22-2022 MCHC (RBC) [Mass/Vol] 32.5 g/dL 32-36 [facility] Platelets bldOrdered By: Dr. Simpson on 11-22-2022 Platelets (Bld) [#/Vol] 284 10*3/uL 150-450 [facility] Serum Treponema species anti body detectionOrdered By: Dr. Simpson on 11-22-2022 Treponema sp Ab Ql (S) Non-Reactive [facility] Laboratory - Chemistry and C hemistry - challengeon 11-08-2022 Glucose Ql (U) Negative [facility] Laboratory - Urinalysison Protein Ql (U) Negative [facility] Laboratory - Chemistry and C hemistry - challengeon 10-10-2022 Glucose Ql (U) Negative [facility] Laboratory - Urinalysison Protein Ql (U) Negative [facility] Laboratory - Chemistry and C hemistry - challengeon 09-05-2022 Glucose Ql (U) Negative [facility] Laboratory - Urinalysison Protein Ql (U) Negative [facility] Laboratory - Chemistry and C hemistry - challengeon 2022 Glucose Ql (U) Negative [facility] Laboratory - Urinalysison Protein Ql (U) Negative [facility] [facility] - Chemistry and C hemistry - challengeon 08-09-2022 Glucose Ql (U) Negative [facility] [place] [facility] - Urinalysison Protein Ql (U) Negative [facility] [place] No Panel InformationOrdered By: Dr. Simpson on 08-09-2022 Miscellaneous Test Comment MAILED SPECIMEN [facility] [place] Absolute lymphocyte counton 07-10-2022 Lymphocytes Auto (Unsp spec) [#/Vol] 1.80 10*3/uL 0.83-4.51 [facility] [place] Work Phone: Basophil percentageon 2021 Basophils/100 WBC (Bld) 0.4 % 0-1 [facility] Work Phone: Eosinophils/100 WBC (Bld) 1.1 % 0-5 [facility] [place] Work Phone: Neutrophils (Bld) [#/Vol] 7.5 10*3/uL 2.0-7.7 [facility] [place] Work Phone: Neutrophils/100 WBC (Bld) 72.0 % 47-70 [facility] [place] Work Phone: WBC (Bld) [#/Vol] 10.4 10*3/uL 4.4-11.0 [facility] Work Phone: Blood erythrocytes count (nu mber/volume)on 07-10-2022 RBC (Bld) [#/Vol] 3.96 10*6/uL 4.2-5.4 [facility] Work Phone: Blood hemoglobin measurement (mass/volume)on 07-10-2022 Hemoglobin (Bld) [Mass/Vol] 12.2 g/dL 12.0-15.0 [facility] [place] Work Phone: Blood lymphocytes/100 leukoc yteson 07-10-2022 Lymphocytes/100 WBC (Bld) 17.3 % 19-41 [facility] [place] Work Phone: Blood monocytes/100 leukocyt eson 07-10-2022 Monocytes/100 WBC (Bld) 8.7 % 0-10 [facility] Work Phone: Blood platelet mean volumeon 07-10-2022 Platelet mean volume (Bld) [Entitic vol] 9.3 fL 6.2-12.0 [facility] [place] Work Phone: Cervical or vagninal specime n microscopic examination by cytology stain (reported ason 07-10-2022 Cytology report Cyto stain Doc (Cvx/Vag) Comment . [facility] [place] Work Phone: Comment on above: The Pap smear is a s creening test designed to aid in thedetection of premalignant and malignant conditions of theuterine cervix. It is not a diagnostic procedure andshould not be used as the sole means of detecting cervicalcancer. Both false-positive and false-negative reports dooccur. Chlamydia trachomatis rRNA d etection by probe and target amplification methodon 07-10-2022 C. trachomatis rRNA ANDER+probe Ql (Unsp spec) Negative Negative [facility] [place] Work Phone: Detection in cervical specim en of any of human papilloma virus (HPV) 16, 18, 31, 33,on 07-10-2022 HPV 16+18+31+33+35+39+45+51 +52+56+58+59+66+68 DNA Probe+sig amp Ql (Cvx) Positive Negative [facility] [place] Work Phone: Comment on above: This nucleic acid am plification test detects fourteen high-risk HPV types (16,18,31,33,35,39,45,51,52,56,58,59,66,68)without differentiation.Performed at: - [facility] [id number] Director: Megan Lawrence MD, Phone: [phone] at: =G - [facility] [address] [id number] Director: Megan Lawrence MD, Phone: [phone] Determination of erythrocyte mean corpuscular volume (MCV)on 07-10-2022 MCV (RBC) [Entitic vol] 92.2 fL 81-99 [facility] Work Phone: HIV 1 and HIV-2 antibody ass ay with HIV-1 p24 antigen detectionon 07-10-2022 HIV 1+2 Ab+HIV1 p24 Ag IA Ql Non-Reactive Nonreactive [facility] [place] Work Phone: Hematocrit Auto (Bld) [Volum e fraction]on 07-10-2022 Hematocrit (Bld) [Volume fraction] 36.5 % 37-47 [facility] [place] Work Phone: Laboratory - Cytologyon [employer] Cyto stain Nom (Cvx/Vag) [ID] Comment . [facility] [place] Work Phone: Comment on above: Era Ramirez Cyto technologist (ASCP) Pathologist Cyto stain Nom (Cvx/Vag) [ID] Comment . [facility] [place] Work Phone: Comment on above: Megan Lawrence MD, Pathologist Recommended follow-up Cyto stain Nom (Cvx/Vag) Comment . [facility] [place] Work Phone: Comment on above: Suggest follow up as clinically appropriate. Laboratory - Drug toxicology on 07-10-2022 Amphetamines Ql (U) Negative <1000 ng/mL [facility] Work Phone: Benzodiazepines Ql (U) Negative < 200 ng/mL [facility] Work Phone: Cannabinoids Screen Ql (U) Negative < 50 ng/mL [facility] [place] Work Phone: Cocaine Ql (U) Negative < 300 ng/mL [facility] [place] Work Phone: Opiates Ql (U) Negative < 300 ng/mL [facility] [place] Work Phone: Laboratory - Hematology and Cell countson 07-10-2022 Erythrocyte distribution width (RBC) [Entitic vol] 41.4 fL 35.1-43.9 [facility] [place] Work Phone: Erythrocyte distribution width (RBC) [Ratio] 12.2 % 11.6-14.6 [facility] [place] Work Phone: Immature granulocytes/100 WBC (Bld) 0.500 % 0.0-0.9 [facility] [place] Work Phone: Comment on above: IG% - Immature Granu locytes (promyelocytes, myelocytes and metamyelocytes) > 1% indicates that a LEFT SHIFT is Present. MCH (RBC) [Entitic mass] 30.8 pg 27.0-32.0 [facility] [place] Work Phone: Nucleated RBC/100 WBC (Bld) [Ratio] 0 % 0-5 [facility] [place] Work Phone: Laboratory - Microbiology an d Antimicrobial susceptibilityon 07-10-2022 N. gonorrhoeae DNA ANDER+probe Ql (Unsp spec) Negative Negative [facility] [place] Work Phone: Comment on above: Performed at: =G - [address] [id number] Director: Megan Lawrence MD, Phone: [phone] Laboratory - Miscellaneous t estson 07-10-2022 Service comment (Unsp spec) [Interp] Comment . [facility] [place] Work Phone: Comment on above: This liquid based Th inPrep(R) pap test was screened withthe use of an image guided system. Service comment (Unsp spec) [Interp] . . [facility] [place] Work Phone: MCHC Auto (RBC) [Mass/Vol]on 07-10-2022 MCHC (RBC) [Mass/Vol] 33.4 g/dL 32-36 [facility] Work Phone: No Panel Informationon 07-10 MDMA (Ecstasy) Screen Negative < 500 ng/mL [facility] Work Phone: Pathology report final diagnosis Narrative Comment . [facility] [place] Work Phone: Comment on above: EPITHELIAL CELL ABNO RMALITY.LOW GRADE SQUAMOUS INTRAEPITHELIAL LESION (LSIL). R87.612 Urine Barbiturates Screen Negative < 200 ng/mL [facility] [place] Work Phone: Urine Drug Screen Comment [facility] [place] Work Phone: Comment on above: CONFIRMATORY TESTING FOR ALL POSITIVE URINE DRUG SCREENRESULTS WILL ONLY BE SENT OUT UPON PHYSICIAN ORDER. VISTA Urine Drug Screen methods provide only preliminaryanalytical test results. A more specific alternate chemicalmethod must be used in order to obtain a confirmedanalytical result. Gas chromatography/mass spectrometery(GC/MS) is the preferred confirmatory method. Clinicalconsideration and professional judgement should be appliedto any drug of abuse test result, particularly whenpreliminary positive results are used. URINE TCA TESTING MUST BE ORDERED SEPARATELY. USE TESTMNEMONIC: [facility] Urine Methadone Screen Negative < 300 ng/mL [facility] Work Phone: Hepatitis B Surface Antigen Non-Reactive Nonreactive [facility] [place] Work Phone: Hepatitis C Antibody Non-Reactive Nonreactive [facility] Work Phone: Comment on above: Non Reactive: < 0.8 Equivocal: >/= 0.8 to < 1.0 Reactive: >/= 1.0The [facility] recommends that a reactive/equivocal HCV antibody result be followed up by the HCV Nucleic Acid Amplificationtest (118545) Rubella IgG Antibody Reactive Nonreactive [facility] Work Phone: Comment on above: Antibody Results Int erpretation of Immune Status Non Reactive Presumed Non-Immune Equivocal Equivocal Reactive Presumed Immune Platelets bldon 07-10-2022 Platelets (Bld) [#/Vol] 306 10*3/uL 150-450 [facility] [place] Work Phone: Serum Treponema species anti body detectionon 07-10-2022 Treponema sp Ab Ql (S) Non-Reactive [facility] [place] Work Phone: Urine phencyclidine (PCP) de tectionon 07-10-2022 Phencyclidine Ql (U) Negative < 25 ng/mL [facility] Work Phone: CR Foot Complete 3+ Views Ri geetha 10-14-2021 CR Foot Complete 3+ Views Right Patient Name: LLUVIA HOLLINGSWORTH Diagnostic Radiology ACCESSION EXAM DATE/TIME PROCEDURE ORDERING PROVIDER [id number] 10/14/2021 15:47 EST CR Foot Complete 3+ MD BERNARD, JACQUI Sanchez Views Right CPT code 13708 Reason For Exam (CR Foot Complete 3+ Views Right) pain 3rd toe Report EXAMINATION: Right foot three views INDICATION: pain 3rd toe FINDINGS: Suspect small acute fracture at the medial base of the distal third phalanx. The joint spaces are grossly maintained. The soft tissues are grossly unremarkable. IMPRESSION: Suspect small acute fracture involving the distal third phalanx at the DIP joint. Report Dictated on Final Dictating Physician: MD TOBAR KRIKOR Signed Date and Time: 10/14/2021 4:00 pm Signed by: MD TOBAR KRIKOR Transcribed Date and Time: 10/14/2021 4:01 Normal [facility] MRI Up Ext Joint w/ Contrast Righton 07-05-2021 MRI Up Ext Joint w/ Contrast Right Patient Name: LLUVIA HOLLINGSWORTH Magnetic Resonance Imaging ACCESSION EXAM DATE/TIME PROCEDURE ORDERING PROVIDER [id number] 07/05/2021 09:26 EDT MRI Up Ext Joint w/ MD NABOR, AGNIESZKA R Contrast Right CPT code 91145 Reason For Exam (MRI Up Ext Joint w/ Contrast Right) Pain in right wrist Report Examination: MRI arthrogram right wrist Clinical Indication: Pain in right wrist Comparison: 05/04/2020 Findings: Multiplanar multisequence MRI images were obtained through the right wrist after prior intra-articular proximal carpal row gadolinium contrast. The distal radial fracture is no longer identified and adequately healed. There is tear within the TFCC. There is a small central perforation within the articular disc best seen on coronal series 8 images 10 and 11 with some thinning of the disc centrally. There is also a small proximal sided oblique tear within the disc along its dorsal margin image 10. There is tear of the foveal and partial tear of the volar styloid attachment. There is contrast extravasation into the distal radial ulnar joint which confirms some full-thickness tear. There is some degeneration along the periphery of the TFCC. Intercarpal ligaments appear intact with no significant laxity. There is mild radiocarpal joint space narrowing and osteoarthropathy. Some degenerative edema distal radius, mild in severity. The flexor and extensor tendons are intact. No evidence of tear. Small amount of contrast along the extensor carpi radialis thought to be related to contrast injection. There is a trace amount of extensor carpi ulnaris tendon thickening and increased T2 signal, tendinitis at the ulnar styloid. There is slight dorsal subluxation of the distal ulna. The distal radial ulnar ligaments appear grossly intact. Mild laxity along the volar ligament. The carpal tunnel and median nerve are unremarkable. No abnormality seen along Guyon's canal. Impression: Magnetic Resonance Imaging Report 1. 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 Contrast extends to the distal radial ulnar joint. 2. Slight laxity within the distal radial ulnar ligament, volar aspect. This may have been previously partially torn. No full-thickness tear. Slight dorsal subluxation of the ulna. 3. Mild extensor carpi ulnaris tendinitis. No tear or dislocation. 4. 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 Report Dictated on Final Dictated: 07/05/2021 2:34 pm Dictating Physician: MD MAHAJAN ANTHONY J Signed Date and Time: 07/05/2021 2:39 pm Signed by: MD MAHAJAN ANTHONY J Transcribed Date and Time: 07/05/2021 2:34 Normal [facility] RF Arthrogram Aspir Inj Julián Jt Righton 07-05-2021 RF Arthrogram Aspir Inj Julián Jt Right Patient Name: LLUVIA HOLLINGSWORTH Fluoroscopy ACCESSION EXAM DATE/TIME PROCEDURE ORDERING PROVIDER [id number] 07/05/2021 08:52 EDT RF Arthrogram Aspir Roro TOMLIN MD, AGNIESZKA Santamaria Julián Jt Right CPT code 62066 [id number] Reason For Exam (RF Arthrogram Aspir Inj Julián Jt Right) right wrist pain Report Examination: Fluoroscopic guided right wrist arthrogram and gadolinium injection Clinical Indication: Wrist pain, ulnar sided, history of fracture Comparison: None Findings: Informed written consent was obtained from the patient after the risks, benefits, and alternatives to diagnostic joint injection were adequately explained and all questions were answered. This was explained by Dr. Anthony Mahajan. Patient was placed in supine position. Dorsal right wrist was prepped and draped in usual sterile fashion utilizing Betadine antisepsis. One percent lidocaine was used for local anesthesia. Access was then obtained under direct fluoroscopic guidance into the right radioscaphoid joint. A solution of 1 to 200 IV gadolinium Gadavist (<1ml), 3 mL of Isovue-300, 3 mL of lidocaine was injected to distend the joint space. Total fluoroscopic time 0.5 minutes. Two fluoroscopic images were obtained. Patient described some immediate postprocedural pain relief. Arthrogram images demonstrate extensive and rapid contrast extravasation into the distal radial ulnar joint suggesting TFCC tear. No midcarpal contrast extravasation is seen. No immediate complications were appreciated. Impression: Status post right wrist joint diagnostic gadolinium injection for subsequent MR arthrography. Evidence of TFCC tear, contrast extravasation into the distal radial ulnar joint. Fluoroscopy Report Report Dictated on Final Dictated: 07/05/2021 2:29 pm Dictating Physician: MD MAHAJAN ANTHONY J Signed Date and Time: 07/05/2021 2:31 pm Signed by: MD MAHAJAN ANTHONY J Transcribed Date and Time: 07/05/2021 2:29 Normal [facility] CR Wrist Complete 3 Views [facility] 05-31-2021 CR Wrist Complete 3 Views Right Patient Name: LLUVIA HOLLINGSWORTH Diagnostic Radiology ACCESSION EXAM DATE/TIME PROCEDURE ORDERING PROVIDER [id number] 05/31/2021 14:29 EDT CR Wrist Complete 3 NABORMD DYLAN R Views Right CPT code 11533 Reason For Exam (CR Wrist Complete 3 Views Right) pain Report RIGHT WRIST CLINICAL INDICATION: Pain AP, lateral, and oblique plain film views of the right wrist were obtained. COMPARISON: Right wrist radiograph on 03/25/2020 FINDINGS: No acute displaced fracture or dislocation of the right wrist is identified. There is no abnormal soft tissue swelling or radiopaque foreign body seen. IMPRESSION: No acute displaced fracture or dislocation. Report Dictated on Final Dictating Physician: MD OLIVA NEIL Signed Date and Time: 05/31/2021 11:01 pm Signed by: MD OLIVA NEIL Transcribed Date and Time: 05/31/2021 11:02 Normal [facility] CORONAVIRUS 2019 BY PCRon CORONAVIRUS 2019,PCR NOT DETECTED Normal Not Detected [facility] Comment on above: Result Comment: . This assay is designed to detect the N, ORF1ab and/or S genes of SARS-CoV-2 via nucleic acid amplification. A Negative (NOT DETECTED) result does not preclude 2019-nCoV infection since the adequacy of sample collection and/or low viral burden may result in presence of viral nucleic acids below the clinical sensitivity of this test method. Negative (NOT DETECTED) result should not be used as the sole basis for treatment or other patient management decisions. Rather negative results should be combined with clinical observations, patient history, and epidemiological information to make patient management decisions. Fact sheet for providers: https://www.fda.gov/media/312413/download Fact sheet for patients: https://www.fda.gov/media/653158/download This test has received FDA Emergency Use Authorization (EUA) and has been verified by [facility] ([facility]). This test is only authorized for the duration of time that circumstances exist to justify the authorization of the emergency use of in vitro diagnostic tests for the detection of SARS-CoV-2 virus and/or diagnosis of COVID-19 infection under section 564(b)(1) of the Act, 21 U.S.C. 360bbb-3(b)(1), unless the authorization is terminated or revoked sooner. [facility] is certified under CLIA-88 as qualified to perform high complexity testing. Testing is performed in the [facility] laboratories located at [address] [place] [address]. Performed By: #### C OV19 #### [place] [address] DATE OF SYMPTOM ONSET [[id number]]? [id number] Normal [facility] Comment on above: Performed By: #### C OV19 #### [place] [address] Covid 19 Resultson 0 Covid 19 Results NEGATIVE COVID-[address] Coronaviruses are common world-wide and are the cause of many common colds. SARS-COV2 is a new coronavirus that began circulating worldwide in 2019 so we are calling it COVID-19. It has been estimated that four out of five patients with COVID-19 will recover at home without the need for medical attention. Symptoms of COVID-19 include cough, fever, shortness of breath, loss of taste or smell and other flu-like symptoms including chills, sore muscles, sore throat, and headache. Severe illness is more common in older people and people with other health problems such as high blood pressure, obesity, and immune system problems. If the test is positive, you have COVID-19. You will be contacted by the ordering physicians office and instructed to remain on home isolation, in accordance with CDC guidelines. You may also be contacted by the [facility] to see if any of your close contacts may have been exposed to the virus and need to quarantine. If the test is negative, you likely do not have COVID-19 at this time, but you still may have a different illness that can spread to other people (like Influenza, or the Flu) and could still be at risk for getting COVID-19. We recommend that you stay away from other people to limit the spread of illness until your symptoms are improving and you are fever-free for 24 hours without the use of fever lowering medications such as acetaminophen or ibuprofen. No test is 100% accurate so if you are still concerned you may have COVID-19, talk to your doctor about the need to continue to stay away from others. Medicines Acetaminophen (Tylenol and others) is generally safe. Anti-inflammatory medications, such as Ibuprofen (Advil or Motrin) or Naproxen (Aleve) can also be used. Xwuc-byi-kwnafbs cough and cold medicines can be used according to the instructions on the package. Some goar-jav-ludxbsp medicines also contain acetaminophen. Make sure you are not taking more than your recommended dose For those not hospitalized, there is no specific treatment available for this illness. Antibiotics do not treat Coronaviruses. Follow-Up Follow up with your doctor by scheduling a virtual visit or consider follow-up at one of our urgent care fever clinics. If you are having difficulty breathing, or are very weak and having difficulty standing, this is a medical emergency. Call 911 or have someone take you to the nearest emergency room immediately. If possible, wear a facemask. Additional guidance from the CDC for patients who tested POSITIVE for COVID-19 How to isolate: Isolate yourself in a specific room at home and limit your contact with others. Use a separate bathroom from other members of the household, when possible. Leave home only to get essential medical care. Do not go to work, school or public areas. Avoid using public transportation, ride-sharing, or taxis. Restrict contact with pets and other animals. If you must care for your pet or be around animals while you are sick, wash your hands before and after your interaction and wear a facemask. Make sure that shared spaces in the home have good airflow, such as by an air conditioner or an opened window, weather permitting. Personal Hygiene Procedures: Wear a face mask when in the same room as other people or pets. If a face mask interferes with your breathing, others should wear a mask when sharing space with you. Frequent hand-washing: wash your hands with soap and water for at least 20 seconds. If soap and water are not available, use alcohol-based hand sports physiotherapist. Avoid touching your eyes, nose, and mouth with unwashed hands. Household Hygiene Procedures: Avoid sharing personal household items such as dishes, glassware, cups, eating utensils, towels or bedding with other people or pets in your home. After use, these items should be washed with soap and hot water. Disinfect all high-touch surfaces every day with antibacterial cleaning solutions such as Lysol wipes, bleach, cleansers, etc. High-touch surfaces include tabletops, doorknobs, bathroom fixtures, toilets, phones, keyboards, tablets and bedside tables. Immediately clean any surfaces that may have blood, poop or body fluids on them, using antibacterial cleaning solutions such as Lysol wipes, bleach, cleansers, etc. If clothing or bedding come into contact with blood, poop or body fluids, they should be washed immediately. Follow the directions on the laundry detergent and clothing labels but hot water is recommended when possible. Stopping home isolation precautions: If possible, consult your doctor before stopping home isolation precautions. According to the CDC, you can discontinue home isolation precautions when you have met both of these criteria: Your fever and respiratory symptoms have been gone for 24 hours without the use of any medicines like ibuprofen (Motrin) and acetaminophen (Tylenol). It has been at least 10 days since your symptoms first appeared. If you are immunosuppressed OR you were admitted to the hospital for this, you should wait until it has been 14 days since your symptoms first appeared. Guidelines for Those Living With and/or Caring For Persons with COVID-19: Read and follow all the recommendations outlined in this handout. Do not permit visitors in the home unless there is an essential need. Wear a facemask when in the same room as the patient. Wear a facemask and gloves (disposable if available) when you touch or have contact with the patient's blood, poop, or body fluids including saliva, phlegm, nasal mucus, vomit or urine. Clean or throw away facemasks and gloves after use and wash your hands with soap and water. You will need to quarantine (stay away from others) for 14 days after your last contact with your family member with COVID-19. The person with COVID-19 is considered contagious 48 hours prior to symptoms beginning (or starting with the day of the positive test if they have no symptoms) for a total of 10 days. Additional resources: [facility] COVID Hotline at 2-724-7XQWAOC ( ). COVID-19 Careline at (availabl e 24 hours per day, seven days a week if you or a loved one is experiencing anxiety related to the coronavirus pandemic). Clinical research opportunities: is conducting research studies to develop better testing and treatments for COVID. Do you want any information on how to participate Call [phone]. Websites: hospitals.org or www.CDC.gov Follow My Health / My [facility] (for other test results): Revised 08/24/2020 Electronic Signatures: MARGARITA BillsMStori (ADMIN) (Signature pending) Authored Last Updated: 10-Sep-2020 04:51 by MARGARITA [employer]MServices (ADMIN) Normal [facility] CORONAVIRUS 2019 BY [facility] Lab Specimen Source Nasal, Nasopharyngeal Normal [facility] Comment on above: Performed By: #### C OV19 #### [facility] [id number] [place] [address] Culture, urine Bacteria identified Cx Nom (U) Culture exhibits no growth. [facility] Work Phone: Vital Signs Date Time Vital Sign Value Performing Clinician Juaquin delgado 03-03-2025 10:54-0400 Body height 162.56 cm No Primary Care Physician [facility] 03-03-2025 10:50-0400 Body mass index (BMI) [Ratio] 35.2 kg/m2 No Primary Care Physician [facility] 03-03-2025 10:50-0400 Body weight 93.04 kg No Primary Care Physician [facility] 03-03-2025 10:50-0400 Diastolic blood pressure 70 mm[Hg] No Primary Care Physician [facility] 03-03-2025 10:50-0400 Systolic blood pressure 124 mm[Hg] No Primary Care Physician [facility] 01-20-2025 10:15-0400 Body mass index (BMI) [Ratio] 34.3 kg/m2 No Primary Care Physician [facility] 01-20-2025 10:15-0400 Body weight 90.83 kg No Primary Care Physician [facility] 01-20-2025 10:15-0400 Diastolic blood pressure 76 mm[Hg] No Primary Care Physician [facility] 01-20-2025 10:15-0400 Systolic blood pressure 120 mm[Hg] No Primary Care Physician [facility] 01-14-2025 10:30-0400 Body temperature 98 [degF] No Primary Care Physician [facility] 01-14-2025 10:30-0400 Diastolic blood pressure 78 mm[Hg] No Primary Care Physician [facility] 01-14-2025 10:30-0400 Heart rate 77 /min No Primary Care Physician [facility] 01-14-2025 10:30-0400 Respiratory rate 16 /min No Primary Care Physician [facility] 01-14-2025 10:30-0400 SaO2% (BldA) [Mass fraction] 97 % No Primary Care Physician [facility] 01-14-2025 10:30-0400 Systolic blood pressure 128 mm[Hg] No Primary Care Physician [facility] 01-14-2025 07:57-0400 Body temperature 97.7 [degF] No Primary Care Physician [facility] 01-14-2025 07:57-0400 Diastolic blood pressure 86 mm[Hg] No Primary Care Physician [facility] 01-14-2025 07:57-0400 Heart rate 52 /min No Primary Care Physician [facility] 01-14-2025 07:57-0400 Respiratory rate 16 /min No Primary Care Physician [facility] 01-14-2025 07:57-0400 SaO2% (BldA) [Mass fraction] 96 % No Primary Care Physician [facility] 01-14-2025 07:57-0400 Systolic blood pressure 131 mm[Hg] No Primary Care Physician [facility] 01-13-2025 04:08-0400 Body height 162.56 cm No Primary Care Physician [facility] 01-13-2025 04:08-0400 Body mass index (BMI) [Ratio] 34.4 kg/m2 No Primary Care Physician [facility] 01-13-2025 04:08-0400 Body weight 91 kg No Primary Care Physician [facility] 01-12-2025 20:54-0400 Heart rate 81 /min No Primary Care Physician [facility] 01-12-2025 20:54-0400 Respiratory rate 18 /min No Primary Care Physician [facility] 01-12-2025 20:54-0400 SaO2% (BldA) [Mass fraction] 94 % No Primary Care Physician [facility] 01-12-2025 20:49-0400 Body temperature 98.2 [degF] No Primary Care Physician [facility] 01-12-2025 20:49-0400 Diastolic blood pressure 88 mm[Hg] No Primary Care Physician [facility] 01-12-2025 20:49-0400 Systolic blood pressure 112 mm[Hg] No Primary Care Physician [facility] 01-12-2025 15:53-0400 Body height 162.56 cm No Primary Care Physician [facility] 01-12-2025 15:53-0400 Body mass index (BMI) [Ratio] 34.5 kg/m2 No Primary Care Physician [facility] 01-12-2025 15:53-0400 Body weight 91.3 kg No Primary Care Physician [facility] 12-29-2024 15:25-0400 Body mass index (BMI) [Ratio] 34.3 kg/m2 No Primary Care Physician [facility] 12-29-2024 15:25-0400 Body weight 90.71 kg No Primary Care Physician [facility] 12-29-2024 15:25-0400 Diastolic blood pressure 82 mm[Hg] No Primary Care Physician [facility] 12-29-2024 15:25-0400 Systolic blood pressure 124 mm[Hg] No Primary Care Physician [facility] 11-18-2024 14:05-0500 Body temperature 97.8 [degF] No Primary Care Physician [facility] 11-18-2024 14:05-0500 Diastolic blood pressure 68 mm[Hg] No Primary Care Physician [facility] 11-18-2024 14:05-0500 Heart rate 89 /min No Primary Care Physician [facility] 11-18-2024 14:05-0500 Respiratory rate 18 /min No Primary Care Physician [facility] 11-18-2024 14:05-0500 SaO2% (BldA) [Mass fraction] 96 % No Primary Care Physician [facility] [place] 11-18-2024 14:05-0500 Systolic blood pressure 118 mm[Hg] No Primary Care Physician [facility] [place] 11-16-2024 06:40-0500 Body mass index (BMI) [Ratio] 39.6 kg/m2 No Primary Care Physician [facility] [place] 11-16-2024 06:40-0500 Body weight 104.77 kg No Primary Care Physician [facility] 11-13-2024 10:53-0500 Body mass index (BMI) [Ratio] 39.6 kg/m2 No Primary Care Physician [facility] 11-13-2024 10:53-0500 Body weight 104.77 kg No Primary Care Physician [facility] 11-13-2024 10:53-0500 Diastolic blood pressure 83 mm[Hg] No Primary Care Physician [facility] 11-13-2024 10:53-0500 Systolic blood pressure 131 mm[Hg] No Primary Care Physician [facility] 11-05-2024 13:22-0500 Body mass index (BMI) [Ratio] 39.2 kg/m2 No Primary Care Physician [facility] [place] 11-05-2024 13:22-0500 Body weight 103.64 kg No Primary Care Physician [facility] 11-05-2024 13:22-0500 Diastolic blood pressure 74 mm[Hg] No Primary Care Physician [facility] [place] 11-05-2024 13:22-0500 Systolic blood pressure 124 mm[Hg] No Primary Care Physician [facility] 10-21-2024 09:21-0500 Body mass index (BMI) [Ratio] 38.6 kg/m2 No Primary Care Physician [facility] 10-21-2024 09:21-0500 Body weight 102.11 kg No Primary Care Physician [facility] 10-21-2024 09:21-0500 Diastolic blood pressure 60 mm[Hg] No Primary Care Physician [facility] 10-21-2024 09:21-0500 Systolic blood pressure 110 mm[Hg] No Primary Care Physician [facility] 10-07-2024 10:54-0500 Body mass index (BMI) [Ratio] 37.8 kg/m2 No Primary Care Physician [facility] [place] 10-07-2024 10:54-0500 Body weight 99.96 kg No Primary Care Physician [facility] 10-07-2024 10:54-0500 Diastolic blood pressure 70 mm[Hg] No Primary Care Physician [facility] 10-07-2024 10:54-0500 Systolic blood pressure 122 mm[Hg] No Primary Care Physician [facility] 09-26-2024 13:12-0500 Body mass index (BMI) [Ratio] 37.3 kg/m2 No Primary Care Physician [facility] 09-26-2024 13:12-0500 Body weight 98.54 kg No Primary Care Physician [facility] 09-26-2024 13:12-0500 Diastolic blood pressure 75 mm[Hg] No Primary Care Physician [facility] 09-26-2024 13:12-0500 Systolic blood pressure 112 mm[Hg] No Primary Care Physician [facility] 05-17-2023 10:00-0400 Body height 162.56 cm No Primary Care Physician [facility] 05-17-2023 09:53-0400 Body mass index (BMI) [Ratio] 30.7 kg/m2 No Primary Care Physician [facility] [place] 05-17-2023 09:53-0400 Body weight 81.19 kg No Primary Care Physician [facility] 05-17-2023 09:53-0400 Diastolic blood pressure 73 mm[Hg] No Primary Care Physician [facility] 05-17-2023 09:53-0400 Heart rate 85 /min No Primary Care Physician [facility] 05-17-2023 09:53-0400 Systolic blood pressure 107 mm[Hg] No Primary Care Physician [facility] 04-17-2023 11:00-0400 Body height 162.56 cm No Primary Care Physician [facility] [place] 04-17-2023 10:58-0400 Body mass index (BMI) [Ratio] 30.8 kg/m2 No Primary Care Physician [facility] [place] 04-17-2023 10:58-0400 Body weight 81.41 kg No Primary Care Physician [facility] 03-28-2023 11:42-0400 Body height 162.56 cm No Primary Care Physician [facility] 03-28-2023 11:34-0400 Body mass index (BMI) [Ratio] 31.1 kg/m2 No Primary Care Physician [facility] 03-28-2023 11:34-0400 Body weight 82.32 kg No Primary Care Physician [facility] 03-28-2023 11:34-0400 Diastolic blood pressure 65 mm[Hg] No Primary Care Physician [facility] 03-28-2023 11:34-0400 Systolic blood pressure 99 mm[Hg] No Primary Care Physician [facility] 02-07-2023 21:03-0400 Diastolic blood pressure 55 mm[Hg] No Primary Care Physician [facility] 02-07-2023 21:03-0400 Heart rate 80 /min No Primary Care Physician [facility] 02-07-2023 21:03-0400 Respiratory rate 18 /min No Primary Care Physician [facility] 02-07-2023 21:03-0400 Systolic blood pressure 104 mm[Hg] No Primary Care Physician [facility] 02-07-2023 15:20-0400 Body temperature 98.3 [degF] No Primary Care Physician [facility] [place] 02-07-2023 08:32-0400 SaO2% (BldA) [Mass fraction] 98 % No Primary Care Physician [facility] 02-05-2023 16:49-0400 Body height 162.56 cm No Primary Care Physician [facility] 02-05-2023 16:49-0400 Body mass index (BMI) [Ratio] 36 kg/m2 No Primary Care Physician [facility] 02-05-2023 16:49-0400 Body weight 95.25 kg No Primary Care Physician [facility] 01-31-2023 10:06-0400 Body mass index (BMI) [Ratio] 36.1 kg/m2 No Primary Care Physician [facility] 01-31-2023 10:06-0400 Body weight 95.36 kg No Primary Care Physician [facility] 01-31-2023 10:06-0400 Diastolic blood pressure 72 mm[Hg] No Primary Care Physician [facility] 01-31-2023 10:06-0400 Systolic blood pressure 105 mm[Hg] No Primary Care Physician [facility] 01-24-2023 09:10-0400 Body mass index (BMI) [Ratio] 35.7 kg/m2 No Primary Care Physician [facility] [place] 01-24-2023 09:10-0400 Body weight 94.46 kg No Primary Care Physician [facility] 01-24-2023 09:10-0400 Diastolic blood pressure 70 mm[Hg] No Primary Care Physician [facility] 01-24-2023 09:10-0400 Systolic blood pressure 108 mm[Hg] No Primary Care Physician [facility] 01-17-2023 11:29-0400 Body height 162.56 cm No Primary Care Physician [facility] 01-17-2023 11:29-0400 Body mass index (BMI) [Ratio] 34.9 kg/m2 No Primary Care Physician [facility] 01-17-2023 11:29-0400 Body weight 92.24 kg No Primary Care Physician [facility] 01-17-2023 11:29-0400 Diastolic blood pressure 74 mm[Hg] No Primary Care Physician [facility] 01-17-2023 11:29-0400 Systolic blood pressure 108 mm[Hg] No Primary Care Physician [facility] 01-03-2023 09:37-0400 Body mass index (BMI) [Ratio] 34.7 kg/m2 No Primary Care Physician [facility] 01-03-2023 09:37-0400 Body weight 91.79 kg No Primary Care Physician [facility] 01-03-2023 09:37-0400 Diastolic blood pressure 75 mm[Hg] No Primary Care Physician [facility] 01-03-2023 09:37-0400 Systolic blood pressure 112 mm[Hg] No Primary Care Physician [facility] 12-18-2022 11:47-0400 Body mass index (BMI) [Ratio] 34.1 kg/m2 No Primary Care Physician [facility] 12-18-2022 11:47-0400 Body weight 90.26 kg No Primary Care Physician [facility] 12-18-2022 11:47-0400 Diastolic blood pressure 75 mm[Hg] No Primary Care Physician [facility] 12-18-2022 11:47-0400 Systolic blood pressure 111 mm[Hg] No Primary Care Physician [facility] 12-07-2022 10:07-0500 Body mass index (BMI) [Ratio] 33.7 kg/m2 No Primary Care Physician [facility] 12-07-2022 10:07-0500 Body weight 89.35 kg No Primary Care Physician [facility] 12-07-2022 10:07-0500 Diastolic blood pressure 71 mm[Hg] No Primary Care Physician [facility] 12-07-2022 10:07-0500 Systolic blood pressure 113 mm[Hg] No Primary Care Physician [facility] 11-22-2022 11:43-0500 Body height 162.56 cm Out [facility] 11-22-2022 11:34-0500 Body mass index (BMI) [Ratio] 32.8 kg/m2 Out [facility] 11-22-2022 11:34-0500 Body weight 86.8 kg Out [facility] 11-22-2022 11:34-0500 Diastolic blood pressure 68 mm[Hg] Out [facility] 11-22-2022 11:34-0500 Systolic blood pressure 110 mm[Hg] Out [facility] 11-08-2022 11:08-0500 Body mass index (BMI) [Ratio] 32.8 kg/m2 Out [facility] 11-08-2022 11:08-0500 Body weight 86.63 kg Out [facility] 11-08-2022 11:08-0500 Diastolic blood pressure 67 mm[Hg] Out [facility] 11-08-2022 11:08-0500 Systolic blood pressure 112 mm[Hg] Out [facility] 10-10-2022 14:10-0500 Body mass index (BMI) [Ratio] 31.7 kg/m2 Out [facility] 10-10-2022 14:10-0500 Body weight 83.91 kg Out [facility] 10-10-2022 14:10-0500 Diastolic blood pressure 74 mm[Hg] Out [facility] 10-10-2022 14:10-0500 Systolic blood pressure 116 mm[Hg] Out [facility] 09-05-2022 10:07-0500 Body mass index (BMI) [Ratio] 30.2 kg/m2 Out [facility] 09-05-2022 10:07-0500 Body weight 79.83 kg Out [facility] 09-05-2022 10:07-0500 Diastolic blood pressure 76 mm[Hg] Out [facility] 09-05-2022 10:07-0500 Systolic blood pressure 118 mm[Hg] Out [facility] 2022 13:32-0500 Body mass index (BMI) [Ratio] 29.7 kg/m2 Out [facility] 2022 13:32-0500 Body weight 78.47 kg Out [facility] 2022 13:32-0500 Diastolic blood pressure 64 mm[Hg] Out [facility] 2022 13:32-0500 Systolic blood pressure 114 mm[Hg] Out [facility] 08-09-2022 10:37-0400 Body height 162.56 cm Out [facility] Work Phone: 08-09-2022 10:36-0400 Body mass index (BMI) [Ratio] 29 kg/m2 Out [facility] 08-09-2022 10:36-0400 Body weight 76.65 kg Out [facility] 08-09-2022 10:36-0400 Diastolic blood pressure 66 mm[Hg] Out [facility] 08-09-2022 10:36-0400 Systolic blood pressure 99 mm[Hg] Out [facility] 07-10-2022 09:26-0400 Body mass index (BMI) [Ratio] 28.3 kg/m2 Out [facility] Work Phone: 07-10-2022 09:26-0400 Body weight 74.84 kg Out [facility] Work Phone: 07-10-2022 09:26-0400 Diastolic blood pressure 74 mm[Hg] Out [facility] Work Phone: 07-10-2022 09:26-0400 Systolic blood pressure 111 mm[Hg] Out [facility] Work Phone: Encounters Encounter Date Encounter Type Care Provider Facility Start: 03-03-2025 End: 03-03-2025 Patient encounter procedure Ken Gómez NP-C -[facility] Work Phone: Start: 03-03-2025 End: 03-03-2025 ambulatory No Primary Care Physician [facility] Work Phone: Start: 01-27-2025 End: 01-27-2025 Patient encounter procedure Sharmin Bautista PA-C -[facility] Work Phone: Start: 01-27-2025 End: 01-27-2025 ambulatory No Primary Care Physician Facility:[facility] Start: 01-20-2025 End: 01-20-2025 Patient encounter procedure Ken Gómez NP-C -[facility] Work Phone: Start: 01-20-2025 End: 01-20-2025 Patient encounter procedure Ken Gómez NP-C -[facility] Work Phone: Start: 01-20-2025 End: 01-20-2025 ambulatory No Primary Care Physician Facility:[facility] Start: 01-20-2025 End: 01-20-2025 ambulatory No Primary Care Physician Facility:[facility] Start: 01-14-2025 Non-patient / Non-visit Sharmin morales PA-C [facility] Start: 01-13-2025 Non-patient / Non-visit Dr. Yahaira Martin MD -[facility] Start: 01-12-2025 End: 01-14-2025 Evaluation and management of inpatient Dr. Anthony Martin MD -[facility] Work Phone: Start: 01-12-2025 End: 01-14-2025 observation encounter No Primary Care Physician [facility] Work Phone: Start: 01-12-2025 End: 01-14-2025 ambulatory Anthony Martin Facility:[facility] Start: 01-12-2025 Non-patient / Non-visit Dr. Yahaira Martin MD [facility] Start: 12-29-2024 End: 12-29-2024 Patient encounter procedure Lizzette Zheng [facility] Work Phone: Start: 12-29-2024 End: 12-29-2024 ambulatory No Primary Care Physician Facility:[facility] Start: 11-19-2024 ambulatory No Primary Car e Physician Facility:[facility] Start: 11-18-2024 Non-patient / Non-visit Ken nguyen [facility] Start: 11-17-2024 Non-patient / Non-visit Lizzette Thao ms [facility] Start: 11-16-2024 Non-patient / Non-visit Dr. Anderson De Jesus DO [facility] Start: 11-16-2024 ambulatory No Primary Car e Physician Facility:[facility] Start: 11-16-2024 End: 11-18-2024 Evaluation and management of inpatient Dr. Geni De Jesus DO [facility] Work Phone: Start: 11-13-2024 End: 11-13-2024 Patient encounter procedure Lizzette POTTS -[facility] Work Phone: Start: 11-13-2024 End: 11-13-2024 ambulatory No Primary Care Physician Facility:[facility] Start: 11-05-2024 End: 11-05-[address] Geni De Jesus DO -Laboratory, Spec[facility] Work Phone: Start: 11-05-2024 End: 11-05-[address] Geni De Jesus DO -[facility] Work Phone: Start: 11-05-2024 End: 11-05-2024 ambulatory No Primary Care Physician Facility:[facility] Start: 11-05-2024 End: 11-05-2024 ambulatory No Primary Care Physician Facility:[facility] Start: 10-21-2024 End: 10-21-[address] Lenora Castro MD -[facility] Work Phone: Start: 10-21-2024 End: 10-21-2024 ambulatory No Primary Care Physician Facility:[facility] Start: 10-07-2024 End: 10-07-2024 Patient encounter procedure Ken Gómez BUSINESS CONTINUITY DIRECTOR-C -[facility] Work Phone: Start: 10-07-2024 End: 10-07-2024 ambulatory Ken Gómez BUSINESS CONTINUITY DIRECTOR Facility:[facility] Start: 09-26-2024 End: 09-26-2024 Patient encounter procedure Opal Chico POTTSM -[facility] Work Phone: Start: 09-26-2024 End: 09-26-2024 ambulatory No Primary Care Physician Facility:[facility] Start: 09-11-2024 End: 09-11-2024 ambulatory No Primary Care Physician Facility:[facility] Start: 09-11-2024 End: 09-11-2024 ambulatory No Primary Care Physician Facility:[facility] Start: 08-13-2024 End: 08-13-2024 ambulatory Ken Gómez BUSINESS CONTINUITY DIRECTOR Facility:[facility] Start: 07-30-2024 End: 07-30-2024 ambulatory SILVANO Frazier [facility] Start: 07-14-2024 End: 07-14-2024 ambulatory No Primary Care Physician Facility:[facility] Start: 07-04-2024 End: 07-04-2024 ambulatory KEN GÓMEZ [facility] Start: 06-16-2024 End: 06-16-2024 ambulatory No Primary Care Physician Facility:[facility] Start: 06-16-2024 End: 06-16-2024 ambulatory Ken Gómez BUSINESS CONTINUITY DIRECTOR Facility:[facility] [place] Start: 05-20-2024 End: 05-20-2024 ambulatory No Primary Care Physician Facility:[facility] Start: 05-02-2024 End: 05-02-2024 ambulatory No Primary Care Physician Facility:[facility] [place] Start: 04-22-2024 End: 04-22-2024 ambulatory Lizzette Zheng Facility:[facility] Start: 04-22-2024 End: 04-22-2024 ambulatory [facility] Facility:[facility] Start: 05-17-2023 End: 05-17-2023 ambulatory No Primary Care Physician [facility] Work Phone: Start: 05-17-2023 End: 05-17-2023 Patient encounter procedure No Primary Care Physician [facility]-Laboratory, Specimen Work Phone: Start: 05-17-2023 End: 05-17-2023 Patient encounter procedure No Primary Care Physician [facility] Work Phone: Start: 04-17-2023 End: 04-17-2023 ambulatory No Primary Care Physician [facility] Work Phone: Start: 04-17-2023 End: 04-17-2023 Patient encounter procedure No Primary Care Physician [facility]-Laboratory, Specimen Work Phone: Start: 04-17-2023 End: 04-17-2023 Patient encounter procedure No Primary Care Physician [facility] Work Phone: Start: 03-28-2023 End: 03-28-2023 ambulatory No Primary Care Physician [facility] Work Phone: Start: 03-28-2023 End: 03-28-2023 Patient encounter procedure No Primary Care Physician [facility]-Laboratory, Specimen Start: 03-28-2023 End: 03-28-2023 Patient encounter procedure No Primary Care Physician [facility] Start: 02-07-2023 Non-patient / Non-visit No Carolin reed Care Physician [facility] Start: 02-06-2023 Non-patient / Non-visit No Carolin reed Care Physician [facility] Start: 02-05-2023 End: 02-07-2023 Evaluation and management of inpatient No [facility] Start: 02-05-2023 Non-patient / Non-visit No Carolin reed Care Physician [facility] Start: 01-31-2023 End: 01-31-2023 Patient encounter procedure No Primary Care Physician [facility] Start: 01-24-2023 End: 01-24-2023 Patient encounter procedure No Primary Care Physician [facility] Start: 01-17-2023 End: 01-17-2023 ambulatory No Primary Care Physician [facility] Work Phone: Start: 01-17-2023 End: 01-17-2023 Patient encounter procedure No Primary Care Physician [facility]-Laboratory, Specimen Start: 01-17-2023 End: 01-17-2023 Patient encounter procedure No Primary Care Physician [facility] Start: 01-03-2023 End: 01-03-2023 Patient encounter procedure No Primary Care Physician [facility] Start: 12-18-2022 End: 12-18-2022 Patient encounter procedure No Primary Care Physician [facility] Start: 12-07-2022 End: 12-07-2022 Patient encounter procedure No Primary Care Physician [facility] Start: 11-22-2022 End: 11-22-2022 ambulatory [place] Town Doctor [facility] Work Phone: Start: 11-22-2022 End: 11-22-2022 Patient encounter procedure Out [facility] Doctor [facility] Start: 11-08-2022 End: 11-08-2022 Patient encounter procedure Out Town [facility] Start: 10-10-2022 End: 10-10-2022 Patient encounter procedure Out [facility] Start: 09-05-2022 End: 09-05-2022 Patient encounter procedure Out [facility] Start: 2022 End: 2022 Patient encounter procedure Out [facility] Start: 08-09-2022 End: 08-09-2022 ambulatory Out of [facility] Work Phone: Start: 08-09-2022 End: 08-09-2022 Patient encounter procedure Out [facility] Start: 07-10-2022 End: 07-10-2022 Patient encounter procedure Out [facility] Start: 07-10-2022 End: 07-10-2022 Patient encounter procedure Out [facility] Procedures Date Procedure Procedure Detail Performing Clinician Start: 01-20-2025 Liquid based cervica l cytology screening No Primary Care Physician Comment on above: NEGATIVE FOR INTRAEP ITHELIAL LESION OR MALIGNANCY. This liquid based Th inPrep(R) pap test was screened withthe use of an image guided system. The HPV DNA reflex c riteria were not met with this specimenresult therefore, no HPV testing was performed.Performed at: [facility], [place] [id number] Director: Noe Amador PhD, Phone: [phone] at: [facility] [id number] Director: Megan Lawrence MD, Phone: [phone] Start: 01-14-2025 Estimated creatinine clearance No Primary Care Physician Start: 01-13-2025 Laparoscopic appendectomy No Primary Care Physician Start: 01-12-2025 Computed tomography of abdomen and pelvis with intravenous contrast No Primary Care Physician Start: 01-12-2025 Urnls dip stick/tabl et reagent auto microscopy No Primary Care Physician Start: 11-16-2024 Measurement of pH in vaginal fluid specimen using nitrazine yellow for detection of rupture of amniotic membrane No Primary Care Physician Comment on above: Amniotic fluid prese nt indicates rupture of Membranes. RESULTS CALLED TO VERONIQUE LEE 11/16/24 0745 Fabiola Carter.REPORT READ BACK BY SAME. Start: 11-05-2024 Beta-hemolytic Strep tococcus culture No Primary Care Physician Start: 04-17-2023 Cytopathology proced ure, preparation of smear, genital source No Primary Care Physician Start: 04-17-2023 Investigation of tra nsfusion reaction No Primary Care Physician Start: 01-17-2023 Group B Streptococcu s Culture No Primary Care Physician Start: 09-09-2020 Follow-up visit Group B Streptococcu s Culture No Primary Care Physician History of appendectomy S/P appendectomy Sharmin Bautista PA-C Urine culture Out Town Docto r Plan of Treatment Date Care Activity Detail Author Start: 01-14-2025 Patient discharge [facility] Start: 01-12-2025 Application of intermittent pneumatic compression device [facility] Start: 01-12-2025 Following clinical pathway protocol [facility] Start: 01-12-2025 Vital signs measurements [facility] Start: 01-12-2025 [facility] Start: 01-12-2025 Ambulation without limitation [facility] Start: 01-12-2025 Admission procedure [facility] Start: 01-12-2025 Hospital admission, emergency, from emergency room, medical nature [facility] Start: 01-12-2025 Anesthesia intraperitoneal lower abd w/laps nos ANESTH SURG LOWER ABDOMEN [facility] Start: 01-12-2025 Laparoscopic appendectomy LAPAROSCOPY APPENDECTOMY [facility] Start: 11-18-2024 Patient discharge [facility] Start: 11-17-2024 Consultation [facility] Start: 11-16-2024 Documentation procedure [facility] Start: 11-16-2024 Administration of medication [facility] Start: 11-16-2024 Application of ice collar, cap or bag [facility] Start: 11-16-2024 Catheterization of vein [facility] Start: 11-16-2024 Introduction of urinary catheter [facility] Start: 11-16-2024 Measuring intake and output [facility] Start: 11-16-2024 Notification of physician [facility] Start: 11-16-2024 Procedure discontinued [facility] Start: 11-16-2024 Provision of activity privileges [facility] Start: 11-16-2024 Vital signs measurements [facility] Start: 11-16-2024 End: 11-16-2024 [facility] Start: 11-16-2024 Admission procedure [facility] Start: 03-28-2023 Liquid based cervical cytology screening [facility] Start: 02-07-2023 Patient discharge [facility] Start: 02-06-2023 Administration of medication [facility] Start: 02-06-2023 Application of ice collar, cap or bag [facility] Start: 02-06-2023 Catheterization of vein [facility] Start: 02-06-2023 Introduction of urinary catheter [facility] Start: 02-06-2023 Measuring intake and output [facility] Start: 02-06-2023 Notification of physician [facility] Start: 02-06-2023 Procedure discontinued [facility] Start: 02-06-2023 Provision of activity privileges [facility] Start: 02-06-2023 Vital signs measurements [facility] Start: 02-06-2023 [facility] Start: 02-05-2023 Admission procedure [facility] Start: 02-05-2023 Consultation [facility] Path report.final Dx Spec [facility] Patient Education After a Vaginal [facility] Work Phone: Patient referral [facility] Work Phone: Ultrasound scan for growth [facility] Payers Date Payer Category Payer Self-pay [id number] 2024 Unknown [id number] 1996 Unknown [id number] 1996 Unknown [id number] 2.16.840.1.429452.3.579.2.479 Unknown [facility] [id number] Unknown [id number] 2.16.840.1.460039.3.579.2.462 Unknown [id number] 2.16.840.1.319970.3.579.2.462 Unknown [id number] 2.16.840.1.292764.3.579.2.462 Unknown [id number] 2.16.840.1.165259.3.579.2.462 Unknown [id number] 2.16.840.1.456462.3.579.2.462 Unknown [id number] 2.16.840.1.443252.3.579.2.462 Unknown [id number] 2.16.840.1.488029.3.579.2.462 Unknown [id number] 2.16.840.1.993885.3.579.2.462 Unknown [id number] 2.16.840.1.038842.3.579.2.462 Unknown [id number] 2.16.840.1.542262.3.579.2.462 Unknown [id number] 2.16.840.1.825325.3.579.2.462 Unknown [id number] 2.16.840.1.095518.3.579.2.462 Unknown [id number] 2.16.840.1.992957.3.579.2.462 Unknown [id number] 2.16.840.1.688840.3.579.2.462 Unknown [id number] 2.16.840.1.881324.3.579.2.462 Unknown [id number] 2.16.840.1.577589.3.579.2.462 Unknown [id number] 2.16.840.1.782800.3.579.2.462 Unknown [id number] 2.16.840.1.752576.3.579.2.462 Unknown [id number] 2.16.840.1.229094.3.579.2.462 Unknown [id number] 2.16.840.1.678814.3.579.2.462 Unknown [id number] 2.16.840.1.410818.3.579.2.462 Unknown [id number] 2.16.840.1.744901.3.579.2.462 Unknown [id number] 2.16.840.1.974747.3.579.2.462 Unknown [id number] 2.16.840.1.381202.3.579.2.462 Unknown [id number] 2.16.840.1.557402.3.579.2.462 Unknown [id number] 2.16.840.1.813080.3.579.2.462 Unknown [id number] 2.16.840.1.137485.3.579.2.462 Unknown [id number] 2.16.840.1.250238.3.579.2.462 Unknown [id number] 2.16.840.1.871526.3.579.2.462 Unknown [id number] 2.16.840.1.202587.3.579.2.462 Social History Date Type Detail Facility Start: 08-09-2022 End: 04-17-2023 Tobacco smoking status NYIS Unknown if ever smoked [facility] Start: 1995 Sex Assigned At Female [facility] Patient currentl y [facility] Start: 01-12-2025 End: 01-12-2025 Tobacco smoking status NHIS Current some day smoker [facility] Start: 01-12-2025 End: 01-14-2025 Sex Female (finding) [facility] NEGATED: Highlighted row Not [facility] Medical Equipment Procedure Code Equipment Code Equipment Origin al Text Equipment Identifier Dates Appendectomy, laparoscopic Surgical staple loading unit, non-cutting [id number] FDA Start: 01-13-2025 Goals Date Patient Goal Desired Activity /State Functional Status Date Assessment Result Facility 01-14-2025 Functional status Ambulates;Bedrest [facility] Work Phone: Mental Status Date Assessment Result Facility 01-14-2025 Cognitive function Voice/Name [facility] Work Phone: 01-12-2025 Cognitive function Level Of Cons ciousness Awake;Alert;Appropriate [facility] Work Phone: Clinical Notes 07-10-2022 to 03-03-2025 Note Date & Type Note Facility 03-03-2025 Progress note [facility] 01-14-2025 Consult note [facility] 01-14-2025 Consult note [facility] 01-14-2025 Consult note [facility] 01-14-2025 Discharge summary Note Date/Time January 14, 2025 9:47am [facility] Medical Records Department [address] [place] [address] Discharge Summary 01/14/25 0853 MR#: [id number] Acct: [id number] Name: LLUVIA HOLLINGSWORTH Rep #:[id number] : 1995 29 From: Sharmin KENNY PA-C PCP: Care Physician,No Primary Status :ADM FARTUN Location: [place] [address] Providers Date of Admission: 01/12/25 Primary Care Physician: No Primary Care Phys Reason For Visit: ACUTE APPENDICITIS Diagnosis Discharge Diagnosis (1) Acute appendicitis: Status: Acute Code(s): K35.80 - Unspecified acute appendicitis Medications at Discharge Home Medications multivitamin no.47-iron fum 27 mg-folate no.1 1 mg-dha 300 mg capsule (PNV-DHA)1 cap PO DAILY pergnancy 04/18/24 oxycodone 5 mg tablet 5 - 10 mg (1 - 2 x 5 mg) PO Q4H PRN PRN Pain Score 4-10 5 days #14 tabs 01/13/25 dicloxacillin 500 mg capsule 500 mg PO Q6H 10 days #40 caps 01/14/25 Hospital Course Operations appendectomy Summary of Care Provided Minutes Spent on Discharge: 30 Hospital Course: Patient is a 29 y/o F who presented with abdominal pain in the lower right quadrant x 1 day. She associated this pain with flu-like symptoms. Pain became worse and she presented to the ED. A CT scan of the ab/pel was obtained and demonstrated acute appendicitis. Dr. Martin performed a laparoscopic appendectomy on 01/13/25. Patient tolerated the procedure well. Patient also mentioned during her hospitalization she was dealing with left sided breast mastitis as she is 2 months post- and trying to wean from . She was evaluated by the nurse and Sudafed was provided to the patientover 2 days. Patient stated this was helping with decreasing her milk production. I spoke with Dr. Castro who recommended Dicloxacillin 500 mg 4 times per day. Patient will follow-up with their office next Sunday. She will need to follow-up with our office in 2 weeks for a follow-up. Upon discharge, patient's abdominal pain was well controlled. She is tolerating her diet well. She denies any nausea, vomiting. She voices readiness for discharge. Weight / BMI Weight Weight: 200 lb 9.93 oz Body Mass Index (BMI) 34.4 ABG / Lab / Microbiology Data 01/14/25 07:16 01/14/25 07:16 Laboratory: Laboratory Results - last 24 hr 01/14/25 07:16: WBC 12.8 H, RBC 3.56 L, Hgb 11.0 L, Hct 33.0 L, MCV 92.7, MCH 30.9, MCHC 33.3, RDW Std Deviation 43.1, RDW Coeff of Eli 12.5, Plt Count 261, MPV 10.1, Immature Gran % (Auto) 0.500, Neut % (Auto) 72.2 H, Lymph % (Auto) 18.7 L, Hans[place] % (Auto) 7.4, Eos % (Auto) 1.0, Baso % (Auto) 0.2, Absolute Neuts (auto) 9.2 H, Absolute Lymphs (auto) 2.39, Nucleated RBC % 0, Sodium 136, Potassium 4.1, Chloride 105, Carbon Dioxide 13.5 L, Anion Gap 17 H, BUN 8, Creatinine 0.49 L, Estim Creat Clear Calc 186.78, Est GFR (MDRD) Non-Af 132, BUN/Creatinine Ratio 17.0, Glucose 80, Calcium 8.3 D/C Instructions Discharge Diet: Light diet - advance as tolerated May shower in (days): 1 Call your doctor if your incision/area has: Continuous Slow Oozing, Sudden Increased Bleeding, Increased Pain/ Swelling, Increased Redness and Foul Smelling Discharge Call your doctor if you observe: Fever of 101 or Higher Suture Line Care: Avoid Pulling/Pushing and Avoid Pinching/Bending Cleanse incision/area with: Soap & Water Additional Dressing/Incision Instructions: Keep dressing clean and dry. Change or remove dressing in 2 days. Leave steri strips for 1 week. May protect with a gauze bandaid. DC O2, CPAP, BIPAP Needs Home O2 Discharge instructions: No Please Follow Up With: Anthony Martin MD When: Please call to schedule 2 week follow up appointment. [phone] Meaningful Use Info Meaningful Use Meaningful Use Diagnoses (Choose all that apply): None applicable Ischemic Stroke Statin Dosing Therapy Reference: STATIN DOSE THERAPY REFERENCE: * Patients > 75 years receive moderate or high dose statin therapy. * Patients 75 years or YOUNGER should receive HIGH intensity statin dose unless contraindicated. You will be required to document reason for non-treatment if statin daily dose does not meet guidelines. HIGH DOSE STATIN THERAPY DAILY Atorvastatin > than or = to 40 mg Rosuvastatin > than or = to 20 mg Amlodipine + Atorvastatin > than or = to 2.5/40 mg Ezetimibe + Simvastatin 10/80 mg Simvastatin 80mg Discharge Plan Admission Admit Date/Time: 01/12/25 20:33 Primary Reason for Your Visit: ACUTE APPENDICITIS Attending Provider: Anthony Martin Primary Care Provider: Care Physician,No Primary Discharge Orders/Prescriptions Prescriptions: New oxycodone 5 mg Tablet 5 - 10 mg PO Q4H PRN PRN (Reason: Pain Score 4-10) 5 Days Qty: 14 0RF dicloxacillin 500 mg capsule 500 mg PO Q6H 10 Days Qty: 40 0RF Continued PNV-DHA 27 mg iron-1 mg -300 mg capsule 1 cap PO DAILY Referrals / Follow Up: Care Physician,No Primary [Primary Care Provider] - Disposition Disposition (needs filled in before D/C Order can be placed): Home, Self Care Charges/Coding Visit Charges Inpatient E&M: 33077 Disch Hosp (no charge; post-op) 01/14/25 0947 <Electronically signed by Sharmin KENNY PA-C> Cosigner Signature (if applicable): CC: CODY Bautista; No Primary Care Physician~ Signed [facility] Work Phone: 1(770) 212-498204-09-2025 Consult note [facility] Medical Records Department [address] [place] [address] Counseling Note - Pharmacy 01/14/25 1051 MR#: [id number] Acct: [id number] Name: LLUVIA HOLLINGSWORTH Rep #:[id number] : 1995 29 From: Arlet Villanueva PCP: Care Physician,No Primary Status :ADM FARTUN Y [facility] has performed discharge medication reconciliation and counseling for this patient. 1. DICLOXACILLIN 500MG PO Q6H X 10 DAYS The patient's discharge medication list was reviewed for discrepancies and discrepancies were resolved. The patient was counseled on the following discharge medications and changes in medications for homegoing were reviewed. The Reason for Use, instructions for use, and potential side effects were reviewed for all new medications. The patient's questions regarding all of their medications were answered. The patient was able to verbally demonstrate an understanding of their dischargemedications. Medications at Discharge Home Medications multivitamin no.47-iron fum 27 mg-folate no.1 1 mg-dha 300 mg capsule (PNV-DHA)1 cap PO DAILY pergnancy 04/18/24 oxycodone 5 mg tablet 5 - 10 mg (1 - 2 x 5 mg) PO Q4H PRN PRN Pain Score 4-10 5 days #14 tabs 01/13/25 dicloxacillin 500 mg capsule 500 mg PO Q6H 10 days #40 caps 01/14/25 01/14/25 1052 Date _ Arlet Villanueva Cosigner Signature (if applicable): Date CC: ~ Signed [facility]04-09-2025 Discharge summary [facility] Medical Records Department [address] [place] [address] Discharge Summary 01/14/25 0853 MR#: [id number] Acct: [id number] Name: LLUVIA HOLLINGSWORTH Rep #:[id number] : 1995 29 From: Sharmin KENNY PA-C PCP: Care Physician,No Primary Status :ADM FARTUN Location: [place] [address] Providers Date of Admission: 01/12/25 Primary Care Physician: No Primary Care Phys Reason For Visit: ACUTE APPENDICITIS Diagnosis Discharge Diagnosis (1) Acute appendicitis: Status: Acute Code(s): K35.80 - Unspecified acute appendicitis Medications at Discharge Home Medications multivitamin no.47-iron fum 27 mg-folate no.1 1 mg-dha 300 mg capsule (PNV-DHA)1 cap PO DAILY pergnancy 04/18/24 oxycodone 5 mg tablet 5 - 10 mg (1 - 2 x 5 mg) PO Q4H PRN PRN Pain Score 4-10 5 days #14 tabs 01/13/25 dicloxacillin 500 mg capsule 500 mg PO Q6H 10 days #40 caps 01/14/25 Hospital Course Operations appendectomy Summary of Care Provided Minutes Spent on Discharge: 30 Hospital Course: Patient is a 29 y/o F who presented with abdominal pain in the lower right quadrant x 1 day. She associated this pain with flu-like symptoms. Pain became worse and she presented to the ED. A CT scan of the ab/pel was obtained and demonstrated acute appendicitis. Dr. Martin performed a laparoscopic appendectomy on 01/13/25. Patient tolerated the procedure well. Patient also mentioned during her hospitalization she was dealing with left sided breast mastitis as she is 2 months post- and trying to wean from . She was evaluated by the nurse and Sudafed was provided to the patientover 2 days. Patient stated this was helping with decreasing her milk production. I spoke with Dr. Castro who recommended Dicloxacillin 500 mg 4 times per day. Patient will follow-up with their office next Sunday. She will need to follow-up with our office in 2 weeks for a follow-up. Upon discharge, patient's abdominal pain was well controlled. She is tolerating her diet well. S he denies any nausea, vomiting. She voices readiness for discharge. Weight / BMI Weight Weight: 200 lb 9.93 oz Body Mass Index (BMI) 34.4 ABG / Lab / Microbiology Data 01/14/25 07:16 01/14/25 07:16 Laboratory: Laboratory Results - last 24 hr 01/14/25 07:16: WBC 12.8 H, RBC 3.56 L, Hgb 11.0 L, Hct 33.0 L, MCV 92.7, MCH 30.9, MCHC 33.3, RDW Std Deviation 43.1, RDW Coeff of Eli 12.5, Plt Count 261, MPV 10.1, Immature Gran % (Auto) 0.500, Neut % (Auto) 72.2 H, Lymph % (Auto) 18.7 L, Hansford % (Auto) 7.4, Eos % (Auto) 1.0, Baso % (Auto) 0.2, Absolute Neuts (auto) 9.2 H, Absolute Lymphs (auto) 2.39, Nucleated RBC % 0, Sodium 136, Potassium 4.1, Chloride 105, Carbon Dioxide 13.5 L, Anion Gap 17 H, BUN 8, Creatinine 0.49 L, Estim Creat Clear Calc 186.78, Est GFR (MDRD) Non-Af 132, BUN/Creatinine Ratio 17.0, Glucose 80, Calcium 8.3 D/C Instructions Discharge Diet: Light diet - advance as tolerated May shower in (days): 1 Call your doctor if your incision/area has: Continuous Slow Oozing, Sudden Increased Bleeding, Increased Pain/ Swelling, Increased Redness and Foul Smelling Discharge Call your doctor if you observe: Fever of 101 or Higher Suture Line Care: Avoid Pulling/Pushing and Avoid Pinching/Bending Cleanse incision/area with: Soap & Water Additional Dressing/Incision Instructions: Keep dressing clean and dry. Change or remove dressing in 2 days. Leave steri strips for 1 week. May protect with a gauze bandaid. DC O2, CPAP, BIPAP Needs Home O2 Discharge instructions: No Please Follow Up With: Anthony Martin MD When: Please call to schedule 2 week follow up appointment. [phone] Meaningful Use Info Meaningful Use Meaningful Use Diagnoses (Choose all that apply): None applicable Ischemic Stroke Statin Dosing Therapy Reference: STATIN DOSE THERAPY REFERENCE: * Patients > 75 years receive moderate or high dose statin therapy. * Patients 75 years or YOUNGER should receive HIGH intensity statin dose unless contraindicated. You will be required to document reason for non-treatment if statin daily dose does not meet guidelines. HIGH DOSE STATIN THERAPY DAILY Atorvastatin > than or = to 40 mg Rosuvastatin > than or = to 20 mg Amlodipine + Atorvastatin > than or = to 2.5/40 mg Ezetimibe + Simvastatin 10/80 mg Simvastatin 80mg Discharge Plan Admission Admit Date/Time: 01/12/25 20:33 Primary Reason for Your Visit: ACUTE APPENDICITIS Attending Provider: Anthony Martin Primary Care Provider: Care Physician,No Primary Discharge Orders/Prescriptions Prescriptions: New oxycodone 5 mg Tablet 5 - 10 mg PO Q4H PRN PRN (Reason: Pain Score 4-10) 5 Days Qty: 14 0RF dicloxacillin 500 mg capsule 500 mg PO Q6H 10 Days Qty: 40 0RF Continued PNV-DHA 27 mg iron-1 mg -300 mg capsule 1 cap PO DAILY Referrals / Follow Up: Care Physician,No Primary [Primary Care Provider] - Disposition Disposition (needs filled in before D/C Order can be placed): Home, Self Care Charges/Coding Visit Charges Inpatient E&M: 88546 Disch Hosp (no charge; post-op) 01/14/25 0947 Cosigner Signature (if applicable): CC: CODY Bautista; No Primary Care Physician~ Signed [facility] [place]04-09-2025 [facility] Medical Records Department [address] [place] [address] Discharge Summary 01/14/25 0853 MR#: [id number] Acct: [id number] Name: LLUVIA HOLLINGSWORTH Rep #: [id number] : 1995 29 From: Sharmin KENNY PA-C PCP: Care Physician,No Primary Status:ADM FARTUN Location: [address] Providers Date of Admission: 01/12/25 Primary Care Physician: Shana Primary Care Phys Reason For Visit: ACUTE APPENDICITIS Diagnosis Discharge Diagnosis (1) Acute appendicitis: Status: Acute Code(s): K35.80 - Unspecified acute appendicitis Medications at Discharge Home Medications multivitamin no.47-iron fum 27 mg-folate no.1 1 mg-dha 300 mg capsule (PNV-DHA) 1 cap PO DAILY pergnancy 04/18/24 oxycodone 5 mg tablet 5 - 10 mg (1 - 2 x 5 mg) PO Q4H PRN PRN Pain Score 4-10 5 days #14 tabs 01/13/25 dicloxacillin 500 mg capsule 500 mg PO Q6H 10 days #40 caps 01/14/25 Hospital Course Operations appendectomy Summary of Care Provided Minutes Spent on Discharge: 30 Hospital Course: Patient is a 29 y/o F who presented with abdominal pain in the lower right quadrant x 1 day. She associated this pain with flu-like symptoms. Pain became worse and she presented to the ED. A CT scan of the ab/pel was obtained and demonstrated acute appendicitis. Dr. Martin performed a laparoscopic appendectomy on 01/13/25. Patient tolerated the procedure well. Patient also mentioned during her hospitalization she was dealing with left sided breast mastitis as she is 2 months post- and trying to wean from . She was evaluated by the nurse and Sudafed was provided to the patient over 2 days. Patient stated this was helping with decreasing her milk production. I spoke with Dr. Castro who recommended Dicloxacillin 500 mg 4 times per day. Patient will follow-up with their office next Sunday. She will need to follow- up with our office in 2 weeks for a follow-up. Upon discharge, patient's abdominal pain was well controlled. She is tolerating her diet well. She denies any nausea, vomiting. She voices readiness for discharge. Weight / BMI Weight Weight: 200 lb 9.93 oz Body Mass Index (BMI) 34.4 ABG / Lab / Microbiology Data 01/14/25 07:16 01/14/25 07:16 Laboratory: Laboratory Results - last 24 hr 01/14/25 07:16: WBC 12.8 H, RBC 3.56 L, Hgb 11.0 L, Hct 33.0 L, MCV 92.7, MCH 30.9, MCHC 33.3, RDW Std Deviation 43.1, RDW Coeff of Eli 12.5, Plt Count 261, MPV 10.1, Immature Gran % (Auto) 0.500, N eut % (Auto) 72.2 H, Lymph % (Auto) 18.7 L, [place] % (Auto) 7.4, Eos % (Auto) 1.0, Baso % (Auto) 0.2, Absolute Neuts (auto) 9.2 H, Absolute Lymphs (auto) 2.39, Nucleated RBC % 0, Sodium 136, Potassium 4.1, Chloride 105, Carbon Dioxide 13.5 L, Anion Gap 17 H, BUN 8, Creatinine 0.49 L, Estim Creat Clear Calc 186.78, Est GFR (MDRD) Non-Af 132, BUN/Creatinine Ratio 17.0, Glucose 80, Calcium 8.3 D/C Instructions Discharge Diet: Light diet - advance as tolerated May shower in (days): 1 Call your doctor if your incision/area has: Continuous Slow Oozing, Sudden Increased Bleeding, Increased Pain/ Swelling, Increased Redness and Foul Smelling Discharge Call your doctor if you observe: Fever of 101 or Higher Suture Line Care: Avoid Pulling/Pushing and Avoid Pinching/Bending Cleanse incision/area with: Soap Water Additional Dressing/Incision Instructions: Keep dressing clean and dry. Change or remove dressing in 2 days. Leave steri strips for 1 week. May protect with a gauze bandaid. DC O2, CPAP, BIPAP Needs Home O2 Discharge instructions: No Please Follow Up With: Anthony Martin MD When: Please call to schedule 2 week follow up appointment. [phone] Meaningful Use Info Meaningful Use Meaningful Use Diagnoses (Choose all that apply): None applicable Ischemic Stroke Statin Dosing Therapy Reference: STATIN DOSE THERAPY REFERENCE: * Patients > 75 years receive moderate or high dose statin therapy. * Patients 75 years or YOUNGER should receive HIGH intensity statin dose unless contraindicated. You will be required to document reason for non-treatment if statin daily dose does not meet guidelines. HIGH DOSE STATIN THERAPY DAILY Atorvastatin > than or = to 40 mg Rosuvastatin > than or = to 20 mg Amlodipine + Atorvastatin > than or = to 2.5/40 mg Ezetimibe + Simvastatin 10/80 mg Simvastatin 80mg Discharge Plan Admission Admit Date/Time: 01/12/25 20:33 Primary Reason for Your Visit: ACUTE APPENDICITIS Attending Provider: Anthony Martin Primary Care Provider: Care Physician,No Primary Discharge Orders/Prescriptions Prescriptions: New oxycodone 5 mg Tablet 5 - 10 mg PO Q4H PRN PRN (Reason: Pain Score 4-10) 5 Days Qty: 14 0RF dicloxacillin 500 mg capsule 500 mg PO Q6H 10 Days Qty: 40 0RF Cont (more content not included)...[facility] [place]04-08-2025 Progress note Author Sharmin Bautista [facility] Note Date/Time January 13, 2025 3:41 pm [facility] Medical Records Department [address] [place] [address] Progress Note 01/13/25 1533 MR#: [id number] Acct: [id number] Name: LLUVIA HOLLINGSWORTH Rep #:[id number] : 1995 29 From: Sharmin KENNY PA-C PCP: Care Physician,No Primary Status :ADM FARTUN Location: [place] [address]-1 Progress Note Patient evaluated this afternoon. Patient has been dealing with mastitis that started yesterday with a red streak on her inner upper quadrant of the breast. She notes being able to try an wean herself from . She apparently is pumping and dumping. She has been trying to dry up for weeks. She has not tried any medication, however she has tried icing. She notes the red streak is gone. She notes her abdomen is painful and she is requesting to stay over night for additional observation. We will continue IV antibiotics. She will receive a dose of Sudafed today. Likely discharge tomorrow morning. She will need to be d/c' d home on dicloxacillin 500 mg q 6H for 10 days for the mastitis and follow-up with OB in 1 week, which she already has an appointment in 1 week. 01/13/25 1541 <Electronically signed by Sharmin KENNY PA-C> Sharmin KENNY PA-C Cosigner Signature (if applicable): CC: ~ Signed [facility] Work Phone: 1(276) 908-935604-08-2025 Consult note Author Molina Vargas [facility] Note Date/Time January 14, 2025 11:2 2am [facility] Medical Records Department [address] [place] [address] Counseling Note - Pharmacy 01/13/25 1526 MR#: [id number] Acct: [id number] Name: LLUVIA HOLLINGSWORTH Rep #:[id number] : 1995 29 From: Molina Vargas PCP: Care Physician,No Primary Status :ADM FARTUN Y Location: [place] [address] Pharmacy [facility] has performed discharge medication reconciliation and counseling for this patient. The patient's discharge medication list was reviewed for discrepancies and discrepancies were resolved. The patient was counseled on the following discharge medications and changes in medications for homegoing were reviewed. The Reason for Use, instructions for use, and potential side effects were reviewed for all new medications. The patient's questions regarding all of their medications were answered. 1. Oxycodone 5-10 mg PO Q4H PRN pain x 5 days The patient was able to verbally demonstrate an understanding of their dischargemedications. Medications at Discharge Home Medications multivitamin no.47-iron fum 27 mg-folate no.1 1 mg-dha 300 mg capsule (PNV-DHA)1 cap PO DAILY pergnancy 04/18/24 oxycodone 5 mg tablet 5 - 10 mg (1 - 2 x 5 mg) PO Q4H PRN PRN Pain Score 4-10 5 days #14 tabs 01/13/25 01/13/25 1526 <Electronically signed by Molina santamaria> Date _ Molina Nascimento Signature (if applicable): Date CC: ~ Signed [facility] [place] Work Phone: [phone] 764-152504-08-2025 Progress note [facility] Medical Records Department [address] [place] [address] Progress Note 01/13/25 1533 MR#: [id number] Acct: [id number] Name: LLUVIA HOLLINGSWORTH Rep #:[id number] : 1995 29 From: Sharmin KENNY PA-C PCP: Care Physician,No Primary Status :ADM FARTUN Location: [place] [address] Progress Note Patient evaluated this afternoon. Patient has been dealing with mastitis that started yesterday with a red streak on her inner upper quadrant of the breast. She notes being able to try an wean herself from . She apparently is pumping and dumping. She has been trying to dry up for weeks. She has not tried any medication, however she has tried icing. She notes the red streak is gone. She notes her abdomen is painful and she is requesting to stay over night for additional observation.We will continue IV antibiotics. She will receive a dose of Sudafed today. Likely discharge tomorrow morning. She will need to be d/c' d home on dicloxacillin 500 mg q 6H for 10 days for the mastitisand follow- up with OB in 1 week, which she already has an appointment in 1 week. 01/13/25 1541 Sharmin KENNY PA-C Cosigner Signature (if applicable): CC: ~ Signed [facility] [place]04-08-2025 Consult note Author Nile Ross [facility] Note Date/Time January 14, 2025 11:2 2am [facility] Medical Records Department [address] [place] [address] Anesthesia Postop Eval II 01/13/25 1233 MR#: [id number] Acct: [id number] Name: LLUVIA HOLLINGSWORTH Rep #:[id number] : 1995 29 From: Nile Ross MD PCP: Care Physician,No Primary Status :ADM FARTUN Y Race: C Location: [address] Anesthesia Postop Eval I Sum Postop Eval Completion status Anesthesia document: Postop Eval 1 completed: Yes Anesthesia Postop Eval I Summary Anesthesia Postop Eval I Summary: Anesthesia Postop Eval I: Assessment Summary Airway patent Yes 01/13/25 06:45 PLANT FACILITIES TECHNICIAN.MDOT Spontaneous unlabored Yes 01/13/25 06:45 PLANT FACILITIES TECHNICIAN.MDOT respirations Mental status Awake,Calm 01/13/25 06:45 PLANT FACILITIES TECHNICIAN.MDOT nausea No 01/13/25 06:45 PLANT FACILITIES TECHNICIAN.MDOT Vomiting No 01/13/25 06:45 PLANT FACILITIES TECHNICIAN.MDOT Anesthesia Postop Eval I: Fluid Summary Crystalloid volume administer 500 01/13/25 06:45 PLANT FACILITIES TECHNICIAN.MDOT (ml) Colloids volume administered ( ml) Blood Product volume administered (ml) Total IV fluid infused 500 01/13/25 06:45 PLANT FACILITIES TECHNICIAN.MDOT Anesthesia Postop Eval I: Summary Notes Anesthesia Complication No 01/13/25 06:45 PLANT FACILITIES TECHNICIAN.MDOT Anesthesia Complication Comment: Post-operative progress note Anesthesia: Postop Eval II Evaluation Mental status: Awake and Calm Pain Level: 1 nausea: No Vomiting: No Complications Anesthesia Complication: No 01/13/25 1233 <Electronically signed by Nile ramos MD> Date _ Nile Ross MD Cosigner Signature: Date CC: ~ Signed [facility] Work Phone: [phone] 171-841804-08-2025 Consult note Author Luis E Villareal [facility] Note Date/Time January 14, 2025 11:2 2am [facility] Medical Records Department [address] [place] [address] Anesthesia Postop Eval I 01/13/2545 MR#: [id number] Acct: [id number] Name: LLUVIA HOLLINGSWORTH Rep #:[id number] : 1995 29 From: Luis E Villareal PCP: Care Physician,No Primary Status :ADM FARTUN Y Race: C Location: [place] [address] Anesthesia: Postop Eval I Current Vital Signs Temperature: 98 F Pulse Rate: 94 Blood Pressure: 110/66 Respiratory Rate: 16 Pulse Ox: 94 Oxygen Delivery Method: Room Air Assessment Airway patent: Yes Spontaneous unlabored respirations: Yes Mental status: Awake and Calm nausea: No Vomiting: No Anesthesia Complication: No Fluid Hydration Crystalloid volume administer (ml): 500 Total IV fluid infused: 500 Progress Note Anesthesia document: Postop Eval 1 completed: Yes 01/13/25 0645 <Electronically signed by Luis E Villareal > Date _ Luis E Villareal Cosigner Signature: Date CC: ~ Signed [facility] Work Phone: [phone]) 753-897004-08-2025 Discharge summary Author Anthony Martin [facility] Note Date/Time January 13, 2025 6:45 am [facility] Medical Records Department [address] [place] [address] Instructions for Home/Discharge Instructions 01/13/25 0644 MR#: [id number] Acct: [id number] Name: LLUVIA HOLLINGSWORTH Rep #:[id number] : 1995 29 From: Anthony baez MD PCP: Care Physician,No Primary Status :ADM FARTUN Discharge Instructions Procedure Appendectomy Diet Discharge Diet: Light diet - advance as tolerated Activity Discharge Activity: May Not Drive (for 2-3 days or while taking narcotic pain medications.) May shower in (days): 1 Lifting Restrictions: 20 lbs for 2 weeks Dressing / Incision Call your doctor if your incision/area has: Continuous Slow Oozing, Sudden Increased Bleeding, Increased Pain/ Swelling, Increased Redness and Foul Smelling Discharge Call your doctor if you observe: Fever of 101 or Higher Suture Line Care: Avoid Pulling/Pushing and Avoid Pinching/Bending Remove Dressing in: 2 days Cleanse incision/area with: Soap & Water Additional Dressing/Incision Instructions:: Keep dressing clean and dry. Changeor remove dressing in 2 days. Leave steri strips for 1 week. May protect with a gauze bandaid. Follow Up Care Please Follow Up With: Anthony Martin MD When: Please call to schedule 2 week follow up appointment. [phone] Test Results: Test results from this visit will be discussed in further detail at your follow- up appointment, if applicable. Discharge Plan Admission Admit Date/Time: 01/12/25 20:33 Attending Provider: Anthony Martin Primary Care Provider: Jovanny Physician,Shana Primary Discharge Orders/Prescriptions Prescriptions: New oxycodone 5 mg Tablet 5 - 10 mg PO Q4H PRN PRN (Reason: Pain Score 4-10) 5 Days Qty: 14 0RF Continued PNV-DHA 27 mg iron-1 mg -300 mg capsule 1 cap PO DAILY Referrals / Follow Up: Care Physician,No Primary [Primary Care Provider] - Disposition Disposition (needs filled in before D/C Order can be placed): Home, Self Care 01/13/25 0645<Electronically signed by Anthony Martin MD>Anthony Martin MD CC: No Primary Care Physician ~ Signed [facility] Work Phone: [phone] 345-623204-08-2025 Consult note Author [facility] Note Date/Time January 13, 2025 6:10 am [facility] Medical Records Department [address] [place] [address] Pre-Anesthesia Evaluation 01/13/25 0601 MR#: [id number] Acct: [id number] Name: LLUVIA HOLLINGSWORTH Rep #:[id number] : 1995 29 From: Nile Ross MD PCP: Care Physician,No Primary Status :ADM FARTUN Y Race: C Location: [place] [address] -1 ASA Classification* ASA Classification ASA Classification: 2 and E Assessment & Plan Anesthesia* Anesthesia Assessment Anesthesia Assessment: Discussed sedation and/or anesthesia options, risks, benefits, and alternatives with patient/parents/legal guardian/POA. Questions invited. The patient/parents/legal guardian/POA seems to understand and agrees to proceedwith anesthesia plan. Reviewed the physical assessment, medical history, allergy history and patient home medications list prior to surgery/procedure/anesthetic and documented any changes. Performed airway and anesthesia risk assessments. Anesthesia Type Anesthesia Type: General History Source History Obtained from:: Patient and Chart Anesthesia Focused Assessment* Temperature: 98.3 F Pulse Rate: 95 Blood Pressure: 104/59 Respiratory Rate: 15 Pulse Ox: 98 Oxygen Delivery Method: Room Air Airway Assessment Mouth opens: >3 cm Mallampati Score: III Teeth Condition: Intact Neck Range of motion (ROM): Full ROM Focused Labs Anesthesia Preop lab: CBC WBC 18.8 K/mm3 (4.4-11.0) H 01/12/25 16: 5 RBC 4.26 M/mm3 (4.2-5.4) 01/12/25 16:30 01/12/25 Hgb 13.1 g/dL (12.0-15.0) 01/12/25 16:30 01/12/25 Hct 39.6 % (37-47) 01/12/25 16:30 01/12/25 Plt Count 307 K/mm3 (150-450) 01/12/25 16:30 01/12/25 CHEMISTRY Potassium 4.2 mmol/L (3.3-5.1) 01/12/25 16:30 01/12/25 Sodium 138 mmol/L (133-145) 01/12/25 16:30 01/12/25 BUN 14 mg/dL (4-19) 01/12/25 16:30 01/12/25 Creatinine 0.68 mg/dL (0.70-1.20) L 01/12/25 16:30 Glucose 99 mg/dL (70-99) 01/12/25 16:30 01/12/25 COAG Tst Clinic Negative 05/17/23 10:01 05/17/23 Pre-Assessment Diagnosis/Proposed Procedure Planned Operative Procedure(s): Laparoscopic appendectomy Anesthesia History 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 When Was Last Pacemaker Check QUESTION #4 FULL TEXT: You/Your Family Experience fever (hyperthermia) with Anesthesia Last Oral Intake Last Oral intake: Last Oral Intake NPO since 00:00 01/13/25 04:08 Meds taken in AM with sips of water? 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 Has anyone observed you stop No 01/12/25 21:32 breathing during sleep? STOP Results Negative 01/12/25 21:32 QUESTION #5 FULL TEXT : Do you snore loudly (louder than talking or can be heard through closed doors)? 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 Specify any problems Hx of Preganancy in last 3 No 01/12/25 21:32 Months Nurse Filling Out Transfusion LATOYACK 01/12/25 21:32 & Questions: Date: 01/12/25 01/12/25 21:32 Time: 21:33 01/12/25 21:32 Patient unable to answer at this time (ie. 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 Hx Now No 01/12/25 21:33 Gestational Age (in weeks): EDC: Hx Hx Para Hx Section SAB Yes 01/12/25 21:33 Active Medications Active Medications: Current Medications Generic Name Dose Route Start Last Admin Trade Name Freq PRN Reason Stop Dose Admin Sodium Chloride 1,000 mls @ 100 mls/hr 01/12/25 20:35 01/12/25 21:54 IV 100 mls/hr .Q10H ANAYA Administration Piperacillin Sod/Tazobactam 50 mls @ 12.5 mls/hr 01/13/25 06:00 Sod 3.375 gm/ Sodium Chloride IV Q8 ANAYA Sodium Chloride 100 mls @ 15 mls/hr 01/12/25 21:28 IV .Q6H40M PRN Saline Flush Sodium Chloride 100 mls @ 15 mls/hr 01/12/25 21:28 IV .Q6H40M PRN Additional IVPB Infusion Ketorolac Tromethamine 15 mg 01/12/25 20:33 01/13/25 04:04 Ketorolac 15 Mg/Ml Vial IV 01/14/25 20:34 15 mg Q8H PRN PRN Administration Pain Score 4-10 Morphine Sulfate 2 - 4 mg 01/12/25 20:33 01/12/25 23:05 Morphine 2 Mg/Ml Syringe IV 2 mg Q2H PRN PRN Administration Pain Score 4-10 Morphine Sulfate 2 - 4 mg 01/12/25 20:46 Morphine 4 Mg/Ml Syringe IV Q2H PRN PRN Pain Score 4-10 Ondansetron HCl 4 mg 01/12/25 20:33 Ondansetron 4 Mg/2 Ml Vial IV Q6H PRN PRN NAUSEA/VOMITING Sodium Chloride 10 - 40 ml 01/12/25 20:33 0.9% Saline Lock 10 Ml Syringe IV UD PRN SALINE FLUSH Sodium Chloride 10 - 40 ml 01/12/25 21:28 0.9% Saline Lock 10 Ml Syringe IV UD PRN SALINE FLUSH PFSH Medical History Contraceptive management Spontaneous vaginal delivery Spontaneous onset of labor Uterine contractions Low-lying placenta in second trimester Supervision of high-risk History of depression Home Medications ?Medication ?Instructions ?Recorded ?Last Taken ?Type multivitamin no.47-iron fum 27 1 cap PO DAILY pergnanc y 04/18/24 11/15/24 History mg-folate no.1 1 mg-dha 300 mg capsule (PNV-DHA) Allergy/AdvReac Type Severity Reaction Status Date / Time No Known Allergies Allergy Verified 12/29/24 15:29 Family History Aunt Ovarian cancer, Onset Age: 45 Maternal Aunt Mother Miscarriage 2 or 3 miscarriages- before and after of pt. Surgical History History of surgery Social History adopted: No household members: significant other and children housing: house number of children: 1 current occupational status: unemployed current occupation: [employer] current occupational exposures/hazards: No pets and animals: Yes (not manage litterbox) pets and animals: cat(s) and dog(s) history of recent travel: [place] ([place]) sexually active: Yes Smoking Status: Current some day smoker tobacco type: e-cigarettes alcohol intake: former details: rarely drinks, special occasions, not while substance use type: does not use well-balanced diet: daily or most days caffeine: No eating out: 1-3 times/week during the past year weight has: remained stable what type of physical activity do you participate in: walking frequency: daily duration: 15-30 minutes/day chriss/baptism: None seatbelt use: always do you feel safe at home: Yes additional social history: J [employer] - Self employed Review of Systems (Anesthesia) ROS Narrative System reviewed and no additional complaints, except as documented. 01/13/25 0610 <Electronically signed by Nile ramos MD> Date _ Nile Ross MD Cosigner Signature: Date CC: ~ Signed [facility] [place] Work Phone: [phone] 329-799904-08-2025 Discharge summary [facility] Medical Records Department [address] [place] [address] Instructions for Home/Discharge Instructions 01/13/25 0644 MR#: [id number] Acct: [id number] Name: LLUVIA HOLLINGSWORTH Rep #:[id number] : 1995 29 From: Anthony baez MD PCP: Care Physician,No Primary Status :ADM FARTUN Discharge Instructions Procedure Appendectomy Diet Discharge Diet: Light diet - advance as tolerated Activity Discharge Activity: May Not Drive (for 2-3 days or while taking narcotic pain medications.) May shower in (days): 1 Lifting Restrictions: 20 lbs for 2 weeks Dressing / Incision Call your doctor if your incision/area has: Continuous Slow Oozing, Sudden Increased Bleeding, Increased Pain/ Swelling, Increased Redness and Foul Smelling Discharge Call your doctor if you observe: Fever of 101 or Higher Suture Line Care: Avoid Pulling/Pushing and Avoid Pinching/Bending Remove Dressing in: 2 days Cleanse incision/area with: Soap & Water Additional Dressing/Incision Instructions:: Keep dressing clean and dry. Changeor remove dressing in 2 days. Leave steri strips for 1 week. May protect with a gauze bandaid. Follow Up Care Please Follow Up With: Anthony Martin MD When: Please call to schedule 2 week follow up appointment. [phone] Test Results: Test results from this visit will be discussed in further detail at your follow- up appointment, if applicable. Discharge Plan Admission Admit Date/Time: 01/12/25 20:33 Attending Provider: Anthony Martin Primary Care Provider: Care Physician,No Primary Discharge Orders/Prescriptions Prescriptions: New oxycodone 5 mg Tablet 5 - 10 mg PO Q4H PRN PRN (Reason: Pain Score 4-10) 5 Days Qty: 14 0RF Continued PNV-DHA 27 mg iron-1 mg -300 mg capsule 1 cap PO DAILY Referrals / Follow Up: Care Physician,No Primary [Primary Care Provider] - Disposition Disposition (needs filled in before D/C Order can be placed): Home, Self Care 01/13/25 0645Anthony Martin MD CC: No Primary Care Physician ~ Signed [facility] [place]04-08-2025 Procedure note [facility] Medical Records Department [address] [place] [address] Operative Report 01/13/25 0641 MR#: [id number] Acct: [id number] Name: LLUVIA HOLLINGSWORTH Rep #:[id number] : 1995 29 From: Anthony baez MD PCP: Care Physician,No Primary Status :ADM FARUTN Location: [place] [address] Operative Report (Standard) Operative Information Date of Procedure: 01/13/25 Pre-Operative Diagnosis: Acute appendicitis Post-Operative Diagnosis: Acute appendicitis Surgery/Procedure Performed: Laparoscopic appendectomy vegetable scullion: No Type of Anesthesia: General/Regional RN Documented Start/Stop Times: Operation Date: 01/13/25 06:20 Case Time Anesthesia Start 01/13/25 06:00 Into Room 01/13/25 06:00 Procedure Start 01/13/25 06:15 Anesthesia End 01/13/25 06:34 Out of Room 01/13/25 06:34 Procedure End 01/13/25 06:34 Procedure Start Time: 06:15 Procedure Stop Time: 06:34 Select all DRAINS/GRAFTS/IMPLANTS that apply: None Estimated Blood Loss: 5 Specimen collected: Yes Description of specimen(s) removed: Appendix Description of surgery: The patient was brought into the operating room and general anesthesia was induced. The left arm was tucked and the abdomen was prepped and draped in usual sterile fashion. A small midline incision was made superior to the umbilicus and deepened to the level of the fascia. The fascia was elevated and incised. The peritoneum was also elevated and incised. A finger sweep was performed and a balloontrocar was placed into the abdomen and inflated. The abdomen was insufflated to 15 mmHg and the camera was inserted and the abdomen was inspected for any injuries upon entering the abdomen. There were none. Thepatient was placed in Trendelenburg position and a 5 mm ports placed in the leftlower quad rant and suprapubic areas under direct visualization. Next using atraumatic bowel graspers the appendix was identified. The appendix was graspedand elevated and Enseal was used to take down the mesoappendix. A stapler was used to come across the base of the appendix. The appendix was then placed inEndo Catch bag and removed through the umbilical incision. The staple line was inspected and found to be hemostatic and intact. The 2 5 mm ports are removed under direct visualization. The balloon trocar was deflated and removed and all the air was removed from the abdomen. The umbilical incision fascia was closed with an 0 Vicryl [id number] suture. The incisions were then irrigated withsaline and dried. Local anesthetic was injected into the incision sites. The skin incisions were then closed with interrupted 4-0 Monocryl suture and Steri-Strips. Bandages were applied and the patient was awoken and taken to PACU in stable condition. Patient tolerated the procedure well. Surgical Findings: Inflamed appendix with purulence wound class III Complications Complications: No Admit VTE Documentation VTE Mechan Device Prophylaxis: SCD's 01/13/25 0643 Cosigner Signature (if applicable): CC: Dr. Anthony Martin MD; No Primary Care Physician~ Signed [facility] [place]04-08-2025 Consult note [facility] Medical Records Department [address] [place] [address] Pre-Anesthesia Evaluation 01/13/25 0601 MR#: [id number] Acct: [id number] Name: LLUVIA HOLLINGSWORTH Rep #:[id number] : 1995 29 From: Nile Ross MD PCP: Care Physician,No Primary Status :ADM FARTUN Y Race: C Location: [facility]3 [id number] -[id number] ASA Classification* ASA Classification ASA Classification: 2 and E Assessment & Plan Anesthesia* Anesthesia Assessment Anesthesia Assessment: Discussed sedation and/or anesthesia options, risks, benefits, and alternatives with patient/parents/legal guardian/POA. Questions invited. The patient/parents/legal guardian/POA seems to understand and agrees to proceedwith anesthesia plan. Reviewed the physical assessment, medical history, allergy history and patient home medications list prior to surgery/procedure/anesthetic and documented any changes. Performed airway and anesthesia risk assessments. Anesthesia Type Anesthesia Type: General History Source History Obtained from:: Patient and Chart Anesthesia Focused Assessment* Temperature: 98.3 F Pulse Rate: 95 Blood Pressure: 104/59 Respiratory Rate: 15 Pulse Ox: 98 Oxygen Delivery Method: Room Air Airway Assessment Mouth opens: >3 cm Mallampati Score: III Teeth Condition: Intact Neck Range of motion (ROM): Full ROM Focused Labs Anesthesia Preop lab: CBC WBC 18.8 K/mm3 (4.4-11.0) H 01/12/25 16: 5 RBC 4.26 M/mm3 (4.2-5.4) 01/12/25 16:30 01/12/25 Hgb 13.1 g/dL (12.0-15.0) 01/12/25 16:30 01/12/25 Hct 39.6 % (37-47) 01/12/25 16:30 01/12/25 Plt Count 307 K/mm3 (150-450) 01/12/25 16:30 01/12/25 CHEMISTRY Potassium 4.2 mmol/L (3.3-5.1) 01/12/25 16:30 01/12/25 Sodium 138 mmol/L (133-145) 01/12/25 16:30 01/12/25 BUN 14 mg/dL (4-19) 01/12/25 16:30 01/12/25 Creatinine 0.68 mg/dL (0.70-1.20) L 01/12/25 16:30 Glucose 99 mg/dL (70-99) 01/12/25 16:30 01/12/25 COAG Tst Clinic Negative 05/17/23 10:01 05/17/23 Pre-Assessment Diagnosis/Proposed Procedure Planned Operative Procedure(s): Laparoscopic appendectomy Anesthesia History 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 When Was Last Pacemaker Check QUESTION #4 FULL TEXT: You/Your Family Experience fever (hyperthermia) with Anesthesia Last Oral Intake Last Oral intake: Last Oral Intake NPO since 00:00 01/13/25 04:08 Meds taken in AM with sips of water? 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 Has anyone observed you stop No 01/12/25 21:32 breathing during sleep? STOP Results Negative 01/12/25 21:32 QUESTION #5 FULL TEXT : Do you snore loudly (louder than talking or can be heard through closeddoors)? 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 Specify any problems Hx of Preganancy in last 3 No 01/12/25 21:32 Months Nurse Filling Out Transfusion DREDICK 01/12/25 21:32 & Questions: Date: 01/12/25 01/12/25 21:32 Time: 21:33 01/12/25 21:32 Patient unable to answer at this time (ie. 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 Hx Now No 01/12/25 21:33 Gestational Age (in weeks): EDC: Hx Hx Para Hx Section SAB Yes 01/12/25 21:33 Active Medications Active Medications: Current Medications Generic Name Dose Route Start Last Admin Trade Name Freq PRN Reason Stop Dose Admin Sodium Chloride 1,000 mls @ 100 mls/hr 01/12/25 20:35 01/12/25 21:54 IV 100 mls/hr .Q10H ANAYA Administration Piperacillin Sod/Tazobactam 50 mls @ 12.5 mls/hr 01/13/25 06:00 Sod 3.375 gm/ Sodium Chloride IV Q8 ANAYA Sodium Chloride 100 mls @ 15 mls/hr 01/12/25 21:28 IV .Q6H40M PRN Saline Flush Sodium Chloride 100 mls @ 15 mls/hr 01/12/25 21:28 IV .Q6H40M PRN Additional IVPB Infusion Ketorolac Tromethamine 15 mg 01/12/25 20:33 01/13/25 04:04 Ketorolac 15 Mg/Ml Vial IV 01/14/25 20:34 15 mg Q8H PRN PRN Administration Pain Score 4-10 Morphine Sulfate 2 - 4 mg 01/12/25 20:33 01/12/25 23:05 Morphine 2 Mg/Ml Syringe IV 2 mg Q2H PRN PRN Administration Pain Score 4-10 Morphine Sulfate 2 - 4 mg 01/12/25 20:46 Morphine 4 Mg/Ml Syringe IV Q2H PRN PRN Pain Score 4-10 Ondansetron HCl 4 mg 01/12/25 20:33 Ondansetron 4 Mg/2 Ml Vial IV Q6H PRN PRN NAUSEA/VOMITING Sodium Chloride 10 - 40 ml 01/12/25 20:33 0.9% Saline Lock 10 Ml Syringe IV UD PRN SALINE FLUSH Sodium Chloride 10 - 40 ml 01/12/25 21:28 0.9% Saline Lock 10 Ml Syringe IV UD PRN SALINE FLUSH PFSH Medical History Contraceptive management Spontaneous vaginal delivery Spontaneous onset of labor Uterine contractions Low-lying placenta in second trimester Supervision of high-risk History of depression Home Medications ?Medication ?Instructions ?Recorded ?Last Taken ?Type multivitamin no.47-iron fum 27 1 cap PO DAILY pergnanc y 04/18/24 11/15/24 History mg-folate no.1 1 mg-dha 300 mg capsule (PNV-DHA) Allergy/AdvReac Type Severity Reaction Status Date / Time No Known Allergies Allergy Verified 12/29/24 15:29 Family History Aunt Ovarian cancer, Onset Age: 45 Maternal Aunt Mother Miscarriage 2 or 3 miscarriages- before and after of pt. Surgical History History of surgery Social History adopted: No household members: significant other and children housing: house number of children: 1 current occupational status: unemployed current occupation: [employer] current occupational exposures/hazards: No pets and animals: Yes (not manage litterbox) pets and animals: cat(s) and dog(s) history of recent travel: [place] ([place]) sexually active: Yes Smoking Status: Current some day smoker tobacco type: e-cigarettes alcohol intake: former details: rarely drinks, special occasions, not while substance use type: does not use well-balanced diet: daily or most days caffeine: No eating out: 1-3 times/week during the past year weight has: remained stable what type of physical activity do you participate in: walking frequency: daily duration: 15-30 minutes/day chriss/baptism: None seatbelt use: always do you feel safe at home: Yes additional social history: [employer] - Self employed Review of Systems (Anesthesia) ROS Narrative System reviewed and no additional complaints, except as documented. 01/13/25 0610 rachel MARIE> Date _ Nile Nascimento Signature: Date CC: ~ Signed [facility] [place]04-08-2025 Discharge summary Author Mookie Carmen [facility] Note Date/Time January 12, 2025 10:2 8pm [facility] Medical Records Department [address] [place] [address] Emergency Department Summary 01/12/25 MR#: [id number] Acct: [id number] Name: LLUVIA HOLLINGSWORTH Rep #:[id number] : 1995 29 From: Mookie Samuels PCP: Care Physician,No Primary Status :ADM FARTUN Location: [address] History of Present Illness Chief Complaint: Back [facility] Medical History Contraceptive management Spontaneous vaginal delivery Spontaneous onset of labor Uterine contractions Low-lying placenta in second trimester Supervision of high-risk History of depression Home Medications ?Medication ?Instructions ?Recorded ?Last Taken ?Type multivitamin no.47-iron fum 27 1 cap PO DAILY pergnanc y 04/18/24 11/15/24 History mg-folate no.1 1 mg-dha 300 mg capsule (PNV-DHA) Allergy/AdvReac Type Severity Reaction Status Date / Time No Known Allergies Allergy Verified 12/29/24 15:29 Family History Aunt Ovarian cancer, Onset Age: 45 Maternal Aunt Mother Miscarriage 2 or 3 miscarriages- before and after of pt. Surgical History History of surgery Social History adopted: No household members: significant other and children housing: house number of children: 1 current occupational status: unemployed current occupation: [employer] current occupational exposures/hazards: No pets and animals: Yes (not manage litterbox) pets and animals: cat(s) and dog(s) history of recent travel: [place] ([place]) sexually active: Yes Smoking Status: Current some day smoker tobacco type: e-cigarettes alcohol intake: former details: rarely drinks, special occasions, not while substance use type: does not use well-balanced diet: daily or most days caffeine: No eating out: 1-3 times/week during the past year weight has: remained stable what type of physical activity do you participate in: walking frequency: daily duration: 15-30 minutes/day chriss/baptism: None seatbelt use: always do you feel safe at home: Yes additional social history: J [employer] - Self employed EXAM Physical Exam Const Vital Signs: 01/12/25 15:52 01/12/25 15:53 01/12/25 17:23 Temperature 97.4 F L 97.4 F L Temperature Source Oral Temporal Pulse Rate 101 H 103 H Respiratory Rate 19 H 18 Respiratory Effort Normal Non-Labored Respiratory Pattern Normal Blood Pressure 136/80 H 136/80 H Blood Pressure Mean 98 98 Pulse Ox 99 99 Oxygen Delivery Method Room Air Room Air 01/12/25 17:28 01/12/25 19:00 Temperature Temperature Source Pulse Rate 81 Respiratory Rate 16 Respiratory Effort Respiratory Pattern Blood Pressure 100/69 Blood Pressure Mean 79 Pulse Ox 98 96 Oxygen Delivery Method Room Air MDM MDM MDM Narrative Medical decision making narrative: HISTORY OF PRESENT ILLNESS: Chief complaint: Back pain 29-year-old female G3, P2 presents with multiple complaints. She states the reason she presents to the ED was because she was concerned about lower abdominal pain began this morning. No she still has her appendix. Notes nausea. No severe pain in the right lower quadrant. Normal bowel movements. Normal urinary habits. No history of kidney stones. She is currently 8 weeks REVIEW OF SYSTEMS: Pertinent positives: Abdominal pain, left breast pain Pertinent negatives: Vomiting, vaginal bleeding PHYSICAL EXAM: Nursing triage notes reviewed, Vital signs reviewed Constitutional: please see [facility] HENT: MMM Eyes: Pupils equal round and reactive to light, Extraocular muscles intact Neck: No stridor, no JVD, full neck ROM Lungs: Clear to auscultation, No wheezing or rales. No increased work of breathing, no conversational dyspnea, no accessory muscle use, no nasal flaring. No respiratory distress noted Heart: Regular rate and rhythm, No murmurs, No rubs and No gallops, 2+ distal pulses (radial, femoral, posterior tibial) in all extremities Breast: Performed with Chetna JIN present showed signs of left breast redness, mastitis, no palpable abscess noted. Abdomen: Soft, right lower quadrant TTP but no rigidity, rebound or guarding, noobvious peritoneal signs, no palpable pulsatile abdominal masses, no auscultatedabdominal bruit : No CVAT Extremities: No edema Neuro: No new focal neurological deficits, cranial nerves II through XII intact,5/5 strength in all present extremities. Intact sensation to light touch in all present extremities, 2+ reflexes bilateral patella tendons. Skin: No rash or lesions noted MEDICAL DECISION MAKING: Chief Complaint: please see HPI External records reviewed: Reviewed prior imaging studies, allergies Factors affecting care: none Social determinants of health: none History obtained from others: none Consults: General Surgery (Dr. Martin) [facility] Narrative: The patient was initially hemodynamically stable, afebrile saturating 99% on room air. Exam with right lower quadrant TTP. Left breast consistent with mastitis. Cannot palpate an obvious abscess. Initially treat the patient 1 L normal saline, 4 mg IV Zofran and 15 mg IV Toradol. I considered the following differential diagnosis: AAA, small bowel obstruction, abdominal perforation, appendicitis, pancreatitis, hepatobiliary pathology (acute cholecystitis), mesenteric ischemia, pathology (ie nephrolithiasis, pyelonephritis). ALL IMAGES (IF OBTAINED) HAVE BEEN PERSONALLY REVIEWED AND INTERPRETED BY MYSELF. CBC with leukocytosis suggestive of systemic summation, no anemia or thrombocytopenia noted BMP without evidence of significant electrolyte abnormalities, no anion gap, no acute kidney injury. LFTs with mild elevation alk phos and ALT, no evidence of hyperbilirubinemia Lipase is wnl indicating no pancreatic inflammation. Urine has Urinalysis shows no evidence of urinary inflammation suggestive of UTI CT scan of the abdomen pelvis with IV contrast showed evidence of acute appendicitis Urine test negative The synthesis of the patient's history, physical exam, labs images suggest likely acute appendicitis as well as mastitis. Patient was given Zosyn for antimicrobial prophylaxis for appendicitis and vancomycin for antimicrobial prophylaxis for mastitis. I discussed the case with general surgery Dr. Martin to recommend admitting to his service to await prompt operation in the a.m. Patient was admitted in stable condition. The patient and/or family, caregivers express understanding. The patient and/orfamily, caregivers agrees with the plan. Shared decision making: I will have a discussion with the patient and or visitors regarding risk/benefits of further testing or admission. They will be made aware of of the risk/benefits inherent in this decision they will be given the opportunity to voice understanding. Total critical care time today provided was at least 0 minutes. This excludes separately billable procedures. Critical care time (if documented) is secondary to the patient having high probability of clinically significant/life threatening deterioration in the patient's condition which required my urgent intervention. Impression: 1. Acute abdominal pain 2. Acute appendicitis 3. Mastitis Dispo: Discharge This note was generated with [employer] dictation software. It may contain incorrectwords, spelling, and punctuation that were not noted in review of the chart prior to signing. Lab Data Labs: Laboratory Results - last 24 hr 01/12/25 01/12/25 16:30 17:35 WBC 18.8 H RBC 4.26 Hgb 13.1 Hct 39.6 MCV 93.0 MCH 30.8 MCHC 33.1 RDW Std Deviation 43.0 RDW Coeff of Eli 12.5 Plt Count 307 MPV 9.9 Immature Gran % (Auto) 0.600 Neut % (Auto) 82.1 H Lymph % (Auto) 8.6 L [place] % (Auto) 7.0 Eos % (Auto) 1.4 Baso % (Auto) 0.3 Absolute Neuts (auto) 15.4 H Absolute Lymphs (auto) 1.61 Nucleated RBC % 0 Sodium 138 Potassium 4.2 Chloride 104 Carbon Dioxide 20.7 L Anion Gap 14 BUN 14 Creatinine 0.68 L Estim Creat Clear Calc 134.83 Est GFR (MDRD) Non-Af 122 BUN/Creatinine Ratio 21.3 H Glucose 99 Calcium 9.3 Total Bilirubin 0.46 AST 23 ALT 38 H Alkaline Phosphatase 152 H Total Protein 7.6 Albumin 4.3 Globulin 3.3 Albumin/Globulin Ratio 1.3 Lipase 21 Serum , Qual NEGATIVE Urine Color Yellow Urine Clarity Clear Urine pH 7.0 Ur Specific [place] 1.010 Urine Protein 15 H Urine Glucose (UA) Normal Urine Ketones Negative Urine Occult Blood 10 H Urine Nitrite Negative Urine Bilirubin Negative Urine Urobilinogen Normal Ur Leukocyte Esterase Negative Urine RBC 0 SEEN Urine WBC 0 SEEN Ur Squamous Epith Cells 0-5 SEEN Urine Bacteria RARE Urine Mucus 0 SEEN Radiography Diagnostic Testing: Clinical Impression(s) from Imaging Studies Abdomen/Pelvis CT 01/12/25 17:58 IMPRESSION: Mildly dilated appendix with wall thickening mild hyperemia surrounding soft tissue stranding, concerning for acute appendicitis. Hepatomegaly and a 12 mm right hepatic lobe slightly enhancing lesion. Differential considerations include hemangioma, adenoma versus FNH. Recommend further evaluation with MRI of the liver with contrast. Reading Location: [facility] Discharge Plan Disposition Disposition: Acute Care Hospital [facility] Discharge Date/Time: 01/12/25 20:59 What to do if you have Problems For any increased pain, shortness of breath, bleeding, nausea or vomiting, chestpain, or any unexpected problems, contact your Primary Care Provider. Call [facility] ([phone]) or report to the closest Emergency Room. Call 911 if necessary. 01/12/252227 <Electronically signed by Mookie Morales DO> Cosigner Signature (if applicable): CC: No Primary Care Physician ~ Signed [facility] Work Phone: [phone]) 776-255804-07-2025 History and physical note Author Anthony Martin [facility] Note Date/Time January 12, 2025 8:33 pm [facility] Medical Records Department [address] [place] [address] H&P Exam - Surgical 01/12/252030 MR#: [id number] Acct: [id number] Name: DARRICKLLUVIA TEENA Rep #:[id number] : 1995 29 From: Anthony baez MD PCP: Care Physician,No Primary Status :REG ER Location: ED HPI - General HPI Narrative LLUVIA HOLLINGSWORTH, is a 29 F who presents with lower abdominal pain. Patient says that yesterday she was feeling like she had the chills and then she was feeling little bit better but then this morning she started having severe pain. She hasthe pain is in the lower abdomen area. She denies nausea or vomiting. She denies fever. [facility] Medical History (Updated 01/12/25 @ 20:[address] Anthony Martin MD) Contraceptive management Spontaneous vaginal delivery Spontaneous onset of labor Uterine contractions Low-lying placenta in second trimester Supervision of high-risk History of depression Home Medications ?Medication ?Instructions ?Recorded ?Last Taken ?Type multivitamin no.47-iron fum 27 1 cap PO DAILY pergnanc y 04/18/24 11/15/24 History mg-folate no.1 1 mg-dha 300 mg capsule (PNV-DHA) Allergy/AdvReac Type Severity Reaction Status Date / Time No Known Allergies Allergy Verified 12/29/24 15:29 Family History Aunt Ovarian cancer, Onset Age: 45 Maternal Aunt Mother Miscarriage 2 or 3 miscarriages- before and after of pt. Surgical History History of surgery Social History adopted: No household members: significant other and children housing: house number of children: 1 current occupational status: unemployed current occupation: [employer] current occupational exposures/hazards: No pets and animals: Yes (not manage litterbox) pets and animals: cat(s) and dog(s) history of recent travel: No ([place]) sexually active: Yes Smoking Status: Current some day smoker tobacco type: e-cigarettes alcohol intake: former details: rarely drinks, special occasions, not while substance use type: does not use well-balanced diet: daily or most days caffeine: No eating out: 1-3 times/week during the past year weight has: remained stable what type of physical activity do you participate in: walking frequency: daily duration: 15-30 minutes/day chriss/baptism: None seatbelt use: always do you feel safe at home: Yes additional social history: [employer] - Self employed Vital Signs Vital Signs Vital Signs: 01/12/25 15:52 01/12/25 15:53 01/12/25 17:23 Temperature 97.4 F L 97.4 F L Temperature Source Oral Temporal Pulse Rate 101 H 103 H Respiratory Rate 19 H 18 Respiratory Effort Normal Non-Labored Respiratory Pattern Normal Blood Pressure 136/80 H 136/80 H Blood Pressure Mean 98 98 Pulse Ox 99 99 Oxygen Delivery Method Room Air Room Air 01/12/25 17:28 01/12/25 19:00 Temperature Temperature Source Pulse Rate 81 Respiratory Rate 16 Respiratory Effort Respiratory Pattern Blood Pressure 100/69 Blood Pressure Mean 79 Pulse Ox 98 96 Oxygen Delivery Method Room Air Weight Weight: 201 lb 4.8 oz Body Mass Index (BMI) 34.5 Physical Exam Const oriented x3 and no apparent distress Resp normal respiratory effort Cardio regular rate and regular rhythm GI soft to palpation Palpation: tender RLQ and suprapubic Extremity normal to inspection Results Lab / Micro Data 01/12/25 16:30 01/12/25 16:30 Labs: Laboratory Results - last 24 hr 01/12/25 16:30: WBC 18.8 H, RBC 4.26, Hgb 13.1, Hct 39.6, MCV 93.0, MCH 30.8, MCHC 33.1, RDW Std Deviation 43.0, RDW Coeff of Eli 12.5, Plt Count 307, MPV 9.9, Immature Gran % (Auto) 0.600, Neut % (Auto) 82.1 H, Lymph % (Auto) 8.6 L, [place] % (Auto) 7.0, Eos % (Auto) 1.4, Baso % (Auto) 0.3, Absolute Neuts (auto) 15.4 H, Absolute Lymphs (auto) 1.61, Nucleated RBC % 0, Sodium 138, Potassium 4.2, Chloride 104, Carbon Dioxide 20.7 L, Anion Gap 14, BUN 14, Creatinine 0.68 L, Estim Creat Clear Calc 134.83, Est GFR (MDRD) Non-Af 122, BUN/Creatinine Ratio 21.3 H, Glucose 99, Calcium 9.3, Total Bilirubin 0.46, AST 23, ALT 38 H, Alkaline Phosphatase 152 H, Total Protein 7.6, Albumin 4.3, Globulin 3.3, Albumin/Globulin Ratio 1.3, Lipase 21, Serum , Qual NEGATIVE 01/12/25 17:35: Urine Color Yellow, Urine Clarity Clear, Urine pH 7.0, Ur Specific [place] 1.010, Urine Protein 15 H, Urine Glucose (UA) Normal, Urine Ketones Negative, Urine Occult Blood 10 H, Urine Nitrite Negative, Urine Bilirubin Negative, Urine Urobilinogen Normal, Ur Leukocyte Esterase Negative, Urine RBC 0 SEEN, Urine WBC 0 SEEN, Ur Squamous Epith Cells 0-5 SEEN, Urine Bacteria RARE, Urine Mucus 0 SEEN Imaging Radiology Impression Abdomen/Pelvis CT 01/12/25 17:58 IMPRESSION: Mildly dilated appendix with wall thickening mild hyperemia surrounding soft tissue stranding, concerning for acute appendicitis. Hepatomegaly and a 12 mm right hepatic lobe slightly enhancing lesion. Differential considerations include hemangioma, adenoma versus FNH. Recommend further evaluation with MRI of the liver with contrast. Reading Location: [facility] Assessment & Plan Assessment/Plan (1) Acute appendicitis: PLAN: The patient a CT scan which showed acute appendicitis. The patient has a white count and right lower quadrant pain as well as chills. I discussed performing a laparoscopic appendectomy in the morning. The patient understands the risks. I discussed the risks of bleeding, infection, injury other organs such as the bowel, bladder, ureter. Patient understands all the risks and is willing to proceed. Patient will be given antibiotics and admitted to the flooruntil surgery in the morning. Anthony Martin MD Pager: [facility] [address] [place] [address], [address] [place] [address] Office: 01/12/252032 <Electronically signed by Anthony Martin MD> Cosigner Signature (if applicable): CC: Dr. Anthony Martin MD; No Primary Care Physician~ Signed [facility] Work Phone: [phone] 517-413004-07-2025 Discharge summary [facility] Medical Records Department [address] [place] [address] Emergency Department Summary 01/12/25 MR#: [id number] Acct: [id number] Name: LLUVIA HOLLINGSWORTH Rep #:[id number] : 1995 29 From: Mookie Samuels PCP: Care Physician,No Primary Status :ADM [facility]ART[facility] Location: [address] History of Present Illness Chief Complaint: Back PFSH PFS Medical History Contraceptive management Spontaneous vaginal delivery Spontaneous onset of labor Uterine contractions Low-lying placenta in second trimester Supervision of high-risk History of depression Home Medications ?Medication ?Instructions ?Recorded ?Last Taken ?Type multivitamin no.47-iron fum 27 1 cap PO DAILY pergnanc y 04/18/24 11/15/24 History mg-folate no.1 1 mg-dha 300 mg capsule (PNV-DHA) Allergy/AdvReac Type Severity Reaction Status Date / Time No Known Allergies Allergy Verified 12/29/24 15:29 Family History Aunt Ovarian cancer, Onset Age: 45 Maternal Aunt Mother Miscarriage 2 or 3 miscarriages- before and after of pt. Surgical History History of surgery Social History adopted: No household members: significant other and children housing: house number of children: 1 current occupational status: unemployed current occupation: [employer] current occupational exposures/hazards: No pets and animals: Yes (not manage litterbox) pets and animals: cat(s) and dog(s) history of recent travel: No ([place]) sexually active: Yes Smoking Status: Current some day smoker tobacco type: e-cigarettes alcohol intake: former details: rarely drinks, special occasions, not while substance use type: does not use well-balanced diet: daily or most days caffeine: No eating out: 1-3 times/week during the past year weight has: remained stable what type of physical activity do you participate in: walking frequency: daily duration: 15-30 minutes/day chriss/baptism: None seatbelt use: always do you feel safe at home: Yes additional social history: [employer] - Self employed EXAM Physical Exam Const Vital Signs: 01/12/25 15:52 01/12/25 15:53 01/12/25 17:23 Temperature 97.4 F L 97.4 F L Temperature Source Oral Temporal Pulse Rate 101 H 103 H Respiratory Rate 19 H 18 Respiratory Effort Normal Non-Labored Respiratory Pattern Normal Blood Pressure 136/80 H 136/80 H Blood Pressure Mean 98 98 Pulse Ox 99 99 Oxygen Delivery Method Room Air Room Air 01/12/25 17:28 01/12/25 19:00 Temperature Temperature Source Pulse Rate 81 Respiratory Rate 16 Respiratory Effort Respiratory Pattern Blood Pressure 100/69 Blood Pressure Mean 79 Pulse Ox 98 96 Oxygen Delivery Method Room Air MDM MDM MDM Narrative Medical decision making narrative: HISTORY OF PRESENT ILLNESS: Chief complaint: Back pain 29-year-old female G3, P2 presents with multiple complaints. She states the reason she presents to the ED was because she was concerned about lower abdominal pain began this morning. No she still hasher appendix. Notes nausea. No severe pain in the right lower quadrant. Normal bowel movements. Normal urinary habits. No history of kidney stones. She is currently 8 weeks REVIEW OF SYSTEMS: Pertinent positives: Abdominal pain, left breast pain Pertinent negatives: Vomiting, vaginal bleeding PHYSICAL EXAM: Nursing triage notes reviewed, Vital signs reviewed Constitutional: please see mdm HENT: MMM Eyes: Pupils equal round and reactive to light, Extraocular muscles intact Neck: No stridor, no JVD, full neck ROM Lungs: Clear to auscultation, No wheezing or rales. No increased work of breathing, no conversational dyspnea, no accessory muscle use, no nasal flaring. No respiratory distress noted Heart: Regular rate and rhythm, No murmurs, No rubs and No gallops, 2+ distal pulses (radial, femoral, posterior tibial) in all extremities Breast: Performed with Chetna JIN present showed signs of left breast redness, mastitis, no palpable abscess noted. Abdomen: Soft, right lower quadrant TTP but no rigidity, rebound or guarding, noobvious peritoneal signs, no palpable pulsatile abdominal masses, no auscultatedabdominal bruit : No CVAT Extremities: No edema Neuro: No new focal neurological deficits, cranial nerves II through XII intact,5/5 strength in allpresent extremities. Intact sensation to light touch in all present extremities, 2+ reflexes bilateral patella tendons. Skin: No rash or lesions noted MEDICAL DECISION MAKING: Chief Complaint: please see HPI External records reviewed: Reviewed prior imaging studies, allergies Factors affecting care: none Social determinants of health: none History obtained from others: none Consults: General Surgery (Dr. Martin) MDM Narrative: The patient was initially hemodynamically stable, afebrile saturating 99% on room air. Exam with right lower quadrant TTP. Left breast consistent with mastitis. Cannot palpate an obvious abscess. Initially treat the patient 1 L normal saline, 4 mg IV Zofran and 15 mg IV Toradol. I considered the following differential diagnosis: AAA, small bowel obstruction, abdominal perforation, appendicitis, pancreatitis, hepatobiliary pathology (acute cholecystitis), mesenteric ischemia, pathology (ie nephrolithiasis, pyelonephritis). ALL IMAGES (IF OBTAINED) HAVE BEEN PERSONALLY REVIEWED AND INTERPRETED BY MYSELF. CBC with leukocytosis suggestive of systemic summation, no anemia or thrombocytopenia noted BMP without evidence of significant electrolyte abnormalities, no anion gap, no acute kidney injury. LFTs with mild elevation alk phos and ALT, no evidence of hyperbilirubinemia Lipase is wnl indicating no pancreatic inflammation. Urine has Urinalysis shows no evidence of urinary inflammation suggestive of UTI CT scan of the abdomen pelvis with IV contrast showed evidence of acute appendicitis Urine test negative The synthesis of the patient's history, physical exam, labs images suggest likely acute appendicitis as well as mastitis. Patient was given Zosyn for antimicrobial prophylaxis for appendicitis and vancomycin for antimicrobial prophylaxis for mastitis. I discussed the case with general surgery Dr. Kenna hardy to recommend admitting to his service to await prompt operation in the a.m. Patient was admitted in stable condition. The patient and/or family, caregivers express understanding. The patient and/orfamily, caregivers agrees with the plan. Shared decision making: I will have a discussion with the patient and or visitors regarding risk/benefits of further testing or admission. They will be made aware of of the risk/benefits inherent in this decision they will be given the opportunity to voice understanding. Total critical care time today provided was at least 0 minutes. This excludes separately billable procedures. Critical care time (if documented) is secondary to the patient having high probability ofclinically significant/life threatening deterioration in the patient's condition which required my urgent intervention. Impression: 1. Acute abdominal pain 2. Acute appendicitis 3. Mastitis Dispo: Discharge This note was generated with [employer] software. It may contain incorrectwords, spelling, and punctuation that were not noted in review of the chart prior to signing. Lab Data Labs: Laboratory Results - last 24 hr 01/12/25 01/12/25 16:30 17:35 WBC 18.8 H RBC 4.26 Hgb 13.1 Hct 39.6 MCV 93.0 MCH 30.8 MCHC 33.1 RDW Std Deviation 43.0 RDW Coeff of Eli 12.5 Plt Count 307 MPV 9.9 Immature Gran % (Auto) 0.600 Neut % (Auto) 82.1 H Lymph % (Auto) 8.6 L [place] % (Auto) 7.0 Eos % (Auto) 1.4 Baso % (Auto) 0.3 Absolute Neuts (auto) 15.4 H Absolute Lymphs (auto) 1.61 Nucleated RBC % 0 Sodium 138 Potassium 4.2 Chloride 104 Carbon Dioxide 20.7 L Anion Gap 14 BUN 14 Creatinine 0.68 L Estim Creat Clear Calc 134.83 Est GFR (MDRD) Non-Af 122 BUN/Creatinine Ratio 21.3 H Glucose 99 Calcium 9.3 Total Bilirubin 0.46 AST 23 ALT 38 H Alkaline Phosphatase 152 H Total Protein 7.6 Albumin 4.3 Globulin 3.3 Albumin/Globulin Ratio 1.3 Lipase 21 Serum , Qual NEGATIVE Urine Color Yellow Urine Clarity Clear Urine pH 7.0 Ur Specific [place] 1.010 Urine Protein 15 H Urine Glucose (UA) Normal Urine Ketones Negative Urine Occult Blood 10 H Urine Nitrite Negative Urine Bilirubin Negative Urine Urobilinogen Normal Ur Leukocyte Esterase Negative Urine RBC 0 SEEN Urine WBC 0 SEEN Ur Squamous Epith Cells 0-5 SEEN Urine Bacteria RARE Urine Mucus 0 SEEN Radiography Diagnostic Testing: Clinical Impression(s) from Imaging Studies Abdomen/Pelvis CT 01/12/25 17:58 IMPRESSION: Mildly dilated appendix with wall thickening mild hyperemia surrounding soft tissue stranding, concerning for acute appendicitis. Hepatomegaly and a 12 mm right hepatic lobe slightly enhancing lesion. Differential considerations include hemangioma, adenoma versus FNH. Recommend further evaluation with MRI of the liver with contrast. Reading Location: [facility] Discharge Plan Disposition Disposition: Acute Care Hospital [facility] Discharge Date/Time: 01/12/25 20:59 What to do if you have Problems For any increased pain, shortness of breath, bleeding, nausea or vomiting, chestpain, or any unexpected problems, contact your Primary Care Provider. Call [facility] ([phone]) or report tothe closest Emergency Room. Call 911 if necessary. 01/12/252227 Cosigner Signature (if applicable): CC: No Primary Care Physician ~ Signed [facility]04-07-2025 History and physical note [facility] Medical Records Department [address] [place] [address] H&P Exam - Surgical 01/12/252030 MR#: [id number] Acct: [id number] Name: LLUVIA HOLLINGSWORTH Rep #:[id number] : 1995 29 From: Anthony baez MD PCP: Care Physician,No Primary Status :REG ER Location: ED HPI - General HPI Narrative LLUVIA HOLLINGSWORTH, is a 29 F who presents with lower abdominal pain. Patient says that yesterday she was feeling like she had the chills and then she was feeling little bit better but then this morning she started having severe pain. She hasthe pain is in the lower abdomen area. She denies nausea or vomiting. She denies fever. [facility] Medical History (Updated 01/12/25 @ 20:[address] Anthony Martin MD) Contraceptive management Spontaneous vaginal delivery Spontaneous onset of labor Uterine contractions Low-lying placenta in second trimester Supervision of high-risk History of depression Home Medications ?Medication ?Instructions ?Recorded ?Last Taken ?Type multivitamin no.47-iron fum 27 1 cap PO DAILY pergnanc y 04/18/24 11/15/24 History mg-folate no.1 1 mg-dha 300 mg capsule (PNV-DHA) Allergy/AdvReac Type Severity Reaction Status Date / Time No Known Allergies Allergy Verified 12/29/24 15:29 Family History Aunt Ovarian cancer, Onset Age: 45 Maternal Aunt Mother Miscarriage 2 or 3 miscarriages- before and after of pt. Surgical History History of surgery Social History adopted: No household members: significant other and children housing: house number of children: 1 current occupational status: unemployed current occupation: [employer] current occupational exposures/hazards: No pets and animals: Yes (not manage litterbox) pets and animals: cat(s) and dog(s) history of recent travel: No ([place]) sexually active: Yes Smoking Status: Current some day smoker tobacco type: e-cigarettes alcohol intake: former details: rarely drinks, special occasions, not while substance use type: does not use well-balanced diet: daily or most days caffeine: No eating out: 1-3 times/week during the past year weight has: remained stable what type of physical activity do you participate in: walking frequency: daily duration: 15-30 minutes/day chriss/baptism: None seatbelt use: always do you feel safe at home: Yes additional social history: [employer] - Self employed Vital Signs Vital Signs Vital Signs: 01/12/25 15:52 01/12/25 15:53 01/12/25 17:23 Temperature 97.4 F L 97.4 F L Temperature Source Oral Temporal Pulse Rate 101 H 103 H Respiratory Rate 19 H 18 Respiratory Effort Normal Non-Labored Respiratory Pattern Normal Blood Pressure 136/80 H 136/80 H Blood Pressure Mean 98 98 Pulse Ox 99 99 Oxygen Delivery Method Room Air Room Air 01/12/25 17:28 01/12/25 19:00 Temperature Temperature Source Pulse Rate 81 Respiratory Rate 16 Respiratory Effort Respiratory Pattern Blood Pressure 100/69 Blood Pressure Mean 79 Pulse Ox 98 96 Oxygen Delivery Method Room Air Weight Weight: 201 lb 4.8 oz Body Mass Index (BMI) 34.5 Physical Exam Const oriented x3 and no apparent distress Resp normal respiratory effort Cardio regular rate and regular rhythm GI soft to palpation Palpation: tender RLQ and suprapubic Extremity normal to inspection Results Lab / Micro Data 01/12/25 16:30 01/12/25 16:30 Labs: Laboratory Results - last 24 hr 01/12/25 16:30: WBC 18.8 H, RBC 4.26, Hgb 13.1, Hct 39.6, MCV 93.0, MCH 30.8, MCHC 33.1, RDW Std Deviation 43.0, RDW Coeff of Eli 12.5, Plt Count 307, MPV 9.9, Immature Gran % (Auto) 0.600, Neut % (Auto) 82.1 H, Lymph % (Auto) 8.6 L, [place] % (Auto) 7.0, Eos % (Auto) 1.4, Baso % (Auto) 0.3, Absolute Neuts (auto) 15.4 H, Absolute Lymphs (auto) 1.61, Nucleated RBC % 0, Sodium 138, Potassium 4.2, Chloride 104, Carbon Dioxide 20.7 L, Anion Gap 14, BUN 14, Creatinine 0.68 L, Estim Creat Clear Calc 134.83, Est GFR (MDRD) Non-Af 122, BUN/Creatinine Ratio 21.3 H, Glucose 99, Calcium 9.3, Total Bilirubin 0.46, AST 23, ALT 38 H, Alkaline Phosphatase 152 H, Total Protein 7.6, Albumin 4.3, Globulin 3.3, A lbumin/Globulin Ratio 1.3, Lipase 21, Serum , Qual NEGATIVE 01/12/25 17:35: Urine Color Yellow, Urine Clarity Clear, Urine pH 7.0, Ur Specific [place] 1.010, Urine Protein 15 H, Urine Glucose (UA) Normal, Urine Ketones Negative, Urine Occult Blood 10 H, UrineNitrite Negative, Urine Bilirubin Negative, Urine Urobilinogen Normal, Ur Leukocyte Esterase Negative, Urine RBC 0 SEEN, Urine WBC 0 SEEN, Ur Squamous Epith Cells 0-5 SEEN, Urine Bacteria RARE, UrineMucus 0 SEEN Imaging Radiology Impression Abdomen/Pelvis CT 01/12/25 17:58 IMPRESSION: Mildly dilated appendix with wall thickening mild hyperemia surrounding soft tissue stranding, concerning for acute appendicitis. Hepatomegaly and a 12 mm right hepatic lobe slightly enhancing lesion. Differential considerations include hemangioma, adenoma versus FNH. Recommend further evaluation with MRI of the liver with contrast. Reading Location: [facility] Assessment & Plan Assessment/Plan (1) Acute appendicitis: PLAN: The patient a CT scan which showed acute appendicitis. The patient has a white count and right lower quadrant pain as well as chills. I discussed performing a laparoscopic appendectomy in the morning. The patient understands the risks. I discussed the risks of bleeding, infection, injury other organs such as the bowel, bladder, ureter. Patient understands all the risks and is willing to proceed. Patient will be given antibiotics and admitted to the flooruntil surgery in the morning. Anthony Martin MD Pager: [facility] [address] [facility] [address] [facility] [address], [address] [place] [address] Office: 01/12/252032 Cosigner Signature (if applicable): CC: Dr. Anthony Martin MD; No Primary Care Physician~ Signed [facility]04-07-2025 Radiology Diagnostic study note [facility] Imaging Services [address] [place] [address] Abdomen/Pelvis W IV Cont ONLY MR#: [id number] Acct: [id number] Name: LLUVIA HOLLINGSWORTH Rep #: [id number] : 1995 F 29 From: Cira Betancourt MD PCP: Care Physician,No Primary Status: REG ER Study:Abdomen/Pelvis W IV Cont ONLY Date of E xam: 01/12/25 Exam# [id number] Ordering Dr: Jakub Morales DO PROCEDURE: ABDOMEN/PELVIS W IV CONT ONLY 01/12/2025 REASON FOR EXAM: RIGHT LOWER QUADRANT ABDOMINAL PAIN TECHNIQUE: Abdomen and pelvis CT with intravenous contrast. Coronal and Sagittal reconstruction series were provided. PATIENT PREPARATION: Per protocol ORAL CONTRAST TYPE: None. AMOUNT: mL CONTRAST: Omnipaque 350 VOLUME: 100 mL Gauge IV One or more dose reduction techniques were used (e.g., Automated exposure control, adjustment of the mA and/or kV according to patient size, use of iterative reconstruction technique. COMPARISON: None FINDINGS: Lung bases: Unremarkable. Liver: Hepatomegaly, craniocaudal length 19.7 cm. Homogeneous attenuation. 12 mm posterior right hepatic lobe slightly enhancing lesion (series 2, image 22).. Gallbladder: No intrahepatic or extrahepatic ductal dilation. Gallbladder is unremarkable. Spleen: Normal size. Pancreas: Normal size without evidence of mass surrounding inflammation or ductal dilation. Adrenals: Unremarkable. Kidneys: Normal renal sizes. No hydronephrosis. Bladder: No abnormal urinary bladder wall thickening. Reproductive Organs: Bilateral adnexal cysts. Small amount of fluid within the endometrial canal. Bowel: Stomach is unremarkable. No bowel dilation. Descending colon and rectosigmoid wall thickening and mild surrounding mesenteric soft tissue stranding, concerning for infectious colitis. Moderate colonic stool. Appendix: Mildly dilated appendix with wall thickening, submucosal hyperemia andsurrounding soft tissue stranding (series 2 images 73-86, series 601 image 56). Findings suggestive of acute appendicitis. Lymph nodes: Unremarkable. Vasculature: The abdominal aorta and IVC are normal. Peritoneum / Retroperitoneum: No pneumoperitoneum. No ascites. Bones: No acute osseous abnormality. CT/Abdomen/Pelvis W IV Cont ONLY IMPRESSION: Mildly dilated appendix with wall thickening mild hyperemia surrounding soft tissue stranding, concerning for acute appendicitis. Hepatomegaly and a 12 mm right hepatic lobe slightly enhancing lesion. Differential considerations include hemangioma, adenoma versus FNH. Recommend further evaluation with MRI of the liver with contrast. Reading Location: [facility] CC: Dr. 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: Signed [facility] [place]01-29-2025 Evaluation note* Diagnosis Onset Date Resolution Status Admit Date History of cardiac anomaly acute November 05, 2024 1:17pm History of depression acute Lio uary 2024 1:17pm LGSIL on Pap smear of cervix acute November 05, 2024 1:17pm Obesity (BMI 30.0-34.9) acute J anuary 2024 1:17pm resolved November 05, 2024 1:17pm Supervision of high-risk resolved November 05 1:17pm Rubella non-immune status, antepartum inactive November 05 1:17pm History of cardiac anomaly acute November 13, 2024 10:51am History of depression acute Feb ruary 2024 10:51am LGSIL on Pap smear of cervix acute November 13, 2024 10:51am Obesity (BMI 30.0-34.9) acute F ebruary 2024 10:51am resolved November 13, 2024 10:51am Supervision of high-risk resolved November 13 10:51am Uterine size date discrepancy resolved November 132024 10:51am Rubella non-immune status, antepartum inactive November 13 10:51am Positive GBS test deleted 2024 10:51am History of cardiac anomaly acute November 16, 2024 7:45am History of depression acute Feb ruary 2024 7:45am LGSIL on Pap smear of cervix acute November 16, 2024 7:45am Obesity (BMI 30.0-34.9) acute F ebruary 2024 7:45am resolved November 16, 2024 7:45am Supervision of high-risk resolved November 16 7:45am Uterine size date discrepancy resolved November 162024 7:45am Rubella non-immune status, antepartum inactive November 16 7:45am Vaginal delivery inactive November 16, 2024 7:45am Positive GBS test deleted 2024 7:45am Routine Follow-Up noneact graciela December 29, 2024 3:20pm Acute appendicitis resolved January 12, 2025 8:33pm LGSIL on Pap smear of cervix acute January 20, 2025 10:13am IUD (intrauterine device) in place noneactive January 20, 2025 10:13am S/P appendectomy acute January 272024 1:17pm IUD check up noneactive March 03 10:49am [facility] Work Phone: 1(543) 870-518612-20-2024 Evaluation note* Diagnosis Onset Date Resolution Status Admit Date History of cardiac anomaly acute September 26, 2024 1:09pm History of depression acute Sep 1:09pm LGSIL on Pap smear of cervix acute September 26, 2024 1:09pm Obesity (BMI 30.0-34.9) acute D ec2023 1:09pm acute September 26, 2024 1:09pm Rubella non-immune status, antepartum acute September 26, 1:09pm Supervision of high-risk acute September 26 1:09pm History of cardiac anomaly acute October 07, 2024 10:44am History of depression acute Dec ember 2023 10:44am LGSIL on Pap smear of cervix acute October 07, 2024 10:44am Obesity (BMI 30.0-34.9) acute D ecember 2023 10:44am acute October 07, 2024 10:44am Rubella non-immune status, antepartum acute October 07 10:44am Supervision of high-risk acute October 07 10:44am History of cardiac anomaly acute October 21, 2024 9:18am History of depression acute Lio [facility] 2024 9:18am LGSIL on Pap smear of cervix acute October 21, 2024 9:18am Obesity (BMI 30.0-34.9) acute J anuary 2024 9:18am acute October 21, 2024 9:18am Rubella non-immune status, antepartum acute October 21 9:18am Supervision of high-risk acute October 21 9:18am History of cardiac anomaly acute November 05, 2024 1:17pm History of depression acute Oct [facility] 2024 1:17pm LGSIL on Pap smear of cervix acute November 05, 2024 1:17pm Obesity (BMI 30.0-34.9) acute J anuary 2024 1:17pm acute November 05, 2024 1:17pm Rubella non-immune status, antepartum acute November 05 1:17pm Supervision of high-risk acute November 05 1:17pm History of cardiac anomaly acute November 13, 2024 10:51am History of depression acute Feb 2024 10:51am LGSIL on Pap smear of cervix acute November 13, 2024 10:51am Obesity (BMI 30.0-34.9) acute F ebruary 2024 10:51am Positive GBS test acute ua2024 10:51am acute November 13, 2024 10:51am Rubella non-immune status, antepartum acute November 13 10:51am Supervision of high-risk acute November 13 10:51am Uterine size date discrepancy resolved November 132024 10:51am History of cardiac anomaly acute November 16, 2024 7:45am History of depression acute Feb ruary 2024 7:45am LGSIL on Pap smear of cervix acute February 9th, 2025 7:45am Obesity (BMI 30.0-34.9) acute F ebruary 2024 7:45am Positive GBS test acute Februar y 2024 7:45am acute November 16, 2024 7:45am Rubella non-immune status, antepartum acute November 16 7:45am Supervision of high-risk acute November 16 7:45am Vaginal delivery acute November 16, 2024 7:45am Uterine size date discrepancy resolved November 162024 7:45am Routine Follow-Up noneact graciela December 29, 2024 3:20pm Acute appendicitis acute January 12, 2025 8:33pm [facility] [place] Work Phone: 1(228) 844-913806-21-2023 NotePap Smear Specimen AdequacyJune 2022 3:32pmComment.Satisfactory for evaluation. Endocervical and/or squamous metaplasticcells (endocervical component)are present.Areas of partially obscuring inflammatory exudate are present.[facility] INTERFACED A#[id number] [facility] on above:Satisfactory for evaluation. Endocervical and/or squamous metaplasticcells (endocervical component)are present.Areas of partially obscuring inflammatory exudate are present.03-28-2023 NotePap Smear Specimen AdequacyJune 2022 3:32pmComment.Satisfactory for evaluation. Endocervical and/or squamous metaplasticcells (endocervical component)are present.Areas of partially obscuring inflammatory exudate are present.[facility] A#[id number] [facility] on above:Satisfactory for evaluation. Endocervical and/or squamous metaplasticcells (endocervical component)are present.Areas of partially obscuring inflammatory exudate are present.02-07-2023 Progress note Author Ken Gómez [facility] [place] February 07, 2023 7:52am Note Date/Time February 07, 2023 7:52am [facility] Medical Records Department [address] [place] [address] Progress Note - OBGYN 02/07/23 0750 MR#: [id number] Acct: [id number] Name: LLUVIA HOLLINGSWORTH Rep #:[id number] : 1995 27 From: Ken Gómez NP BUSINESS CONTINUITY DIRECTOR-C PCP: Care Physician,No Primary Status :ADM IN Location: MU448-6 Subjective Subjective Patient doing well without complaints. Tolerating PO. Ambulating and voiding without difficulty. Feeding well. Denies chest pain, shortness of breath, calf pain/swelling, fevers, chills, lightheadedness. Objective Data Objective Data Vital Signs: Vital Signs Temp Pulse Resp BP Pulse Ox O2 Del Method 98.9 F 80 16 107/60 97 Room Air 02/06/23 19:45 02/07/23 03:45 02/07/23 03:45 02/07/23 03:45 02/06/23 19:45 02/06/23 19:45 Oxygen Delivery Method Room Air Weight: 210 lb Body Mass Index (BMI) 36.0 Intake & Output: Intake and Output for Last 24 Hours 02/05/23 02/06/23 02/07/23 23:59 23:59 23:59 Intake Total 500 / 500 2732.20 / 2732.20 Output Total 1800 / 1800 500 / 500 Balance 500 / 500 932.20 / 932.20 -500 / -500 Lab / Micro Data Result Diagrams: 02/05/23 22:50 Physical Exam Const alert and oriented x3 HEENT normocephalic Eyes PERRL Neck full ROM Resp normal respiratory effort GI soft to palpation GI Narrative: FF below U Assessment & Plan (1) Spontaneous vaginal delivery: COMMENT: KW IAL 38 weeks bottle feeding [place] PLAN: Plan s/p PPD # 1 1. routine post delivery care 2. bottle feeding- support given 3. rh positive 4. rubella immune 02/07/23 0752 <Electronically signed by Ken Gómez NP BUSINESS CONTINUITY DIRECTOR-C> Cosigner Signature (if applicable): CC: ~ Signed [facility] [place] Work Phone: 1(794) 908-970305-02-2023 Discharge summary Author Lizzette Zheng [facility] [place] February 06, 2023 12:48pm Note Date/Time February 06, 2023 12:48p m [facility] [place] [facility] Medical Records Department [address] [place] [address] Instructions for Home/Discharge Instructions 02/06/23 1248 MR#: [id number] Acct: [id number] Name: LLUVIA HOLLINGSWORTH Rep #:[id number] : 1995 27 From: Lizzette Zheng CNM PCP: Jovanny PhysicianShana Primary Status :ADM IN Discharge Instructions Diet Discharge Diet: No restrictions Activity Discharge Activity: Return to Normal Activity May resume sexual activity in: 6-8 weeks Dressing / Incision Call your doctor if you observe: Fever of 101 or Higher, Coldness, Increased Pain, Numbness or Tingling, Change in Color, Inability to urinate, Inability to have a bowel movement, Using more than 1 pad per hour, Shortness of breath, Dizziness, Fainting spells, Swelling in the ankles, Chest pain, Increased palpitations (irregular heartbeat), Calf discomfort and Uncontrolled pain Follow Up Care Please Follow Up With: Lizzette Zheng CNM When: Please call the office to schedule your follow up appointment in 6 weeks. If you had high blood pressure please call to schedule an appointment in 2 weeks. Test Results: Test results from this visit will be discussed in further detail at your follow- up appointment, if applicable. Discharge Plan Admission Admit Date/Time: 02/05/23 22:35 Attending Provider: Lizzette Zheng Primary Care Provider: Jovanny Physician,Shana Primary Instructions Patient Instructions: Kick Counts, ED False Labor, OB Triage: Return to Hospital or Notify Physician if you Experience: Discharge Orders/Prescriptions Prescriptions: No Action PNV Tabs 20-1 20 mg iron- 1 mg tablet 1 tab PO DAILY Zyrtec 10 mg capsule 10 mg PO DAILY PRN (Reason: allergies) Referrals / Follow Up: Jovanny Physician,Shana Primary [Primary Care Provider] - 02/06/23 1248<Electronically signed by Lizzette Zheng CNM>Lizzette Zheng CNM CC: No Primary Care Physician ~ Signed [facility] [place] Work Phone: 1(237) 672-833105-02-2023 Procedure [facility] 02-06-2023 Progress note Author Lizzette Zheng [facility] [place] February 06, 2023 7:47am Note Date/Time February 06, 2023 7:47am [facility] Medical Records Department [address] [place] [address] [place] [address] Progress Note 02/06/23 0743 MR#: [id number] Acct: [id number] Name: LLUVIA HOLLINGSWORTH Rep #:[id number] : 1995 27 From: Lizzette Zheng CNM PCP: Care Physician,No Primary Status :ADM IN Location: [place] [address] Progress Note patient comfortable with epidural current tracing: FHT: 135 Moderate variability reactive no decelerations category I tracing [place]: regular strong Contractions every 2-3 minutes apart SVE: 8/90/0 at 0630 per nursing exam A/P: continue position changes Start pitocin PRN Anticipate Reviewed with JV, agrees with Plan of Care 02/06/23 0747 <Electronically signed by Lizzette Zheng CNM> Lizzette Zheng CNM Cosigner Signature (if applicable): CC: ~ Signed [facility] [place] Work Phone: 1(668) 828-346705-02-2023 History and physical note Author Opal Golden [facility] [place] February 06, 2023 3:05am Note Date/Time February 06, 2023 3:05am [facility] Medical Records Department [address] [place] [id number] H&P Exam - NET APPLICATION SUPPORT SPECIALIST 02/06/23 0255 MR#: [id number] Acct: [id number] Name: LLUVIA HOLLINGSWORTH Rep #:[id number] : 1995 27 From: Opal Golden CNM PCP: Jovanny Physician,No Primary Status :ADM IN Location: [place] [address] HPI - General General Date of Admission: 02/05/23 Chief Complaint: contractions HPI Narrative LLUVIA HOLLINGSWORTH, is a 27 F who presents with increasing contractions strength andfrequency, unable to breathe through contractions. denies lof/vb. good fm. uncomplicated. hx of depression no medications in . Maternal Data Information RUFINA Calculator Estimated Delivery Date Method Current WG Current Estimate 02/14/23 LMP (Certain) 38w 6d Other Estimates 02/11/23 Ultrasound #2 39w 2d Final RUFINA: 02/14/23 Final RUFINA Source: LMP Gestational age: 38+6 PFSH PFSH Medical History History of depression Low-lying placenta in second trimester Home Medications vitamins no.163-iron bis-gly 20 mg-folate no.10 1 mg tablet (PNV Tabs 20-1) 1 tab PO DAILY supplement 07/05/22 [History Last Taken 02/05/23] cetirizine 10 mg capsule (Zyrtec) 10 mg PO DAILY PRN allergies 12/18/22 [History Last Taken Unknown] Allergy/AdvReac Type Severity Reaction Status Date / Time No Known Allergies Allergy Verified 02/05/23 22:35 Family History Aunt Ovarian cancer, Onset Age: 45 Maternal Aunt Social History adopted: No household members: significant other housing: house current occupational status: employed 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 current occupational exposures/hazards: No pets and animals: Yes (not manage litterbox) pets and animals: cat(s) and dog(s) history of recent travel: Yes ([place]) out of state: Yes out of country: No sexually active: Yes Smoking Status: Former smoker alcohol intake: former details: rarely drinks, special occasions, not while substance use type: does not use well-balanced diet: daily or most days caffeine: Yes Type: coffee Number of servings: 1 eating out: 1-3 times/week during the past year weight has: increased > 10 lbs what type of physical activity do you participate in: walking frequency: daily chriss/baptism: None seatbelt use: always do you feel safe at home: Yes additional social history: Boyfriend- J Luis - Self employed History 1 Elective abortions Hx Para 0 Spontaneous abortions Hx # Term Pregnancies Ectopic pregnancies Hx # Pregnancies Multiple births # of living children Visit Details Expected Delivery Route/Plan Labor Preferences- CB/BF classes: Ed labor support person: [] labor intervention preferences: [] pain management options preferred: epidural cut cord/dad catch: yes : maybe PP control planned: discussed discussed possible routes of delivery and associated risks: [] special requests: [] Plans Covid status: discussed Flu vaccine: discussed Tdap vaccine: declines Rhogam: na LARC form signed: yes movement and labor precautions reviewed. Problem list reviewed and updated with the most current plan of care details and appropriate orders placed. Relevant counseling for the gestational age provided. Continue routine care and follow up unless otherwise noted in visit notes/problem list details OB Flowsheet Initial Weight: Not Recorded Date -?-?-?-?-?-?-?-?-?-?-?-?- EGA Weight BP Urine Prot -?-?-?-?-?-?-?-?-?-?-?-?- Glucose FHR FuHt Pres Dilation -?-?-?-?-?-?-?-?-?-?-?-?- Effaced St Visit Note 07/10/22 -?-?-?-?-?-?-?-?-?-?-?-?- 8w 5d 165 lb 111/74 -?--?-?-?-?-?-?-?-?-?-?-?- 160 -?-?-?-?-?-?-?-?-?-?-?-?- SM- CRL 2.2cm co ns with LMP 08/09/22 -?-?-?-?-?-?-?-?-?-?-?-?- 13w 0d 169 lb 99/66 Negative -?-?-?-?-?-?-?-?-?-?-?-?- Negative 154 -?-?-?-?-?-?-?-?-?-?-?-?- JV- no complaint s. now wants to do NIPT 08/17/22 -?-?-?-?-?-?-?-?-?-?-?--?- 14w 1d 173 lb 114/64 Negative -?-?-?-?-?-?-?-?-?-?-?-?- Negative 156 -?-?-?-?-?-?-?-?-?-?-?-?- JV- colp today f or lgsil. see office procedure. 09/05/22 -?-?-?-?-?-?-?-?-?-?-?-?- 16w 6d 176 lb 118/76 Negative -?-?-?-?-?-?-?-?-?-?-?-?- Negative 151 -?-?-?-?-?-?-?-?-?-?-?-?- MH-No VB. Thinks feels flutter. No Concerns 10/10/22 -?-?-?-?-?-?-?-?-?-?-?-?- 21w 6d 185 lb 116/74 Negative -?-?-?-?-?-?-?-?-?-?-?-?- Negative 151 -?-?-?-?-?-?-?-?-?-?-?-?- MH-No VB or cram ping. Feeling good movement. Denies concerns 11/08/22 -?-?-?-?-?-?-?-?-?-?-?-?- 26w 0d 191 lb 112/67 Negative -?-?-?-?-?-?-?-?-?-?-?-?- Negative 145 -?-?-?-?-?-?-?-?-?-?-?-?- JV- no lof, vagi nal bleeding, or dec fm currently. over weekend had spotting. has low lying placenta. rpt scan ordered in 2 weeks. bleeding precautions discussed. 11/22/22 -?-?-?-?-?-?-?-?-?-?-?-?- 28w 0d 191 lb 6 oz 110/68 Nega tive -?-?-?-?-?-?-?-?-?-?-?-?- Negative 141 -?-?-?-?-?-?-?-?-?-?-?-?- MH-Pt had light spotting after US at [facility] yesterday. Reviewed US:cx >4cm. Previa resolved. VB precautions reviewed. 12/07/22 -?-?-?-?-?-?-?-?-?-?-?-?- 30w 1d 197 lb 113/71 Negative -?-?-?-?-?-?-?-?-?-?-?-?- Negative 134 33 -?-?-?-?-?-?-?-?-?-?-?-?- JV- pt has a bad cavity on the left side of her mouth. she does not have a dentist. instructed to see [facility] and starting amoxicillin. She declines pain meds. 12/18/22 -?-?-?-?-?-?-?-?-?-?-?-?- 31w 5d 199 lb 111/75 -?-?-?-?-?-?-?-?-?-?-?-?- 135 34 -?-?-?-?-?-?-?-?-?-?-?-?- SM- no vb lof go od fm no regular ctx 01/03/23 -?-?-?-?-?-?-?-?-?-?-?-?- 34w 0d 202 lb 6 oz 112/75 Trac e -?-?-?-?-?-?-?-?-?-?-?-?- Negative 140 34 Cephalic -?-?-?-?-?-?-?-?-?-?-?-?- LC- no lof/vb/ct x. good fm. having increased backpain- recommended belly band. 01/17/23 -?-?-?-?-?-?-?-?-?-?-?-?- 36w 0d 203 lb 6 oz 108/74 Nega tive -?-?-?-?-?-?-?-?-?-?-?-?- Negative 134 36 Cephalic 0 -?-?-?-?-?-?-?-?-?-?-?-?- JV- no lof, vagi nal bleeding or dec fm. gbs collected. 01/24/23 -?-?-?-?-?-?-?-?-?-?-?-?- 37w 0d 208 lb 4 oz 108/70 Nega tive -?-?-?-?-?-?-?-?-?-?-?-?- Negative 153 38 Cephalic 0 .5 -?-?-?-?-?-?-?-?-?-?-?-?- 30 KW-no lo f/vb/ctx. +fm. GBS neg. no concerns KW-no lof/vb/ctx. +fm. GBS n eg. no concerns. 01/31/23 -?-?-?-?-?-?-?-?-?-?-?-?- 38w 0d 210 lb 4 oz 105/72 Nega tive -?-?-?-?-?-?-?-?-?-?-?-?- Negative 145 38 Cephalic 0 .5 -?-?-?-?-?-?-?-?-?-?-?-?- 60 -2 KW-+fm. no lof/vb/ctx. having low back pain. discussed IOL at 40 weeks KW-+fm. no lof/vb/ctx. shilpa g low back pain. discussed IOL at 40 weeks. recommended home options to induce labor. discussed it could be long and be moved per unit staffing. set up next week. 02/05/23 -?-?-?-?-?-?-?-?-?-?-?-?- 38w 5d 123/79 129/80 132/73 115/65 107/62 114/80 114/72 126/60 119/78 118/72 120/75 116/61 104/74 -?-?-?-?-?-?-?-?-?-?-?-?- -?-?-?-?-?-?-?-?-?-?-?-?- NST FHR Rate Baby A Baseline: 135 Variability:: Moderate Accelerations:: 15 x 15 Decelerations:: None NST Reactive:: Yes FHR Category:: Category I Uterine Activity:: q2-7 minutes ROS Cardiovascular Cardiovascular: Denies abdominal pain, chest pain, diaphoresis or dyspnea Genitourinary Genitourinary: Reports change in urinary stream Musculoskeletal Musculoskeletal: Reports none Integumentary Integumentary: Reports none Neurologic Neurologic: Reports none Psychiatric Psychiatric: Reports none Endocrine Endocrinology: Reports none Hematologic/Lymphatic Hematologic/Lymphatic: Reports none Allergic/Immunologic Allergic/Immunologic: Reports none Vital Signs Vital Signs Vital Signs: 02/05/23 16:55 02/05/23 16:55 02/05/23 16:55 Temperature 98.2 F Temperature Source Tympanic Pulse Rate Blood Pressure BP Systolic BP Diastolic Pulse Ox 98 02/05/23 22:23 02/05/23 22:23 02/05/23 22:23 Temperature Temperature Source Pulse Rate 80 97 Blood Pressure 123/79 H BP Systolic 123 BP Diastolic 79 Pulse Ox 02/05/23 22:23 02/05/23 23:38 02/05/23 23:38 Temperature Temperature Source Pulse Rate 111 H Blood Pressure BP Systolic BP Diastolic Pulse Ox 99 99 02/05/23 22:23 02/05/23 22:23 02/05/23 22:23 Temperature 98.7 F Temperature Source Temporal Pulse Rate Blood Pressure BP Systolic BP Diastolic Pulse Ox 98 02/05/23 23:43 02/05/23 23:43 02/05/23 23:43 Temperature Temperature Source Pulse Rate 97 Blood Pressure 129/80 H BP Systolic 129 BP Diastolic 80 Pulse Ox 98 02/05/23 23:49 02/05/23 23:49 02/05/23 23:48 Temperature Temperature Source Pulse Rate 90 Blood Pressure 132/73 H BP Systolic 132 BP Diastolic 73 Pulse Ox 99 02/05/23 23:53 02/05/23 23:53 02/05/23 23:53 Temperature Temperature Source Pulse Rate 97 Blood Pressure 115/65 BP Systolic 115 BP Diastolic 65 Pulse Ox 98 02/05/23 23:58 02/05/23 23:58 02/05/23 23:58 Temperature Temperature Source Pulse Rate 96 Blood Pressure 107/62 BP Systolic 107 BP Diastolic 62 Pulse Ox 98 02/06/23 00:04 02/06/23 00:04 02/06/23 00:03 Temperature Temperature Source Pulse Rate 96 Blood Pressure 114/80 BP Systolic 114 BP Diastolic 80 Pulse Ox 99 02/06/23 00:08 02/06/23 00:08 02/06/23 00:08 Temperature Temperature Source Pulse Rate 106 H Blood Pressure 114/72 BP Systolic 114 BP Diastolic 72 Pulse Ox 99 02/06/23 00:13 02/06/23 00:13 02/06/23 00:15 Temperature Temperature Source Pulse Rate 87 Blood Pressure 126/60 H BP Systolic 126 BP Diastolic 60 Pulse Ox 100 02/06/23 00:15 02/06/23 00:18 02/06/23 00:18 Temperature Temperature Source Pulse Rate 88 90 Blood Pressure BP Systolic BP Diastolic Pulse Ox 100 02/06/23 00:20 02/06/23 00:20 02/06/23 00:23 Temperature Temperature Source Pulse Rate 84 94 Blood Pressure 119/78 BP Systolic 119 BP Diastolic 78 Pulse Ox 02/06/23 00:23 02/06/23 00:25 02/06/23 00:25 Temperature Temperature Source Pulse Rate 84 Blood Pressure 118/72 BP Systolic 118 BP Diastolic 72 Pulse Ox 99 02/06/23 00:29 02/06/23 00:29 02/06/23 00:28 Temperature Temperature Source Pulse Rate 93 Blood Pressure 120/75 BP Systolic 120 BP Diastolic 75 Pulse Ox 99 02/06/23 01:15 02/06/23 01:15 02/06/23 01:16 Temperature Temperature Source Pulse Rate 112 H Blood Pressure 116/61 BP Systolic 116 BP Diastolic 61 Pulse Ox 99 02/06/23 01:16 02/06/23 02:34 02/06/23 02:34 Temperature Temperature Source Pulse Rate 86 87 Blood Pressure BP Systolic BP Diastolic Pulse Ox 99 02/06/23 02:35 02/06/23 02:35 02/06/23 02:35 Temperature Temperature Source Temporal Pulse Rate 78 Blood Pressure 104/74 BP Systolic 104 BP Diastolic 74 Pulse Ox 02/06/23 02:35 Temperature 97.4 F L Temperature Source Pulse Rate Blood Pressure BP Systolic BP Diastolic Pulse Ox Weight Weight: 210 lb Body Mass Index (BMI) 36.0 Physical Exam Const alert and oriented x3 General Appearance: cooperative, comfortable and well kempt Orientation / Consciousness: awake Exam Limitations: no limitations Neck full ROM Chest inspection of chest normal Resp normal respiratory effort, normal air movement and no retractions Cardio regular rate Peripheral Pulses: pulses 2+ throughout GI normal to inspection, nondistended, normoactive bowel sounds Inspection: gravid no CVA tenderness and appearance of the vagina normal External Female Exam: normal appearance of the urethra; Negative for external lesion OB / External & Speculum: external exam normal Manual OB Exam: estimated gestational size appropriate and presentation cephalic Uterus Palpation: Negative for uterus tender Extremity normal to inspection Skin no rashes or lesions noted Psych Activity / Motor Behavior: appropriate eye contact Speech: normal speech Labs Labs Labs: Blood Type A POSITIVE Antibody Screen NEGATIVE Hct 35.4 % (37-47) L Hgb 11.9 g/dL (12.0-15.0) L Syphilis Total Ab Non-reactive Rubella IgG Antibody Reactive (Nonreactive) Hep Bs Antigen Non-Reactive (Nonreactive) Chlamydia DNA (ANDER) Negative (Negative) Neisseria gonorrhoeae DNA (ANDER) Negative (Negative) HIV 1&2 Antibody Non-Reactive (Nonreactive) Glucose 1 Hr 50 gm 101 mg/dL (70-140) Assessment & Plan (1) Spontaneous onset of labor: COMMENT: 38+5 with spontaneous labor. AROM for clear fluid PLAN: Patient presents IAL, plan expectant management for , pitocin/AROM PRN if needed. routine orders Pain management: plans epidural. GBS negative. Management of any complications: none I have reviewed the DOROTHEA DIX [facility] and made any clinically relevant updates. updated on admission, poc and exam. agrees with primary midwifery management. 02/06/23 0305 <Electronically signed by Opla Golden CNM> Cosigner Signature (if applicable): CC: CLARA Golden; No Primary Care Physician~ Signed [facility] Work Phone: 1(453) 921-495205-01-2023 History and physical note Author Opal Golden [facility] February 05, 2023 7:22pm Note Date/Time February 05, 2023 7:22pm [facility] Medical Records Department [address] [place] [id number] OB Triage Physician Note 02/05/23 191 MR#: [id number] Acct: [id number] Name: LLUVIA HOLLINGSWORTH Rep #:[id number] : 1995 27 From: Opal Golden CNM PCP: Care Physician,No Primary Status :DEP CLI Y Location: [facility] HPI - General HPI Narrative LLUVIA HOLLINGSWORTH, is a 27 F who presents at 38+5 with contractions and lower back pain. no lof/vb. good fm. Maternal Data Information RUFINA Calculator Estimated Delivery Date Method Current WG Current Estimate 02/14/23 LMP (Certain) 38w 5d Other Estimates 02/11/23 Ultrasound #2 39w 1d [facility] Medical History History of depression Low-lying placenta in second trimester Home Medications vitamins no.163-iron bis-gly 20 mg-folate no.10 1 mg tablet (PNV Tabs 20-1) tab PO 07/05/22 [History Last Taken 02/05/23] cetirizine 10 mg capsule (Zyrtec) 10 mg PO DAILY 12/18/22 [History Last Taken Unknown] loratadine 10 mg tablet (Claritin) 10 mg PO DAILY PRN 12/18/22 [History Last Taken Unknown] Allergy/AdvReac Type Severity Reaction Status Date / Time No Known Allergies Allergy Verified 02/05/23 16:54 Family History Aunt Ovarian cancer, Onset Age: 45 Maternal Aunt Social History adopted: No household members: significant other housing: house current occupational status: employed 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 current occupational exposures/hazards: No pets and animals: Yes (not manage litterbox) pets and animals: cat(s) and dog(s) history of recent travel: [place] ([place]) out of state: Yes out of country: No sexually active: Yes Smoking Status: Former smoker alcohol intake: former details: rarely drinks, special occasions, not while substance use type: does not use well-balanced diet: daily or most days caffeine: Yes Type: coffee Number of servings: 1 eating out: 1-3 times/week during the past year weight has: increased > 10 lbs what type of physical activity do you participate in: walking frequency: daily chriss/baptism: None seatbelt use: always do you feel safe at home: Yes additional social history: Boyfriend- J Luis - Self employed History 1 Elective abortions Hx Para 0 Spontaneous abortions Hx # Term Pregnancies Ectopic pregnancies Hx # Pregnancies Multiple births # of living children Visit Details Expected Delivery Route/Plan Labor Preferences- CB/BF classes: Ed labor support person: [] labor intervention preferences: [] pain management options preferred: epidural cut cord/dad catch: yes : maybe PP control planned: discussed discussed possible routes of delivery and associated risks: [] special requests: [] Plans Covid status: discussed Flu vaccine: discussed Tdap vaccine: declines Rhogam: na LARC form signed: yes movement and labor precautions reviewed. Problem list reviewed and updated with the most current plan of care details and appropriate orders placed. Relevant counseling for the gestational age provided. Continue routine care and follow up unless otherwise noted in visit notes/problem list details OB Flowsheet Initial Weight: Not Recorded Date -?-?-?-?-?-?-?-?-?-?-?-?- EGA Weight BP Urine Prot -?-?-?-?-?-?-?-?-?-?-?-?- Glucose FHR FuHt Pres Dilation -?-?-?-?-?-?-?-?-?-?-?-?- Effaced St Visit Note 07/10/22 -?-?-?-?-?-?-?-?-?-?-?-?- 8w 5d 165 lb 111/74 -?-?-?-?-?-?-?-?-?-?-?-?- 160 -?-?-?-?-?-?-?-?-?-?-?-?- SM- CRL 2.2cm co ns with LMP 08/09/22 -?-?-?-?-?-?-?-?-?-?-?-?- 13w 0d 169 lb 99/66 Negative -?-?-?-?-?-?-?-?-?-?-?-?- Negative 154 -?-?-?-?-?-?-?-?-?-?-?-?- JV- no complaint s. now wants to do NIPT 08/17/22 -?-?-?-?-?-?-?-?-?-?-?-?- 14w 1d 173 lb 114/64 Negative -?-?-?-?-?-?-?-?-?-?-?-?- Negative 156 -?-?-?-?-?-?-?-?-?-?-?-?- JV- colp today f or lgsil. see office procedure. 09/05/22 -?-?-?-?-?-?-?-?-?-?-?-?- 16w 6d 176 lb 118/76 Negative -?-?-?-?-?-?-?-?-?-?-?-?- Negative 151 -?-?-?-?-?-?-?-?-?-?-?-?- MH-No VB. Thinks feels flutter. No Concerns 10/10/22 -?-?-?-?-?-?-?-?-?-?-?-?- 21w 6d 185 lb 116/74 Negative -?-?-?-?-?-?-?-?-?-?-?-?- Negative 151 -?-?-?-?-?-?-?-?-?-?-?-?- MH-No VB or cram ping. Feeling good movement. Denies concerns 11/08/22 -?-?-?-?-?-?-?-?-?--?-?-?- 26w 0d 191 lb 112/67 Negative -?-?-?-?-?-?-?-?-?-?-?-?- Negative 145 -?-?-?-?-?-?-?-?-?-?-?-?- JV- no lof, vagi nal bleeding, or dec fm currently. over weekend had spotting. has low lying placenta. rpt scan ordered in 2 weeks. bleeding precautions discussed. 11/22/22 -?-?-?-?-?-?-?-?-?-?-?-?- 28w 0d 191 lb 6 oz 110/68 Nega tive -?-?-?-?-?-?-?-?-?-?-?-?- Negative 141 -?-?-?-?-?-?-?-?-?-?-?-?- MH-Pt had light spotting after US at [facility] yesterday. Reviewed US:cx >4cm. Previa resolved. VB precautions reviewed. 12/07/22 -?-?-?-?-?-?-?-?-?-?-?-?- 30w 1d 197 lb 113/71 Negative -?-?-?-?-?-?-?-?-?-?-?-?- Negative 134 33 -?-?-?-?-?-?-?-?-?-?-?-?- JV- pt has a bad cavity on the left side of her mouth. she does not have a dentist. instructed to see [facility] and starting amoxicillin. She declines pain meds. 12/18/22 -?-?-?-?-?-?-?-?-?-?-?-?- 31w 5d 199 lb 111/75 -?-?-?-?-?-?-?-?-?-?-?-?- 135 34 -?-?-?-?-?-?--?-?-?-?-?-?- SM- no vb lof go od fm no regular ctx 01/03/23 -?-?-?-?-?-?-?-?-?-?-?-?- 34w 0d 202 lb 6 oz 112/75 Trac e -?-?-?-?-?-?-?-?-?-?-?-?- Negative 140 34 Cephalic -?-?-?-?-?-?-?-?-?-?-?-?- LC- no lof/vb/ct x. good fm. having increased backpain- recommended belly band. 01/17/23 -?-?-?-?-?-?-?-?-?-?--?-?- 36w 0d 203 lb 6 oz 108/74 Nega tive -?-?-?-?-?-?-?-?-?-?-?-?- Negative 134 36 Cephalic 0 -?-?-?-?-?-?-?-?-?-?-?-?- JV- no lof, vagi nal bleeding or dec fm. gbs collected. 01/24/23 -?-?-?-?-?-?-?-?-?-?-?-?- 37w 0d 208 lb 4 oz 108/70 Nega tive -?-?-?-?-?-?-?-?-?-?-?-?- Negative 153 38 Cephalic 0 .5 -?-?-?-?-?-?-?-?-?-?-?-?- 30 KW-no lo f/vb/ctx. +fm. GBS neg. no concerns KW-no lof/vb/ctx. +fm. GBS n eg. no concerns. 01/31/23 -?-?-?-?-?-?-?-?-?--?-?-?- 38w 0d 210 lb 4 oz 105/72 Nega tive -?-?-?-?-?-?-?-?-?-?-?-?- Negative 145 38 Cephalic 0 .5 -?-?-?-?-?-?-?-?-?-?-?-?- 60 -2 KW-+fm. no lof/vb/ctx. having low back pain. discussed IOL at 40 weeks KW-+fm. no lof/vb/ctx. shilpa g low back pain. discussed IOL at 40 weeks. recommended home options to induce labor. discussed it could be long and be moved per unit staffing. set up next week. NST FHR Rate Baby A Baseline: 125 Variability:: Moderate Accelerations:: 15 x 15 Decelerations:: None NST Reactive:: Yes FHR Category:: Category I Uterine Activity:: irregular Assessment & Plan (1) Uterine contractions: COMMENT: rule out labor. no cervical change. dc home with labor precautions. PLAN: Plan Patient presents for triage evaluation secondary to contractions no change in cervical exam after observation x1.5 hours. FHT: Moderate variability reactive no decelerations category I tracing [place]: irregular Contractions Assessment and plan: Reactive NST, reassuring maternal and status patient discharged to home to follow-up in office.See problem list details for additional plan information. Charges/Coding Procedures Urinary/Genital 52xxx-59xxx: 05498-69 non-stress test Interp 02/05/231921 <Electronically signed by Opal spann CNM> Date _ Opal Golden CNM Cosigner Signature (if applicable): Date CC: CLARA Golden; No Primary Care Physician ~ Signed [facility] Work Phone: 1(645) 311-228610-03-2022 NotePap Smear Specimen AdequacyOct2021 3:00pmComment.Satisfactory for evaluation. Endocervical and/or squamous metaplasticcells (endocervical component)are present.[facility]#[id number] Work Phone: Comment on above:Satisfactory for evaluation. Endocervical and/or squamous metaplasticcells (endocervical component)are present.Consult note Author Arlet Villanueva [facility] Note Date/Time January 14, 2025 10:5 2am [facility] Medical Records Department [address] [place] [address] Counseling Note - Pharmacy 01/14/25 1051 MR#: [id number] Acct: [id number] Name: LLUVIA HOLLINGSWORTH Rep #:[id number] : 1995 29 From: Arlet Villanueva PCP: Care Physician,No Primary Status :ADM FARTUN Y [id number] has performed discharge medication reconciliation and counseling for this patient. 1. DICLOXACILLIN 500MG PO Q6H X 10 DAYS The patient's discharge medication list was reviewed for discrepancies and discrepancies were resolved. The patient was counseled on the following discharge medications and changes in medications for homegoing were reviewed. The Reason for Use, instructions for use, and potential side effects were reviewed for all new medications. The patient's questions regarding all of their medications were answered. The patient was able to verbally demonstrate an understanding of their dischargemedications. Medications at Discharge Home Medications multivitamin no.47-iron fum 27 mg-folate no.1 1 mg-dha 300 mg capsule (PNV-DHA)1 cap PO DAILY pergnancy 04/18/24 oxycodone 5 mg tablet 5 - 10 mg (1 - 2 x 5 mg) PO Q4H PRN PRN Pain Score 4-10 5 days #14 tabs 04/08/25 dicloxacillin 500 mg capsule 500 mg PO Q6H 10 days #40 caps 01/14/25 01/14/25 1052 <Electronically signed by Arlet Villanueva> Date _ Arlet Villanueva Cosigner Signature (if applicable): Date CC: ~ Signed [facility] [place] Work Phone: evaluation note* Diagnosis Onset Date Resolution Status History of cardiac anomaly a cute History of depression acute acute Supervision of high-risk acute Hx: UTI (urinary tract infection) resolved History of cardiac anomaly a cute History of depression acute LGSIL on Pap smear of cervix acute acute Supervision of high-risk [facility] Work Phone: evaluation note* Diagnosis Onset Date Resolution Status History of cardiac anomaly a cute History of depression acute LGSIL on Pap smear of cervix acute acute Supervision of high-risk acute History of cardiac anomaly a cute History of depression acute LGSIL on Pap smear of cervix acute acute Supervision of high-risk acute History of cardiac anomaly a cute History of depression acute LGSIL on Pap smear of cervix acute acute Supervision of high-risk acute History of cardiac anomaly a cute History of depression acute Low-lying placenta in second trimester acute acute Supervision of high-risk acute History of cardiac anomaly a cute History of depression acute LGSIL on Pap smear of cervix acute Low-lying placenta in second trimester acute acute Supervision of high-risk acute History of cardiac anomaly a cute Low-lying placenta in second trimester acute acute Supervision of high-risk [facility] Work Phone: evaluation note* Diagnosis Onset Date Resolution Status History of cardiac anomaly a cute History of depression acute acute Supervision of high-risk acute Low-lying placenta in second trimester resolved History of cardiac anomaly a cute History of depression acute LGSIL on Pap smear of cervix acute acute Supervision of high-risk acute Low-lying placenta in second trimester resolved History of cardiac anomaly a cute acute Supervision of high-risk acute Low-lying placenta in second trimester resolved History of cardiac anomaly a cute History of depression acute LGSIL on Pap smear of cervix acute acute Supervision of high-risk acute Low-lying placenta in second trimester resolved History of cardiac anomaly a cute History of depression acute LGSIL on Pap smear of cervix acute acute Supervision of high-risk acute acute Supervision of high-risk acute History of cardiac anomaly a cute History of depression acute LGSIL on Pap smear of cervix acute acute Supervision of high-risk [facility] Work Phone: Evaluation note* Diagnosis Onset Date Resolution Status History of cardiac anomaly a cute History of depression acute Low-lying placenta in second trimester resolved History of cardiac anomaly a cute History of depression acute LGSIL on Pap smear of cervix acute Low-lying placenta in second trimester resolved History of cardiac anomaly a cute Low-lying placenta in second trimester resolved History of cardiac anomaly a cute History of depression acute LGSIL on Pap smear of cervix acute Low-lying placenta in second trimester resolved History of cardiac anomaly a cute History of depression acute LGSIL on Pap smear of cervix acute History of cardiac anomaly a cute History of depression acute LGSIL on Pap smear of cervix acute History of cardiac anomaly a cute History of depression acute LGSIL on Pap smear of cervix acute History of cardiac anomaly a cute History of depression acute LGSIL on Pap smear of cervix acute Spontaneous vaginal delivery [facility] Work Phone: Evaluation note* Diagnosis Onset Date Resolution Status History of cardiac anomaly a cute History of depression acute LGSIL on Pap smear of cervix acute Low-lying placenta in second trimester resolved History of cardiac anomaly a cute History of depression acute LGSIL on Pap smear of cervix acute History of cardiac anomaly a cute History of depression acute LGSIL on Pap smear of cervix acute History of cardiac anomaly a cute History of depression acute LGSIL on Pap smear of cervix acute History of cardiac anomaly a cute History of depression acute LGSIL on Pap smear of cervix acute Spontaneous vaginal delivery acute care and examination [facility] Work Phone: Evaluation note* Diagnosis Onset Date Resolution Status History of cardiac anomaly a cute History of depression acute LGSIL on Pap smear of cervix acute History of cardiac anomaly a cute History of depression acute LGSIL on Pap smear of cervix acute History of cardiac anomaly a cute History of depression acute LGSIL on Pap smear of cervix acute Spontaneous vaginal delivery acute care and examination acute Routine screening for STI (s exually transmitted infection) [facility] Work Phone: Evaluation note* Diagnosis Onset Date Resolution Status History of cardiac anomaly a cute History of depression acute LGSIL on Pap smear of cervix acute History of cardiac anomaly a cute History of depression acute LGSIL on Pap smear of cervix acute Spontaneous vaginal delivery acute care and examination acute Routine screening for STI (s exually transmitted infection) acute History of depression acute LGSIL on Pap smear of cervix acute [facility] Work Phone: History and physical note Author Anthony Martin [facility] Note Date/Time January 12, 2025 8:33 pm [facility] Medical Records Department [address] [place] [address] H&P Exam - Surgical 01/12/252030 MR#: [id number] Acct: [id number] Name: LLUVIA HOLLINGSWORTH Rep #:[id number] : 1995 29 From: Anthony baez MD PCP: Care Physician,No Primary Status :REG ER Location: ED HPI - General HPI Narrative LLUVIA HOLLINGSWORTH, is a 29 F who presents with lower abdominal pain. Patient says that yesterday she was feeling like she had the chills and then she was feeling little bit better but then this morning she started having severe pain. She hasthe pain is in the lower abdomen area. She denies nausea or vomiting. She denies fever. [facility] Medical History (Updated 01/12/25 @ 20:[address] Anthony Martin MD) Contraceptive management Spontaneous vaginal delivery Spontaneous onset of labor Uterine contractions Low-lying placenta in second trimester Supervision of high-risk History of depression Home Medications ?Medication ?Instructions ?Recorded ?Last Taken ?Type multivitamin no.47-iron fum 27 1 cap PO DAILY pergnanc y 04/18/24 11/15/24 History mg-folate no.1 1 mg-dha 300 mg capsule (PNV-DHA) Allergy/AdvReac Type Severity Reaction Status Date / Time No Known Allergies Allergy Verified 12/29/24 15:29 Family History Aunt Ovarian cancer, Onset Age: 45 Maternal Aunt Mother Miscarriage 2 or 3 miscarriages- before and after of pt. Surgical History History of surgery Social History adopted: No household members: significant other and children housing: house number of children: 1 current occupational status: unemployed current occupation: [employer] current occupational exposures/hazards: No pets and animals: Yes (not manage litterbox) pets and animals: cat(s) and dog(s) history of recent travel: No ([place]) sexually active: Yes Smoking Status: Current some day smoker tobacco type: e-cigarettes alcohol intake: former details: rarely drinks, special occasions, not while substance use type: does not use well-balanced diet: daily or most days caffeine: No eating out: 1-3 times/week during the past year weight has: remained stable what type of physical activity do you participate in: walking frequency: daily duration: 15-30 minutes/day chriss/baptism: None seatbelt use: always do you feel safe at home: Yes additional social history: J Luis - Self employed Vital Signs Vital Signs Vital Signs: 01/12/25 15:52 01/12/25 15:53 01/12/25 17:23 Temperature 97.4 F L 97.4 F L Temperature Source Oral Temporal Pulse Rate 101 H 103 H Respiratory Rate 19 H 18 Respiratory Effort Normal Non-Labored Respiratory Pattern Normal Blood Pressure 136/80 H 136/80 H Blood Pressure Mean 98 98 Pulse Ox 99 99 Oxygen Delivery Method Room Air Room Air 01/12/25 17:28 01/12/25 19:00 Temperature Temperature Source Pulse Rate 81 Respiratory Rate 16 Respiratory Effort Respiratory Pattern Blood Pressure 100/69 Blood Pressure Mean 79 Pulse Ox 98 96 Oxygen Delivery Method Room Air Weight Weight: 201 lb 4.8 oz Body Mass Index (BMI) 34.5 Physical Exam Const oriented x3 and no apparent distress Resp normal respiratory effort Cardio regular rate and regular rhythm GI soft to palpation Palpation: tender RLQ and suprapubic Extremity normal to inspection Results Lab / Micro Data 01/12/25 16:30 01/12/25 16:30 Labs: Laboratory Results - last 24 hr 01/12/25 16:30: WBC 18.8 H, RBC 4.26, Hgb 13.1, Hct 39.6, MCV 93.0, MCH 30.8, MCHC 33.1, RDW Std Deviation 43.0, RDW Coeff of Eli 12.5, Plt Count 307, MPV 9.9, Immature Gran % (Auto) 0.600, Neut % (Auto) 82.1 H, Lymph % (Auto) 8.6 L, [place] % (Auto) 7.0, Eos % (Auto) 1.4, Baso % (Auto) 0.3, Absolute Neuts (auto) 15.4 H, Absolute Lymphs (auto) 1.61, Nucleated RBC % 0, Sodium 138, Potassium 4.2, Chloride 104, Carbon Dioxide 20.7 L, Anion Gap 14, BUN 14, Creatinine 0.68 L, Estim Creat Clear Calc 134.83, Est GFR (MDRD) Non-Af 122, BUN/Creatinine Ratio 21.3 H, Glucose 99, Calcium 9.3, Total Bilirubin 0.46, AST 23, ALT 38 H, Alkaline Phosphatase 152 H, Total Protein 7.6, Albumin 4.3, Globulin 3.3, Albumin/Globulin Ratio 1.3, Lipase 21, Serum , Qual NEGATIVE 01/12/25 17:35: Urine Color Yellow, Urine Clarity Clear, Urine pH 7.0, Ur Specific [place] 1.010, Urine Protein 15 H, Urine Glucose (UA) Normal, Urine Ketones Negative, Urine Occult Blood 10 H, Urine Nitrite Negative, Urine Bilirubin Negative, Urine Urobilinogen Normal, Ur Leukocyte Esterase Negative, Urine RBC 0 SEEN, Urine WBC 0 SEEN, Ur Squamous Epith Cells 0-5 SEEN, Urine Bacteria RARE, Urine Mucus 0 SEEN Imaging Radiology Impression Abdomen/Pelvis CT 01/12/25 17:58 IMPRESSION: Mildly dilated appendix with wall thickening mild hyperemia surrounding soft tissue stranding, concerning for acute appendicitis. Hepatomegaly and a 12 mm right hepatic lobe slightly enhancing lesion. Differential considerations include hemangioma, adenoma versus FNH. Recommend further evaluation with MRI of the liver with contrast. Reading Location: [facility] Assessment & Plan Assessment/Plan (1) Acute appendicitis: PLAN: The patient a CT scan which showed acute appendicitis. The patient has a white count and right lower quadrant pain as well as chills. I discussed performing a laparoscopic appendectomy in the morning. The patient understands the risks. I discussed the risks of bleeding, infection, injury other organs such as the bowel, bladder, ureter. Patient understands all the risks and is willing to proceed. Patient will be given antibiotics and admitted to the flooruntil surgery in the morning. Anthony Martin MD Pager: [facility] [address] [place] [address], [address] [place] [address] Office: 01/12/252032 <Electronically signed by Anthony Martin MD> Cosigner Signature (if applicable): CC: Dr. Anthony Martin MD; No Primary Care Physician~ Signed [facility] Work Phone: Progress note Author Ken Gómez [facility] Note Date/Time March 03, 2025 11:01 am [facility] [address], [address] [place] [id number] OFFICE VISIT Date of Service: 03/03/25 MR#: [id number] Acct: [id number] Name: LLUVIA HOLLINGSWORTH Rep #: [id number] : 1995 Provider: LUIS Gómez Age/Sex: 29/F Location: [facility] Status: Signed Intake Vital Signs 01/20/25 10:26 03/03/25 10:50 03/03/25 10:54 Height 5 ft 4 in 5 ft 4 in 5 ft 4 in Weight: 205 lb 2 oz BMI 35.2 BP 124/70 H Intake Visit Reasons: 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 Skill Training Program Required: No Is patient in pain?: No Allergies No Known Allergies Allergy (Verified 03/03/25 10:50) Medications ?Medication ?Instructions ?Recorded ?Confirmed ?Type multivitamin no.47-iron fum 27 1 cap PO DAILY pergnanc y 04/18/24 03/03/25 History mg-folate no.1 1 mg-dha 300 mg capsule (PNV-DHA) levonorgestrel (Mirena) 1 device intrauterine ONCE 0 02/19/25 02/19/25 History Is last menstrual period known: No Post menopausal: No Patient : No : No Control Method: Mirena [facility] Medical History Acute appendicitis Vaginal delivery Rubella non-immune status, antepartum Contraceptive management Spontaneous vaginal delivery Spontaneous onset of labor Uterine contractions Low-lying placenta in second trimester Supervision of high-risk History of depression Surgical History History of appendectomy History of surgery Family History Aunt Ovarian cancer, Onset Age: 45 Maternal Aunt Mother Miscarriage 2 or 3 miscarriages- before and after of pt. Social History adopted: No household members: significant other and children housing: house number of children: 1 current occupational status: unemployed current occupation: [employer] current occupational exposures/hazards: No pets and animals: Yes (not manage litterbox) pets and animals: cat(s) and dog(s) history of recent travel: [place] ([place]) sexually active: Yes Smoking Status: Current some day smoker tobacco type: e-cigarettes alcohol intake: former details: rarely drinks, special occasions, not while substance use type: does not use well-balanced diet: daily or most days caffeine: No eating out: 1-3 times/week during the past year weight has: remained stable what type of physical activity do you participate in: walking frequency: daily duration: 15-30 minutes/day chriss/baptism: None seatbelt use: always do you feel safe at home: Yes additional social history: J Luis - Self employed HPI 6 wk string check Details: LLUVIA HOLLINGSWORTH is a 29 year old who presents for IUD check. States some initialspotting but has resolved and denies discomfort. History 2 Elective abortions Hx Para 1 Spontaneous abortions Hx # Term Pregnancies 2 Ectopic pregnancies Hx # Pregnancies Multiple births # of living children 2 Past Pregnancies Del. Date Name GA/Weeks Outcome Route Bth Weight Infant Gen Labor Lgth Anesthesia Del Locatn Provider FOB 02/06/23 Seymour 39 live - full term 8#4oz Male epid ural [facility] KW J Luis 11/16/24 Renetta 39 live - full term 8lb 6oz Female e pidural [facility] JV J Luis Delivery Date: 11/16/24 Last Updated by: Sammie Law, RN See problem list for complications ROS Const Constitutional: Reports system reviewed and no additional complaints, except as documented Eyes Eyes: Reports system reviewed and no additional complaints, except as documented GI GI: Denies abdominal pain or change in bowel habits : Reports as per HPI Exam Const General: cooperative and no acute distress Orientation: oriented x3 General: bladder normal to palpation External Female Exam: normal external appearance and normal appearance of the urethra Urethra: normal appearance of the urethra Speculum Exam - Vagina: normal appearance of the vagina, normal vaginal discharge, no lesions and nontender Speculum Exam - Cervix: normal appearance of the cervix (IUD strings noted 3cm from os) Bimanual Exam- Vagina & Uterus: normal bimanual exam, uterine size normal, bladder normal to palpation, uterine shape normal, uterine mobility normal and non- tender Bimanual Exam- Adnexa, other: normal adnexae, no masses and non-tender Coding Level of Care Code Off vis,est,level 2 Diagnoses IUD check up Z30.431 Assessment and Plan Assessment and Plan (1) IUD check up: Plan IUD appropriately placed RTO annual exam, prn 03/03/25 1101 <Electronically signed by Ken sanderson BUSINESS CONTINUITY DIRECTOR BUSINESS CONTINUITY DIRECTOR-C> Date _ Ken Gómez NP BUSINESS CONTINUITY DIRECTOR-C Cosigner Signature: Date (if applicable) CC: ~ [facility] Work Phone: Reason for referral (narrative)No reason for referral information [facility] Work Phone: Summary Purpose Family History No Family History Records Found Relationship Condition Age at Onset Recorded Date/T arlen aunt Malignant neoplasm of ovary 45 Relationship Condition Age at Onset Recorded Date/T arlen aunt Malignant neoplasm of ovary 45 mother Spontaneous Unknown Advance Directives No Advanced Directives Records Found Advance Directive Response Recorded Date/ Time Living Will No August 24 10:55pm Power of Forensic Specialist No August 24, 2021 10:55pm Advance Directive Response Recorded Date/ Time Living Will No August 24 11:55pm Power of Forensic Specialist No August 24, 2021 11:55pm Advance Directive Response Recorded Date/ Time Living Will No February 05, 2023 10 :57pm Power of Forensic Specialist No February 05, 2023 10:57pm Advance Directive Response Recorded Date/ Time Living Will No November 16 9:22am Do you have a Healthcare Power of Forensic Specialist? No November 16, 2024 9:22am Living Will No January 12, 2025 5:21pm Do you have a Healthcare Power of Forensic Specialist? No January 12, 2025 5:21pm Advance Directive Response Recorded Date/ Time Living Will No November 16 9:22am Do you have a Healthcare Power of Forensic Specialist? No November 16, 2024 9:22am Living Will No January 12, 2025 9:32pm Do you have a Healthcare Power of Forensic Specialist? No January 12, 2025 9:32pm Chief Complaint and Reason for Visit Chief Complaint nob lmp 05/10/22 12WK OB ORDER SCANNED INTO CHART Reason for Visit History of cardiac a nomaly History of depression Supervision of high-risk Hx: UTI (urinary tract infection) History of cardiac anomaly History of depression LGSIL on Pap smear of cervix Supervision of high-risk Chief Complaint 12WK OB ORDER SCANNED INTO CHART lgsil 17 WK OB 21 WK OB 26 WK OB est ob Reason for Visit History of cardiac a nomaly History of depression LGSIL on Pap smear of cervix Supervision of high-risk History of cardiac anomaly History of depression LGSIL on Pap smear of cervix Supervision of high-risk History of cardiac anomaly History of depression LGSIL on Pap smear of cervix Supervision of high-risk History of cardiac anomaly History of depression Low-lying placenta in second trimester Supervision of high-risk History of cardiac anomaly History of depression LGSIL on Pap smear of cervix Low-lying placenta in second trimester Supervision of high-risk History of cardiac anomaly Low-lying placenta in second trimester Supervision of high-risk Chief Complaint 21 WK OB 26 WK OB est ob 30 WK OB 32 WK OB 34 WK OB 36 WK OB Reason for Visit History of cardiac a nomaly History of depression Supervision of high-risk Low-lying placenta in second trimester History of cardiac anomaly History of depression LGSIL on Pap smear of cervix Supervision of high-risk Low-lying placenta in second trimester History of cardiac anomaly Supervision of high-risk Low-lying placenta in second trimester History of cardiac anomaly History of depression LGSIL on Pap smear of cervix Supervision of high-risk Low-lying placenta in second trimester History of cardiac anomaly History of depression LGSIL on Pap smear of cervix Supervision of high-risk Supervision of high-risk History of cardiac anomaly History of depression LGSIL on Pap smear of cervix Supervision of high-risk Chief Complaint 21 WK OB 26 WK OB est ob 30 WK OB 32 WK OB 34 WK OB 36 WK OB 37 WK OB 38 WK OB RULE OUT 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 DELIVERY Reason for Visit History of cardiac a nomaly History of depression Low-lying placenta in second trimester History of cardiac anomaly History of depression LGSIL on Pap smear of cervix Low-lying placenta in second trimester History of cardiac anomaly Low-lying placenta in second trimester History of cardiac anomaly History of depression LGSIL on Pap smear of cervix Low-lying placenta in second trimester History of cardiac anomaly History of depression LGSIL on Pap smear of cervix History of cardiac anomaly History of depression LGSIL on Pap smear of cervix History of cardiac anomaly History of depression LGSIL on Pap smear of cervix History of cardiac anomaly History of depression LGSIL on Pap smear of cervix Spontaneous vaginal delivery Chief Complaint 30 WK OB 32 WK OB 34 WK OB 36 WK OB 37 WK OB 38 WK OB RULE OUT 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 DELIVERY 6 WK PP Reason for Visit History of cardiac a nomaly History of depression LGSIL on Pap smear of cervix Low-lying placenta in second trimester History of cardiac anomaly History of depression LGSIL on Pap smear of cervix History of cardiac anomaly History of depression LGSIL on Pap smear of cervix History of cardiac anomaly History of depression LGSIL on Pap smear of cervix History of cardiac anomaly History of depression LGSIL on Pap smear of cervix Spontaneous vaginal delivery care and examination Chief Complaint 34 WK OB 36 WK OB 37 WK OB 38 WK OB 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 OUT 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 DELIVERY 6 WK PP STI check Reason for Visit History of cardiac a nomaly History of depression LGSIL on Pap smear of cervix History of cardiac anomaly History of depression LGSIL on Pap smear of cervix History of cardiac anomaly History of depression LGSIL on Pap smear of cervix Spontaneous vaginal delivery care and examination Routine screening for STI (sexually transmitted infection) Chief Complaint 37 WK OB 38 WK OB RULE OUT 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 DELIVERY 6 WK PP STI check Colposcopy Reason for Visit History of cardiac a nomaly History of depression LGSIL on Pap smear of cervix History of cardiac anomaly History of depression LGSIL on Pap smear of cervix Spontaneous vaginal delivery care and examination Routine screening for STI (sexually transmitted infection) History of depression LGSIL on Pap smear of cervix Chief Complaint Admit Date 30 WK OB September 26, 2024 1:09pm 32 WK OB October 07, 2024 10:44am 34 WK OB October 21, 2024 9 :18am 36 WK OB November 05, 2024 1 :17pm 37 WK OB November 13, 2024 1 0:51am VAG November 16, 2024 7 :45am LABOR November 16, 2024 1 0:33am VAG November 17, 2024 8:55am VAG November 18, 2024 7:52am visit (obstetrics) December 3:20pm BACK PAIN January 12, 2025 8:31 pm ACUTE APPENDICITIS January 12, 2025 8:33 pm Reason for Visit Admit Date History of cardiac anomaly September 1:09pm History of depression September 26 1:09pm LGSIL on Pap smear of cervix September 262023 1:09pm Obesity (BMI 30.0-34.9) September 26, 024 1:09pm September 26, 2024 1:09pm Rubella non-immune status, antepartum De cember 2023 1:09pm Supervision of high-risk Dece delphine 2023 1:09pm History of cardiac anomaly September 10:44am History of depression October 07 10:44am LGSIL on Pap smear of cervix October 072023 10:44am Obesity (BMI 30.0-34.9) October 07, 2 024 10:44am October 07, 2024 10:44am Rubella non-immune status, antepartum De cember 2023 10:44am Supervision of high-risk Dece delphine 2023 10:44am History of cardiac anomaly October 21, 2024 9:18am History of depression October 21, 2024 9:18am LGSIL on Pap smear of cervix October 9:18am Obesity (BMI 30.0-34.9) October 21 9:18am October 21, 2024 9 :18am Rubella non-immune status, antepartum [facility] 2024 9:18am Supervision of high-risk 2024 9:18am History of cardiac anomaly November 05, 2024 1:17pm History of depression November 05, 2024 1:17pm LGSIL on Pap smear of cervix October 1:17pm Obesity (BMI 30.0-34.9) November 05 1:17pm November 05, 2024 1 :17pm Rubella non-immune status, antepartum [facility] 2024 1:17pm Supervision of high-risk Octua 2024 1:17pm History of cardiac anomaly November 13, 2024 10:51am History of depression November 13, 2024 10:51am LGSIL on Pap smear of cervix November 10:51am Obesity (BMI 30.0-34.9) November 13 10:51am Positive GBS test November 13, 2024 1 0:51am November 13, 2024 1 0:51am Rubella non-immune status, antepartum Fe bruary 2024 10:51am Supervision of high-risk Febru joe 2024 10:51am Uterine size date discrepancy November 13, 2024 10:51am History of cardiac anomaly November 16, 2024 7:45am History of depression November 16, 2024 7:45am LGSIL on Pap smear of cervix November 7:45am Obesity (BMI 30.0-34.9) November 16 7:45am Positive GBS test November 16, 2024 7 :45am November 16, 2024 7 :45am Rubella non-immune status, antepartum Fe bruary 2024 7:45am Supervision of high-risk Febru joe 2024 7:45am Vaginal delivery November 16, 2024 7 :45am Uterine size date discrepancy November 16, 2024 7:45am Routine Follow-Up December 29, 2024 3:20pm Acute appendicitis January 12, 2025 8:33 pm Chief Complaint Admit Date 30 WK OB September 26, 2024 1:09pm 32 WK OB October 07, 2024 10:44am 34 WK OB October 21, 2024 9 :18am 36 WK OB November 05, 2024 1 :17pm 37 WK OB November 13, 2024 1 0:51am VAG November 16, 2024 7 :45am LABOR November 16, 2024 1 0:33am VAG November 17, 2024 8:55am VAG November 18, 2024 7:52am visit (obstetrics) December 3:20pm BACK PAIN January 12, 2025 8:31 pm ACUTE APPENDICITIS January 12, 2025 8:33 pm ACUTE APPENDICITIS January 13, 2025 6:41 am ACUTE APPENDICITIS January 14, 2025 8:53 am Chief Complaint Admit Date 36 WK OB November 05, 2024 1 :17pm 37 WK OB November 13, 2024 1 0:51am VAG November 16, 2024 7 :45am LABOR November 16, 2024 1 0:33am VAG November 17, 2024 8:55am VAG November 18, 2024 7:52am visit (obstetrics) December 3:20pm BACK PAIN January 12, 2025 8:31 pm ACUTE APPENDICITIS January 12, 2025 8:33 pm ACUTE APPENDICITIS January 13, 2025 6:41 am ACUTE APPENDICITIS January 14, 2025 8:53 am IUD insertion Mirena January 20, 2025 10 :13am APPY 4-8 January 27, 2025 1:1 7pm 6 wk string check March 03, 2025 10:49 am Reason for Visit Admit Date History of cardiac anomaly November 05, 2024 1:17pm History of depression November 05, 2024 1:17pm LGSIL on Pap smear of cervix October 1:17pm Obesity (BMI 30.0-34.9) November 05 1:17pm November 05, 2024 1 :17pm Supervision of high-risk Janua ry 2024 1:17pm Rubella non-immune status, antepartum Ja nuary 2024 1:17pm History of cardiac anomaly November 13, 2024 10:51am History of depression November 13, 2024 10:51am LGSIL on Pap smear of cervix November 10:51am Obesity (BMI 30.0-34.9) November 13 10:51am November 13, 2024 1 0:51am [facility] Uterine size date discrepancy November 13, 2024 10:51am Rubella non-immune status, antepartum Fe bruary 2024 10:51am Positive GBS test November 13, 2024 1 0:51am History of cardiac anomaly November 16, 2024 7:45am History of depression November 16, 2024 7:45am LGSIL on Pap smear of cervix November 7:45am Obesity (BMI 30.0-34.9) November 16 7:45am November 16, 2024 7 :45am Supervision of high-risk [facility] 2024 7:45am Uterine size date discrepancy November 16, 2024 7:45am Rubella non-immune status, antepartum Fe bruary 2024 7:45am Vaginal delivery November 16, 2024 7 :45am Positive GBS test November 16, 2024 7 :45am Routine Follow-Up December 29, 2024 3:20pm Acute appendicitis January 12, 2025 8:33 pm LGSIL on Pap smear of cervix January 20, 2025 10:13am IUD (intrauterine device) in place January 20, 2025 10:13am S/P appendectomy January 27, 2025 1:1 7pm IUD check up March 03, 2025 10:49 am Additional Source Comments INFORMATION SOURCE (unrecogn ized section and content) DATE CREATED AUTHOR 09/10/2020 [employer] DATE CREATED AUTHOR AUTHOR'S ORGANIZ ATION 09/10/2020 [facility] DATE CREATED AUTHOR AUTHOR'S ORGANIZ ATION 07/07/2021 [facility] DATE CREATED AUTHOR AUTHOR'S ORGANIZ ATION 03/15/2022 [facility] DATE CREATED AUTHOR AUTHOR'S ORGANIZ ATION 07/31/2024 [facility] DATE CREATED AUTHOR AUTHOR'S ORGANIZ ATION 03/04/2025 [facility] Goals (unrecognized section and content) Goals may be documented in a n alternate sectionGoals may be documented in an alternate sectionGoals may be documented in an alternate section Care Teams (unrecognized sec tion and content) Team Status: Active Member Role Status Dates No Primary Care Physician Primary Care Provider Active Team Status: Inactive Member Role Status Dates Out of [facility] Doctor Referring Provider Active Dr. Geni De Jesus DO Attending Provider Activ e Dr. Rosalina Perez MD Primary Care Provider Active Team Status: Inactive Member Role Status Dates Dr. Rosalina Perez MD Referring Provider Active Dr. Geni De Jesus DO Attending Provider Activ e No Primary Care Physician Primary Care Provider Active Team Status: Inactive Member Role Status Dates Dr. Rosalina Perez MD Referring Provider Active Ken Gómez NP, BUSINESS CONTINUITY DIRECTOR-C Attending Provider Active No Primary Care Physician Primary Care Provider Active Team Status: Inactive Member Role Status Dates No Primary Care Physician Primary Care Provider, Refer ring Provider Active Ken Gómez BUSINESS CONTINUITY DIRECTOR, BUSINESS CONTINUITY DIRECTOR-C Attending Provider Active Team Status: Inactive Member Role Status Dates No Primary Care Physician Primary Care Provider, Refer ring Provider Active Dr. Geni De Jesus DO Attending Provider Activ e Team Status: Inactive Member Role Status Dates No Primary Care Physician Primary Care Provider Active Dr. Geni De Jesus DO Attending Provider, Refe rring Provider Active Team Status: Inactive Member Role Status Dates No Primary Care Physician Primary Care Provider, Refer ring Provider Active Dr. Lenora Castro MD Attending Provider Active Team Status: Inactive Member Role Status Dates No Primary Care Physician Primary Care Provider, Refer ring Provider Active Opal Golden CNM Attending Provider Active Team Status: Inactive Member Role Status Dates No Primary Care Physician Primary Care Provider, Refer ring Provider Active Lizzette Zheng CNM Attending Provider Active Team Status: Active Member Role Status Dates No Primary Care Physician Primary Care Provider Active Opal Golden CNM Attending Provider, Other Provid er Active Team Status: Active Member Role Status Dates No Primary Care Physician Primary Care Provider Active Opal Golden CNM Admit Provider, At tending Provider, Other Provider Active Team Status: Active Member Role Status Dates No Primary Care Physician Primary Care Provider Active Opal Golden CNM Admit Provider Active Lizzette Zheng CNM Other Provider Active Ken Gómez BUSINESS CONTINUITY DIRECTOR, BUSINESS CONTINUITY DIRECTOR-C Attending Provider Active Team Status: Inactive Member Role Status Dates No Primary Care Physician Primary Care Provider Active Opal Golden CNM Admit Provider Active Lizzette Zheng CNM Attending Provider Active Team Status: Inactive Member Role Status Dates No Primary Care Physician Primary Care Provider Active Lizzette Zheng CNM Attending Provider, Referring Pro vider Active Team Status: Inactive Member Role Status Dates No Primary Care Physician Referring Provider Active Lizzette Zheng CNM Attending Provider Active Team Status: Inactive Member Role Status Dates Lizzette Zheng CNM Attending Provider, Referring Pro vider Active Team Status: Inactive Member Role Status Dates No Primary Care Physician Referring Provider Active Dr. Geni De Jesus DO Attending Provider Activ e Team Status: Inactive Member Role Status Dates Dr. Geni De Jesus DO Attending Provider, Refe rring Provider Active Team Status: Inactive Member Role Status Dates No Primary Care Physician Primary Care Provider Active Start: September 26, 2024 End: September 26, 2024 No Primary Care Physician Referring Provider Active Start: September 26, 2024 End: September 26, 2024 Opal Golden CNM Attending Provider Active Start: September 26, 2024 End: September 26, 2024 Team Status: Inactive Member Role Status Dates No Primary Care Physician Primary Care Provider Active Start: October 07, 2024 End: October 07, 2024 No Primary Care Physician Referring Provider Active Start: October 07, 2024 End: October 07, 2024 Ken Gómez BUSINESS CONTINUITY DIRECTOR, BUSINESS CONTINUITY DIRECTOR-C Attending Provider Active Start: October 07, 2024 End: October 07, 2024 Team Status: Inactive Member Role Status Dates No Primary Care Physician Primary Care Provider Active Start: October 21, 2024 End: October 21, 2024 No Primary Care Physician Referring Provider Active Start: October 21, 2024 End: October 21, 2024 Dr. Lenora Castro MD Attending Provider Active Start: October 21, 2024 End: October 21, 2024 Team Status: Inactive Member Role Status Dates No Primary Care Physician Primary Care Provider Active Start: November 05, 2024 End: November 05, 2024 No Primary Care Physician Referring Provider Active Start: November 05, 2024 End: November 05, 2024 Dr. Geni De Jesus DO Attending Provider Activ e Start: November 05, 2024 End: November 05, 2024 Team Status: Inactive Member Role Status Dates No Primary Care Physician Primary Care Provider Active Start: November 05, 2024 End: November 05, 2024 Dr. Geni De Jesus DO Attending Provider Activ e Start: November 05, 2024 End: November 05, 2024 Dr. Geni De Jesus DO Referring Provider Activ e Start: November 05, 2024 End: November 05, 2024 Team Status: Inactive Member Role Status Dates No Primary Care Physician Primary Care Provider Active Start: November 13, 2024 End: November 13, 2024 No Primary Care Physician Referring Provider Active Start: November 13, 2024 End: November 13, 2024 Lizzette Zheng CNM Attending Provider Active S tart: November 13, 2024 End: November 13, 2024 Team Status: Inactive Member Role Status Dates No Primary Care Physician Primary Care Provider Active Start: November 16, 2024 End: November 18, 2024 Dr. Geni De Jesus DO Admit Provider Active Start: November 16, 2024 End: November 18, 2024 Dr. Geni De Jesus DO Attending Provider Activ e Start: November 16, 2024 End: November 18, 2024 Team Status: Active Member Role Status Dates No Primary Care Physician Primary Care Provider Active Start: November 16, 2024 Dr. Geni De Jesus DO Admit Provider Active Start: November 16, 2024 Dr. Geni De Jesus DO Attending Provider Activ e Start: November 16, 2024 Dr. Geni De Jesus DO Other Provider Active Start: November 16, 2024 Team Status: Active Member Role Status Dates No Primary Care Physician Primary Care Provider Active Start: November 17, 2024 Dr. Geni De Jesus DO Admit Provider Active Start: November 17, 2024 Dr. Geni De Jesus DO Other Provider Active Start: November 17, 2024 Lizzette Zheng CNM Attending Provider Active S tart: November 17, 2024 Team Status: Active Member Role Status Dates No Primary Care Physician Primary Care Provider Active Start: November 18, 2024 Dr. Geni De Jesus DO Admit Provider Active Start: November 18, 2024 Dr. Geni De Jesus DO Other Provider Active Start: November 18, 2024 Ken Gómez NP, BUSINESS CONTINUITY DIRECTOR-C Attending Provider Active Start: November 18, 2024 Team Status: Inactive Member Role Status Dates No Primary Care Physician Primary Care Provider Active Start: December 29, 2024 End: December 29, 2024 No Primary Care Physician Referring Provider Active Start: December 29, 2024 End: December 29, 2024 Lizzette Zheng CNM Attending Provider Active S tart: December 29, 2024 End: December 29, 2024 Team Status: Active Member Role Status Dates No Primary Care Physician Primary Care Provider Active Start: January 12, 2025 Dr. Mookie Morales DO Emergency Provider Active Start: January 12, 2025 Dr. Anthony Martin MD Attending Provider Active Start: January 12, 2025 Team Status: Active Member Role Status Dates No Primary Care Physician Primary Care Provider Active Start: January 12, 2025 Dr. Mookie Morales DO Emergency Provider Active Start: January 12, 2025 Dr. Anthony Martin MD Admit Provider Active Start: January 12, 2025 Dr. Anthony Martin MD Attending Provider Active Start: January 12, 2025 Team Status: Inactive Member Role Status Dates No Primary Care Physician Primary Care Provider Active Start: January 12, 2025 End: January 14, 2025 Dr. Mookie Morales DO Emergency Provider Active Start: January 12, 2025 End: January 14, 2025 Dr. Anthony Martin MD Admit Provider Active Start: January 12, 2025 End: January 14, 2025 Dr. Anthony Martin MD Attending Provider Active Start: January 12, 2025 End: January 14, 2025 Team Status: Active Member Role Status Dates No Primary Care Physician Primary Care Provider Active Start: January 13, 2025 Dr. Mookie Morales , Emergency Provider Active Start: January 13, 2025 Dr. Anthony Martin MD Admit Provider Active Start: January 13, 2025 Dr. Anthony Martin MD Attending Provider Active Start: January 13, 2025 Dr. Anthony Martin MD Other Provider Active Start: January 13, 2025 Team Status: Active Member Role Status Dates No Primary Care Physician Primary Care Provider Active Start: January 14, 2025 Dr. Mookie Morales , Emergency Provider Active Start: January 14, 2025 Dr. Anthony Martin MD Admit Provider Active Start: January 14, 2025 Dr. Anthony Martin MD Other Provider Active Start: January 14, 2025 Sharmin KENNY PA-C Attending Provider Active Start: January 14, 2025 Team Status: Inactive Member Role Status Dates No Primary Care Physician Primary Care Provider Active Start: January 20, 2025 End: January 20, 2025 No Primary Care Physician Referring Provider Active Start: January 20, 2025 End: January 20, 2025 Ken Gómez BUSINESS CONTINUITY DIRECTOR, BUSINESS CONTINUITY DIRECTOR-C Attending Provider Active Start: January 20, 2025 End: January 20, 2025 Team Status: Inactive Member Role Status Dates No Primary Care Physician Primary Care Provider Active Start: January 20, 2025 End: January 20, 2025 Ken Gómez BUSINESS CONTINUITY DIRECTOR, BUSINESS CONTINUITY DIRECTOR-C Attending Provider Active Start: January 20, 2025 End: January 20, 2025 Ken Gómez BUSINESS CONTINUITY DIRECTOR, BUSINESS CONTINUITY DIRECTOR-C Referring Provider Active Start: January 20, 2025 End: January 20, 2025 Team Status: Inactive Member Role Status Dates No Primary Care Physician Primary Care Provider Active Start: January 27, 2025 End: January 27, 2025 No Primary Care Physician Referring Provider Active Start: January 27, 2025 End: January 27, 2025 Sharmin KENNY, PA-C Attending Provider Active Start: January 27, 2025 End: January 27, 2025 Team Status: Inactive Member Role Status Dates No Primary Care Physician Primary Care Provider Active Start: March 03, 2025 End: March 03, 2025 No Primary Care Physician Referring Provider Active Start: March 03, 2025 End: March 03, 2025 Ken Gómez NP, JORGE A-C Attending Provider Active Start: March 03, 2025 End: March 03, 2025 FOR RECORDS PERTAINING TO PATIENTS WHO ARE OR HAVE BEEN ENROLLED IN A CHEMICAL DEPENDENCY/SUBSTANCEABUSE PROGRAM, SOME INFORMATION MAY BE OMITTED. This clinical summary was aggregated from multiple sources. Caution should be exercised in using it in the provision of clinical care. This summary normalizes information from multiple sources, and as a consequence, information in this document may materially change the coding, format and clinical context of patient data. In addition, data may be omitted in some cases. CLINICAL DECISIONS SHOULD BE BASED ON THE PRIMARY CLINICAL RECORDS. [facility] [employer] provides no warranty or guarantee of the accuracy or completeness of information in this document.
[2025-05-10 22:55] VITALS: BP 118/79; PULSE 70; RESP 18; TEMP 36.7; O2SAT 98
== END 2025-05-10 23:00 | disposition home or self-care (01) ==
PROVIDERS: Emergency Provider Emergency Medicine; Visit Provider Emergency Medicine
DX: M77.31 Calcaneal spur, right foot (principal); M72.2 Plantar fascial fibromatosis; F17.290 Nicotine dependence, other tobacco product, uncomplicated
CPT/HCPCS: 73630; 99283

== ENCOUNTER → 2025-09-05 | Outpatient (CLI) | payer MEDICAID, SELFPAY ==
--- NOTE | 2025-09-05 10:55 | US_ITS ---
PROCEDURE: PELVIC W/ TRANSVAGINAL 09/05/2025 REASON FOR EXAM: IUD CHECK. IUD was placed in January 2025. Patient is still having heavy and irregular menstrual cycles. 2 para 2. 1st day of last menstrual period was 08/09/2025 TECHNIQUE: Procedure Code: [id number] Modality: US Procedure: PELVIC W/ TRANSVAGINAL COMPARISON: None FINDINGS: Measurements: Uterus: 10.6 x 6.3 x 4.9 cm with a volume of 169 mL Endometrial Thickness: 7 mm Cervix: Cervix appears unremarkable. Right Ovary: 3.7 x 2.4 x 2.3 cm with a volume of 11 mL. Left Ovary: 3.5 x 2.3 x 2.2 cm with a volume of 9.5 mL. Uterus: An IUD is seen within the endometrial canal in the fundal portion of the uterus. Endometrium: Hyperechoic Right ovary: Size, contour and echogenicity are within normal limits. There is blood flow to the ovary. There is no evidence of ovarian torsion. Left ovary: There is a prominent follicle/ cystic structure measuring 19 x 18 x 13 mm. This has internal echoes. Size and contour of the ovary are within normal limits. There is blood flow to the ovary. There was no evidence of ovarian torsion. Other: There is a trace of free fluid within the cul-de-sac which is probably physiologic. Urinary bladder: Urinary bladder measures 6.3 x 8.6 x 4.7 cm. Urinary bladder volume measures 134 mL. The bladder wall appears smooth. There are no masses identified within the urinary bladder. US/Pelvic w/ Transvaginal IMPRESSION: IUD appears to be in satisfactory position. There is a prominent follicle/cystic structure within the left ovary as describ ed above. Reading Location: [id number]
--- OUTSIDE RECORDS SUMMARY | 2025-09-05 11:06 | XMS RPT_ITS | CCD ---
Author Organization [facility] Care Team Providers Care Food Preparation Supervisor Name Role Phone [facility] Doctor, Out of Primary Care Provider Unavai [facility] Doctor, Out of Referring Provider Unavailab Dr. Lenora Torres Attending Provider [phone] Dr. Geni De Jesus Attending Provider [phone] Dr. Rosalina Perez Primary Care Provider Town Doctor, Out of Referring Provider Unavailab Dr. Rosalina Eckert Referring Provider Care Physician, No Primary Primary Care Provider Unavailable Rico COORDINATING PRODUCER, COORDINATING PRODUCER-C Ken Attending Provider Care Physician, No Primary Referring Provider Un available Care Physician, No Primary Primary Care Provider Unavailable Care Physician, No Primary Referring Provider Un available Rico COORDINATING PRODUCERJORGE A-C Ken Attending Provider [phone] Dr. Geni De Jesus Attending Provider [phone] Dr. Lenora Castro Attending Provider [phone] CLARA Golden Attending Provider CLARA Zheng Attending Provider CLARA Golden Other Provider CLARA Golden Admit Provider CLARA Zheng Other Provider [phone] Care Physician, No Primary Primary Care Provider Unavailable Care Physician, No Primary Referring Provider Un available Dr. Geni De Jesus Attending Provider [phone] Rico COORDINATING PRODUCERMALIKC Ken Attending Provider Care Physician, No Primary Primary Care Provider Unavailable Care Physician, No Primary Referring Provider Un available Dr. Geni De Jesus Attending Provider Care Physician, No Primary Primary Care Provider Unavailable Care Physician, No Primary Referring Provider Un available CLARA Golden Attending Provider [phone] Dr. Geni De Jesus Attending Provider [phone] RICO, KEN S Referring Unavailable SRIKANTH SOM, JOSE ALFREDO Primary Care Unavailable SILVANO HORTA Attending Unavailable SILVANO HORTA Attending Unavailable RICO, KEN S Referring Unavailable SRIKANTH SOM, JOSE ALFREDO Primary Care Unavailable Care Physician, No Primary Primary Care Provider Unavailable Care Physician, No Primary Referring Provider Un available Opal Golden CNM Attending Provider Rico COORDINATING PRODUCER-CKen Attending Provider [phone] Gasper MARIE, Dr. Cooley Attending Provider Dr. Geni De Jesus DO Attending Provider Dr. Geni De Jesus DO Referring Provider Lizzette Zheng CNM Attending Provider [phone] Dr. Geni De Jesus DO Admit Provider [phone] Dr. Geni eD Jesus DO Other Provider [phone] Dr. Mookie Morales DO Emergency Provider Dr. Anthony Martin MD Attending Provider Veronica MARIE, Dr. Cruz Admit Provider Veronica MARIE, Dr. Cruz Other Provider Sharmin Bautista PA-C Attending Provider Care Physician, No Primary Primary Care Provider Unavailable Care Physician, No Primary Referring Provider Un available [place] COORDINATING PRODUCER-CKen Attending Provider Sharmin Bautista PA-C Attending Provider [place] COORDINATING PRODUCER-CKen Referring Provider Care Physician, No Primary Primary Care Provider Unavailable Care Physician, No Primary Referring Provider Un available Rico COORDINATING PRODUCER-C, Ken Attending Provider Dr. Ramy Quach DO Emergency Provider [phone] Rico COORDINATING PRODUCER, Ken Attending Unavailable Care Physician, No Primary Referring Unava ilable Care Physician, No Primary Primary Care Unava ilable Rico COORDINATING PRODUCER, Ken Attending Unavailable Care Physician, No Primary [...] ilable Geni De Jesus Attending Unavailabl e Meri Simpson, Geni Admitting Unavailabl e Lenora Castro Attending Unavailable Lenora Castro Referring Unavailable Care Physician, No Primary Primary Care Unava ilable Care Physician, No Primary Primary Care Unava ilable Anthony Martin Attending Unavailable Care Physician, No Primary Primary Care Unava ilable Anthony Martin Admitting Unavailable Anthony Martin Consulting Unavailable Anthony Martin Attending Unavailable Sharmin Lackey Attending Unavailable Care Physician, No Primary Referring Unava ilable Care Physician, No Primary Primary Care Unava ilable Geni De Jesus Attending Unavailabl e Care Physician, No Primary Referring Unava ilable Care Physician, No Primary Primary Care Unava ilable Lizzette Zheng Attending Unavailable Care Physician, No Primary Referring Unava ilable Care Physician, No Primary Primary Care Unava ilable Lenora Castro Attending Unavailable Rico COORDINATING PRODUCER, Ken Attending Unavailable Care Physician, No Primary Referring Unava ilable Care Physician, No Primary Primary Care Unava ilable Care Physician, No Primary Referring Unava ilable Lizzette Zheng Attending Unavailable Care Physician, No Primary Primary Care Unava ilable Care Physician, No Primary Primary Care Unava ilable Geni De Jesus Attending Unavailabl e Meri Simpson, Geni Referring Unavailabl e Rico COORDINATING PRODUCER, Ken Referring Unavailable Rico COORDINATING PRODUCER, Ken Attending Unavailable Care Physician, No Primary Primary Care Unava ilable Care Physician, No Primary Referring Unava ilable Care Physician, No Primary Primary Care Unava ilable Opal Golden Attending Unavailable Rico COORDINATING PRODUCER, Ken Attending Unavailable Care Physician, No Primary Referring Unava ilable Care Physician, No Primary Primary Care Unava ilable Care Physician, No Primary Referring Unava ilable Care Physician, No Primary Primary Care Unava ilable Lenora Castro Attending Unavailable Rico COORDINATING PRODUCER, Ken Attending Unavailable Rico COORDINATING PRODUCER, Ken Referring Unavailable Care Physician, No Primary Primary Care Unava ilable Care Physician, No Primary Primary Care Unava ilable Ramy Quach Attending Unavailable Care Physician, No Primary Primary Care Unava ilable Anthony Martin Admitting Unavailable Anthony Martin Attending Unavailable Rico COORDINATING PRODUCER, Ken Attending Unavailable Care Physician, No Primary Primary Care Unava ilable Care Physician, No Primary Referring Unava ilable Care Physician, No Primary Referring Unava ilable Care Physician, No Primary Primary Care Unava ilable Sharmin Lackey Attending Unavailable Care Physician, No Primary Primary Care Unava ilable Lizzette Zheng Attending Unavailable Geni De Jesus Admitting Unavailelzbieta e Geni De Jesus Consulting Unavailabl e Rico COORDINATING PRODUCER, Kne Attending Unavailable Geni De Jesus Attending Unavailabl e Care Physician, No Primary Referring Unava ilable Care Physician, No Primary Primary Care Unava ilable Lenora Castro Attending Unavailable Allergies Allergy Classification Reported Allergen(s) Allergy Type Date of Onset Reaction(s) Facility (1 source) Seasonal allergy; Translations: [SEASONAL ALLERGIES] Propensity to adverse reactions (disorder) 3 [facility] Repository Medications Current Medications Medication Drug Class(es) Dates Sig (Normalized) Sig (Original) levonorgestrel 0.276448 mg/hr intrauterine system (2 sources) Progestin, Progestin-containi ng Intrauterine Device Start: 02-19-2025 Levonorgestrel (Mirena) 21 mcg/24hr (up to 8 yrs) 52 mg intrauterine device Active 1 NMA INTRA-UTER ONCE February 19, 2025 12:00am as a single dose loratadine 10 mg oral tablet (1 source) Start: 12-18-2022 take 1 tablet by mouth once daily Loratadine (Claritin) 10 mg tablet Active 10 MG PO DAILY December 18, 2022 12:00am Multivit 66-Vntb-Przcdo 1-Dha (Pnv-Dha) 27 mg iron-1 mg -300 mg capsule (4 sources) Start: 04-18-2024 Multivit 26-Kunp-Dtcfhc 1-Dha (Pnv-Dha) 27 mg iron-1 mg -300 mg capsule Active 1 NMA PO DAILY April 18, 2024 12:00am pergnancy Start: 04-18-2024 Multivit 47-Ir on-Folate 1-Dha (Pnv-Dha) 27 mg iron-1 mg -300 mg capsule Active 1 NMA PO DAILY April 18, 2024 12:00am Completed/Discontinued Medications Medication Drug Class(es) Dates Sig (Normalized) Sig (Original) amoxicillin 500 mg oral capsule (9 sources) Penicillin-class Antibacterial Start: 12-07-2022 End: 12-18-2022 take 1 capsule by mouth twice daily Amoxicillin 500 mg capsule Discontinued 500 mg PO TWICE A DAY 14 December 07, 2022 1:00am December 18, 2022 11:54am cetirizine hydrochloride 10 mg oral capsule (9 sources) Histamine-1 Receptor Antagonist Start: 12-18-2022 End: 11-16-2024 take 1 capsule by mouth once daily as needed Cetirizine (Zyrtec) 10 mg capsule Discontinued 10 mg PO DAILY as needed for allergies December 18, 2022 12:00am November 16, 2024 8:08am dicloxacillin 500 mg oral capsule (3 sources) Penicillin-class Antibacterial Start: 01-14-2025 End: 03-03-2025 take 1 capsule by mouth every six hours Dicloxacillin 500 mg capsule Discontinued 500 mg PO EVERY 6 HOURS 40 10 0 January 14, 2025 12:00am March 03, 2025 10:53am Iron (11 sources) Start: 07-05-2022 End: 05-17-2023 Pnv No.937-Jmkt-Ounpgy No.10 (Pnv Tabs 20-1) 20 mg iron- 1 mg tablet Discontinued 1 {tbl} PO DAILY July 05, 2022 12:00am May 17, 2023 9:59am supplement Start: 07-05-2022 End: 05-17-2023 Pnv No.689-Zcss-Oqizii No.10 (Pnv Tabs 20-1) 20 mg iron- 1 mg tablet Discontinued 1 {tbl} PO DAILY July 05, 2022 12:00am May 17, 2023 9:59am Start: 07-05-2022 End: 05-17-2023 Pnv No.251-Sofo-Lmequr No.10 (Pnv Tabs 20-1) 20 mg iron- [...] 2022 11:00pm metroNIDAZOLE 500 mg oral tablet (12 sources) Nitroimidazole Antimicrobial Start: 04-20-2023 End: 05-17-2023 take 1 tablet by mouth twice daily Metronidazole 500 mg tablet Discontinued 500 mg PO TWICE A DAY 14 0 April 20, 2023 12:00am May 17, 2023 9:58am Start: 04-04-2023 End: 04-17-2023 take 1 tablet by mouth twice daily Metronidazole 500 mg tablet Discontinued 500 mg PO TWICE A DAY 14 0 April 04, 2023 12:00am April 17, 2023 10:59am 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 oxyCODONE hydrochloride 5 mg oral tablet (3 sources) Opioid Agonist Start: 01-13-2025 End: 03-03-2025 take 5-10 mg by mouth every four hours as needed for pain Oxycodone 5 mg Tablet Discontinued 5 - 10 mg PO EVERY 4 HOURS NEEDED as needed for Pain Score 4-10 14 5 0 January 13, 2025 March 03, 2025 10:53am Acute appendicitis Unspecified acute appendicitis Problems Active Problems Problem Classification Problem Date Documented Date Episodic/Chronic Contraceptive and procreative management (7 sources) Intrauterine contraceptive device in situ; Translations: [Presence of (intrauterine) contraceptive device] Onset: 01-20-2025 01-20-2025 Episodic Early or threatened labor (8 sources) Uterine contractions present; Translations: [False labor, unspecified] 02-06-2023 Episodic Comment on above: rule out labor. no c ervical change. dc home with labor precautions. Genitourinary symptoms and ill-defined conditions (12 sources) History of urinary tract infection; Translations: [Personal history of urinary (tract) infections] Episodic Comment on above: 2 this year Hemorrhage during ; abruptio placenta; placenta previa (20 sources) Low lying placenta; Translations: [Low lying placenta NOS or without hemorrhage, second trimester] 11-22-2022 Episodic Comment on above: repeat US @ 28 wks: 11/20 resolved Immunizations and screening for infectious disease (12 sources) Patient encounter status; Translations: [Encounter for screening for infections with a predominantly sexual mode of transmission] 04-17-2023 Episodic Comment on above: No PA needed for IUD with insurance type Intestinal infection (6 sources) Intestinal trichomoniasis; 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] 04-04-2023 Episodic Other complications of (20 sources) High risk [...] above: offer MMR PP Other complications of (10 sources) Fundal height high for dates; Translations: [Uterine size-date discrepancy, unspecified trimester] 11-21-2024 Episodic Other connective tissue disease (1 source) Plantar fasciitis of right foot; Translations: [Plantar fascial fibromatosis] 05-10-2025 Episodic Other connective tissue disease (1 source) Calcaneal spur; Translations: [Calcaneal spur, right foot] 05-10-2025 Episodic Other connective tissue disease (1 source) Calcaneal spur, right foot; Translations: [Calcaneal spur, right foot] Onset: 05-15-2025 Episodic Other female genital disorders (11 sources) History of gynecological disorder; Translations: [Personal history of other diseases of the female genital tract] 07-10-2022 Episodic Other nutritional; endocrine; and metabolic disorders (19 sources) Obese class I; Translations: [Class 1 obesity] 05-20-2024 Chronic Comment on above: HgbA1c 1 TM. BMI 32. encouraged healthy weight gain Other nutritional; endocrine; and metabolic disorders (2 sources) Obesity, unspecified; Translations: [Obesity, unspecified] Onset: 11-13-2024 Chronic Other nutritional; endocrine; and metabolic disorders (11 sources) Overweight in adulthood with body mass index of 25 or more but less than 30; Translations: [Body mass index (BMI) 26.0-26.9, adult] 07-10-2022 Episodic Other upper respiratory disease (11 sources) Seasonal allergy; Translations: [Other seasonal allergic rhinitis] 07-10-2022 Chronic Comment on above: worst in [place] & [place] mmer Unclassified (2 sources) Other underimmunization status; Translations: [Other underimmunization status] Onset: 11-13-2024 Viral infection (11 sources) Disease caused by 2019-nCoV; Translations: [COVID-19] 07-10-2022 Episodic Past or Other Problems Problem Classification Problem Date Documented Date Episodic/Chronic Abdominal pain (1 source) Unspecified abdominal pain; Translations: [Unspecified abdominal pain] Onset: 01-23-2025 Episodic Appendicitis and other appendiceal conditions (9 sources) Acute appendicitis; Translations: [Unspecified acute appendicitis] Onset: 01-23-2025 01-12-2025 Episodic Bacterial infection; unspecified site (10 sources) Bacteria present; Translations: [Streptococcus, group B, as the cause of diseases classified elsewhere] Onset: 11-13-2024 11-10-2024 Episodic Cancer of cervix (20 sources) Low grade squamous intraepithelial lesion on cervical Papanicolaou smear; Translations: [Low grade squamous intraepithelial lesion on cytologic smear of cervix (LGSIL)] Onset: 11-27-2024 Episodic Comment on above: colp normal on 08/17. rpt pap post . 03/2023 LSIL and +Trich colp normal on 08/17. rpt pap post . 03/2023 LSIL and +Trich; 01/2025 neg pap Cardiac and circulatory congenital anomalies (20 sources) H/O: cardiac anomaly; Translations: [Personal history of (corrected) congenital malformations of heart and circulatory system] Onset: 11-13-2024 Episodic Comment on above: patient had two hole s in her heart at but closed spontaneously. MFM anatomy scan, echo @ 22 wks:nl Other complications of (16 sources) Supervision of high risk , unspecified, unspecified trimester; Translations: [Supervision of unspecified high-risk ] Onset: 05-20-2024 Episodic Other complications of (2 sources) Supervision of high risk , unspecified, third trimester; Translations: [Supervision of high risk , unspecified, third trimester] Onset: 11-27-2024 Episodic Other complications of (2 sources) Supervision of other high risk pregnancies, unspecified trimester; Translations: [Supervision of other high risk pregnancies, unspecified trimester] Onset: 11-13-2024 Episodic Other complications of (2 sources) Uterine size-date discrepancy, unspecified trimester; Translations: [Uterine size-date discrepancy, unspecified trimester] Onset: 11-13-2024 Episodic Other complications of (1 source) Supervision of high risk , unspecified, second trimester; Translations: [Supervision of high risk , unspecified, second trimester] Onset: 10-10-2024 Episodic Other and delivery including normal (20 sources) ; Translations: [Encounter for supervision of normal , unspecified, unspecified trimester] Onset: 07-14-2024 Episodic Comment on above: 11/16/24 JV Keysha KW IAL 38 weeks bottle feeding Ahuja normal anatomy, low risk NIPT. carrier declined. AFP neg GBS Negative, anatom y nl, NIPT low risk, declined carrier testing, nl 1 HR GCT, offer MMR PP Residual codes; unclassified (2 sources) 38 weeks [...] above: untreated, feeling g ood now. Unclassified (8 sources) Spontaneous onset of labor; Translations: [Spontaneous onset of labor] 02-06-2023 Comment on above: 38+5 with spontaneou s labor. AROM for clear fluid Results Test Name Value Interpretation Reference Range Facility Emergency Department Summary on 05-10-2025 Emergency Department Summary [facility] Medical Records Department [address] [place] [id number] Emergency Department Summary 05/10/25 MR#: [id number] Acct: [id number] Name: LLUVIA HOLLINGSWORTH Rep #: [id number] : 1995 29 From: Ramy Price PCP: Care Physician,No Primary Status:REG ER Location: ED HPI History of Present Illness Chief Complaint: Lower Extremity Injury Informant: patient and spouse/S.O. Narrative Narrative: Worsening right foot pain over the past couple months. Symptoms started after stepping on a rock outside. Progressively worsening last week. No additional injuries. Pain under the heel. Use ibuprofen previously with transient minimal relief. No history of similar. She states she runs around the 2-year-old and a 6-month-old. Prior similar symptoms: No PFSH PFSH Medical History Acute appendicitis Vaginal delivery Rubella [...] levonorgestrel (Mirena) 1 device intrauterine ONCE 5 Unknown History Allergy/AdvReac Type Severity Reaction Status Date / Time No Known Allergies Allergy Verified 05/10/25 21:38 Family History Aunt Ovarian cancer, Onset Age: 45 Maternal Aunt Mother Miscarriage 2 or 3 miscarriages- before and after of pt. Surgical History History of appendectomy History of surgery Social History adopted: No household members: significant other and children housing: house number of children: 1 current occupational status: unemployed current occupation: [employer] current occupational exposures/hazards: No pets and animals: Yes (not manage litterbox) pets and animals: cat(s) and dog(s) history of recent travel: No ([place]) sexually active: Yes Smoking Status: Current every day smoker tobacco type: e-cigarettes alcohol intake: former details: rarely drinks, special occasions, not while substance use type: does not use well-balanced diet: daily or most days caffeine: No eating out: 1-3 times/week during the past year weight has: remained stable what type of physical activity do you participate in: walking frequency: daily duration: 15-30 minutes/day chriss/anglican: None seatbelt use: always do you feel safe at home: Yes additional social history: J Luis - Self employed ROS ROS ED Constitutional Constitutional ED: Denies fever(s) Cardiovascular Cardiovascular: Denies chest pain Respiratory/Chest Respiratory/Chest: Denies cough Gastrointestinal Gastrointestinal: Denies diarrhea or vomiting Musculoskeletal Musculoskeletal: Reports none and other Details: Right foot pain Integumentary Denies rash or wounds Neurologic Neurologic: Denies weakness EXAM Physical Exam Const Vital Signs: 05/10/25 21:36 Temperature 97.8 F Temperature Source Oral Pulse Rate 87 Respiratory Rate 16 Blood Pressure 131/74 H Blood Pressure Mean 93 Pulse Ox 100 Oxygen Delivery Method Room Air Positive well nourished and well developed General Appearance ED: well developed HEENT normocephalic and atraumatic Eyes General Eye ED: Yes normal appearance of both eyes Neck full ROM Resp normal respiratory effort and normal air movement Cardio regular rate and regular rhythm GI soft to palpation Extremity Extremity Narrative: Right lower extremity: No ankle or midfoot tenderness. No proximal or distal tenderness. Tender palpation at the heel and medial aspect of insertion of the plantar fascia. Skin is intact. No erythema. No swelling. Neuro oriented x3 Skin no rashes or lesions noted and no wounds MDM MDM MDM Narrative Medical decision making narrative: Interventions / MDM: Differential diagnosis: Plantar fasciitis, heel spur Diagnosis considered but do not suspect: Fracture x-ray negative My EKG interpretation: N/A Imaging independently reviewed and interpreted by myself: Right foot x-ray 3 views: Small heel spur. No fractures. Also read by radiology. External documents reviewed: N/A Test considered but not ordered:N/A ED course: Worsening right heel pain after stepping on a rock. Pain at the heel and right at the plantar fascia. Ibuprofen ordered, right f (more content not included)... [facility] Foot min 3 Viewson 5 Foot min 3 Views [facility] [address] [place] [address] Foot min 3 Views MR#: [id number] Acct: [id number] Name: LLUVIA HOLLINGSWORTH Rep #: [id number] : 1995 F 29 From: Nelson Bush MD PCP: Care Physician,No Primary Status: REG ER Study: Foot min 3 Views Date of Exam: 05/10/25 Exam# [id number] Ordering Dr: Ramy Quach DO PROCEDURE: FOOT MIN 3 VIEWS 05/10/2025 REASON FOR EXAM: HEEL PAIN TECHNIQUE: FOOT MIN 3 VIEWS COMPARISON: No FINDINGS: Small plantar calcaneal spur. No acute bone or soft tissue pathology. RAD/Foot min 3 Views IMPRESSION: No acute findings. Reading Location: [place] [id number] CC: Dr. Ramy Quach, DO; No Primary Care Physician Weigher And Grader: Signed Normal [facility] Office Visit Reporton 03-03-2025 [facility] Office Visit Report [facility] [address], [address] [place] [address] OFFICE VISIT Date of Service: 03/03/25 MR#: [id number] Acct: [id number] Name: LLUVIA HOLLINGSWORTH Rep #: [id number] : 1995 Provider: LUIS cox Age/Sex: 29/F Location: [facility] Status: Signed Intake Vital Signs 01/20/25 10:26 03/03/25 10:50 03/03/25 10:54 Height 5 ft 4 in 5 ft 4 in 5 ft 4 in Weight: 205 lb 2 oz BMI 35.2 BP 124/70 H 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 Is patient in pain?: No [...] : No : No [facility] History Acute appendicitis Vaginal delivery Rubella [...] 1 current occupational status: unemployed current occupation: [employer] current occupational exposures/hazards: No pets and animals: Yes (not manage litterbox) pets and animals: cat(s) and dog(s) history of recent travel: No ([place]) sexually active: Yes Smoking Status: Current some day smoker tobacco type: e-cigarettes alcohol intake: former details: rarely drinks, special occasions, not while substance use type: does not use well-balanced diet: daily or most days caffeine: No eating out: 1-3 times/week during the past year weight has: remained stable what type of physical activity do you participate in: walking frequency: daily duration: 15-30 minutes/day chriss/anglican: None seatbelt use: always do you feel [...] live - full term 8#4oz Male epidural [facility] KW J Luis 11/16/24 Renetta 38 live - full term 8lb 6oz Female epidural [facility] Christine Noe Dietz Delivery Date: 11/16/24 Last Updated by: [...] Date _ (more content not included)... [facility] Surgery Visit Reporton 01-27 Surgery Visit Report [facility] [address] [place] [address] OFFICE VISIT Date of Service: 01/27/25 MR#: [id number] Acct: [id number] Name: LLUVIA HOLLINGSWORTH Rep #: [id number] : 1995 Provider: CODY kauffman Age/Sex: 29/F Location: [facility] Status: Signed Intake Vital Signs 01/13/25 04:08 01/20/25 10:26 Height 5 ft 4 in 5 ft 4 in Intake Visit Reasons: APPY 4-8 Chief Complaint: F/U Appendectomy 01/13/25 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 Required: No Is patient in pain?: No [...] Global Post Op Diagnoses S/P appendectomy Z90.49 [facility] Medical History Acute appendicitis Vaginal delivery Rubella non-immune status, antepartum Contraceptive management Spontaneous vaginal delivery Spontaneous onset of labor Uterine contractions Low-lying placenta in second trimester Supervision of high-risk History of depression Surgical History (Updated 01/27/25 @ 13:33 by Sharmin KENNY PASharynC) History of appendectomy History of surgery Family History Aunt Ovarian cancer, Onset Age: 45 Maternal Aunt Mother Miscarriage 2 or 3 miscarriages- before and after of pt. Social History adopted: No household members: significant other and children housing: house number of children: 1 current occupational status: unemployed current occupation: [employer] current occupational exposures/hazards: No pets and animals: Yes (not manage litterbox) pets and animals: cat(s) and dog(s) history of recent travel: No ([place]) sexually active: Yes Smoking Status: Current some day smoker tobacco type: e-cigarettes alcohol intake: former details: rarely drinks, special occasions, not while substance use type: does not use well-balanced diet: daily or most days caffeine: No eating out: 1-3 times/week during the past year weight has: remained stable what type of physical activity do you participate in: walking frequency: daily duration: 15-30 minutes/day chriss/anglican: None seatbelt use: always do you feel safe at home: Yes additional social history: J Luis - Self employed Assessment and Plan (No Qualifiers) Assessment and Plan (1) S/P appendectomy: Status: Acute Plan: Recommend no strenuous activity for 2 weeks Discussed signs of infection Follow-up as needed 01/27/25 1337 Date Sharmin Nascimento Signature: Date (if applicable) CC: Normal [facility] PAP I-G w/rfx hrHPV-Aptimaon 01-23-2025 ADEQ Comment Normal . [facility] Comment on above: Order Comment: Michael hancock Comment: [id number] Comment: Source.............CervixSpecimen Comment: LMP / Prev Treat...[id number] Comment: No. of containers..01 ThinPrep Vial Result Comment: Sati sfactory for evaluation. Endocervical and/or squamous metaplastic cells (endocervical component) are present. Performed By: #### L 7400.0353 ####[facility] [address] [place], [address] COMM . Normal . [facility] Comment on above: Order Comment: Michael hancock Comment: [id number] Comment: Source.............CervixSpecimen Comment: LMP / Prev Treat...[id number] Comment: No. of containers..01 ThinPrep Vial Performed By: #### L 7400.0353 ####[facility] [address] [place], [place], [id number] COMMENT Comment Normal . [facility] Comment on above: Order Comment: Michael hancock Comment: [id number] Comment: Source.............CervixSpecimen Comment: LMP / Prev Treat...[id number] Comment: No. of containers..01 ThinPrep Vial Result Comment: This liquid based ThinPrep(R) pap test was screened with the use of an image guided system. Performed By: #### L 7400.0353 ####[facility] [address] [place], [place], [id number] DIAG Comment Normal . [facility] Comment on above: Order Comment: Speci men Comment: [id number] Comment: Source.............CervixSpecimen Comment: LMP / Prev Treat...[id number] Comment: No. of containers..01 ThinPrep Vial Result Comment: NEGA TIVE FOR INTRAEPITHELIAL LESION OR MALIGNANCY. Performed By: #### L 7400.0353 ####[facility] [address] [place], [place], [id number] HPV RFLX Comment Normal . [facility] Comment on above: Order Comment: Speci men Comment: [id number] Comment: Source.............CervixSpecimen Comment: LMP / Prev Treat...[id number] Comment: No. of containers..01 ThinPrep Vial Result Comment: The HPV DNA reflex criteria were not met with this specimen result therefore, no HPV testing was performed. Performed at: [address] [id number] Material Loader: Noe Amador PhD, Phone: [phone] Performed at: [address] [id number] Material Loader: Megan Lawrence MD, Phone: [phone] Performed By: #### L 7400.0353 ####[facility] [address] [place], [address] PAPSMR Comment Normal . [facility] Comment on above: Order Comment: Speci men Comment: [id number] Comment: Source.............CervixSpecimen Comment: LMP / Prev Treat...[id number] Comment: No. of containers..01 ThinPrep Vial Result Comment: The Pap smear is a screening test designed to aid in the detection of premalignant and malignant conditions of the uterine cervix. It is not a diagnostic procedure and should not be used as the sole means of detecting cervical cancer. Both false-positive and false-negative reports do occur. Performed By: #### L 7400.0353 ####[facility] [address] [place], [address] PERFORM Comment Normal . [facility] Comment on above: Order Comment: Speci men Comment: [id number] Comment: Source.............CervixSpecimen Comment: LMP / Prev Treat...[id number] Comment: No. of containers..01 ThinPrep Vial Result Comment: Tala Sotelo, Medical Economics Consultant (ASCP) Performed By: #### L 7400.0353 ####[facility] [address] [place], [address] Cervical or vagninal specime n microscopic examination by cytology stain (reported asOrdered By: Ken Gómez on 01-20-2025 Cytology report Cyto stain Doc (Cvx/Vag) Comment . [facility] Comment on above: The Pap smear is [...] 01-20-2025 HCG ( test) Ql (U) Negative [facility] Laboratory - CytologyOrdered By: Ken Gómez on 01-20-2025 Saddle Stitching Machine Operator Cyto stain Nom (Cvx/Vag) [ID] Comment . [facility] Comment on above: Kindra Sotelo, Medical Economics Consultant (ASCP) Laboratory - Miscellaneous t estsOrdered By: Ken Gómez on 01-20-2025 Service comment (Unsp spec) [Interp] . . [facility] No Panel InformationOrdered By: Ken Gómez on 01-20-2025 Pap Smear Specimen Adequacy Comment . [facility] Comment on above: Satisfactory for alex luation. Endocervical and/or squamous metaplasticcells (endocervical component) are present. [facility] Office Visit Reporton 01-20-2025 [facility] Office Visit Report [facility] [address], [address] [place] [address] OFFICE VISIT Date of Service: 01/20/25 MR#: [id number] Acct: [id number] Name: LLUVIA HOLLINGSWORTH Rep #: [id number] : 1995 Provider: LUIS cox Age/Sex: 29/F Location: 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: No Is patient in pain?: No [...] (Updated 01/20/25 @ 10:45 by Ken Gómez COORDINATING PRODUCER, COORDINATING PRODUCER-C) Vaginal delivery Rubella non-immune status, antepartum Contraceptive [...] 1 current occupational status: unemployed current occupation: [employer] current occupational exposures/hazards: No pets and animals: Yes (not manage litterbox) pets and animals: cat(s) and dog(s) history of recent travel: No ([place]) sexually active: Yes Smoking Status: Current some day smoker tobacco type: e-cigarettes alcohol intake: former details: rarely drinks, special occasions, not while substance use type: does not use well-balanced diet: daily or most days caffeine: No eating out: 1-3 times/week during the past year weight has: remained stable what type of physical activity do you participate in: walking frequency: daily duration: 15-30 minutes/day chriss/anglican: None seatbelt use: always do you feel [...] 8#4oz Male epidural [facility] J Luis 11/16/24 Renetta 38 live - full term 8lb 6oz Female epidural [facility] J V J Luis Delivery Date: 11/16/24 [...] the pro (more content not included)... Normal [facility] Absolute lymphocyte countOrd ered By: Sharmin Bautista on 01-14-2025 Lymphocytes Auto (Unsp spec) [#/Vol] 2.39 10*3/uL 0.83-4.51 [facility] Absolute neutrophil countOrd ered By: Sharmin Bautista on 01-14-2025 Neutrophils (Bld) [#/Vol] 9.2 10*3/uL High 2.0-7.7 [facility] Anion gap in Serum or Plasma Ordered By: Sharmin Bautista on 01-14-2025 Anion gap [Moles/Vol] 17 mmol/L High 5-15 [facility] Automated lymphocyte count a s percentage of total leukocytesOrdered By: Sharmin Bautista on 01-14-2025 Lymphocytes/100 WBC Auto (Unsp spec) 18.7 % Low 19-41 [facility] BUN/creatinine ratioOrdered By: Sharmin Bautista on 01-14-2025 Urea nitrogen/Creatinine [Mass ratio] 17.0 mg/mg 10- [facility] Basic Metabolic Profile (BMP )on 01-14-2025 BUN/CRE 17.0 RATIO Normal - [facility] Comment on above: Performed By: #### L 100.0100, L500.2500 ####[facility] [address] [place], [address] Calcium [Mass/Vol] 8.3 mg/dL Normal 7.6-11.0 [facility] Comment on above: Performed By: #### L 100.0100, L500.2500 ####[facility] [address] [place], [address] Chloride [Moles/Vol] 105 mmol/L Normal 98-108 [facility] Comment on above: Performed By: #### L 100.0100, L500.2500 ####[facility] [address] [place], [address] CO2 [Moles/Vol] 13.5 mmol/L Low 21.0-32.0 [facility] Comment on above: Performed By: #### L 100.0100, L500.2500 ####[facility] [address] [place], [address] Creatinine [Mass/Vol] 0.49 mg/dL Low 0.70-1.20 [facility] Comment on above: Performed By: #### L 100.0100, L500.2500 ####[facility] [address] [place], [address] ECRCL 186.78 ml/min Normal 50-250 [facility] Comment on above: Performed By: #### L 100.0100, L500.2500 ####[facility] [address] [place], [address] GAP 17 High 5-15 [facility] Comment on above: Performed By: #### L 100.0100, L500.2500 ####[facility] [address] [place], [address] GFR/1.73 sq M.predicted among non-blacks MDRD (S/P/Bld) [Vol rate/Area] 132 mL/min/{1.73_m2} Normal >60 [facility] Comment on above: Result Comment: mL/m in/1.73m2 CKD-EPI Creatinine Equation (2020) Performed By: #### L 100.0100, L500.2500 ####[facility] [address] [place], [address] Glucose [Mass/Vol] 80 mg/dL Normal 70-99 [facility] Comment on above: Performed By: #### L 100.0100, L500.2500 ####[facility] [address] [place], [address] Potassium [Moles/Vol] 4.1 mmol/L Normal 3.3-5.1 [facility] Comment on above: Performed By: #### L 100.0100, L500.2500 ####[facility] [address] [place], [address] Sodium [Moles/Vol] 136 mmol/L Normal 133-145 [facility] Comment on above: Performed By: #### L 100.0100, L500.2500 ####[facility] [address] [place], [address] Urea nitrogen [Mass/Vol] 8 mg/dL Normal 4-19 [facility] Comment on above: Performed By: #### L 100.0100, L500.2500 ####[facility] [address] [place], [address] Basophil percentageOrdered B y: Sharmin Bautista on 01-14-2025 Basophils/100 WBC (Bld) 0.2 % 0-1 [facility] CBC W/Diff, Automatedon 04-0 Absolute Lymph 2.39 X10 3/uL Normal 0.83-4.51 [facility] Comment on above: Performed By: #### L 100.0100, L500.2500 ####[facility] [address] [place], [address] Absolute Neut 9.2 X10 3/uL High 2.0-7.7 [facility] Comment on above: Performed By: #### L 100.0100, L500.2500 ####[facility] [address] [place], [address] Basophils/100 WBC (Bld) 0.2 % Normal 0-1 [facility] Comment on above: Performed By: #### L 100.0100, L500.2500 ####[facility] [address] [place], [address] Eosinophils/100 WBC (Bld) 1.0 % Normal 0-5 [facility] Comment on above: Performed By: #### L 100.0100, L500.2500 ####[facility] [address] [place], [address] Erythrocyte distribution width (RBC) [Ratio] 12.5 % Normal 11.6-14.6 [facility] Comment on above: Performed By: #### L 100.0100, L500.2500 ####[facility] [address] [place], [address] Hematocrit (Bld) [Volume fraction] 33.0 % Low 37-47 [facility] Comment on above: Performed By: #### L 100.0100, L500.2500 ####[facility] [address] [place], [address] Hemoglobin (Bld) [Mass/Vol] 11.0 g/dL Low 12.0-15.0 [facility] Comment on above: Performed By: #### L 100.0100, L500.2500 ####[facility] [address] [place], [address] IG% 0.500 Normal 0.0-0.9 [facility] Comment on above: Result Comment: IG% - Immature Granulocytes (promyelocytes, myelocytes and metamyelocytes) > 1% indicates that a LEFT SHIFT is Present. Performed By: #### L 100.0100, L500.2500 ####[facility] [address] [place], [address] Lymphocytes/100 WBC (Bld) 18.7 % Low 19-41 [facility] Comment on above: Performed By: #### L 100.0100, L500.2500 ####[facility] [address] [place], [address] MCH (RBC) [Entitic mass] 30.9 pg Normal 27.0-32.0 [facility] Comment on above: Performed By: #### L 100.0100, L500.2500 ####[facility] [address] [place], [address] MCHC (RBC) [Mass/Vol] 33.3 g/dL Normal 32-36 [facility] Comment on above: Performed By: #### L 100.0100, L500.2500 ####[facility] [address] [place], [address] MCV (RBC) [Entitic vol] 92.7 fL Normal 81-99 [facility] Comment on above: Performed By: #### L 100.0100, L500.2500 ####[facility] [address] [place], [address] Monocytes/100 WBC (Bld) 7.4 % Normal 0-10 [facility] Comment on above: Performed By: #### L 100.0100, L500.2500 ####[facility] [address] [place], [address] Neutrophils/100 WBC (Bld) 72.2 % High 47-70 [facility] Comment on above: Performed By: #### L 100.0100, L500.2500 ####[facility] [address] [place], [address] Nucleated RBC (Bld) [#/Vol] 0 10*3/uL Normal 0-5 [facility] Comment on above: Performed By: #### L 100.0100, L500.2500 ####[facility] [address] [place], [address] Platelet mean volume (Bld) [Entitic vol] 10.1 fL Normal 6.2-12.0 [facility] Comment on above: Performed By: #### L 100.0100, L500.2500 ####[facility] [address] [place], [address] Platelets (Bld) [#/Vol] 261 10*3/uL Normal 150-450 [facility] Comment on above: Performed By: #### L 100.0100, L500.2500 ####[facility] [address] [place], [address] RBC (Bld) [#/Vol] 3.56 10*6/uL Low 4.2-5.4 [facility] Comment on above: Performed By: #### L 100.0100, L500.2500 ####[facility] [address] [place], [address] RDW SD 43.1 fl Normal 35.1-43.9 [facility] Comment on above: Performed By: #### L 100.0100, L500.2500 ####[facility] [address] [place], [address] WBC (Bld) [#/Vol] 12.8 10*3/uL High 4.4-11.0 [facility] Comment on above: Performed By: #### L 100.0100, L500.2500 ####[facility] [address] [place], [address] Carbon dioxide, total [Moles /volume] in Central venous bloodOrdered By: Sharmin Bautista on 01-14-2025 CO2 [Moles/Vol] 13.5 mmol/L Low 21.0-32.0 [facility] Chloride assayOrdered By: Peter Bautista on 01-14-2025 Chloride [Moles/Vol] 105 mmol/L 98-108 [facility] Eosinophil percentageOrdered By: Sharmin Bautista on 01-14-2025 Eosinophils/100 WBC (Bld) 1.0 % 0-5 [facility] Erythrocyte distribution wid th (RBC) [Ratio]Ordered By: Sharmin Bautista on 01-14-2025 Erythrocyte distribution width (RBC) [Entitic vol] 43.1 fL 35.1-43.9 [facility] Erythrocyte distribution wid th ratioOrdered By: Sharmin Bautista on 01-14-2025 Erythrocyte distribution width (RBC) [Ratio] 12.5 % 11.6-14.6 [facility] Erythrocyte distribution wid th standard deviationOrdered By: Sharmin Bautista on 01-14-2025 Erythrocyte distribution width (RBC) [Ratio] 43.1 fl 35.1-43.9 [facility] Estimation of creatinine mary ellen aranceOrdered By: Sharmin Bautista on 01-14-2025 Estimated Creatinine Clearance Calc 186.78 ml/min 50-250 [facility] GFR/1.73 sq M.predicted gabrielle g non-blacks MDRD (S/P/Bld) [Vol rate/Area]Ordered By: Sharmin Bautista on 01-14-2025 Estimated GFR (MDRD) Non-Af Amer 132 >60 [facility] Comment on above: mL/min/1.73m2 CKD-EP I Creatinine Equation (2020) Glomerular filtration rate ( GFR) estimation/1.73 sq m using serum, plasma, or whole bOrdered By: Sharmin Bautista on 01-14-2025 GFR/1.73 sq M.predicted among non-blacks MDRD (S/P/Bld) [Vol rate/Area] 132 mL/min/{1.73_m2} >60 [facility] Comment on above: mL/min/1.73m2 CKD-EP I Creatinine Equation (2020) Hematocrit Auto (Bld) [Volum e fraction]Ordered By: Sharmin Bautista on 01-14-2025 Hematocrit (Bld) [Volume fraction] 33.0 % Low 37-47 [facility] Hemoglobin measurementOrdere d By: Sharmin Bautista on 01-14-2025 Hemoglobin (Bld) [Mass/Vol] 11.0 g/dL Low 12.0-15.0 [facility] Immature granulocytes/100 WB C Auto (Bld)Ordered By: Sharmin Bautista on 01-14-2025 Immature granulocytes/100 WBC (Bld) 0.500 % 0.0-0.9 [facility] Comment on above: IG% - Immature Granu locytes (promyelocytes, myelocytes and metamyelocytes) > 1% indicates that a LEFT SHIFT is Present. Lymphocytes Auto (Unsp spec) [#/Vol]Ordered By: Sharmin Bautista on 01-14-2025 Lymphocytes (Bld) [#/Vol] 2.39 10*3/uL 0.83-4.51 [facility] Lymphocytes/100 WBC Auto (Un sp spec)Ordered By: Sharmin Bautista on 01-14-2025 Lymphocytes/100 WBC (Bld) 18.7 % Low 19-41 [facility] MCV (mean corpuscular volume ) determinationOrdered By: Sharmin Bautista on 01-14-2025 MCV (RBC) [Entitic vol] 92.7 fL 81-99 [facility] Mean corpuscular hemoglobin (MCH) determinationOrdered By: Sharmin Bautista on 01-14-2025 MCH (RBC) [Entitic mass] 30.9 pg 27.0-32.0 [facility] Mean corpuscular hemoglobin concentration (MCHC) determinationOrdered By: Sharmin Bautista on 01-14-2025 MCHC (RBC) [Mass/Vol] 33.3 g/dL 32-36 [facility] Mean platelet volume determi nationOrdered By: Sharmin Bautista on 01-14-2025 Platelet mean volume (Bld) [Entitic vol] 10.1 fL 6.2-12.0 [facility] Monocyte percentageOrdered B y: Sharmin Bautista on 01-14-2025 Monocytes/100 WBC (Bld) 7.4 % 0-10 [facility] Neutrophil percentageOrdered By: Sharmin Bautista on 01-14-2025 Neutrophils/100 WBC (Bld) 72.2 % High 47-70 [facility] Nucleated red blood cell per centageOrdered By: Sharmin Bautista on 01-14-2025 Nucleated RBC/100 WBC (Bld) [Ratio] 0 % 0-5 [facility] Platelet countOrdered By: Peter Bautista on 01-14-2025 Platelets (Bld) [#/Vol] 261 10*3/uL 150-450 [facility] Potassium (Unsp spec) [Mass/ Vol]Ordered By: Sharmin Bautista on 01-14-2025 Potassium [Moles/Vol] 4.1 mmol/L 3.3-5.1 [facility] Potassium measurement (mass/ volume)Ordered By: Sharmin Bautista on 01-14-2025 Potassium (Unsp spec) [Mass/Vol] 4.1 mmol/L 3.3-5.1 [facility] RBC Auto (Bld) [#/Vol]Ordere d By: Sharmin Bautista on 01-14-2025 RBC (Bld) [#/Vol] 3.56 10*6/uL Low 4.2-5.4 [facility] Serum creatinine measurement (mass/volume)Ordered By: Sharmin Bautista on 01-14-2025 Creatinine [Mass/Vol] 0.49 mg/dL Low 0.70-1.20 [facility] Serum glucose measurement (m ass/volume)Ordered By: Sharmin Bautista on 01-14-2025 Glucose [Mass/Vol] 80 mg/dL 70-99 [facility] Serum or plasma calcium jocelyn urement (mass/volume)Ordered By: Sharmin Bautista on 01-14-2025 Calcium [Mass/Vol] 8.3 mg/dL 7.6-11.0 [facility] Serum or plasma urea nitroge n measurement (mass/volume)Ordered By: Sharmin Bautista on 01-14-2025 Urea nitrogen [Mass/Vol] 8 mg/dL 4-19 [facility] Sodium levelOrdered By: Linus Mccurdy on 01-14-2025 Sodium [Moles/Vol] 136 mmol/L 133-145 [facility] White blood cell (WBC) count Ordered By: Sharmin Bautista on 01-14-2025 WBC (Bld) [#/Vol] 12.8 10*3/uL High 4.4-11.0 [facility] Discharge Instructionon 04-0 Discharge Instruction [facility] Medical Records Department [address] [place] [address] Instructions for Home/Discharge Instructions 01/13/25 0644 MR#: [id number] Acct: [id number] Name: LLUVIA HOLLINGSWORTH Rep #: [id number] : 1995 29 From: Anthony Martin MD [...] to schedule 2 week follow up appointment. [phone] Test Results: Test results from this visit [...] MD CC: No Primary Care Physician Signed [facility] MR/POSTOP.ANE 01-13-2025 MR/POSTOP.[facility] Medical Records Department [address] [place] [address] Anesthesia Postop Eval I 01/13/2545 MR#: [id number] Acct: [id number] Name: LLUVIA HOLLINGSWORTH Rep #: [id number] : 1995 29 From: Luis E Villareal PCP: Care Physician,No Primary Status:ADM FARTUN Y Race: C Location: [place] [address] Anesthesia: Postop Eval I Current Vital Signs [...] Luis E Nascimento Signature: Date CC: Signed [facility] MR/[id number] 01-13-2025 MR/POSTOPAN2 [facility] Medical Records Department [address] [place] [address] Anesthesia Postop Eval II 01/13/25 1233 MR#: [id number] Acct: [id number] Name: LLUVIA HOLLINGSWORTH Rep #: [id number] : 1995 29 From: Nile Ross MD PCP: Care Physician,No Primary Status:ADM FARTUN Y Race: C Location: [facility] [id number] Anesthesia Postop Eval I Sum Postop Eval Completion status Anesthesia document: Postop Eval 1 completed: Yes Anesthesia Postop Eval I Summary Anesthesia Postop Eval I Summary: Anesthesia Postop Eval I: Assessment Summary Airway patent Yes 01/13/25 06:45 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 Spontaneous unlabored Yes 01/13/25 06:45 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 respirations Mental status Awake,Calm 01/13/25 06:45 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 nausea No 01/13/25 06:45 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 Vomiting No 01/13/25 06:45 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 Anesthesia Postop Eval I: Fluid Summary Crystalloid volume administer 500 01/13/25 06:45 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 (ml) Colloids volume administered ( ml) Blood Product volume administered (ml) Total IV fluid infused 500 01/13/25 06:45 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 Anesthesia Postop Eval I: Summary Notes Anesthesia Complication No 01/13/25 06:45 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 Anesthesia Complication Comment: Post-operative progress note Anesthesia: Postop Eval II Evaluation Mental status: Awake and Calm Pain Level: 1 nausea: No Vomiting: No Complications Anesthesia Complication: No 01/13/25 1233 Date Nile Ross MD Cosigner Signature: Date CC: Signed Normal [facility] Operative Reporton 5 Operative Report [facility] Medical Records Department [address] [place] [address] Operative Report 01/13/25 0641 MR#: [id number] Acct: [id number] Name: LLUVIA HOLLINGSWORTH Rep #: [id number] : 1995 29 From: Anthony Martin MD PCP: Care Physician,No Primary Status:ADM FARTUN Location: [place] [id number] Operative Report (Standard) Operative Information Date of Procedure: 01/13/25 Pre-Operative Diagnosis: Acute appendicitis Post-Operative Diagnosis: Acute appendicitis Surgery/Procedure Performed: Laparoscopic appendectomy packing machine operator: No Type of Anesthesia: General/Regional RN Documented [...] fascia was closed with an 0 Vicryl wfsnpw-ib-[id number] suture. The incisions were then irrigated with [...] MD; No Primary Care Physician Signed Normal [facility] Surgery Specimen Level IIIon 01-13-2025 Surgery Specimen Level III Patient Age/Sex Location Account Attending Physician LLUVIA HOLLINGSWORTH 29/F MS3 [id number] Dr. Anthony Martin MD Specimen: [id number] Received: 01/13/25 Status: MATTHEW Méndez Num: [id number] Spec Type: APPENDIX Subm Dr: Dr. Anthony [...] distinct perforation or fecalith is grossly recognized. Ems Director sections:A1. Margin, en face with cross-sectionsA2. Tip, bisected [facility] 01-13-2025 CPT:26585 Patient Age/Sex Location Account Attending Physician LLUVIA HOLLINGSWORTH 29/ MS3 [id number] Dr. Anthony Martin MD Signed (signature on file) Dr. Portia Rothman MD 01/22/25 1552 Normal [facility] Comment on above: Performed By: #### P SUIII ####[facility] [address] [place], [address] Abdomen/Pelvis W IV Cont ONL Yon 01-12-2025 Abdomen/Pelvis W IV Cont ONLY [facility] [address] [place], [place] [id number] Abdomen/Pelvis W IV Cont ONLY MR#: [id number] Acct: [id number] Name: LLUVIA HOLLINGSWORTH Rep #: [id number] : 1995 F 29 From: Sal turk MD PCP: Care Physician,No Primary Status: REG ER Study: Abdomen/Pelvis W IV Cont ONLY Date of Exam: Exam# [id number] Ordering Dr: Mookie Morales DO PROCEDURE: ABDOMEN/PELVIS [...] of the liver with contrast. Reading Location: [facility] CC: Dr. Mookie Morales, DO; No Primary Care Physician Weigher And Grader: Signed Normal [facility] Absolute neutrophil countOrd ered By: ED PROVIDER on 01-12-2025 Neutrophils (Bld) [#/Vol] 15.4 10*3/uL High 2.0-7.7 [facility] Anion gap in Serum or Plasma Ordered By: Mookie Morales on 01-12-2025 Anion gap [Moles/Vol] 14 mmol/L 5-15 [facility] BUN/creatinine ratioOrdered By: Mookie Morales on 01-12-2025 Urea nitrogen/Creatinine [Mass ratio] 21.3 mg/mg High 10-20 [facility] Bacteria LM.HPF (Urine sed) [#/Area]Ordered By: Mookie Morales on 01-12-2025 Urine Bacteria RARE /hpf None Seen [facility] Basophil percentageOrdered B y: ED PROVIDER on 01-12-2025 Basophils/100 WBC (Bld) 0.3 % 0-1 [facility] Beta HCG ( test) Ql Ordered By: Mookie Morales on 01-12-2025 Serum Test, Qualitative Negative [facility] Bilirubin Test strip Ql (U)O rdered By: Mookie Morales on 01-12-2025 Bilirubin Ql (U) Negative Negative [facility] Bilirubin, totalOrdered By: Mookie Morales on 01-12-2025 Bilirubin [Mass/Vol] 0.46 mg/dL 0.00-1.30 [facility] CBC W/Diff, Automatedon 04-0 Absolute Lymph 1.61 X10 3/uL Normal 0.83-4.51 [facility] Comment on above: Performed By: #### L 100.0100, L700.6800, L500.4050, L501.2450 ####[facility] [address] [place], [address] Absolute Neut 15.4 X10 3/uL High 2.0-7.7 [facility] Comment on above: Performed By: #### L 100.0100, L700.6800, L500.4050, L501.2450 ####[facility] [address] [place], [address] Basophils/100 WBC (Bld) 0.3 % Normal 0-1 [facility] Comment on above: Performed By: #### L 100.0100, L700.6800, L500.4050, L501.2450 ####[facility] [address] [place], [address] Eosinophils/100 WBC (Bld) 1.4 % Normal 0-5 [facility] Comment on above: Performed By: #### L 100.0100, L700.6800, L500.4050, L501.2450 ####[facility] [address] [place], [address] Erythrocyte distribution width (RBC) [Ratio] 12.5 % Normal 11.6-14.6 [facility] Comment on above: Performed By: #### L 100.0100, L700.6800, L500.4050, L501.2450 ####[facility] [address] [place], [address] Hematocrit (Bld) [Volume fraction] 39.6 % Normal 37-47 [facility] Comment on above: Performed By: #### L 100.0100, L700.6800, L500.4050, L501.2450 ####[facility] [address] [place], [address] Hemoglobin (Bld) [Mass/Vol] 13.1 g/dL Normal 12.0-15.0 [facility] Comment on above: Performed By: #### L 100.0100, L700.6800, L500.4050, L501.2450 ####[facility] [address] [place], [address] IG% 0.600 Normal 0.0-0.9 [facility] Comment on above: Result Comment: IG% - Immature Granulocytes (promyelocytes, myelocytes and metamyelocytes) > 1% indicates that a LEFT SHIFT is Present. Performed By: #### L 100.0100, L700.6800, L500.4050, L501.2450 ####[facility] [address] [place], [address] Lymphocytes/100 WBC (Bld) 8.6 % Low 19-41 [facility] Comment on above: Performed By: #### L 100.0100, L700.6800, L500.4050, L501.2450 ####[facility] [address] [place], [address] MCH (RBC) [Entitic mass] 30.8 pg Normal 27.0-32.0 [facility] Comment on above: Performed By: #### L 100.0100, L700.6800, L500.4050, L501.2450 ####[facility] [address] [place], [address] MCHC (RBC) [Mass/Vol] 33.1 g/dL Normal 32-36 [facility] Comment on above: Performed By: #### L 100.0100, L700.6800, L500.4050, L501.2450 ####[facility] [address] [place], [address] MCV (RBC) [Entitic vol] 93.0 fL Normal 81-99 [facility] Comment on above: Performed By: #### L 100.0100, L700.6800, L500.4050, L501.2450 ####[facility] [address] [place], [address] Monocytes/100 WBC (Bld) 7.0 % Normal 0-10 [facility] Comment on above: Performed By: #### L 100.0100, L700.6800, L500.4050, L501.2450 ####[facility] [address] [place], [address] Neutrophils/100 WBC (Bld) 82.1 % High 47-70 [facility] Comment on above: Performed By: #### L 100.0100, L700.6800, L500.4050, L501.2450 ####[facility] [address] [place], [address] Nucleated RBC (Bld) [#/Vol] 0 10*3/uL Normal 0-5 [facility] Comment on above: Performed By: #### L 100.0100, L700.6800, L500.4050, L501.2450 ####[facility] [address] [place], [address] Platelet mean volume (Bld) [Entitic vol] 9.9 fL Normal 6.2-12.0 [facility] Comment on above: Performed By: #### L 100.0100, L700.6800, L500.4050, L501.2450 ####[facility] [address] [place], [address] Platelets (Bld) [#/Vol] 307 10*3/uL Normal 150-450 [facility] Comment on above: Performed By: #### L 100.0100, L700.6800, L500.4050, L501.2450 ####[facility] [address] [place], [address] RBC (Bld) [#/Vol] 4.26 10*6/uL Normal 4.2-5.4 [facility] Comment on above: Performed By: #### L 100.0100, L700.6800, L500.4050, L501.2450 ####[facility] [address] [place], [address] RDW SD 43.0 fl Normal 35.1-43.9 [facility] Comment on above: Performed By: #### L 100.0100, L700.6800, L500.4050, L501.2450 ####[facility] [address] [place], [address] WBC (Bld) [#/Vol] 18.8 10*3/uL High 4.4-11.0 [facility] Comment on above: Performed By: #### L 100.0100, L700.6800, L500.4050, L501.2450 ####[facility] [address] [place], [address] Carbon dioxide, total [Moles /volume] in Central venous bloodOrdered By: Mookie Morales on 01-12-2025 CO2 [Moles/Vol] 20.7 mmol/L Low 21.0-32.0 [facility] Chloride assayOrdered By: Shruti Morales on 01-12-2025 Chloride [Moles/Vol] 104 mmol/L 98-108 [facility] Comprehensive Metabolic Prof ilon 01-12-2025 Albumin [Mass/Vol] 4.3 g/dL Normal 3.5-5.0 [facility] Comment on above: Performed By: #### L 100.0100, L700.6800, L500.4050, L501.2450 ####[facility] [address] [place], [address] Albumin/Globulin [Mass ratio] 1.3 {ratio} Normal 0.9-2.4 [facility] Comment on above: Performed By: #### L 100.0100, L700.6800, L500.4050, L501.2450 ####[facility] [address] [place], [address] ALK PHOS 152 U/L High 35-104 [facility] Comment on above: Performed By: #### L 100.0100, L700.6800, L500.4050, L501.2450 ####[facility] [address] [place], [address] ALT [Catalytic activity/Vol] 38 U/L High <=34 [facility] Comment on above: Performed By: #### L 100.0100, L700.6800, L500.4050, L501.2450 ####[facility] [address] [place], [address] AST [Catalytic activity/Vol] 23 U/L Normal <=31 [facility] Comment on above: Performed By: #### L 100.0100, L700.6800, L500.4050, L501.2450 ####[facility] [address] [place], [address] Bilirubin [Mass/Vol] 0.46 mg/dL Normal 0.00-1.30 [facility] Comment on above: Performed By: #### L 100.0100, L700.6800, L500.4050, L501.2450 ####[facility] [address] [place], [address] BUN/CRE 21.3 RATIO High 10-20 [facility] Comment on above: Performed By: #### L 100.0100, L700.6800, L500.4050, L501.2450 ####[facility] [address] [place], [address] Calcium [Mass/Vol] 9.3 mg/dL Normal 7.6-11.0 [facility] Comment on above: Performed By: #### L 100.0100, L700.6800, L500.4050, L501.2450 ####[facility] [address] [place], [address] Chloride [Moles/Vol] 104 mmol/L Normal 98-108 [facility] Comment on above: Performed By: #### L 100.0100, L700.6800, L500.4050, L501.2450 ####[facility] [address] [place], [address] CO2 [Moles/Vol] 20.7 mmol/L Low 21.0-32.0 [facility] Comment on above: Performed By: #### L 100.0100, L700.6800, L500.4050, L501.2450 ####[facility] [address] [place], [address] Creatinine [Mass/Vol] 0.68 mg/dL Low 0.70-1.20 [facility] Comment on above: Performed By: #### L 100.0100, L700.6800, L500.4050, L501.2450 ####[facility] [address] [place], [address] ECRCL 134.83 ml/min Normal 50-250 [facility] Comment on above: Performed By: #### L 100.0100, L700.6800, L500.4050, L501.2450 ####[facility] [address] [place], [address] GAP 14 Normal 5-15 [facility] Comment on above: Performed By: #### L 100.0100, L700.6800, L500.4050, L501.2450 ####[facility] [address] [place], [address] GFR/1.73 sq M.predicted among non-blacks MDRD (S/P/Bld) [Vol rate/Area] 122 mL/min/{1.73_m2} Normal >60 [facility] Comment on above: Result Comment: mL/m in/1.73m2 CKD-EPI Creatinine Equation (2020) Performed By: #### L 100.0100, L700.6800, L500.4050, L501.2450 ####[facility] [address] [place], [address] Globulin (S) [Mass/Vol] 3.3 g/dL Normal 2.2-4.2 [facility] Comment on above: Performed By: #### L 100.0100, L700.6800, L500.4050, L501.2450 ####[facility] [address] [place], [address] Glucose [Mass/Vol] 99 mg/dL Normal 70-99 [facility] Comment on above: Performed By: #### L 100.0100, L700.6800, L500.4050, L501.2450 ####[facility] [address], [address] Potassium [Moles/Vol] 4.2 mmol/L Normal 3.3-5.1 [facility] Comment on above: Performed By: #### L 100.0100, L700.6800, L500.4050, L501.2450 ####[facility] [address] [place], [address] Sodium [Moles/Vol] 138 mmol/L Normal 133-145 [facility] Comment on above: Performed By: #### L 100.0100, L700.6800, L500.4050, L501.2450 ####[facility] [address] [place], [address] T PROT 7.6 g/dL Normal 5.9-8.4 [facility] Comment on above: Performed By: #### L 100.0100, L700.6800, L500.4050, L501.2450 ####[facility] [address] [place], [address] Urea nitrogen [Mass/Vol] 14 mg/dL Normal 4-19 [facility] Comment on above: Performed By: #### L 100.0100, L700.6800, L500.4050, L501.2450 ####[facility] [address] [place], [address] Emergency Department Summary on 01-12-2025 Emergency Department Summary [facility] Medical Records Department [address] [place] [address] Emergency Department Summary 01/12/25 MR#: [id number] Acct: [id number] Name: LLUVIA HOLLINGSWORTH Rep #: [id number] : 1995 29 From: Mookie Morales DO PCP: Care Physician,No Primary Status:ADM FARTUN Location: MS3 [id number] HPI History of Present Illness Chief Complaint: Back [...] 1 current occupational status: unemployed current occupation: [employer] current occupational exposures/hazards: No pets and animals: Yes (not manage litterbox) pets and animals: cat(s) and dog(s) history of recent travel: No ([place]) sexually active: Yes Smoking Status: Current some day smoker tobacco type: e-cigarettes alcohol intake: former details: rarely drinks, special occasions, not while substance use type: does not use well-balanced diet: daily or most days caffeine: No eating out: 1-3 times/week during the past year weight has: remained stable what type of physical activity do you participate in: walking frequency: daily duration: 15-30 minutes/day chriss/anglican: None seatbelt use: always do you feel [...] MAKING: C (more content not included)... Normal [facility] Eosinophil percentageOrdered By: ED PROVIDER on 01-12-2025 Eosinophils/100 WBC (Bld) 1.4 % 0-5 [facility] Epithelial cells.squamous LM Ql (Urine sed)Ordered By: Mookie Morales on 01-12-2025 Epithelial cells.squamous LM.HPF (Urine sed) [#/Area] 0 /[HPF] 5-10 [facility] Erythrocyte distribution wid th (RBC) [Ratio]Ordered By: ED PROVIDER on 01-12-2025 Erythrocyte distribution width (RBC) [Entitic vol] 43.0 fL 35.1-43.9 [facility] Erythrocyte distribution wid th ratioOrdered By: ED PROVIDER on 01-12-2025 Erythrocyte distribution width (RBC) [Ratio] 12.5 % 11.6-14.6 [facility] Estimation of creatinine mary ellen aranceOrdered By: Mookie Morales on 01-12-2025 Estimated Creatinine Clearance Calc 134.83 ml/min 50-250 [facility] GFR/1.73 sq M.predicted gabrielle g non-blacks MDRD (S/P/Bld) [Vol rate/Area]Ordered By: Mookie Morales on 01-12-2025 Estimated GFR (MDRD) Non-Af Amer 122 >60 [facility] Comment on above: mL/min/1.73m2 CKD-EP I Creatinine Equation (2020) Glucose Ql (U)Ordered By: Shruti Morales on 01-12-2025 Urine Glucose (UA) Normal mg/dl Normal [facility] H AND P Exam - Surgicalon H&P Exam - Surgical [facility] Medical Records Department [address] [place] [address] H P Exam - Surgical 01/12/252030 MR#: [id number] Acct: [id number] Name: LLUVIA HOLLINGSWORTH Rep #: [id number] : 1995 29 From: Anthony Martin MD [...] denies nausea or vomiting. She denies fever. [facility] Medical History (Updated 01/12/25 @ 20:32 [...] 1 current occupational status: unemployed current occupation: [employer] current occupational exposures/hazards: No pets and animals: Yes (not manage litterbox) pets and animals: cat(s) and dog(s) history of recent travel: No ([place]) sexually active: Yes Smoking Status: Current some day smoker tobacco type: e-cigarettes alcohol intake: former details: rarely drinks, special occasions, not while substance use type: does not use well-balanced diet: daily or most days caffeine: No eating out: 1-3 times/week during the past year weight has: remained stable what type of physical activity do you participate in: walking frequency: daily duration: 15-30 minutes/day chriss/anglican: None seatbelt use: always do you feel [...] 82.1 H, Lymph % (Auto) 8.6 L, [place] % (Auto) 7.0, Eos % (Auto) 1.4, [...] Clarity Clear, Urine pH 7.0, Ur Specific [place] 1.010, U rine Protein 15 H, Urine Glucose (UA) Normal, Urine Ketones Negative, Urine Occult Blood 10 H, Urine Nitrite Negative, Urine Bilirubin Negative, Urine Urobilinogen Normal, Ur Leukocyte Esterase Negative, Urine RBC 0 SEEN, Urine WBC 0 (more content not included)... Normal [facility] Hematocrit Auto (Bld) [Volum e fraction]Ordered By: ED PROVIDER on 01-12-2025 Hematocrit (Bld) [Volume fraction] 39.6 % 37-47 [facility] Hemoglobin measurementOrdere d By: ED PROVIDER on 01-12-2025 Hemoglobin (Bld) [Mass/Vol] 13.1 g/dL 12.0-15.0 [facility] Immature granulocytes/100 WB C Auto (Bld)Ordered By: ED PROVIDER on 01-12-2025 Immature granulocytes/100 WBC (Bld) 0.600 % 0.0-0.9 [facility] Comment on above: IG% - Immature Granu locytes (promyelocytes, myelocytes and metamyelocytes) > 1% indicates that a LEFT SHIFT is Present. Ketones Test strip Ql (U)Ord ered By: Mookie Morales on 01-12-2025 Ketones Ql (U) Negative Negative [facility] Laboratory - Chemistry and C hemistry - challengeOrdered By: Mookie Morales on 01-12-2025 AST [Catalytic activity/Vol] 23 U/L <32 [facility] Lipaseon 01-12-2025 Lipase [Catalytic activity/Vol] 21 U/L Normal 13-75 [facility] Comment on above: Result Comment: Tomer corona note: LIPASE revised reference range effective 23. New Lipase methodology. Expected to produce lower values than the previous assay method. NEW Reference Range: 13 - 75 U/L Performed By: #### L 100.0100, L700.6800, L500.4050, L501.2450 ####[facility] [address] [place], [place], [address] Lipase measurementOrdered By : Mookie Morales on 01-12-2025 Lipase [Catalytic activity/Vol] 21 U/L 13-75 [facility] Comment on above: Please note:LIPASE r evised reference range effective 23. New Lipase methodology. Expected to produce lower values than the previous assay method. NEW Reference Range: 13 - 75 U/L Lymphocytes Auto (Unsp spec) [#/Vol]Ordered By: ED PROVIDER on 01-12-2025 Lymphocytes (Bld) [#/Vol] 1.61 10*3/uL 0.83-4.51 [facility] Lymphocytes/100 WBC Auto (Un sp spec)Ordered By: ED PROVIDER on 01-12-2025 Lymphocytes/100 WBC (Bld) 8.6 % Low 19-41 [facility] MCV (mean corpuscular volume ) determinationOrdered By: ED PROVIDER on 01-12-2025 MCV (RBC) [Entitic vol] 93.0 fL 81-99 [facility] Mean corpuscular hemoglobin (MCH) determinationOrdered By: ED PROVIDER on 01-12-2025 MCH (RBC) [Entitic mass] 30.8 pg 27.0-32.0 [facility] Mean corpuscular hemoglobin concentration (MCHC) determinationOrdered By: ED PROVIDER on 01-12-2025 MCHC (RBC) [Mass/Vol] 33.1 g/dL 32-36 [facility] Mean platelet volume determi nationOrdered By: ED PROVIDER on 01-12-2025 Platelet mean volume (Bld) [Entitic vol] 9.9 fL 6.2-12.0 [facility] Microscopic analysis of urin e for red blood cells (RBC)Ordered By: Mookie Morales on 01-12-2025 Microscopic analysis of urine for red blood cells (RBC) 0 SEEN /hpf 0-5 [facility] Urine RBC 0 SEEN /hpf 0-5 [facility] Monocyte percentageOrdered B y: ED PROVIDER on 01-12-2025 Monocytes/100 WBC (Bld) 7.0 % 0-10 [facility] Mucus LM Ql (Urine sed)Order ed By: Mookie Morales on 01-12-2025 Mucus Ql (Urine sed) 0 SEEN /hpf [facility] Neutrophil percentageOrdered By: ED PROVIDER on 01-12-2025 Neutrophils/100 WBC (Bld) 82.1 % High 47-70 [facility] Nitrite Test strip Ql (U)Ord ered By: Mookie Morales on 01-12-2025 Nitrite Ql (U) Negative Negative [facility] Nucleated red blood cell per centageOrdered By: ED PROVIDER on 01-12-2025 Nucleated RBC/100 WBC (Bld) [Ratio] 0 % 0-5 [facility] Platelet countOrdered By: ED PROVIDER on 01-12-2025 Platelets (Bld) [#/Vol] 307 10*3/uL 150-450 [facility] Potassium (Unsp spec) [Mass/ Vol]Ordered By: Mookie Morales on 01-12-2025 Potassium [Moles/Vol] 4.2 mmol/L 3.3-5.1 [facility] ,Serum,hCG Quali.on 01-12-2025 HCG, SERUM QUAL Negative Normal [facility] Comment on above: Performed By: #### L 100.0100, L700.6800, L500.4050, L501.2450 ####[facility] [address] [place], [id number] Protein Test strip Ql (U)Ord ered By: Mookie Morales on 01-12-2025 Protein Ql (U) 15 mg/dl High Negative [facility] RBC Auto (Bld) [#/Vol]Ordere d By: ED PROVIDER on 01-12-2025 RBC (Bld) [#/Vol] 4.26 10*6/uL 4.2-5.4 [facility] Serum beta-hCG test, qualita tiveOrdered By: Mookie Morales on 01-12-2025 Beta HCG ( test) Ql Negative [facility] Serum creatinine measurement (mass/volume)Ordered By: Mookie Morales on 01-12-2025 Creatinine [Mass/Vol] 0.68 mg/dL Low 0.70-1.20 [facility] Serum globulin measurementOr dered By: Mookie Morales on 01-12-2025 Globulin (S) [Mass/Vol] 3.3 g/dL 2.2-4.2 [facility] Serum glucose measurement (m ass/volume)Ordered By: Mookie Morales on 01-12-2025 Glucose [Mass/Vol] 99 mg/dL 70-99 [facility] Serum or plasma alanine coy otransferase (ALT) measurementOrdered By: Mookie Morales on 01-12-2025 ALT [Catalytic activity/Vol] 38 U/L High <35 [facility] Serum or plasma albumin jocelyn urement (mass/volume)Ordered By: Mookie Morales on 01-12-2025 Albumin [Mass/Vol] 4.3 g/dL 3.5-5.0 [facility] Serum or plasma albumin/glob ulin mass ratioOrdered By: Mookie Morales on 01-12-2025 Albumin/Globulin [Mass ratio] 1.3 {ratio} 0.9-2.4 [facility] Serum or plasma alkaline kvng sphatase measurementOrdered By: Mookie Morales on 01-12-2025 ALP [Catalytic activity/Vol] 152 U/L High 35-104 [facility] Serum or plasma calcium jocelyn urement (mass/volume)Ordered By: Mookie Morales on 01-12-2025 Calcium [Mass/Vol] 9.3 mg/dL 7.6-11.0 [facility] Serum or plasma urea nitroge n measurement (mass/volume)Ordered By: Mookie Morales on 01-12-2025 Urea nitrogen [Mass/Vol] 14 mg/dL 4-19 [facility] Sodium levelOrdered By: Suleiman Morales on 01-12-2025 Sodium [Moles/Vol] 138 mmol/L 133-145 [facility] Squamous epithelial cells de tection in urine sediment by light microscopyOrdered By: Mookie Morales on 01-12-2025 Epithelial cells.squamous LM Ql (Urine sed) 0-5 SEEN /hpf 5-10 [facility] Total proteinOrdered By: Rosio Morales on 01-12-2025 Protein [Mass/Vol] 7.6 g/dL 5.9-8.4 [facility] Urinalysis, Completeon 01-12 BACTERIA RARE Normal None Seen [facility] Comment on above: Order Comment: CLEAN CATCH Performed By: #### L 400.0001 #### [facility] [address] [place], [address] EPI,SQUAMOUS 0-5 SEEN Normal 5-10 [facility] Comment on above: Order Comment: CLEAN CATCH Performed By: #### L 400.0001 #### [facility] [address] [place], [place], [id number] Mucus Ql (Urine sed) 0 SEEN Normal [facility] Comment on above: Order Comment: CLEAN CATCH Performed By: #### L 400.0001 #### [facility] [address] [place], [address] RBC 0 SEEN Normal 0-5 [facility] Comment on above: Order Comment: CLEAN CATCH Performed By: #### L 400.0001 #### [facility] [address] [place], [address] WBC 0 SEEN Normal 0-5 [facility] Comment on above: Order Comment: CLEAN CATCH Performed By: #### L 400.0001 #### [facility] [address] [place], [place], [address] Urine blood detectionOrdered By: Mookie Morales on 01-12-2025 Urine Occult Blood 10 /ul High Negative [facility] Urine clarityOrdered By: Rosio Morales on 01-12-2025 Clarity (U) Clear Clear [facility] Urine color determinationOrd ered By: Mookie Morales on 01-12-2025 Color (U) Yellow Yellow [facility] Urine glucose detectionOrder ed By: Mookie Morales on 01-12-2025 Glucose Ql (U) Normal mg/dl Normal [facility] Urine leukocyte esterase det ection by dipstickOrdered By: Mookie Morales on 01-12-2025 Leukocyte esterase Test strip Ql (U) Negative Negative [facility] Urine pHOrdered By: Mookie webb on 01-12-2025 pH (U) 7.0 [pH] 5.0 - 8.0 [facility] Urine sediment bacteria coun t by microscopy (number/high power field)Ordered By: Mookie Morales on 01-12-2025 Bacteria LM.HPF (Urine sed) [#/Area] RARE /hpf None Seen [facility] Urine specific gravity measu rementOrdered By: Mookie Morales on 01-12-2025 Specific gravity (U) [Rel density] 1.010 1.002-1.030 [facility] Urine urobilinogen measureme ntOrdered By: Mookie Morales on 01-12-2025 Urobilinogen Ql (U) Normal mg/dl Normal [facility] Urobilinogen Ql (U)Ordered B y: Mookie Morales on 01-12-2025 Urine Urobilinogen Normal mg/dl Normal [facility] White blood cell (WBC) count Ordered By: ED PROVIDER on 01-12-2025 WBC (Bld) [#/Vol] 18.8 10*3/uL High 4.4-11.0 [facility] White blood cell countOrdere d By: Mookie Morales on 01-12-2025 Urine WBC 0 SEEN /hpf 0-5 [facility] White blood cell count 0 SEEN /hpf 0-5 [facility] Office Visit Reporton 12-29-2024 [facility] Office Visit Report [facility] [address], [address] [place] [address] OFFICE VISIT Date of Service: 12/29/24 MR#: [id number] Acct: [id number] Name: LLUVIA HOLLINGSWORTH Rep #: [id number] : 1995 Provider: CLARA Shrestha ams Age/Sex: 29/F Location: [facility] Status: Signed Intake Vital Signs 11/16/24 06:40 [...] 1 current occupational status: unemployed current occupation: [employer] current occupational exposures/hazards: No pets and animals: Yes (not manage litterbox) pets and animals: cat(s) and dog(s) history of recent travel: No (OK) sexually active: Yes Smoking Status: Former smoker alcohol intake: former details: rarely drinks, special occasions, not while substance use type: does not use well-balanced diet: daily or most days caffeine: No eating out: 1-3 times/week during the past year weight has: remained stable what type of physical activity do you participate in: walking frequency: daily duration: 15-30 minutes/day chriss/anglican: None seatbelt use: always do you feel [...] live - full term 8#4oz Male epidural [facility] KW J Luis 11/16/24 Renetta 38 live - full term 8lb 6oz Female epidural [facility] Christine Dietz Delivery Date: 11/16/24 Last Updated [...] post visit. Having right sided breast pain. Feeding: Both Menses resumed: No [place] since delivery: No Emotional Support: Yes Last [...] normal palpation (more content not included)... Normal [facility] Discharge Instructionon 11-08 Discharge Instruction [facility] Medical Records Department [address] [place] [address] Instructions for Home/Discharge Instructions 11/18/24 0758 MR#: [id number] Acct: [id number] Name: LLUVIA HOLLINGSWORTH Rep #: [id number] : 1995 29 From: Ken Gómez NP COORDINATING PRODUCER-C PCP: Care Physician,No Primary Status:ADM IN Discharge [...] Self Care 11/18/24 0758 Ken Gómez NP COORDINATING PRODUCER-C CC: No Primary Care Physician Signed Normal [facility] (ROM) Rupture Of Membraneson 11-16-2024 ROM Positive Abnormal Negative [facility] Comment on above: Result Comment: Amni otic fluid present indicates rupture of Membranes. RESULTS CALLED TO VERONIQUE LEE 11/16/24 0376 Fabiola Carter. REPORT READ BACK BY SAME. Performed By: #### L 205.1000 #### [facility] [address] [place], [address] Absolute lymphocyte countOrd ered By: Geni Simpson on 11-16-2024 Lymphocytes Auto (Unsp spec) [#/Vol] 2.06 10*3/uL 0.83-4.51 [facility] Absolute neutrophil countOrd ered By: Geni Simpson on 11-16-2024 Neutrophils (Bld) [#/Vol] 7.9 10*3/uL High 2.0-7.7 [facility] Automated blood erythrocyte countOrdered By: Geni Simpson on 11-16-2024 RBC (Bld) [#/Vol] 4.31 10*6/uL Normal 4.2-5.4 [facility] Comment on above: Performed By: #### L 100.0100, L501.0250, L509.8000, L3890.6005 #### [facility] [address] [place], [address] Automated blood hematocrit ( percentage)Ordered By: Geni Simpson on 11-16-2024 Hematocrit (Bld) [Volume fraction] 40.1 % Normal 37-47 [facility] Comment on above: Performed By: #### L 100.0100, L501.0250, L509.8000, L3890.6005 #### [facility] [address] [place], [place], [id number] Automated lymphocyte count a s percentage of total leukocytesOrdered By: Geni Simpson on 11-16-2024 Lymphocytes/100 WBC (Bld) 18.7 % Low 19-41 [facility] Comment on above: Performed By: #### L 100.0100, L501.0250, L509.8000, L3890.6005 #### [facility] [address] [place], [place], [phone] Lymphocytes/100 WBC Auto (Unsp spec) 18.7 % Low -41 [facility] Basophil percentageOrdered B y: Geni Simpson on 11-16-2024 Basophils/100 WBC (Bld) 0.3 % Normal 0-1 [facility] Comment on above: Performed By: #### L 100.0100, L501.0250, L509.8000, L3890.6005 #### [facility] [address] [place], [address] CBC W/Diff, Automatedon - Absolute Lymph 2.06 X10 3/uL Normal 0.83-4.51 [facility] Comment on above: Performed By: #### L 100.0100, L501.0250, L509.8000, L3890.6005 #### [facility] [address] [place], [address] Absolute Neut 7.9 X10 3/uL High 2.0-7.7 [facility] Comment on above: Performed By: #### L 100.0100, L501.0250, L509.8000, L3890.6005 #### [facility] [address] [place], [address] IG% 0.500 Normal 0.0-0.9 [facility] Comment on above: Result Comment: IG% - Immature Granulocytes (promyelocytes, myelocytes and metamyelocytes) > 1% indicates that a LEFT SHIFT is Present. Performed By: #### L 100.0100, L501.0250, L509.8000, L3890.6005 #### [facility] [address] [place], [address] Nucleated RBC (Bld) [#/Vol] 0 10*3/uL Normal 0-5 [facility] Comment on above: Performed By: #### L 100.0100, L501.0250, L509.8000, L3890.6005 #### [facility] [address] [place], [address] RDW SD 46.7 fl High 35.1-43.9 [facility] Comment on above: Performed By: #### L 100.0100, L501.0250, L509.8000, L3890.6005 #### [facility] [address] [place], [address] Discharge Instructionon Discharge Instruction [facility] Medical Records Department [address] [place] [address] Instructions for Home/Discharge Instructions 11/16/242117 MR#: [id number] Acct: [id number] Name: LLUVIA HOLLINGSWORTH Rep #: [id number] : 1995 29 From: Geni De Jesus DO PCP: Care Physician,No Primary Status:ADM IN Discharge [...] With: Geni De Jesus DO When: Call [phone] to make an appointment with your doctor in 6 weeks. If you had elevated blood pressure or 4th degree laceration, you will need to be seen in 2 weeks. Test Results: Test results from this visit will be discussed in further detail at your follow-up appointment, if applicable. Discharge Plan Admission Admit Date/Time: 11/16/24 07:45 Attending Provider: Geni De Jesus Primary Care Provider: Shana Mccann Primary Discharge Orders/Prescriptions Prescriptions: No Action PNV-DHA 27 mg iron-1 mg -300 mg capsule 1 cap PO DAILY Referrals / Follow Up: Jovanny Taylor,No Primary [Primary Care Provider] - 11/16/248 eGni De Jesus DO CC: No Primary Care Physician Signed Normal [facility] Eosinophil percentageOrdered By: Geni Simpson on 11-16-2024 Eosinophils/100 WBC (Bld) 0.9 % Normal 0-5 [facility] Comment on above: Performed By: #### L 100.0100, L501.0250, L509.8000, L3890.6005 #### [facility] [address] [place], [address] Erythrocyte distribution wid th (RBC) [Ratio]Ordered By: Geni Simpson on 11-16-2024 Erythrocyte distribution width (RBC) [Entitic vol] 46.7 fL High 35.1-43.9 [facility] Erythrocyte distribution wid th ratioOrdered By: Geni Simpson on 11-16-2024 Erythrocyte distribution width (RBC) [Ratio] 13.7 % Normal 11.6-14.6 [facility] Comment on above: Performed By: #### L 100.0100, L501.0250, L509.8000, L3890.6005 #### [facility] [address] [place], [address] Erythrocyte distribution wid th standard deviationOrdered By: Geni Simpson on 11-16-2024 Erythrocyte distribution width (RBC) [Ratio] 46.7 fl High 35.1-43.9 [facility] H AND P Exam - OB/GYNon H&P Exam - 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 [facility] Medical Records Department [address] [place] [address] H P Exam - 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 11/16/24 1033 MR#: [id number] Acct: [id number] Name: LLUVIA HOLLINGSWORTH Rep #: [id number] : 1995 29 From: Geni De Jesus DO PCP: Care Physician,No Primary Status:ADM IN Location: [place] [id number] [facility] - General General Date of Admission: 11/16/24 HPI Narrative LLUVIA HOLLINGSWORTH, is a 29 y/o @ 38 weeks 5 days who presents to [facility] with the complaint of leaking fluid starting at 5 am. She was not chaitanya initially but has started to picker/puller in the last hour with contractions every 3-4 minutes Maternal Data Information RUFINA Calculator Estimated Delivery Date Method Current WG Current Estimate 11/27/24 LMP (Certain) 38w 3d PFSH [facility] Medical History Spontaneous vaginal delivery Spontaneous onset [...] 1 current occupational status: unemployed current occupation: [employer] current occupational exposures/hazards: No pets and animals: Yes (not manage litterbox) pets and animals: cat(s) and dog(s) history of recent travel: No (OK) sexually active: Yes Smoking Status: Former smoker alcohol intake: former details: rarely drinks, special occasions, not while substance use type: does not use well-balanced diet: daily or most days caffeine: No eating out: 1-3 times/week during the past year weight has: remained stable what type of physical activity do you participate in: walking frequency: daily duration: 15-30 minutes/day chriss/anglican: None seatbelt use: always do you feel safe at home: Yes additional social history: J Luis - Self employed History 2 Elective abortions Hx Para 1 Spontaneous abortions Hx # Term Pregnancies 1 Ectopic pregnancies Hx # Pregnancies Multiple births # of living children 1 Past Pregnancies Del. Date Name GA/Weeks Outcome Route Bth Weight Infant Gen [facility] 02/[facility]/23 Seymour 38 live - full term 8#4oz Male epidural WC KW J Luis Visit Details Expected Delivery Route/Plan Labor Preferences- [...] ting r (more content not included)... Normal [facility] Hemoglobin measurementOrdere d By: Geni Simpson on 11-16-2024 Hemoglobin (Bld) [Mass/Vol] 13.4 g/dL Normal 12.0-15.0 [facility] Comment on above: Performed By: #### L 100.0100, L501.0250, L509.8000, L3890.6005 #### [facility] [address] [place], [address] Immature granulocytes/100 WB C Auto (Bld)Ordered By: Geni Simpson on 11-16-2024 Immature granulocytes/100 WBC (Bld) 0.500 % 0.0-0.9 [facility] Comment on above: IG% - Immature Granu locytes (promyelocytes, myelocytes and metamyelocytes) > 1% indicates that a LEFT SHIFT is Present. L509.8000on 11-16-2024 Syphilis Abs Non-Reactive Normal [facility] Comment on above: Performed By: #### L 100.0100, L501.0250, L509.8000, L3890.6005 #### [facility] [address] [place], [address] Lymphocytes Auto (Unsp spec) [#/Vol]Ordered By: Geni Simpson on 11-16-2024 Lymphocytes (Bld) [#/Vol] 2.06 10*3/uL 0.83-4.51 [facility] MCV (mean corpuscular volume ) determinationOrdered By: Geni Simpson on 11-16-2024 MCV (RBC) [Entitic vol] 93.0 fL Normal 81-99 [facility] Comment on above: Performed By: #### L 100.0100, L501.0250, L509.8000, L3890.6005 #### [facility] [address] [place], [address] MR/OB.VAGDELIon 11-16-2024 MR[facility] Medical Records Department [address] [place] [address] OB Vaginal Delivery 11/16/242114 MR#: [id number] Acct: [id number] Name: LLUVIA HOLLINGSWORTH Rep #: [id number] : 1995 29 From: Gein De Jesus DO PCP: Care Physician,No Primary Status:ADM IN Location: [id number] Assessment Plan (1) Uterine size date discrepancy [...] complication followed by the rest of the and the infant was placed on the [...] laceration. EBL was 100 cc. Patient and tolerated delivery well. Procedure findings: viable female apgars 9/9 Keysha Presentation: Vertex Amniotic Membrane Rupture Type: Spontaneous Amniotic Fluid Description: Clear Placental Delivery Description: Spontaneous Placenta Disposition: [facility] Specimen collected: No Cord Vessel Description: 3 Vessels Cord Entanglement: None A Gender: Female (1 minute): 9 (5 minute): 9 Delayed Cord Clamping: Yes Manager Credit packing machine operator: No Post Vaginal Deli Medications given after delivery: IV Pitocin Episiotomy Description: None Laceration: None Complication Complications: No Procedures Urinary/Genital 52xxx-59xxx: 20843 Vaginal Delivery Only 11/16/242117 Cosigner Signature (if applicable): CC: Dr. Geni De Jesus, DO; No Primary Care Physician Signed Normal [facility] Mean corpuscular hemoglobin (MCH) determinationOrdered By: Geni Simpson on 11-16-2024 MCH (RBC) [Entitic mass] 31.1 pg Normal 27.0-32.0 [facility] Comment on above: Performed By: #### L 100.0100, L501.0250, L509.8000, L3890.6005 #### [facility] [address] [place], [address] Mean corpuscular hemoglobin concentration (MCHC) determinationOrdered By: Geni Simpson on 11-16-2024 MCHC (RBC) [Mass/Vol] 33.4 g/dL Normal 32-36 [facility] Comment on above: Performed By: #### L 100.0100, L501.0250, L509.8000, L3890.6005 #### [facility] [address] [place], [place], [address] Mean platelet volume determi nationOrdered By: Geni Simpson on 11-16-2024 Platelet mean volume (Bld) [Entitic vol] 10.7 fL Normal 6.2-12.0 [facility] Comment on above: Performed By: #### L 100.0100, L501.0250, L509.8000, L3890.6005 #### [facility] [address] [place], [address] Monocyte percentageOrdered B y: Geni Simpson on 11-16-2024 Monocytes/100 WBC (Bld) 7.5 % Normal 0-10 [facility] Comment on above: Performed By: #### L 100.0100, L501.0250, L509.8000, L3890.6005 #### [facility] [address] [place], [address] Neutrophil percentageOrdered By: Geni Simpson on 11-16-2024 Neutrophils/100 WBC (Bld) 72.1 % High 47-70 [facility] Comment on above: Performed By: #### L 100.0100, L501.0250, L509.8000, L3890.6005 #### [facility] [address] [place], [place], [id number] Nucleated red blood cell per centageOrdered By: Geni Simpson on 11-16-2024 Nucleated RBC/100 WBC (Bld) [Ratio] 0 % 0-5 [facility] Platelet countOrdered By: Anderson Simpson on 11-16-2024 Platelets (Bld) [#/Vol] 241 10*3/uL Normal 150-450 [facility] Comment on above: Performed By: #### L 100.0100, L501.0250, L509.8000, L3890.6005 #### [facility] [address] [place], [address] Serum Treponema species anti body detectionOrdered By: Geni Simpson on 11-16-2024 Treponema sp Ab Ql (S) Non-Reactive [facility] Testing for ruptured membran esOrdered By: Geni Simpson on 11-16-2024 Vaginal Amniotic Fluid Detection Positive High Negative [facility] Comment on above: Amniotic fluid prese nt indicates rupture of Membranes. RESULTS CALLED TO VERONIQUE LEE 11/16/24 0745 Fabiola Carter.REPORT READ BACK BY SAME. Treponema sp Ab Ql (S)Ordere d By: Geni Simpson on 11-16-2024 Syphilis Total Antibody Non-Reactive [facility] Type AND Screenon 11-16-2024 Ab SCREEN GEL Negative Normal [facility] Comment on above: Order Comment: Labor Performed By: #### L 100.0100, L501.0250, L509.8000, L3890.6005 #### [facility] [address] [place], [place], [id number] White blood cell (WBC) count Ordered By: Geni Simpson on 11-16-2024 WBC (Bld) [#/Vol] 11.0 10*3/uL Normal 4.4-11.0 [facility] Comment on above: Performed By: #### L 100.0100, L501.0250, L509.8000, L3890.6005 #### [facility] [address] [place], [address] Laboratory - Chemistry and C hemistry - challengeOrdered By: Lizzette Zheng on 11-13-2024 Glucose Ql (U) Negative [facility] Laboratory - UrinalysisOrder ed By: Lizzette Zheng on 11-13-2024 Protein Ql (U) Negative [facility] O[facility] Office Visit Reporton 11-13-2024 [facility] Office Visit Report [facility] [address], [address] [place] [address] OFFICE VISIT Date of Service: 11/13/24 MR#: [id number] Acct: [id number] Name: LLUVIA HOLLINGSWORTH Rep #: [id number] : 1995 Provider: CLARA Shrestha ams Age/Sex: 29/F Location: [facility] Status: Signed Intake Vital Signs 08/13/24 13:52 [...] 1 current occupational status: unemployed current occupation: [employer] current occupational exposures/hazards: No pets and animals: Yes (not manage litterbox) pets and animals: cat(s) and dog(s) history of recent travel: No ([place]) sexually active: Yes Smoking Status: Former smoker alcohol intake: former details: rarely drinks, special occasions, not while substance use type: does not use well-balanced diet: daily or most days caffeine: No eating out: 1-3 times/week during the past year weight has: remained stable what type of physical activity do you participate in: walking frequency: daily duration: 15-30 minutes/day chriss/anglican: None seatbelt use: always do you feel [...] ligament pa (more content not included)... Normal [facility] Rule out Beta Strep (Grp. B) on 11-09-2024 MILLICENT Streptococcus agalactiae (B) Amount Growth Growth Streptococcus agalactiae (B): REACTION Ampicillin Islt KIARA <=0.25 cefTRIAXone Islt KIARA <=0.12 S Clindamycin Islt KIARA >=1 R Clindamycin.induced Susc Islt NEG Linezolid Islt KAIRA <=2 S Vancomycin Islt KIARA 0.5 S Normal [facility] Comment on above: Performed By: #### M 629.3178 ####[facility] [address] [place], [address] Laboratory - Chemistry and C hemistry - challengeon 11-05-2024 Glucose Ql (U) Negative [facility] Laboratory - Urinalysison Protein Ql (U) Negative [facility] O[facility] Office Visit Reporton 11-05-2024 O[facility] Office Visit Report [facility], [address] [place] [address] OFFICE VISIT Date of Service: 11/05/24 MR#: [id number] Acct: [id number] Name: LLUVIA HOLLINGSWORTH Rep #: [id number] : 1995 Provider: Dr. 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 Required: No Is patient in pain?: No [...] 1 current occupational status: unemployed current occupation: [employer] current occupational exposures/hazards: No pets and animals: Yes (not manage litterbox) pets and animals: cat(s) and dog(s) history of recent travel: No ([place]) sexually active: Yes Smoking Status: Former smoker alcohol intake: former details: rarely drinks, special occasions, not while substance use type: does not use well-balanced diet: daily or most days caffeine: No eating out: 1-3 times/week during the past year weight has: remained stable what type of physical activity do you participate in: walking frequency: daily duration: 15-30 minutes/day chriss/anglican: None seatbelt use: always do you feel [...] 152 -???-???-?? (more content not included)... Normal [facility] Screening beta-hemolytic Str eptococcus cultureOrdered By: Geni Simpson on 11-05-2024 Beta-hemolytic Streptococcus culture Streptococcus agalactiae (B) Abnormal [facility] Group B Streptococcus Culture Streptococcus agalactiae (B) Abnormal [facility] Laboratory - Chemistry and C hemistry - challengeon 10-21-2024 Glucose Ql (U) Negative [facility] Laboratory - Urinalysison Protein Ql (U) Negative [facility] Office Visit Reporton 10-21-2024 [facility] Office Visit Report [facility]'s [address], [address] [place] [address] OFFICE VISIT Date of Service: 10/21/24 MR#: [id number] Acct: [id number] Name: LLUVIA HOLLINGSWORTH Rep #: [id number] : 1995 Provider: Dr. 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 Required: No Is patient in pain?: No [...] 1 current occupational status: unemployed current occupation: [employer] current occupational exposures/hazards: No pets and animals: Yes (not manage litterbox) pets and animals: cat(s) and dog(s) history of recent travel: No ([place]) sexually active: Yes Smoking Status: Former smoker alcohol intake: former details: rarely drinks, special occasions, not while substance use type: does not use well-balanced diet: daily or most days caffeine: No eating out: 1-3 times/week during the past year weight has: remained stable what type of physical activity do you participate in: walking frequency: daily duration: 15-30 minutes/day chriss/anglican: None seatbelt use: always do you feel [...] Male epidural [facility] KW J Luis HPI 34 WK OB [...] 8 oz (more content not included)... Normal [facility] Laboratory - Chemistry and C hemistry - challengeon 10-07-2024 Glucose Ql (U) Negative [facility] Laboratory - Urinalysison Protein Ql (U) Negative [facility] Office Visit Reporton 10-07-2024 [facility] Office Visit Report [facility]'s [address], [address] [place] [address] OFFICE VISIT Date of Service: 10/07/24 MR#: [id number] Acct: [id number] Name: LLUVIA HOLLINGSWORTH Rep #: [id number] : 1995 Provider: LUIS cox Age/Sex: 29/F Location: [facility] Status: Signed Intake Vital Signs 08/13/24 13:52 09/26/24 13:12 10/07/24 10:54 Height 5 ft 4 in 5 ft 4 in 5 ft 4 in Weight: 220 lb 6 oz BMI 37.8 BP 122/70 H Intake Visit Reasons: 32 WK OB Chief Complaint: 32 Week OB 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 Required: No Is patient in pain?: No [...] 1 current occupational status: unemployed current occupation: [employer] current occupational exposures/hazards: No pets and animals: [...] in: walking frequency: daily duration: 15-30 minutes/day chriss/anglican: None seatbelt use: always do you feel [...] Male epidural [facility] KW J Luis HPI 32 WK OB [...] 152 -???-???-???-? (more content not included)... Normal [facility] Laboratory - Chemistry and C hemistry - challengeon 09-26-2024 Glucose Ql (U) Negative [facility] Laboratory - Urinalysison Protein Ql (U) Trace [facility] Office Visit Reporton 09-26-2024 [facility] Office Visit Report [facility], [address] [place] [address] OFFICE VISIT Date of Service: 09/26/24 MR#: [id number] Acct: [id number] Name: LLUVIA HOLLINGSWORTH Rep #: [id number] : 1995 Provider: CLARA petit Age/Sex: 29/F Location: [facility] Status: Signed Intake Vital Signs 08/13/24 13:52 09/11/24 13:27 09/26/24 13:12 Height 5 ft 4 in 5 ft 4 in 5 ft 4 in Weight: 217 lb 4 oz BMI 37.3 BP 112/75 Intake Visit Reasons: 30 WK OB 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 Required: No Is patient in pain?: No [...] 1 current occupational status: unemployed current occupation: [employer] current occupational exposures/hazards: No pets and animals: [...] in: walking frequency: daily duration: 15-30 minutes/day chriss/anglican: None seatbelt use: always do you feel [...] 152 -???-???-???-???-???- (more content not included)... Normal [facility] CBC W/Diff, Automatedon 12-0 -2023 Absolute Lymph 1.49 X10 3/uL Normal 0.83-4.51 [facility] Comment on above: Performed By: #### L 100.0100, L501.0250, L509.8000, L3890.6005 #### [facility] [address] [place], [address] Absolute Neut 5.6 X10 3/uL Normal 2.0-7.7 [facility] Comment on above: Performed By: #### L 100.0100, L501.0250, L509.8000, L3890.6005 #### [facility] [address] [place], [address] Basophils/100 WBC (Bld) 0.1 % Normal 0-1 [facility] Comment on above: Performed By: #### L 100.0100, L501.0250, L509.8000, L3890.6005 #### [facility] [address] [place], [address] Eosinophils/100 WBC (Bld) 0.6 % Normal 0-5 [facility] Comment on above: Performed By: #### L 100.0100, L501.0250, L509.8000, L3890.6005 #### [facility] [address] [place], [address] Erythrocyte distribution width (RBC) [Ratio] 13.8 % Normal 11.6-14.6 [facility] Comment on above: Performed By: #### L 100.0100, L501.0250, L509.8000, L3890.6005 #### [facility] [address] [place], [address] Hematocrit (Bld) [Volume fraction] 36.2 % Low 37-47 [facility] Comment on above: Performed By: #### L 100.0100, L501.0250, L509.8000, L3890.6005 #### [facility] [address] [place], [address] Hemoglobin (Bld) [Mass/Vol] 12.2 g/dL Normal 12.0-15.0 [facility] Comment on above: Performed By: #### L 100.0100, L501.0250, L509.8000, L3890.6005 #### [facility] [address] [place], [address] IG% 0.400 Normal 0.0-0.9 [facility] Comment on above: Result Comment: IG% - Immature Granulocytes (promyelocytes, myelocytes and metamyelocytes) > 1% indicates that a LEFT SHIFT is Present. Performed By: #### L 100.0100, L501.0250, L509.8000, L3890.6005 #### [facility] [address] [place], [address] Lymphocytes/100 WBC (Bld) 19.0 % Normal 19-41 [facility] Comment on above: Performed By: #### L 100.0100, L501.0250, L509.8000, L3890.6005 #### [facility] [address] [place], [address] MCH (RBC) [Entitic mass] 31.8 pg Normal 27.0-32.0 [facility] Comment on above: Performed By: #### L 100.0100, L501.0250, L509.8000, L3890.6005 #### [facility] [address] [place], [address] MCHC (RBC) [Mass/Vol] 33.7 g/dL Normal 32-36 [facility] Comment on above: Performed By: #### L 100.0100, L501.0250, L509.8000, L3890.6005 #### [facility] [address] [place], [address] MCV (RBC) [Entitic vol] 94.3 fL Normal 81-99 [facility] Comment on above: Performed By: #### L 100.0100, L501.0250, L509.8000, L3890.6005 #### [facility] [address] [place], [address] Monocytes/100 WBC (Bld) 9.2 % Normal 0-10 [facility] Comment on above: Performed By: #### L 100.0100, L501.0250, L509.8000, L3890.6005 #### [facility] [address] [place], [address] Neutrophils/100 WBC (Bld) 70.7 % High 47-70 [facility] Comment on above: Performed By: #### L 100.0100, L501.0250, L509.8000, L3890.6005 #### [facility] [address] [place], [address] Nucleated RBC (Bld) [#/Vol] 0 10*3/uL Normal 0-5 [facility] Comment on above: Performed By: #### L 100.0100, L501.0250, L509.8000, L3890.6005 #### [facility] [address] [place], [address] Platelet mean volume (Bld) [Entitic vol] 9.8 fL Normal 6.2-12.0 [facility] Comment on above: Performed By: #### L 100.0100, L501.0250, L509.8000, L3890.6005 #### [facility] [address] [place], [address] Platelets (Bld) [#/Vol] 235 10*3/uL Normal 150-450 [facility] Comment on above: Performed By: #### L 100.0100, L501.0250, L509.8000, L3890.6005 #### [facility] [address] [place], [address] RBC (Bld) [#/Vol] 3.84 10*6/uL Low 4.2-5.4 [facility] Comment on above: Performed By: #### L 100.0100, L501.0250, L509.8000, L3890.6005 #### [facility] [address] [place], [address] RDW SD 47.8 fl High 35.1-43.9 [facility] Comment on above: Performed By: #### L 100.0100, L501.0250, L509.8000, L3890.6005 #### [facility] [address] [place], [address] WBC (Bld) [#/Vol] 7.9 10*3/uL Normal 4.4-11.0 [facility] Comment on above: Performed By: #### L 100.0100, L501.0250, L509.8000, L3890.6005 #### [facility] [address] [place], [address] Glucose Challenge Gest 1H 50 roberto 09-11-2024 GLU GEST 50g 1H 88 mg/dL Normal 70-140 [facility] Comment on above: Performed By: #### L 100.0100, L501.0250, L509.8000, L3890.6005 #### [facility] [address] [place], [address] HIV - WCHon 09-11-2024 HIV Non-Reactive Normal Nonreactive [facility] Comment on above: Performed By: #### L 100.0100, L501.0250, L509.8000, L3890.6005 #### [facility] [address] [place], [address] L509.8000on 09-11-2024 Syphilis Abs Non-Reactive Normal [facility] Comment on above: Performed By: #### L 100.0100, L501.0250, L509.8000, L3890.6005 #### [facility] [address] [place], [address] O[facility] Office Visit Reporton 09-11-2024 O[facility] Office Visit Report [facility] [address], [address] [place] [address] OFFICE VISIT Date of Service: 09/11/24 MR#: [id number] Acct: [id number] Name: LLUVIA HOLLINGSWORTH Rep #: [id number] : 1995 Provider: Dr. 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 ? (more content not included)... Normal [facility] Office Visit Reporton 08-13-2024 O[facility] Office Visit Report [facility]'s [address], [address] [place] [address] OFFICE VISIT Date of Service: 08/13/24 MR#: [id number] Acct: [id number] Name: LLUVIA HOLLINGSWORTH Rep #: [id number] : 1995 Provider: LUIS cox Age/Sex: 28/F Location: [facility] Status: Signed Intake Vital Signs 07/14/24 13:35 08/13/24 13:52 08/13/24 13:52 Height 5 ft 4 in 5 ft 4 in 5 ft 4 in Weight: 211 lb 6 oz BMI 36.3 BP 105/72 Intake Visit Reasons: 24 WK OB 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 ??- (more content not included)... Normal [facility] Office Visit Reporton 07-14-2024 O[facility] Office Visit Report [facility]'s [address], [address] [place] [address] OFFICE VISIT Date of Service: 07/14/24 MR#: [id number] Acct: [id number] Name: LLUVIA HOLLINGSWORTH Rep #: [id number] : 1995 Provider: CLARA Shrestha ams Age/Sex: 28/F Location: [facility] Status: Signed Intake Vital Signs 05/20/24 14:53 06/16/24 13:37 07/14/24 13:35 Height 5 ft 4 in 5 ft 4 in 5 ft 4 in Weight: 204 lb BMI 35.0 BP 102/63 Intake Visit Reasons: 20 WK OB 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 Required: No Is patient in pain?: No Allergies No Known Allergies Allergy (Verified 07/14/24 13:37) Medications ???Medication ???Instructions ???Recorded ???Confirmed ???Type cetirizine 10 mg capsule (Zyrtec) 10 mg PO DAILY PRN allergies 12/18/22 07/14/24 History multivitamin no.47-iron fum 27 cap PO 04/18/24 07/14/24 History mg-folate no.1 1 mg-dha 300 mg capsule (PNV-DHA) Last Menstrual Period: 02/21/24 Zika: Zika virus screening: Negative Have you [...] 1 current occupational status: unemployed current occupation: [employer] current occupational exposures/hazards: No pets and animals: Yes (not manage litterbox) pets and animals: cat(s) and dog(s) history of recent travel: No ([place]) sexually active: Yes Smoking Status: Former smoker alcohol intake: former details: rarely drinks, special occasions, not while substance use type: does not use well-balanced diet: daily or most days caffeine: No eating out: 1-3 times/week during the past year weight has: remained stable what type of physical activity do you participate in: walking frequency: daily duration: 15-30 minutes/day chriss/anglican: None seatbelt use: always do you feel [...] -???-???-???-???-???-?? ?-???-??? (more content not included)... Normal [facility] Miscellaneous Lab Procedureo n 06-19-2024 [facility] LAB TEST A Normal [facility] Comment on above: Order Comment: [id number] msAFP SERUM RT [id number] msAFP SERUM RT Result Comment: TEST RESULTS [...] AFP MoM 0.80 OSBR Risk 1 [place] [address] Interpretation Interpretation: Screen Negative This result is [...] Syndrome or Trisomy 18 is desired, contact [facility] to discuss available options. The [employer] recommends amniocentesis be offered to women age 35 and older. Comment: Joleen Vasquez, Ph.D., [facility] Director References: Available Upon Request. Multiples Of Median Cutoffs For AFP Elevations Beltran 2.5 Black 2.8 IDD 2.0 Twins 4.5 Abbreviation Definitions IDD - Insulin Dep Diabetes OSBR - Open Spina Bifida Risk For further inquiries contact [facility] at [phone]. This test was developed and its performance characteristics determined by [facility]. It has not been cleared or approved by the Food and Drug Administration. TESTING PERFORMED AT [facility]. ORIGINAL REPORT ON FILE IN LAB CONTAINS ADDITIONAL TEST SITE INFORMATION. Performed By: #### L 801.1541 #### [facility] [address] 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 Is patient in pain?: No [...] 1 current occupational status: unemployed current occupation: [employer] current occupational exposures/hazards: No pets and animals: Yes (not manage litterbox) pets and animals: cat(s) and dog(s) history of recent travel: No ([place]) sexually active: Yes Smoking Status: Former smoker alcohol intake: former details: rarely drinks, special occasions, not while substance use type: does not use well-balanced diet: daily or most days caffeine: No eating out: 1-3 times/week during the past year weight has: remained stable what type of physical activity do you participate in: walking frequency: daily duration: 15-30 minutes/day chriss/anglican: None seatbelt use: always do you feel [...] -???-???-???-???-???-?? ?-???-???-???-???-?? (more content not included)... Normal [facility] Office Visit Reporton 05-20-2024 [facility] Office Visit Report [facility] [address], [address] [place] [address] OFFICE VISIT Date of Service: 05/20/24 MR#: [id number] Acct: [id number] Name: LLUVIA HOLLINGSWORTH Rep #: [id number] : 1995 Provider: Dr. 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 Is patient in pain?: No [...] 1 current occupational status: unemployed current occupation: [employer] current occupational exposures/hazards: No pets and animals: Yes (not manage litterbox) pets and animals: cat(s) and dog(s) history of recent travel: No ([place]) sexually active: Yes Smoking Status: Former smoker alcohol intake: former details: rarely drinks, special occasions, not while substance use type: does not use well-balanced diet: daily or most days caffeine: No eating out: 1-3 times/week during the past year weight has: remained stable what type of physical activity do you participate in: walking frequency: daily duration: 15-30 minutes/day chriss/anglican: None seatbelt use: always do you feel [...] to car (more content not included)... Normal [facility] Laboratory - Chemistry and C hemistry - challengeon 05-17-2023 HCG ( test) Ql (U) Negative [facility] Chlamydia trachomatis rRNA d etection by probe and target amplification methodOrdered By: Lizzette Zheng on 04-17-2023 C. trachomatis rRNA ANDER+probe Ql (Unsp spec) Negative Negative [facility] Gram stain for investigation of transfusion reactionOrdered By: Lizzette Zheng on 04-17-2023 Microscopic observation Gram stain Nom (Unsp spec) [facility] Laboratory - Microbiology an d Antimicrobial susceptibilityOrdered By: Lizzette Zheng on 04-17-2023 N. gonorrhoeae DNA ANDER+probe Ql (Unsp spec) Negative Negative [facility] Comment on above: Performed at: =[address] [place] [id number] Director: Megan Lawrence MD, Phone: [phone] No Panel Informationon 04-17 POC Trichomonas (Rapid) Negative [facility] Thin prep Papanicolaou smear with manual screeningOrdered By: Lizzette Zheng on 04-17-2023 Genital Culture Gardnerella vaginalis [facility] Cervical or vagninal specime n microscopic examination by cytology stain (reported asOrdered By: Lizzette Zheng on 03-28-2023 Cytology report Cyto stain Doc (Cvx/Vag) Comment . [facility] Comment on above: The Pap smear is a s creening test designed to aid in thedetection of premalignant and malignant conditions of theuterine cervix. It is not a diagnostic procedure andshould not be used as the sole means of detecting cervicalcancer. Both false-positive and false-negative reports dooccur. Laboratory - CytologyOrdered By: Lizzette Zheng on 03-28-2023 Saddle Stitching Machine Operator Cyto stain Nom (Cvx/Vag) [ID] Comment . [facility] Comment on above: Lisa Feliciano, Cytot echnologist (ASCP) Pathologist Cyto stain Nom (Cvx/Vag) [ID] Comment . [facility] Comment on above: Shavonne Torres MD, Pa thologist Recommended follow-up Cyto stain Nom (Cvx/Vag) Comment . [facility] Comment on above: Suggest follow up as clinically appropriate. Laboratory - Miscellaneous t estsOrdered By: Lizzette Zheng on 03-28-2023 Service comment (Unsp spec) [Interp] Comment . [facility] Comment on above: This liquid based Th inPrep(R) pap test was screened withthe use of an image guided system. Service comment (Unsp spec) [Interp] . . [facility] No Panel InformationOrdered By: Lizzette Zheng on 03-28-2023 Human Papillomavirus Screen Comment . [facility] Comment on above: The HPV DNA reflex c destini were not met with this specimenresult therefore, no HPV testing was performed.Performed at: [address], [place] [id number] Director: Megan Lawrence MD, Phone: [phone] Pathology report final diagnosis Narrative Comment . [facility] Comment on above: EPITHELIAL CELL ABNO RMALITY.LOW GRADE SQUAMOUS INTRAEPITHELIAL LESION (LSIL).TRICHOMONAS VAGINALIS IS PRESENT. R87.612, R87.5 Laboratory - Drug toxicology Ordered By: Opal Golden on 02-06-2023 Benzodiazepines Ql (U) Negative < 200 ng/mL [facility] Cannabinoids Screen Ql (U) Negative < 50 ng/mL [facility] Cocaine Ql (U) Negative < 300 ng/mL [facility] Opiates Ql (U) Negative < 300 ng/mL [facility] No Panel InformationOrdered By: Opal Golden on 02-06-2023 MDMA (Ecstasy) Screen Negative < 500 ng/mL [facility] Urine Barbiturates Screen Negative < 200 ng/mL [facility] Urine Drug Screen Comment [facility] Comment on above: CONFIRMATORY TESTING FOR ALL [...] Urine Methadone Screen Negative < 300 ng/mL [facility] Urine amphetamine measuremen t (moles/volume)Ordered By: Opal Golden on 02-06-2023 Amphetamine (U) [Moles/Vol] Negative <1000 ng/mL [facility] Urine phencyclidine (PCP) de tectionOrdered By: Opal Golden on 02-06-2023 Phencyclidine Ql (U) Negative < 25 ng/mL [facility] Absolute lymphocyte countOrd ered By: Opal Golden on 02-05-2023 Lymphocytes Auto (Unsp spec) [#/Vol] 1.98 10*3/uL 0.83-4.51 [facility] Basophil percentageOrdered B y: Opal Golden on 02-05-2023 Basophils/100 WBC (Bld) 0.2 % 0-1 [facility] Eosinophils/100 WBC (Bld) 0.1 % 0-5 [facility] Neutrophils (Bld) [#/Vol] 14.0 10*3/uL 2.0-7.7 [facility] Neutrophils/100 WBC (Bld) 81.7 % 47-70 [facility] WBC (Bld) [#/Vol] 17.2 10*3/uL 4.4-11.0 [facility] Blood erythrocytes count (nu mber/volume)Ordered By: Opal Golden on 02-05-2023 RBC (Bld) [#/Vol] 4.03 10*6/uL 4.2-5.4 [facility] Blood hemoglobin measurement (mass/volume)Ordered By: Opal Golden on 02-05-2023 Hemoglobin (Bld) [Mass/Vol] 11.9 g/dL 12.0-15.0 [facility] Blood lymphocytes/100 leukoc ytesOrdered By: Opal Golden on 02-05-2023 Lymphocytes/100 WBC (Bld) 11.5 % 19-41 [facility] Blood monocytes/100 leukocyt esOrdered By: Opal Golden on 02-05-2023 Monocytes/100 WBC (Bld) 5.6 % 0-10 [facility] Blood platelet mean volumeOr dered By: Opal Golden on 02-05-2023 Platelet mean volume (Bld) [Entitic vol] 10.3 fL 6.2-12.0 [facility] [facility] Determination of erythrocyte mean corpuscular volume (MCV)Ordered By: Opal Golden on 02-05-2023 MCV (RBC) [Entitic vol] 87.8 fL 81-99 [facility] Hematocrit Auto (Bld) [Volum e fraction]Ordered By: Opal Golden on 02-05-2023 Hematocrit (Bld) [Volume fraction] 35.4 % 37-47 [facility] Laboratory - Hematology and Cell countsOrdered By: Opal Golden on 05-01-2023 Erythrocyte distribution width (RBC) [Entitic vol] 48.6 fL 35.1-43.9 [facility] Erythrocyte distribution width (RBC) [Ratio] 15.1 % 11.6-14.6 [facility] Immature granulocytes/100 WBC (Bld) 0.900 % 0.0-0.9 [facility] Comment on above: IG% - Immature Granu locytes (promyelocytes, myelocytes and metamyelocytes) > 1% indicates that a LEFT SHIFT is Present. MCH (RBC) [Entitic mass] 29.5 pg 27.0-32.0 [facility] Nucleated RBC/100 WBC (Bld) [Ratio] 0 % 0-5 [facility] MCHC Auto (RBC) [Mass/Vol]Or dered By: Opal Golden on 02-05-2023 MCHC (RBC) [Mass/Vol] 33.6 g/dL 32-36 [facility] Platelets bldOrdered By: Linda Golden on 02-05-2023 Platelets (Bld) [#/Vol] 288 10*3/uL 150-450 [facility] Serum Treponema species anti body detectionOrdered By: Opal Golden on 02-05-2023 Treponema sp Ab Ql (S) Non-Reactive [facility] Laboratory - Chemistry and C hemistry - challengeon 01-31-2023 Glucose Ql (U) Negative [facility] Laboratory - Urinalysison Protein Ql (U) Negative [facility] Laboratory - Chemistry and C hemistry - challengeon 01-24-2023 Glucose Ql (U) Negative [facility] Laboratory - Urinalysison Protein Ql (U) Negative [facility] No Panel InformationOrdered By: Dr. Simpson on 01-20-2023 Group B Streptococcus Culture Group B Beta Streptococcus is not isolated. [facility] Laboratory - Chemistry and C hemistry - challengeon 01-17-2023 Glucose Ql (U) Negative [facility] Laboratory - Urinalysison Protein Ql (U) Negative [facility] No Panel InformationOrdered By: Geni Simpson on 01-17-2023 Group B Streptococcus Culture Group B Beta Streptococcus is not isolated. [facility] Laboratory - Chemistry and C hemistry - challengeon 01-03-2023 Glucose Ql (U) Negative [facility] Laboratory - Urinalysison Protein Ql (U) Trace [facility] Laboratory - Chemistry and C hemistry - challengeon 12-07-2022 Glucose Ql (U) Negative [facility] Laboratory - Urinalysison Protein Ql (U) Negative [facility] Absolute lymphocyte countOrd ered By: Dr. Simpson on 11-22-2022 Lymphocytes Auto (Unsp spec) [#/Vol] 1.88 10*3/uL 0.83-4.51 [facility] Basophil percentageOrdered B y: Dr. Simpson on 11-22-2022 Basophils/100 WBC (Bld) 0.3 % 0-1 [facility] Eosinophils/100 WBC (Bld) 0.9 % 0-5 [facility] Neutrophils (Bld) [#/Vol] 7.8 10*3/uL 2.0-7.7 [facility] Neutrophils/100 WBC (Bld) 74.0 % 47-70 [facility] WBC (Bld) [#/Vol] 10.6 10*3/uL 4.4-11.0 [facility] Blood erythrocytes count (nu mber/volume)Ordered By: Dr. Simpson on 11-22-2022 RBC (Bld) [#/Vol] 3.61 10*6/uL 4.2-5.4 [facility] Blood hemoglobin measurement (mass/volume)Ordered By: Dr. Simpson on 11-22-2022 Hemoglobin (Bld) [Mass/Vol] 11.0 g/dL 12.0-15.0 [facility] Blood lymphocytes/100 leukoc ytesOrdered By: Dr. Simpson on 11-22-2022 Lymphocytes/100 WBC (Bld) 17.8 % 19-41 [facility] Blood monocytes/100 leukocyt esOrdered By: Dr. Simpson on 11-22-2022 Monocytes/100 WBC (Bld) 6.5 % 0-10 [facility] Blood platelet mean volumeOr dered By: Dr. Simpson on 11-22-2022 Platelet mean volume (Bld) [Entitic vol] 9.5 fL 6.2-12.0 [facility] Determination of erythrocyte mean corpuscular volume (MCV)Ordered By: Dr. Simpson on 11-22-2022 MCV (RBC) [Entitic vol] 93.6 fL 81-99 [facility] Gestational diabetes screen 1-hour screen with 50g oral glucose loadOrdered By: Dr. Simpson on 11-22-2022 Glucose 1 Hr post 50 g glucose PO [Mass/Vol] 101 mg/dL 70-140 [facility] HIV 1 and HIV-2 antibody ass ay with HIV-1 p24 antigen detectionOrdered By: Dr. Simpson on 11-22-2022 HIV 1+2 Ab+HIV1 p24 Ag IA Ql Non-Reactive Nonreactive [facility] Hematocrit Auto (Bld) [Volum e fraction]Ordered By: Dr. Simpson on 11-22-2022 Hematocrit (Bld) [Volume fraction] 33.8 % 37-47 [facility] Laboratory - Chemistry and C hemistry - challengeon 11-22-2022 Glucose Ql (U) Negative [facility] Laboratory - Hematology and Cell countsOrdered By: Dr. Simpson on 11-22-2022 Erythrocyte distribution width (RBC) [Entitic vol] 44.7 fL 35.1-43.9 [facility] Erythrocyte distribution width (RBC) [Ratio] 13.0 % 11.6-14.6 [facility] Immature granulocytes/100 WBC (Bld) 0.500 % 0.0-0.9 [facility] Comment on above: IG% - Immature Granu locytes (promyelocytes, myelocytes and metamyelocytes) > 1% indicates that a LEFT SHIFT is Present. MCH (RBC) [Entitic mass] 30.5 pg 27.0-32.0 [facility] Nucleated RBC/100 WBC (Bld) [Ratio] 0 % 0-5 [facility] Laboratory - Urinalysison Protein Ql (U) Negative [facility] MCHC Auto (RBC) [Mass/Vol]Or dered By: Dr. Simpson on 11-22-2022 MCHC (RBC) [Mass/Vol] 32.5 g/dL 32-36 [facility] Platelets bldOrdered By: Dr. Simpson on 11-22-2022 Platelets (Bld) [#/Vol] 284 10*3/uL 150-450 [facility] Serum Treponema species anti body detectionOrdered By: Dr. Simpson on 11-22-2022 Treponema sp Ab Ql (S) Non-Reactive [facility] Laboratory - Chemistry and C hemistry - challengeon 11-08-2022 Glucose Ql (U) Negative [facility] Laboratory - Urinalysison Protein Ql (U) Negative [facility] Laboratory - Chemistry and C hemistry - challengeon 10-10-2022 Glucose Ql (U) Negative [facility] Laboratory - Urinalysison Protein Ql (U) Negative [facility] Laboratory - Chemistry and C hemistry - challengeon 09-05-2022 Glucose Ql (U) Negative [facility] Laboratory - Urinalysison Protein Ql (U) Negative [facility] Laboratory - Chemistry and C hemistry - challengeon 2022 Glucose Ql (U) Negative [facility] Laboratory - Urinalysison Protein Ql (U) Negative [facility] Laboratory - Chemistry and C hemistry - challengeon 08-09-2022 Glucose Ql (U) Negative [facility] Laboratory - Urinalysison Protein Ql (U) Negative [facility] No Panel InformationOrdered By: Dr. Simpson on 08-09-2022 Miscellaneous Test Comment MAILED SPECIMEN [facility] Absolute lymphocyte counton 07-10-2022 Lymphocytes Auto (Unsp spec) [#/Vol] 1.80 10*3/uL 0.83-4.51 [facility] Work Phone: Basophil percentageon 2021 Basophils/100 WBC (Bld) 0.4 % 0-1 [facility] Work Phone: Eosinophils/100 WBC (Bld) 1.1 % 0-5 [facility] Work Phone: Neutrophils (Bld) [#/Vol] 7.5 10*3/uL 2.0-7.7 [facility] Work Phone: Neutrophils/100 WBC (Bld) 72.0 % 47-70 [facility] Work Phone: WBC (Bld) [#/Vol] 10.4 10*3/uL 4.4-11.0 [facility] Work Phone: Blood erythrocytes count (nu mber/volume)on 07-10-2022 RBC (Bld) [#/Vol] 3.96 10*6/uL 4.2-5.4 [facility] Work Phone: Blood hemoglobin measurement (mass/volume)on 07-10-2022 Hemoglobin (Bld) [Mass/Vol] 12.2 g/dL 12.0-15.0 [facility] Work Phone: Blood lymphocytes/100 leukoc yteson 07-10-2022 Lymphocytes/100 WBC (Bld) 17.3 % 19-41 [facility] Work Phone: Blood monocytes/100 leukocyt eson 07-10-2022 Monocytes/100 WBC (Bld) 8.7 % 0-10 [facility] Work Phone: Blood platelet mean volumeon 07-10-2022 Platelet mean volume (Bld) [Entitic vol] 9.3 fL 6.2-12.0 [facility] Work Phone: Cervical or vagninal specime n microscopic examination by cytology stain (reported ason 07-10-2022 Cytology report Cyto stain Doc (Cvx/Vag) Comment . [facility] Work Phone: Comment on above: The Pap [...] rRNA ANDER+probe Ql (Unsp spec) Negative Negative [facility] Work Phone: Detection in cervical specim en of any of human papilloma virus (HPV) 16, 18, 31, 33,on 07-10-2022 HPV 16+18+31+33+35+39+45+51 +52+56+58+59+66+68 DNA Probe+sig amp Ql (Cvx) Positive Negative [facility] Work Phone: Comment on above: This nucleic acid am plification test detects fourteen high-risk HPV types (16,18,31,33,35,39,45,51,52,56,58,59,66,68)without differentiation.Performed at: - [facility] [id number] Director: Megan Lawrence MD, Phone: [phone] at: = - [facility] [address] [id number] Director: Megan Lawrence MD, Phone: [phone] Determination of erythrocyte mean corpuscular volume (MCV)on 07-10-2022 MCV (RBC) [Entitic vol] 92.2 fL 81-99 [facility] Work Phone: HIV 1 and HIV-2 antibody ass ay with HIV-1 p24 antigen detectionon 07-10-2022 HIV 1+2 Ab+HIV1 p24 Ag IA Ql Non-Reactive Nonreactive [facility] Work Phone: Hematocrit Auto (Bld) [Volum e fraction]on 07-10-2022 Hematocrit (Bld) [Volume fraction] 36.5 % 37-47 [facility] Work Phone: Laboratory - Cytologyon Saddle Stitching Machine Operator Cyto stain Nom (Cvx/Vag) [ID] Comment . [facility] Work Phone: Comment on above: Era Ramirez Cyto technologist (ASCP) Pathologist Cyto stain Nom (Cvx/Vag) [ID] Comment . [facility] Work Phone: Comment on above: Megan Lawrence MD, Pathologist Recommended follow-up Cyto stain Nom (Cvx/Vag) Comment . [facility] Work Phone: Comment on above: Suggest follow up as clinically appropriate. Laboratory - Drug toxicology on 07-10-2022 Amphetamines Ql (U) Negative <1000 ng/[facility]: Benzodiazepines Ql (U) Negative < 200 ng/mL [facility] Work Phone: Cannabinoids Screen Ql (U) Negative < 50 ng/mL [facility] Work Phone: Cocaine Ql (U) Negative < 300 ng/mL [facility] Work Phone: Opiates Ql (U) Negative < 300 ng/mL [facility] Work Phone: Laboratory - Hematology and Cell countson 07-10-2022 Erythrocyte distribution width (RBC) [Entitic vol] 41.4 fL 35.1-43.9 [facility] Work Phone: Erythrocyte distribution width (RBC) [Ratio] 12.2 % 11.6-14.6 [facility] Work Phone: Immature granulocytes/100 WBC (Bld) 0.500 % 0.0-0.9 [facility] Work Phone: Comment on above: IG% - Immature Granu locytes (promyelocytes, myelocytes and metamyelocytes) > 1% indicates that a LEFT SHIFT is Present. MCH (RBC) [Entitic mass] 30.8 pg 27.0-32.0 [facility] Work Phone: Nucleated RBC/100 WBC (Bld) [Ratio] 0 % 0-5 [facility] Work Phone: Laboratory - Microbiology an d Antimicrobial susceptibilityon 07-10-2022 N. gonorrhoeae DNA ANDER+probe Ql (Unsp spec) Negative Negative [facility] Work Phone: Comment on above: Performed at: =[facility] Watson[address], [place] [id number] Director: Megan Lawrence MD, Phone: [phone] Laboratory - Miscellaneous t estson 07-10-2022 Service comment (Unsp spec) [Interp] Comment . [facility] Work Phone: Comment on above: This liquid based Th inPrep(R) pap test was screened withthe use of an image guided system. Service comment (Unsp spec) [Interp] . . [facility] Work Phone: MCHC Auto (RBC) [Mass/Vol]on 07-10-2022 MCHC (RBC) [Mass/Vol] 33.4 g/dL 32-36 [facility] Work Phone: No Panel Informationon 07-10 MDMA (Ecstasy) Screen Negative < 500 ng/mL [facility] Work Phone: Pathology report final diagnosis Narrative Comment . [facility] Work Phone: Comment on above: EPITHELIAL CELL ABNO RMALITY.LOW GRADE SQUAMOUS INTRAEPITHELIAL LESION (LSIL). R87.612 Urine Barbiturates Screen Negative < 200 ng/mL [facility] Work Phone: Urine Drug Screen Comment [facility] Work Phone: Comment on above: CONFIRMATORY TESTING [...] Urine Methadone Screen Negative < 300 ng/mL [facility] Work Phone: Hepatitis B Surface Antigen Non-Reactive Nonreactive [facility] Work Phone: Hepatitis C Antibody Non-Reactive Nonreactive [facility] Work Phone: Comment on above: Non Reactive: < 0.8 Equivocal: >/= 0.8 to < 1.0 Reactive: >/= 1.0The CDC recommends that a reactive/equivocal HCV antibody result be followed up by the HCV Nucleic Acid Amplificationtest (597090) Rubella IgG Antibody Reactive Nonreactive [facility] Work Phone: Comment on above: Antibody Results Int erpretation of Immune Status Non Reactive Presumed Non-Immune Equivocal Equivocal Reactive Presumed Immune Platelets bldon 07-10-2022 Platelets (Bld) [#/Vol] 306 10*3/uL 150-450 [facility] Work Phone: Serum Treponema species anti body detectionon 07-10-2022 Treponema sp Ab Ql (S) Non-Reactive [facility] Work Phone: Urine phencyclidine (PCP) de tectionon 07-10-2022 Phencyclidine Ql (U) Negative < 25 ng/mL [facility] Work Phone: CR Foot Complete 3+ Views Ri geetha 10-14-2021 CR Foot Complete 3+ Views Right Patient Name: LLUVIA HOLLINGSWORTH Diagnostic Radiology ACCESSION EXAM DATE/TIME PROCEDURE ORDERING PROVIDER [id number] 10/14/2021 15:47 EST CR Foot Complete 3+ MD BERNARD, JACQUI L Views Right CPT code 35612 Reason For Exam (CR Foot Complete 3+ [...] KRIKOR Transcribed Date and Time: 10/14/2021 4:01 [facility] MRI Up Ext Joint w/ Contrast Righton 07-05-2021 MRI Up Ext Joint w/ Contrast Right Patient Name: LLUVIA HOLLINGSWORTH Magnetic Resonance Imaging ACCESSION EXAM DATE/TIME PROCEDURE ORDERING PROVIDER [id number] 07/05/2021 09:26 EDT MRI Up Ext Joint w/ MD NABOR AGNIESZKA Santamaria Contrast Right CPT code 71774 Reason For Exam (MRI Up Ext Joint [...] Transcribed Date and Time: 07/05/2021 2:34 [facility] RF Arthrogram Aspir Inj Julián Jt Righton 07-05-2021 RF Arthrogram Aspir Inj Julián Jt Right Patient [facility]: [id number] ACCESSION EXAM DATE/TIME PROCEDURE ORDERING PROVIDER [id number] 07/05/2021 08:52 EDT RF Arthrogram Aspir Roro TOMLIN MD, AGNIESZKA R Julián Jt Right CPT code 56541 [id number] Reason For Exam (RF Arthrogram Aspir Inj [...] Transcribed Date and Time: 07/05/2021 2:29 [facility] CR Wrist Complete 3 Views Maikel iniguez 05-31-2021 CR Wrist Complete 3 Views Right Patient Name: LLUVIA HOLLINGSWORTH Diagnostic Radiology ACCESSION EXAM DATE/TIME PROCEDURE ORDERING PROVIDER [id number] 05/31/2021 14:29 EDT CR Wrist Complete 3 NABORMD DYLAN R Views Right CPT code 45199 Reason For Exam (CR Wrist Complete 3 [...] NEIL Transcribed Date and Time: 05/31/2021 11:02 [facility] CORONAVIRUS 2019 BY PCRon CORONAVIRUS 2019,PCR NOT DETECTED Normal Not Detected [facility] Comment on above: Result Comment: . This [...] patient management decisions. Fact sheet for providers: https://www.fda.gov/media/586069/download Fact sheet for patients: https://www.fda.gov/media/834703/download This test has received FDA Emergency Use Authorization (EUA) and has been verified by [facility] ([facility]). This test is only authorized for the duration of time that circumstances exist to justify the authorization of the emergency use of in vitro diagnostic tests for the detection of SARS-CoV-2 virus and/or diagnosis of COVID-19 infection under section 564(b)(1) of the Act, 21 U.S.C. 360bbb-3(b)(1), unless the authorization is terminated or revoked sooner. [facility] is certified under CLIA-88 as qualified to perform high complexity testing. Testing is performed in the [facility] laboratories located at [address] [place] [address]. Performed By: #### C OV19 #### [address] [place] [address] DATE OF SYMPTOM ONSET [YYYYMMDD]? [id number] Normal [facility] Comment on above: Performed By: #### C OV19 #### [address] [facility] [address] Covid 19 Resultson 0 Covid 19 Results [...] You may also be contacted by the [facility] to see if any of your [...] or Naproxen (Aleve) can also be used. Xqdo-asm-blavamn cough and cold medicines can be used according to the instructions on the package. Some trjs-mkj-blswaar medicines also contain acetaminophen. Make sure you [...] water are not available, use alcohol-based hand contracting engineer. Avoid touching your eyes, nose, and mouth [...] a total of 10 days. Additional resources: [facility] COVID Hotline at 0-880-4PHNEDY ( ). COVID-19 Careline at (availabl e 24 hours per day, seven days a week if you or a loved one is experiencing anxiety related to the coronavirus pandemic). Clinical research opportunities: is conducting research studies to develop better testing and treatments for COVID. Do you want any information on how to participate Call [phone]. Websites: hospitals.org or www.CDC.gov Follow My Health / My [employer] (for other test results): Revised 08/24/2020 Electronic Signatures: PSCSirionayordan [employer] (ADMIN) (Signature pending) Authored Last Updated: 10-Sep-2020 04:51 by [employer]Alexx [employer] (ADMIN) Normal [facility] CORONAVIRUS 2019 BY PCRon Lab Specimen Source Nasal, Nasopharyngeal Normal [facility] Comment on above: Performed By: #### C OV19 #### [facility] [address] [place] [address] Culture, urine Bacteria identified Cx Nom (U) Culture exhibits no growth. [facility] Work Phone: Vital Signs Date Time Vital Sign Value Performing Clinician Faci lity 05-10-2025 22:55-0400 Body temperature 98.1 [degF] No Primary Care Physician [facility] 05-10-2025 22:55-0400 Diastolic blood pressure 79 mm[Hg] No Primary Care Physician [facility] 05-10-2025 22:55-0400 Heart rate 70 /min No Primary Care Physician [facility] 05-10-2025 22:55-0400 Respiratory rate 18 /min No Primary Care Physician [facility] 05-10-2025 22:55-0400 SaO2% (BldA) [Mass fraction] 98 % No Primary Care Physician [facility] 05-10-2025 22:55-0400 Systolic blood pressure 118 mm[Hg] No Primary Care Physician [facility] 05-10-2025 21:36-0400 Body height 162.56 cm No Primary Care Physician [facility] 05-10-2025 21:36-0400 Body mass index (BMI) [Ratio] 34.4 kg/m2 No Primary Care Physician [facility] 05-10-2025 21:36-0400 Body weight 90.97 kg No Primary Care Physician [facility] 03-03-2025 10:54-0400 Body height 162.56 cm No Primary Care Physician [facility] 03-03-2025 10:50-0400 Body mass index (BMI) [Ratio] 35.2 kg/m2 No Primary Care Physician [facility] 03-03-2025 10:50-0400 Body weight 93.04 kg No Primary Care Physician [facility] 03-03-2025 10:50-0400 Diastolic blood pressure 70 mm[Hg] No Primary Care Physician [facility] 03-03-2025 10:50-0400 Systolic blood pressure 124 mm[Hg] No Primary Care Physician [facility] 01-20-2025 10:15-0400 Body mass index (BMI) [Ratio] 34.3 kg/m2 No Primary Care Physician [facility] 01-20-2025 10:15-0400 Body weight 90.83 kg No Primary Care Physician [facility] 01-20-2025 10:15-0400 Diastolic blood pressure 76 mm[Hg] No Primary Care Physician [facility] 01-20-2025 10:15-0400 Systolic blood pressure 120 mm[Hg] No Primary Care Physician [facility] 01-14-2025 10:30-0400 Body temperature 98 [degF] No Primary Care Physician [facility] 01-14-2025 10:30-0400 Diastolic blood pressure 78 mm[Hg] No Primary Care Physician [facility] 01-14-2025 10:30-0400 Heart rate 77 /min No Primary Care Physician [facility] 01-14-2025 10:30-0400 Respiratory rate 16 /min No Primary Care Physician [facility] 01-14-2025 10:30-0400 SaO2% (BldA) [Mass fraction] 97 % No Primary Care Physician [facility] 01-14-2025 10:30-0400 Systolic blood pressure 128 mm[Hg] No Primary Care Physician [facility] 01-14-2025 07:57-0400 Body temperature 97.7 [degF] No Primary Care Physician [facility] 01-14-2025 07:57-0400 Diastolic blood pressure 86 mm[Hg] No Primary Care Physician [facility] 01-14-2025 07:57-0400 Heart rate 52 /min No Primary Care Physician [facility] 01-14-2025 07:57-0400 Respiratory rate 16 /min No Primary Care Physician [facility] 01-14-2025 07:57-0400 SaO2% (BldA) [Mass fraction] 96 % No Primary Care Physician [facility] 01-14-2025 07:57-0400 Systolic blood pressure 131 mm[Hg] No Primary Care Physician [facility] 01-13-2025 04:08-0400 Body height 162.56 cm No Primary Care Physician [facility] 01-13-2025 04:08-0400 Body mass index (BMI) [Ratio] 34.4 kg/m2 No Primary Care Physician [facility] 01-13-2025 04:08-0400 Body weight 91 kg No Primary Care Physician [facility] 01-12-2025 20:54-0400 Heart rate 81 /min No Primary Care Physician [facility] 01-12-2025 20:54-0400 Respiratory rate 18 /min No Primary Care Physician [facility] 01-12-2025 20:54-0400 SaO2% (BldA) [Mass fraction] 94 % No Primary Care Physician [facility] 01-12-2025 20:49-0400 Body temperature 98.2 [degF] No Primary Care Physician [facility] 01-12-2025 20:49-0400 Diastolic blood pressure 88 mm[Hg] No Primary Care Physician [facility] 01-12-2025 20:49-0400 Systolic blood pressure 112 mm[Hg] No Primary Care Physician [facility] 01-12-2025 15:53-0400 Body height 162.56 cm No Primary Care Physician [facility] 01-12-2025 15:53-0400 Body mass index (BMI) [Ratio] 34.5 kg/m2 No Primary Care Physician [facility] 01-12-2025 15:53-0400 Body weight 91.3 kg No Primary Care Physician [facility] 12-29-2024 15:25-0400 Body mass index (BMI) [Ratio] 34.3 kg/m2 No Primary Care Physician [facility] 12-29-2024 15:25-0400 Body weight 90.71 kg No Primary Care Physician [facility] 12-29-2024 15:25-0400 Diastolic blood pressure 82 mm[Hg] No Primary Care Physician [facility] 12-29-2024 15:25-0400 Systolic blood pressure 124 mm[Hg] No Primary Care Physician [facility] 11-18-2024 14:05-0500 Body temperature 97.8 [degF] No Primary Care Physician [facility] 11-18-2024 14:05-0500 Diastolic blood pressure 68 mm[Hg] No Primary Care Physician [facility] 11-18-2024 14:05-0500 Heart rate 89 /min No Primary Care Physician [facility] 11-18-2024 14:05-0500 Respiratory rate 18 /min No Primary Care Physician [facility] 11-18-2024 14:05-0500 SaO2% (BldA) [Mass fraction] 96 % No Primary Care Physician [facility] 11-18-2024 14:05-0500 Systolic blood pressure 118 mm[Hg] No Primary Care Physician [facility] 11-16-2024 06:40-0500 Body mass index (BMI) [Ratio] 39.6 kg/m2 No Primary Care Physician [facility] 11-16-2024 06:40-0500 Body weight 104.77 kg No Primary Care Physician [facility] 11-13-2024 10:53-0500 Body mass index (BMI) [Ratio] 39.6 kg/m2 No Primary Care Physician [facility] 11-13-2024 10:53-0500 Body weight 104.77 kg No Primary Care Physician [facility] 11-13-2024 10:53-0500 Diastolic blood pressure 83 mm[Hg] No Primary Care Physician [facility] 11-13-2024 10:53-0500 Systolic blood pressure 131 mm[Hg] No Primary Care Physician [facility] 11-05-2024 13:22-0500 Body mass index (BMI) [Ratio] 39.2 kg/m2 No Primary Care Physician [facility] 11-05-2024 13:22-0500 Body weight 103.64 kg No Primary Care Physician [facility] 11-05-2024 13:22-0500 Diastolic blood pressure 74 mm[Hg] No Primary Care Physician [facility] 11-05-2024 13:22-0500 Systolic blood pressure 124 mm[Hg] No Primary Care Physician [facility] 10-21-2024 09:21-0500 Body mass index (BMI) [Ratio] 38.6 kg/m2 No Primary Care Physician [facility] 10-21-2024 09:21-0500 Body weight 102.11 kg No Primary Care Physician [facility] 10-21-2024 09:21-0500 Diastolic blood pressure 60 mm[Hg] No Primary Care Physician [facility] 10-21-2024 09:21-0500 Systolic blood pressure 110 mm[Hg] No Primary Care Physician [facility] 10-07-2024 10:54-0500 Body mass index (BMI) [Ratio] 37.8 kg/m2 No Primary Care Physician [facility] 10-07-2024 10:54-0500 Body weight 99.96 kg No Primary Care Physician [facility] 10-07-2024 10:54-0500 Diastolic blood pressure 70 mm[Hg] No Primary Care Physician [facility] 10-07-2024 10:54-0500 Systolic blood pressure 122 mm[Hg] No Primary Care Physician [facility] 09-26-2024 13:12-0500 Body mass index (BMI) [Ratio] 37.3 kg/m2 No Primary Care Physician [facility] 09-26-2024 13:12-0500 Body weight 98.54 kg No Primary Care Physician [facility] 09-26-2024 13:12-0500 Diastolic blood pressure 75 mm[Hg] No Primary Care Physician [facility] 09-26-2024 13:12-0500 Systolic blood pressure 112 mm[Hg] No Primary Care Physician [facility] 05-17-2023 10:00-0400 Body height 162.56 cm No Primary Care Physician [facility] 05-17-2023 09:53-0400 Body mass index (BMI) [Ratio] 30.7 kg/m2 No Primary Care Physician [facility] 05-17-2023 09:53-0400 Body weight 81.19 kg No Primary Care Physician [facility] 05-17-2023 09:53-0400 Diastolic blood pressure 73 mm[Hg] No Primary Care Physician [facility] 05-17-2023 09:53-0400 Heart rate 85 /min No Primary Care Physician [facility] 05-17-2023 09:53-0400 Systolic blood pressure 107 mm[Hg] No Primary Care Physician [facility] 04-17-2023 11:00-0400 Body height 162.56 cm No Primary Care Physician [facility] 04-17-2023 10:58-0400 Body mass index (BMI) [Ratio] 30.8 kg/m2 No Primary Care Physician [facility] 04-17-2023 10:58-0400 Body weight 81.41 kg No Primary Care Physician [facility] 03-28-2023 11:42-0400 Body height 162.56 cm No Primary Care Physician [facility] 03-28-2023 11:34-0400 Body mass index (BMI) [Ratio] 31.1 kg/m2 No Primary Care Physician [facility] 03-28-2023 11:34-0400 Body weight 82.32 kg No Primary Care Physician [facility] 03-28-2023 11:34-0400 Diastolic blood pressure 65 mm[Hg] No Primary Care Physician [facility] 03-28-2023 11:34-0400 Systolic blood pressure 99 mm[Hg] No Primary Care Physician [facility] 02-07-2023 21:03-0400 Diastolic blood pressure 55 mm[Hg] No Primary Care Physician [facility] 02-07-2023 21:03-0400 Heart rate 80 /min No Primary Care Physician [facility] 02-07-2023 21:03-0400 Respiratory rate 18 /min No Primary Care Physician [facility] 02-07-2023 21:03-0400 Systolic blood pressure 104 mm[Hg] No Primary Care Physician [facility] 02-07-2023 15:20-0400 Body temperature 98.3 [degF] No Primary Care Physician [facility] 02-07-2023 08:32-0400 SaO2% (BldA) [Mass fraction] 98 % No Primary Care Physician [facility] 02-05-2023 16:49-0400 Body height 162.56 cm No Primary Care Physician [facility] 02-05-2023 16:49-0400 Body mass index (BMI) [Ratio] 36 kg/m2 No Primary Care Physician [facility] 02-05-2023 16:49-0400 Body weight 95.25 kg No Primary Care Physician [facility] 01-31-2023 10:06-0400 Body mass index (BMI) [Ratio] 36.1 kg/m2 No Primary Care Physician [facility] 01-31-2023 10:06-0400 Body weight 95.36 kg No Primary Care Physician [facility] 01-31-2023 10:06-0400 Diastolic blood pressure 72 mm[Hg] No Primary Care Physician [facility] 01-31-2023 10:06-0400 Systolic blood pressure 105 mm[Hg] No Primary Care Physician [facility] 01-24-2023 09:10-0400 Body mass index (BMI) [Ratio] 35.7 kg/m2 No Primary Care Physician [facility] 01-24-2023 09:10-0400 Body weight 94.46 kg No Primary Care Physician [facility] 01-24-2023 09:10-0400 Diastolic blood pressure 70 mm[Hg] No Primary Care Physician [facility] 01-24-2023 09:10-0400 Systolic blood pressure 108 mm[Hg] No Primary Care Physician [facility] 01-17-2023 11:29-0400 Body height 162.56 cm No Primary Care Physician [facility] 01-17-2023 11:29-0400 Body mass index (BMI) [Ratio] 34.9 kg/m2 No Primary Care Physician [facility] 01-17-2023 11:29-0400 Body weight 92.24 kg No Primary Care Physician [facility] 01-17-2023 11:29-0400 Diastolic blood pressure 74 mm[Hg] No Primary Care Physician [facility] 01-17-2023 11:29-0400 Systolic blood pressure 108 mm[Hg] No Primary Care Physician [facility] 01-03-2023 09:37-0400 Body mass index (BMI) [Ratio] 34.7 kg/m2 No Primary Care Physician [facility] 01-03-2023 09:37-0400 Body weight 91.79 kg No Primary Care Physician [facility] 01-03-2023 09:37-0400 Diastolic blood pressure 75 mm[Hg] No Primary Care Physician [facility] 01-03-2023 09:37-0400 Systolic blood pressure 112 mm[Hg] No Primary Care Physician [facility] 12-18-2022 11:47-0400 Body mass index (BMI) [Ratio] 34.1 kg/m2 No Primary Care Physician [facility] 12-18-2022 11:47-0400 Body weight 90.26 kg No Primary Care Physician [facility] 12-18-2022 11:47-0400 Diastolic blood pressure 75 mm[Hg] No Primary Care Physician [facility] 12-18-2022 11:47-0400 Systolic blood pressure 111 mm[Hg] No Primary Care Physician [facility] 12-07-2022 10:07-0500 Body mass index (BMI) [Ratio] 33.7 kg/m2 No Primary Care Physician [facility] 12-07-2022 10:07-0500 Body weight 89.35 kg No Primary Care Physician [facility] 12-07-2022 10:07-0500 Diastolic blood pressure 71 mm[Hg] No Primary Care Physician [facility] 12-07-2022 10:07-0500 Systolic blood pressure 113 mm[Hg] No Primary Care Physician [facility] 11-22-2022 11:43-0500 Body height 162.56 cm Out [facility] 11-22-2022 11:34-0500 Body mass index (BMI) [Ratio] 32.8 kg/m2 Out [facility] 11-22-2022 11:34-0500 Body weight 86.8 kg Out [facility] 11-22-2022 11:34-0500 Diastolic blood pressure 68 mm[Hg] [facility] 11-22-2022 11:34-0500 Systolic blood pressure 110 mm[Hg] [facility] 11-08-2022 11:08-0500 Body mass index (BMI) [Ratio] 32.8 kg/m2 [facility] 11-08-2022 11:08-0500 Body weight 86.63 kg [facility] 11-08-2022 11:08-0500 Diastolic blood pressure 67 mm[Hg] [facility] 11-08-2022 11:08-0500 Systolic blood pressure 112 mm[Hg] [facility] 10-10-2022 14:10-0500 Body mass index (BMI) [Ratio] 31.7 kg/m2 [facility] 10-10-2022 14:10-0500 Body weight 83.91 kg Out [facility] 10-10-2022 14:10-0500 Diastolic blood pressure 74 mm[Hg] [facility] 10-10-2022 14:10-0500 Systolic blood pressure 116 mm[Hg] [facility] 09-05-2022 10:07-0500 Body mass index (BMI) [Ratio] 30.2 kg/m2 [facility] 09-05-2022 10:07-0500 Body weight 79.83 kg [facility] 09-05-2022 10:07-0500 Diastolic blood pressure 76 mm[Hg] [facility] 09-05-2022 10:07-0500 Systolic blood pressure 118 mm[Hg] [facility] 2022 13:32-0500 Body mass index (BMI) [Ratio] 29.7 kg/m2 [facility] 2022 13:32-0500 Body weight 78.47 kg Out [facility] 2022 13:32-0500 Diastolic blood pressure 64 mm[Hg] [facility] 2022 13:32-0500 Systolic blood pressure 114 mm[Hg] [facility] 08-09-2022 10:37-0400 Body height 162.56 cm [facility] Work Phone: 08-09-2022 10:36-0400 Body mass index (BMI) [Ratio] 29 kg/m2 [facility] 08-09-2022 10:36-0400 Body weight 76.65 kg [facility] 08-09-2022 10:36-0400 Diastolic blood pressure 66 mm[Hg] [facility] 08-09-2022 10:36-0400 Systolic blood pressure 99 mm[Hg] [facility] 07-10-2022 09:26-0400 Body mass index (BMI) [Ratio] 28.3 kg/m2 [facility] Work Phone: 07-10-2022 09:26-0400 Body weight 74.84 kg Out [facility] Work Phone: 07-10-2022 09:26-0400 Diastolic blood pressure 74 mm[Hg] [facility] Work Phone: 07-10-2022 09:26-0400 Systolic blood pressure 111 mm[Hg] [facility] Work Phone: Encounters Encounter Date Encounter Type Care Provider Facility Start: 05-10-2025 End: 05-10-2025 Emergency department patient visit No Primary Care Physician -Emergency Department Work Phone: Start: 03-03-2025 End: 03-03-2025 Patient encounter procedure Ken SMITH -[facility] Work Phone: Start: 03-03-2025 End: 03-03-2025 ambulatory No Primary Care Physician [facility] Work Phone: Start: 01-27-2025 End: 01-27-2025 Patient encounter procedure Sharmin Bautista PA-C -[facility] Work Phone: Start: 01-27-2025 End: 01-27-2025 ambulatory No Primary Care Physician Facility:[facility] Start: 01-20-2025 End: 01-20-2025 Patient encounter procedure Ken SMITH -[facility] Work Phone: Start: 01-20-2025 End: 01-20-2025 Patient encounter procedure Ken Gómez COORDINATING PRODUCER-C -[facility] Work Phone: Start: 01-20-2025 End: 01-20-2025 ambulatory Ken Gómez COORDINATING PRODUCER Facility:[facility] Start: 01-20-2025 End: 01-20-2025 ambulatory Ken Gómez COORDINATING PRODUCER Facility:[facility] Start: 01-14-2025 Non-patient / Non-visit Sharmin KENNY- -[facility] Start: 01-13-2025 Non-patient / Non-visit Dr. Yahaira Martin MD -[facility] Start: 01-12-2025 End: 01-14-2025 Evaluation and management of inpatient Dr. Anthony Martin MD -[facility] Work Phone: Start: 01-12-2025 End: 01-14-2025 observation encounter No Primary Care Physician [facility] Work Phone: Start: 01-12-2025 End: 01-14-2025 ambulatory No Primary Care Physician Facility:[facility] Start: 01-12-2025 Non-patient / Non-visit Dr. Yahaira Martin MD -[facility] Start: 12-29-2024 End: 12-29-2024 Patient encounter procedure Lizzette Zheng [facility] -[facility] Work Phone: Start: 12-29-2024 End: 12-29-2024 ambulatory No Primary Care Physician Facility:[facility] Start: 11-19-2024 ambulatory No Primary Car e Physician Facility:[facility] Start: 11-18-2024 Non-patient / Non-visit Ken nguyen COORDINATING PRODUCER- -[facility] Start: 11-17-2024 Non-patient / Non-visit Lizzette Thao ms [facility] Start: 11-16-2024 Non-patient / Non-visit Dr. Anderson De Jesus DO -[facility] Start: 11-16-2024 ambulatory No Primary Car e Physician Facility:[facility] Start: 11-16-2024 End: 11-18-2024 Evaluation and management of inpatient [facility]. Geni De Jesus DO -[facility] Work Phone: Start: 11-13-2024 End: 11-13-2024 Patient encounter procedure Lizzette Zheng CNM -[facility] Work Phone: Start: 11-13-2024 End: 11-13-2024 ambulatory No Primary Care Physician Facility:[facility] Start: 11-05-2024 End: 11-05-[address] Geni De Jesus DO -Laboratory, Specimen Work Phone: Start: 11-05-2024 End: 11-05-[address] Geni De Jesus DO -[facility] Work Phone: Start: 11-05-2024 End: 11-05-2024 ambulatory No Primary Care Physician Facility:[facility] Start: 11-05-2024 End: 11-05-2024 ambulatory No Primary Care Physician Facility:[facility] Start: 10-21-2024 End: 10-21-[address] Lenora Castro MD -[facility] Work Phone: Start: 10-21-2024 End: 10-21-2024 ambulatory No Primary Care Physician Facility:[facility] Start: 10-07-2024 End: 10-07-2024 Patient encounter procedure Ken Gómez COORDINATING PRODUCER-C -[facility] Work Phone: Start: 10-07-2024 End: 10-07-2024 ambulatory Ken Gómez COORDINATING PRODUCER Facility:[facility] Start: 09-26-2024 End: 09-26-2024 Patient encounter procedure Opal POTTS -[facility] Work Phone: Start: 09-26-2024 End: 09-26-2024 ambulatory No Primary Care Physician Facility:[facility] Start: 09-11-2024 End: 09-11-2024 ambulatory No Primary Care Physician Facility:[facility] Start: 09-11-2024 End: 09-11-2024 ambulatory Lenora Castro Facility:[facility] Start: 08-13-2024 End: 08-13-2024 ambulatory Ken Denver COORDINATING PRODUCER Facility:[facility] Start: 07-30-2024 End: 07-30-2024 ambulatory SILVANO D HORTA [facility] Start: 07-14-2024 End: 07-14-2024 ambulatory No Primary Care Physician Facility:[facility] Start: 07-04-2024 End: 07-04-2024 ambulatory KEN GÓMEZ [facility] Start: 06-16-2024 End: 06-16-2024 ambulatory Ken Rico COORDINATING PRODUCER Facility:[facility] Start: 06-16-2024 End: 06-16-2024 ambulatory Ken Rico COORDINATING PRODUCER Facility:[facility] Start: 05-20-2024 End: 05-20-2024 ambulatory No Primary Care Physician Facility:[facility] Start: 05-17-2023 End: 05-17-2023 ambulatory No Primary Care Physician [facility] Work Phone: Start: 05-17-2023 End: 05-17-2023 Patient encounter procedure No Primary Care Physician [facility]-Laboratory, Specimen Work Phone: Start: 05-17-2023 End: 05-17-2023 Patient encounter procedure No Primary Care Physician [facility] Work Phone: Start: 04-17-2023 End: 04-17-2023 ambulatory No Primary Care Physician [facility] Work Phone: Start: 04-17-2023 End: 04-17-2023 Patient encounter procedure No Primary Care Physician [facility]-Laboratory, Specimen Work Phone: Start: 04-17-2023 End: 04-17-2023 Patient encounter procedure No Primary Care Physician [facility] Work Phone: Start: 03-28-2023 End: 03-28-2023 ambulatory No Primary Care Physician [facility] Work Phone: Start: 03-28-2023 End: 03-28-2023 Patient encounter procedure No Primary Care Physician [facility], Spec[facility] Start: 03-28-2023 End: 03-28-2023 Patient encounter procedure No Primary Care Physician [facility] Start: 02-07-2023 Non-patient / Non-visit No Carolin reed Care Physician [facility] Start: 02-06-2023 Non-patient / Non-visit No Carolin reed Care Physician [facility] Start: 02-05-2023 End: 02-07-2023 Evaluation and management of inpatient No [facility] Start: 02-05-2023 Non-patient / Non-visit No Carolin reed Care Physician [facility] Start: 01-31-2023 End: 01-31-2023 Patient encounter procedure No Primary Care Physician [facility] Start: 01-24-2023 End: 01-24-2023 Patient encounter procedure No Primary Care Physician [facility] Start: 01-17-2023 End: 01-17-2023 ambulatory No Primary Care Physician [facility] Work Phone: Start: 01-17-2023 End: 01-17-2023 Patient encounter procedure No Primary Care Physician [facility]-Laboratory, Specimen Start: 01-17-2023 End: 01-17-2023 Patient encounter procedure No Primary Care Physician [facility] Start: 01-03-2023 End: 01-03-2023 Patient encounter procedure No Primary Care Physician [facility] Start: 12-18-2022 End: 12-18-2022 Patient encounter procedure No Primary Care Physician [facility] Start: 12-07-2022 End: 12-07-2022 Patient encounter procedure No Primary Care Physician [facility] Start: 11-22-2022 End: 11-22-2022 ambulatory [place] Doctor [facility] Work Phone: Start: 11-22-2022 End: 11-22-2022 Patient encounter procedure [place] Doctor [facility] Start: 11-08-2022 End: 11-08-2022 Patient encounter procedure Out [facility] Start: 10-10-2022 End: 10-10-2022 Patient encounter procedure Out [facility] Start: 09-05-2022 End: 09-05-2022 Patient encounter procedure Out [facility] Start: 2022 End: 2022 Patient encounter procedure Out [facility] Start: 08-09-2022 End: 08-09-2022 ambulatory Out of [facility] Work Phone: Start: 08-09-2022 End: 08-09-2022 Patient encounter procedure Out [facility] Start: 07-10-2022 End: 07-10-2022 Patient encounter procedure Out [facility] Start: 07-10-2022 End: 07-10-2022 Patient encounter procedure Out [facility] Procedures Date Procedure Procedure Detail Performing Clinician Start: 05-10-2025 X-ray of foot, three or more views No Primary Care Physician Start: 01-20-2025 Liquid based cervica l cytology screening No Primary Care Physician Comment on above: NEGATIVE FOR INTRAEP ITHELIAL LESION OR MALIGNANCY. This liquid based Th inPrep(R) pap test was screened withthe use of an image guided system. The HPV DNA reflex c destini were not met with this specimenresult therefore, no HPV testing was performed.Performed at: [facility] [place], [place] [id number] Director: Noe Amador PhD, Phone: [phone] at: [facility] [id number] Director: Megan Lawrence MD, Phone: [phone] Start: 01-14-2025 Estimated creatinine clearance No Primary [...] Sharmin Bautista PA-C Urine culture [place] [facility] Plan of Treatment Date Care Activity Detail Author Start: 05-10-2025 [facility] Start: 01-14-2025 Patient discharge [facility] Start: 01-12-2025 Application of intermittent pneumatic compression device [facility] Start: 01-12-2025 Following clinical pathway protocol [facility] Start: 01-12-2025 Vital signs measurements [facility] Start: 01-12-2025 [facility] Start: 01-12-2025 Ambulation without limitation [facility] Start: 01-12-2025 Admission procedure [facility] Start: 01-12-2025 Hospital admission, emergency, from emergency room, medical nature [facility] Start: 01-12-2025 Anesthesia intraperitoneal lower abd w/laps nos ANESTH SURG LOWER ABDOMEN [facility] Start: 01-12-2025 Laparoscopic appendectomy LAPAROSCOPY APPENDECTOMY [facility] Start: 11-18-2024 Patient discharge [facility] Start: 11-17-2024 Consultation [facility] Start: 11-16-2024 Documentation procedure [facility] Start: 11-16-2024 Administration of medication [facility] Start: 11-16-2024 Application of ice collar, cap or bag [facility] Start: 11-16-2024 Catheterization of vein [facility] Start: 11-16-2024 Introduction of urinary catheter [facility] Start: 11-16-2024 Measuring intake and output [facility] Start: 11-16-2024 Notification of physician [facility] Start: 11-16-2024 Procedure discontinued [facility] Start: 11-16-2024 Provision of activity privileges [facility] Start: 11-16-2024 Vital signs measurements [facility] Start: 11-16-2024 End: 11-16-2024 [facility] Start: 11-16-2024 Admission procedure [facility] Start: 03-28-2023 Liquid based cervical cytology screening [facility] Start: 02-07-2023 Patient discharge [facility] Start: 02-06-2023 Administration of medication [facility] Start: 02-06-2023 Application of ice collar, cap or bag [facility] Start: 02-06-2023 Catheterization of vein [facility] Start: 02-06-2023 Introduction of urinary catheter [facility] Start: 02-06-2023 Measuring intake and output [facility] Start: 02-06-2023 Notification of physician [facility] Start: 02-06-2023 Procedure discontinued [facility] Start: 02-06-2023 Provision of activity privileges [facility] Start: 02-06-2023 Vital signs measurements [facility] Start: 02-06-2023 [facility] Start: 02-05-2023 Admission procedure [facility] Start: 02-05-2023 Consultation [facility] Path report.final Dx Spec [facility] Patient Education [facility] Work Phone: Patient referral [facility] Work Phone: Ultrasound scan for growth [facility] [facility] Payers Date Payer Category Payer Self-pay [id number] 2024 Unknown [id number] 1996 Unknown [id number] 2.16840.1.237344.3.579.2.479 1996 Unknown [id number] 2.16.840.1.217012.3.579.2.479 Unknown [facility] [id number] Unknown [id number] 2.16.840.1.788658.3.579.2.462 Unknown [id number] 2.840.1.677376.3.579.2.462 Unknown [id number] 2.840.1.981908.3.579.2.462 Unknown [id number] 2.840.1.866184.3.579.2.462 Unknown [id number] 2.840.1.099963.3.579.2.462 Unknown [id number] 2.840.1.773699.3.579.2.462 Unknown [id number] 2.840.1.563996.3.579.2.462 Unknown [id number] 2.16840.1.653426.3.579.2.462 Unknown [id number] 2.16840.1.077008.3.579.2.462 Unknown [id number] 2.840.1.527162.3.579.2.462 Unknown [id number] 2.16840.1.220723.3.579.2.462 Unknown [id number] 2.16.840.1.898484.3.579.2.462 Unknown [id number] 2.16840.1.556523.3.579.2.462 Unknown [id number] 2.16.840.1.789056.3.579.2.462 Unknown [id number] 2.840.1.301329.3.579.2.462 Unknown [id number] 2.16.840.1.015815.3.579.2.462 Unknown [id number] 2.16.840.1.615655.3.579.2.462 Unknown [id number] 2.16.840.1.416999.3.579.2.462 Unknown [id number] 2.16.840.1.338774.3.579.2.462 Unknown [id number] 2.16.840.1.224778.3.579.2.462 Unknown [id number] 2.16.840.1.264021.3.579.2.462 Unknown [id number] 2.16.840.1.733135.3.579.2.462 Unknown [id number] 2.16.840.1.966276.3.579.2.462 Unknown [id number] 2.16840.1.397663.3.579.2.462 Unknown [id number] 2.16.840.1.627106.3.579.2.462 Unknown [id number] 2.16840.1.431312.3.579.2.462 Unknown [id number] 2.16840.1.984074.3.579.2.462 Unknown [id number] 2.16840.1.225350.3.579.2.462 Social History Date Type Detail Facility Start: 08-09-2022 End: 04-17-2023 Tobacco smoking status PRIS Unknown if ever smoked [facility] Start: 1995 Sex Assigned At Female [facility] Patient currentl y [facility] Start: 01-12-2025 End: 01-12-2025 Tobacco smoking status NHIS Current some day smoker [facility] Start: 01-12-2025 End: 01-14-2025 Sex Female (finding) [facility] Start: 05-10-2025 Tobacco smoking status NHIS Smokes tobacco daily (finding) [facility] NEGATED: Highlighted row Not [facility] Medical Equipment Procedure Code Equipment Code Equipment Origin al Text Equipment Identifier Dates Appendectomy, laparoscopic Surgical staple loading unit, non-cutting [id number] FDA Start: 01-13-2025 Goals Date Patient Goal Desired Activity /State Functional Status Date Assessment Result Facility 01-14-2025 Functional status Ambulates;Bedrest [facility] Work Phone: Mental Status Date Assessment Result Facility 01-14-2025 Cognitive function Voice/Name [facility] Work Phone: 01-12-2025 Cognitive function Level Of Cons ciousness Awake;Alert;Appropriate [facility] Work Phone: Clinical Notes 07-10-2022 to 05-10-2025 Note Date & Type Note Facility 05-10-2025 Discharge summary [facility] 05-10-2025 Radiology Diagnostic study note [facility] Imaging Services [address] [place] [address] Foot min 3 Views MR#: [id number] Acct: [id number] Name: LLUVIA HOLLINGSWORTH Rep #: [id number] : 1995 F 29 From: Sharona Bush MD PCP: Care Physician,No Primary Status: REG ER Study:Foot min 3 Views Date of Exam: 12/30 Exam# [id number] Ordering Dr: Ramy Quach DO PROCEDURE: FOOT MIN 3 VIEWS 05/10/2025 REASON FOR EXAM: HEEL PAIN TECHNIQUE: FOOT MIN 3 VIEWS COMPARISON: No FINDINGS: Small plantar calcaneal spur. No acute bone or soft tissue pathology. RAD/Foot min 3 Views IMPRESSION: No acute findings. Reading Location: [facility] CC: Dr. Ramy Quach DO; No Primary Care Physician ~ Weigher And Grader: Signed [facility] 05-10-2025 Discharge summary Note Date/Time May 10, 2025 10:47pm [facility] Medical Records Department [address] [place] [address] Emergency Department Summary 05/10/25 MR#: [id number] Acct: [id number] Name: LLUVIA HOLLINGSWORTH Rep #:[id number] : 1995 29 From: Ramy Price PCP: Care Physician,No Primary Status :REG ER Location: ED HPI History of Present Illness Chief Complaint: Lower Extremity Injury Informant: patient and spouse/S.O. Narrative Narrative: Worsening right foot pain over the past couple months. Symptoms started after stepping on a rock outside. Progressively worsening last week. No additional injuries. Pain under the heel. Use ibuprofen previously with transient minimalrelief. No history of similar. She states she runs around the 2-year-old and [id number]. Prior similar symptoms: No PFSH PFSH Medical History Acute appendicitis Vaginal delivery Rubella [...] (Mirena) 1 device intrauterine ONCE 0 02/19/25 Unknown History Allergy/AdvReac Type Severity Reaction Status Date / Time No Known Allergies Allergy Verified 05/10/25 21:38 Family History Aunt Ovarian cancer, Onset Age: 45 Maternal Aunt Mother Miscarriage 2 or 3 miscarriages- before and after of pt. 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 current occupational exposures/hazards: No pets and animals: Yes (not manage litterbox) pets and animals: cat(s) and dog(s) history of recent travel: No ([place]) sexually active: Yes Smoking Status: Current every day smoker tobacco type: e-cigarettes alcohol intake: former details: rarely drinks, special occasions, not while substance use type: does not use well-balanced diet: daily or most days caffeine: No eating out: 1-3 times/week during the past year weight has: remained stable what type of physical activity do you participate in: walking frequency: daily duration: 15-30 minutes/day chriss/anglican: None seatbelt use: always do you feel safe at home: Yes additional social history: J Luis - Self employed ROS ROS ED Constitutional Constitutional ED: Denies fever(s) Cardiovascular Cardiovascular: Denies chest pain Respiratory/Chest Respiratory/Chest: Denies cough Gastrointestinal Gastrointestinal: Denies diarrhea or vomiting Musculoskeletal Musculoskeletal: Reports none and other Details: Right foot pain Integumentary Denies rash or wounds Neurologic Neurologic: Denies weakness EXAM Physical Exam Const Vital Signs: 05/10/25 21:36 Temperature 97.8 F Temperature Source Oral Pulse Rate 87 Respiratory Rate 16 Blood Pressure 131/74 H Blood Pressure Mean 93 Pulse Ox 100 Oxygen Delivery Method Room Air Positive well nourished and well developed General Appearance ED: well developed HEENT normocephalic and atraumatic Eyes General Eye ED: Yes normal appearance of both eyes Neck full ROM Resp normal respiratory effort and normal air movement Cardio regular rate and regular rhythm GI soft to palpation Extremity Extremity Narrative: Right lower extremity: No ankle or midfoot tenderness. No proximal or distal tenderness. Tender palpation at the heel and medial aspect of insertion of the plantar fascia. Skin is intact. No erythema. No swelling. Neuro oriented x3 Skin no rashes or lesions noted and no wounds MDM MDM MDM Narrative Medical decision making narrative: Interventions / MDM: Differential diagnosis: Plantar fasciitis, heel spur Diagnosis considered but do not suspect: Fracture x-ray negative My EKG interpretation: N/A Imaging independently reviewed and interpreted by myself: Right foot x-ray 3 views: Small heel spur. No fractures. Also read by radiology. External documents reviewed: N/A Test considered but not ordered:N/A ED course: Worsening right heel pain after stepping on a rock. Pain at the heeland right at the plantar fascia. Ibuprofen ordered, right foot x-ray. X-rays small calcaneal spur noted. Clinical plantar fasciitis. Postop shoe provided. She has ibuprofen at home to use up to 10 mg every 6 hours as needed. Referred to podiatry for outpatient evaluation and further treatment plans. All questions were answered. Re-evaluation: stable Disposition discussed with patient/family/significant other: Patient and significant other Case discussed with consulting clinician: N/A This note was generated with [employer] dictation software. It may contain incorrectwords, spelling, and punctuation that were not noted in checking the note beforesigning. Radiography Diagnostic Testing: Clinical Impression(s) from Imaging Studies Foot X-Ray 05/10/25 22:20 IMPRESSION: No acute findings. Reading Location: [place] [address] Discharge Plan Triage Chief Complaint: Lower Extremity Injury ED Provider: Ramy Quach Dx/Rx/DC Orders Clinical Impression: Calcaneal spur, right, Plantar fasciitis of right foot Instructions: ED Heel Spur, ED Plantar Fasciitis Prescriptions: No Action PNV-DHA 27 mg iron-1 mg -300 mg capsule 1 cap PO DAILY Mirena 21 mcg/24hr (up to 8 yrs) 52 mg intrauterine device 1 device intrauterine ONCE Rx Instructions: as a single dose Primary Care Provider: Care Physician,No Primary Referrals: Darvin Saba DPM [Med Staff - Active Staff] - 1-2 Weeks Care Physician,No Primary [Primary Care Provider] - Activity Restrictions/Additional Instructions: X-ray negative for fracture small heel spur. Also clinical plantar fasciitis. Postop shoe for comfort. Continue ibuprofen up to 600 once every 6 hours. Follow-up with podiatry. Print Language: Tamazight Disposition Disposition: Home, Self Care What to do if you have Problems For any increased pain, shortness of breath, bleeding, nausea or vomiting, chestpain, or any unexpected problems, contact your Primary Care Provider. Call [facility] ([phone]) or report to the closest Emergency Room. Call 911 if necessary. 05/10/252246 <Electronically signed by Ramy Price> Cosigner Signature (if applicable): CC: No Primary Care Physician ~ Signed [facility] Work Phone: 1(542) 589-400705-27-2025 [facility] [address], [address] [place] [address] OFFICE VISIT Date of Service: 03/03/25 MR#: [id number] Acct: [id number] Name: LLUVIA HOLLINGSWORTH Rep #: [id number] : 1995 Provider: LUIS Gómez Age/Sex: 29/F Location: [facility] Status: Signed Intake Vital Signs 01/20/25 10:26 03/03/25 10:50 03/03/25 10:54 Height 5 ft 4 in 5 ft 4 in 5 ft 4 in Weight: 205 lb 2 oz BMI 35.2 BP 124/70 H 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 Is patient in pain?: No [...] : No : No Control Method: Mirena [facility] Medical History Acute appendicitis Vaginal delivery [...] 1 current occupational status: unemployed current occupation: [employer] current occupational exposures/hazards: No pets and animals: Yes (not manage litterbox) pets and animals: cat(s) and dog(s) history of recent travel: No ([place]) sexually active: Yes Smoking Status: Current some day smoker tobacco type: e-cigarettes alcohol intake: former details: rarely drinks, special occasions, not while substance use type: does not use well-balanced diet: daily or most days caffeine: No eating out: 1-3 times/week during the past year weight has: remained stable what type of physical activity do you participate in: walking frequency: daily duration: 15-30 minutes/day chriss/anglican: None seatbelt use: always do you feel [...] - full term 8#4oz Male epid ural [facility] KW J Luis 11/16/24 Renetta 38 live - full term 8lb 6oz Female e pidural [facility] JV J Luis Delivery Date: 11/16/24 Last [...] placed RTO annual exam, prn 03/03/25 1101 s COORDINATING PRODUCER COORDINATING PRODUCER-C> Date _ Ken Denver COORDINATING PRODUCER COORDINATING PRODUCER-C Cosigner Signature: Date (if applicable) CC: ~ [facility]04-09-2025 Consult note [facility] Medical Records Department [address] [place] [address] Anesthesia Postop Eval I 01/13/25644 MR#: [id number] Acct: [id number] Name: LLUVIA HOLLINGSWORTH Rep #:[id number] : 1995 29 From: Luis E Villareal PCP: Care Physician,No Primary Status :ADM FARTUN Y Race: C Location: [place] [address] Anesthesia: Postop Eval I Current Vital Signs [...] document: Postop Eval 1 completed: Yes 01/13/2545 > Date _ Luis E Villareal Cosigner Signature: Date CC: ~ Signed [facility]04-09-2025 Consult note [facility] Medical Records Department [address] [place] [address] Anesthesia Postop Eval II 01/13/25 1233 MR#: [id number] Acct: [id number] Name: LLUVIA HOLLINGSWORTH Rep #:[id number] : 1995 29 From: Nile Ross MD PCP: Care Physician,No Primary Status :ADM FARTUN Y Race: C Location: [facility] MS319 -1 Anesthesia Postop Eval I Sum Postop Eval Completion status Anesthesia document: Postop Eval 1 completed: Yes Anesthesia Postop Eval I Summary Anesthesia Postop Eval I Summary: Anesthesia Postop Eval I: Assessment Summary Airway patent Yes 01/13/25 06:45 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 Spontaneous unlabored Yes 01/13/25 06:45 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 respirations Mental status Awake,Calm 01/13/25 06:45 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 nausea No 01/13/25 06:45 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 Vomiting No 01/13/25 06:45 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 Anesthesia Postop Eval I: Fluid Summary Crystalloid volume administer 500 01/13/25 06:45 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 (ml) Colloids volume administered ( ml) Blood Product volume administered (ml) Total IV fluid infused 500 01/13/25 06:45 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 Anesthesia Postop Eval I: Summary Notes Anesthesia Complication No 01/13/25 06:45 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 Anesthesia Complication Comment: Post-operative progress note Anesthesia: Postop Eval II Evaluation Mental status: Awake and Calm Pain Level: 1 nausea: No Vomiting: No Complications Anesthesia Complication: No 01/13/25 1233 rachel MARIE> Date _ Nile Ross MD Cosigner Signature: Date CC: ~ Signed [facility]04-09-2025 Consult note [facility] Medical Records Department [address] [place] [address] Counseling Note - Pharmacy 01/13/25 1526 MR#: [id number] Acct: [id number] Name: LLUVIA HOLLINGSWORTH Rep #:[id number] : 1995 29 From: Molina Vargas PCP: Care Physician,No Primary Status :ADM FARTUN Y Location: [place] [address] Pharmacy [facility] Pharmacy Service has performed discharge medication reconciliation [...] 5 days #14 tabs 01/13/25 01/13/25 1526 r> Date _ Molina Nascimento Signature (if applicable): Date CC: ~ Signed [facility]04-09-2025 Discharge summary Author Sharmin Bautista [facility] Note Date/Time January 14, 2025 9:47 am [facility] Medical Records Department [address] [place] [address] Discharge Summary 01/14/25 0853 MR#: [id number] Acct: [id number] Name: LLUVIA HOLLINGSWORTH Rep #:[id number] : 1995 29 From: Sharmin KENNY PA-C PCP: Care Physician,No Primary Status :ADM FARTUN Location: [place] [address] Providers Date of Admission: 01/12/25 Primary Care [...] 72.2 H, Lymph % (Auto) 18.7 L, [place] % (Auto) 7.4, Eos % (Auto) 1.0, [...] to schedule 2 week follow up appointment. [phone] Meaningful Use Info Meaningful Use Meaningful Use [...] Self Care Charges/Coding Visit Charges Inpatient E&M: 01276 Disch Hosp (no charge; post-op) 01/14/25 0947 <Electronically signed by Sharmin KENNY PA-C> Cosigner Signature (if applicable): CC: CODY Bautista; No Primary Care Physician~ Signed [facility] Work Phone: 1(981) 653-741004-09-2025 Consult note [facility] Medical Records Department [address] [place] [address] Counseling Note - Pharmacy 01/14/25 1051 MR#: [id number] Acct: [id number] Name: LLUVIA HOLLINGSWORTH Rep #:[id number] : 1995 29 From: Arlet Villanueva PCP: Care Physician,No Primary Status :ADM FARTUN Y Location: [place] [address] Pharmacy [facility] Pharmacy Service has performed discharge medication reconciliation [...] caps 01/14/25 01/14/25 1052 Date _ Arlet Nascimento Signature (if applicable): Date CC: ~ Signed [facility]04-09-2025 Discharge summary [facility] Medical Records Department [address] [place] [address] Discharge Summary 01/14/25 0853 MR#: [id number] Acct: [id number] Name: LLUVIA HOLLINGSWORTH Rep #:[id number] : 1995 29 From: Sharmin KENNY PA-C PCP: Care Physician,No Primary Status :ADM FARTUN Location: [place] [address] Providers Date of Admission: 01/12/25 Primary Care [...] 72.2 H, Lymph % (Auto) 18.7 L, [place] % (Auto) 7.4, Eos % (Auto) 1.0, [...] to schedule 2 week follow up appointment. [phone] Meaningful Use Info Meaningful Use Meaningful Use [...] Self Care Charges/Coding Visit Charges Inpatient E&M: 99479 Disch Hosp (no charge; post-op) 01/14/25 0947 Cosigner Signature (if applicable): CC: CODY Bautista; No Primary Care Physician~ Signed [facility]04-09-2025 [facility] Medical Records Department [address] [place] [address] Discharge Summary 01/14/2553 MR#: [id number] Acct: [id number] Name: LLUVIA HOLLINGSWORTH Rep #: [id number] : 1995 29 From: Sharmin KENNY PA-C PCP: Care Physician,No Primary Status:ADM FARTUN [facility] Prov[facility] Date of Admission: 01/12/25 Primary Care [...] 72.2 H, Lymph % (Auto) 18.7 L, [place] % (Auto) 7.4, Eos % (Auto) 1.0, [...] to schedule 2 week follow up appointment. [phone] Meaningful Use Info Meaningful Use Meaningful Use [...] Qty: 40 0RF Cont (more content not included)...[facility]04-08-2025 Progress note Author Sharmin Bautista [facility] Note Date/Time January 13, 2025 3:41 pm [facility] Medical Records Department [address] [place] [address] Progress Note 01/13/25 1533 MR#: [id number] Acct: [id number] Name: LLUVIA HOLLINGSWORTH Rep #:[id number] : 1995 29 From: Sharmin KENNY PA-C PCP: Care Physician,No Primary Status :ADM FARTUN Location: [place] [address] Progress Note Patient evaluated this afternoon. Patient [...] Cosigner Signature (if applicable): CC: ~ Signed [facility] Work Phone: 1(102) 727-582804-08-2025 Consult note Author Molina Vargas [facility] Note Date/Time January 14, 2025 11:2 2am [facility] Medical Records Department [address] [place] [address] Counseling Note - Pharmacy 01/13/25 1526 MR#: [id number] Acct: [id number] Name: LLUVIA HOLLINGSWORTH Rep #:[id number] : 1995 29 From: Molina Vargas PCP: Care Physician,No Primary Status :ADM FARTUN Y Location: [place] PB258-2 Pharmacy [facility] Pharmacy Service has performed discharge medication reconciliation [...] signed by Molina santamaria> Date _ Molina Vargas Cosigner Signature (if applicable): Date CC: ~ Signed [facility] Work Phone: 1([phone]) 450-739904-08-2025 Progress note [facility] Medical Records Department [address] [facility] [place] [address] Progress Note 01/13/25 1533 MR#: [id number] Acct: [id number] Name: LLUVIA HOLLINGSWORTH Rep #:[id number] : 1995 29 From: Sharmin KENNY PA-C PCP: Care Physician,No Primary Status :ADM FARTUN Location: [place] [address] Progress Note Patient evaluated this afternoon. Patient [...] Cosigner Signature (if applicable): CC: ~ Signed [facility]04-08-2025 Consult note Author Nile Ross [facility] Note Date/Time January 14, 2025 11:2 2am [facility] Medical Records Department [address] [place] [address] Anesthesia Postop Eval II 01/13/25 1233 MR#: [id number] Acct: [id number] Name: LLUVIA HOLLINGSWORTH Rep #:[id number] : 1995 29 From: Nile Ross MD PCP: Care Physician,No Primary Status :ADM FARTUN Y Race: C Location: [place] [address] Anesthesia Postop Eval I Sum Postop Eval Completion status Anesthesia document: Postop Eval 1 completed: Yes Anesthesia Postop Eval I Summary Anesthesia Postop Eval I Summary: Anesthesia Postop Eval I: Assessment Summary Airway patent Yes 01/13/25 06:45 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 Spontaneous unlabored Yes 01/13/25 06:45 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 respirations Mental status Awake,Calm 01/13/25 06:45 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 nausea No 01/13/25 06:45 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 Vomiting No 01/13/25 06:45 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 Anesthesia Postop Eval I: Fluid Summary Crystalloid volume administer 500 01/13/25 06:45 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 (ml) Colloids volume administered ( ml) Blood Product volume administered (ml) Total IV fluid infused 500 01/13/25 06:45 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 Anesthesia Postop Eval I: Summary Notes Anesthesia Complication No 01/13/25 06:45 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 Anesthesia Complication Comment: Post-operative progress note Anesthesia: Postop Eval II Evaluation Mental status: Awake and Calm Pain Level: 1 nausea: No Vomiting: No Complications Anesthesia Complication: No 01/13/25 1233 <Electronically signed by Nile ramos MD> Date _ Nile Nascimento Signature: Date CC: ~ Signed [facility] Work Phone: 1(877) 498-639004-08-2025 Consult note Author Luis E Villareal [facility] Note Date/Time January 14, 2025 11:2 2am [facility] Medical Records Department [address] [place] [address] Anesthesia Postop Eval I 01/13/2545 MR#: [id number] Acct: [id number] Name: LLUVIA HOLLINGSWORTH Rep #:[id number] : 1995 29 From: Luis E Villareal PCP: Care Physician,No Primary Status :ADM FARTUN Y Race: C Location: [place] [address] Anesthesia: Postop Eval I Current Vital Signs [...] E Villareal > Date _ Luis E Nascimento Signature: Date CC: ~ Signed [facility] Work Phone: [phone]) 839-493904-08-2025 Discharge summary Author Anthony Martin [facility] Note Date/Time January 13, 2025 6:45 am [facility] Medical Records Department [address] [place] [address] Instructions for Home/Discharge Instructions 01/13/25 0644 MR#: [id number] Acct: [id number] Name: LLUVIA HOLLINGSWORTH Rep #:[id number] : 1995 29 From: Anthony baez MD [...] to schedule 2 week follow up appointment. [phone] Test Results: Test results from this visit [...] CC: No Primary Care Physician ~ Signed [facility] Work Phone: 1(662) 809-503204-08-2025 Consult note Author Nile Ross [facility] Note Date/Time January 13, 2025 6:10 am [facility] Medical Records Department [address] [place] [address] Pre-Anesthesia Evaluation 01/13/25 0601 MR#: [id number] Acct: [id number] Name: LLUVIA HOLLINGSWORTH Rep #:[id number] : 1995 29 From: Nile Ross MD PCP: Care Physician,No Primary Status :ADM FARTUN Y Race: C Location: [place] [address] ASA Classification* ASA Classification ASA Classification: 2 [...] CBC WBC 18.8 K/mm3 (4.4-11.0) H 01/12/25 16:30 5 RBC 4.26 M/mm3 (4.2-5.4) 01/12/25 16:30 [...] Laparoscopic appendectomy Anesthesia History Anesthesia History - 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: Anesthesia History - 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 Hx Hospitalization Any Problems With Anesthesia No [...] take am of surgery PONV PONV - 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: PONV - 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 Female HX of Motion Sickness HX of N/V After Surgery Non-Smoker Duration of Surgery greater than 60 minutes Number of Risk Factors PONV Score Height & Weight Height & Weight: Anesthesia: Height & Weight Height 5 ft 4 in 01/13/25 04:08 Weight: 91 kg 01/13/25 04:08 Body Mass Index (BMI) 34.4 01/13/25 04:08 Respiratory Assessment Respiratory Assessment - 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: Respiratory Tract Infection Hx - 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 Hx Respiratory Tract Infection No 01/12/25 21:33 STOP Sleep Apnea STOP Sleep Apnea - 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: STOP Sleep Apnea - 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 Hx Hypertension No 01/12/25 21:32 Hx Sleep [...] Tobacco Use History Tobacco Use History - 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: Tobacco Use History - 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 Tobacco Use Smoking Status Current some day smoker 01/12/25 21:32 Hx Tobacco Use Yes: Vaping-prior to 01/12/25 21:32 Years Smoking Packs Smoked per Day Smoking Cessation Date was within the last 15 years Hx Smoking Cessation Date 01/12/25 17:21 Hx Smoking Cessation Counseling Hematologic Medial History Hematologic Hx - 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: 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 Specify any problems Hx of Preganancy in last 3 No 01/12/25 21:32 Months Nurse Filling Out Transfusion DREMOICK 01/12/25 21:32 & Questions: Date: 01/12/25 01/12/25 21:32 Time: 21:33 01/12/25 21:32 Patient unable to answer at this time (ie. confused, unrespo /Reproduction History /Reproductive History - 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: /Reproductive Hx- 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 Hx Now No 01/12/25 21:33 Gestational Age [...] 1 current occupational status: unemployed current occupation: [employer] current occupational exposures/hazards: No pets and animals: Yes (not manage litterbox) pets and animals: cat(s) and dog(s) history of recent travel: No (OK) sexually active: Yes Smoking Status: Current some day smoker tobacco type: e-cigarettes alcohol intake: former details: rarely drinks, special occasions, not while substance use type: does not use well-balanced diet: daily or most days caffeine: No eating out: 1-3 times/week during the past year weight has: remained stable what type of physical activity do you participate in: walking frequency: daily duration: 15-30 minutes/day chriss/anglican: None seatbelt use: always do you feel safe at home: Yes additional social history: J Luis - Self employed Review of Systems (Anesthesia) ROS Narrative System reviewed and no additional complaints, except as documented. 01/13/25 06 <Electronically signed by Nile ramos MD> Date _ Nile Ross MD Cosigner Signature: Date CC: ~ Signed [facility] Work Phone: 1([phone]) 795-666204-08-2025 Discharge summary [facility] Medical Records Department [address] [place] [address] Instructions for Home/Discharge Instructions 01/13/2544 MR#: [id number] Acct: [id number] Name: LLUVIA HOLLINGSWORTH Rep #:[id number] : 1995 29 From: Anthony baez MD PCP: Jovanny PhysicianShana Primary Status :ADM FARTUN Discharge Instructions Procedure [...] to schedule 2 week follow up appointment. [phone] Test Results: Test results from this visit [...] CC: No Primary Care Physician ~ Signed [facility]04-08-2025 Procedure note [facility] Medical Records Department [address] [place] [address] Operative Report 01/13/25 0641 MR#: [id number] Acct: [id number] Name: LLUVIA HOLLINGSWORTH Rep #:[id number] : 1995 29 From: Anthony baez MD PCP: Care Physician,No Primary Status :ADM FARTUN Location: [facility] FO571-5 Operative Report (Standard) Operative Information Date of Procedure: 01/13/25 Pre-Operative Diagnosis: Acute appendicitis Post-Operative Diagnosis: Acute appendicitis Surgery/Procedure Performed: Laparoscopic appendectomy packing machine operator: No Type of Anesthesia: General/Regional RN Documented [...] fascia was closed with an 0 Vicryl [id number] suture. The incisions were then irrigated withsaline [...] Martin MD; No Primary Care Physician~ Signed [facility]04-08-2025 Consult note [facility] Medical Records Department [address] [place] [address] Pre-Anesthesia Evaluation 01/13/25 0601 MR#: [id number] Acct: [id number] Name: LLUVIA HOLLINGSWORTH Rep #:[id number] : 1995 29 From: Nile Ross MD PCP: Care Physician,No Primary Status :ADM FATRUN Y Race: C Location: [facility]319 -1 ASA Classification* ASA Classification ASA Classification: [...] CBC WBC 18.8 K/mm3 (4.4-11.0) H 01/12/25 16:30 5 RBC 4.26 M/mm3 (4.2-5.4) 01/12/25 16:30 [...] Laparoscopic appendectomy Anesthesia History 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 - 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: Anesthesia History - 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 Hx Hospitalization Any Problems With Anesthesia No [...] take am of surgery PONV PONV - 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: PONV - 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 Female HX of Motion Sickness HX of N/V After Surgery Non-Smoker Duration of Surgery greater than 60 minutes Number of Risk Factors PONV Score Height & Weight Height & Weight: Anesthesia: Height & Weight Height 5 ft 4 in 01/13/25 04:08 Weight: 91 kg 01/13/25 04:08 Body Mass Index (BMI) 34.4 01/13/25 04:08 Respiratory Assessment Respiratory Assessment - 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: Respiratory Tract Infection Hx - 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 Hx Respiratory Tract Infection No 01/12/25 21:33 STOP Sleep Apnea STOP Sleep Apnea - 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: STOP Sleep Apnea - 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 Hx Hypertension No 01/12/25 21:32 Hx Sleep [...] Tobacco Use History Tobacco Use History - 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: Tobacco Use History - 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 Tobacco Use Smoking Status Current some day smoker 01/12/25 21:32 Hx Tobacco Use Yes: Vaping-prior to 01/12/25 21:32 Years Smoking Packs Smoked per Day Smoking Cessation Date was within the last 15 years Hx Smoking Cessation Date 01/12/25 17:21 Hx Smoking Cessation Counseling Hematologic Medial History Hematologic Hx - 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: 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 Hx of Blood Transfusion No 01/12/25 21:32 [...] confused, unrespo /Reproduction History /Reproductive History - 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: /Reproductive Hx- 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 Hx Now No 01/12/25 21:33 Gestational Age [...] 1 current occupational status: unemployed current occupation: [employer] current occupational exposures/hazards: No pets and animals: Yes (not manage litterbox) pets and animals: cat(s) and dog(s) history of recent travel: No (OK) sexually active: Yes Smoking Status: Current some day smoker tobacco type: e-cigarettes alcohol intake: former details: rarely drinks, special occasions, not while substance use type: does not use well-balanced diet: daily or most days caffeine: No eating out: 1-3 times/week during the past year weight has: remained stable what type of physical activity do you participate in: walking frequency: daily duration: 15-30 minutes/day chriss/anglican: None seatbelt use: always do you feel safe at home: Yes additional social history: J Luis - Self employed Review of Systems (Anesthesia) ROS Narrative System reviewed and no additional complaints, except as documented. 01/13/25 0610 rachel MARIE> Date _ Nile Ross MD Cosigner Signature: Date CC: ~ Signed [facility]04-08-2025 Discharge summary Author Mookie Carmen [facility] Note Date/Time January 12, 2025 10:2 8pm [facility] Medical Records Department [address] [place] [address] Emergency Department Summary 01/12/25 MR#: [id number] Acct: [id number] Name: LLUVIA HOLLINGSWORTH Rep #:[id number] : 1995 29 From: Mookie Samuels PCP: Care Physician,No Primary Status :ADM FARTUN Location: [address] History of Present Illness Chief Complaint: [...] 1 current occupational status: unemployed current occupation: [employer] current occupational exposures/hazards: No pets and animals: Yes (not manage litterbox) pets and animals: cat(s) and dog(s) history of recent travel: No (OK) sexually active: Yes Smoking Status: Current some day smoker tobacco type: e-cigarettes alcohol intake: former details: rarely drinks, special occasions, not while substance use type: does not use well-balanced diet: daily or most days caffeine: No eating out: 1-3 times/week during the past year weight has: remained stable what type of physical activity do you participate in: walking frequency: daily duration: 15-30 minutes/day chriss/anglican: None seatbelt use: always do you feel [...] Dispo: Discharge This note was generated with [employer] dictation software. It may contain incorrectwords, spelling, [...] 82.1 H Lymph % (Auto) 8.6 L [place] % (Auto) 7.0 Eos % (Auto) 1.4 [...] Clarity Clear Urine pH 7.0 Ur Specific [place] 1.010 Urine Protein 15 H Urine Glucose [...] of the liver with contrast. Reading [facility] Discharge Plan Disposition Disposition: Acute Care Hospital [facility] Discharge Date/Time: 01/12/25 20:59 What to do if you have Problems For any increased pain, shortness of breath, bleeding, nausea or vomiting, chestpain, or any unexpected problems, contact your Primary Care Provider. Call [facility] ([phone]) or report to the closest Emergency Room. Call 911 if necessary. 01/12/252227 <Electronically signed by Mookie Morales DO> Cosigner Signature (if applicable): CC: No Primary Care Physician ~ Signed [facility] Work Phone: 1(848) 602-535404-07-2025 Evaluation note* Diagnosis Onset Date Resolution Status Admit Date Acute appendicitis resolved January 12, 2025 8:33pm LGSIL on Pap smear of cervix acute January 20, 2025 10:13am IUD (intrauterine device) in place noneactive January 20, 2025 10:13am S/P appendectomy acute January 272024 1:17pm IUD check up noneactive March 03 10:49am [facility] Work Phone: [phone]) [phone] History and physical note Author Anthony Martin [facility] Note Date/Time January 12, 2025 8:33 pm [facility] Medical Records Department [address] [place] [address] H&P Exam - Surgical 01/12/252030 MR#: [id number] Acct: [id number] Name: LLUVIA HOLLINGSWORTH Rep #:[id number] : 1995 29 From: Anthony baez MD [...] denies nausea or vomiting. She denies fever. [facility] Medical History (Updated 04/07/25 @ 20:[address] Anthony Martin MD) [...] 1 current occupational status: unemployed current occupation: [employer] current occupational exposures/hazards: No pets and animals: Yes (not manage litterbox) pets and animals: cat(s) and dog(s) history of recent travel: No (OK) sexually active: Yes Smoking Status: Current some day smoker tobacco type: e-cigarettes alcohol intake: former details: rarely drinks, special occasions, not while substance use type: does not use well-balanced diet: daily or most days caffeine: No eating out: 1-3 times/week during the past year weight has: remained stable what type of physical activity do you participate in: walking frequency: daily duration: 15-30 minutes/day chriss/anglican: None seatbelt use: always do you feel [...] 82.1 H, Lymph % (Auto) 8.6 L, [place] % (Auto) 7.0, Eos % (Auto) 1.4, [...] Clarity Clear, Urine pH 7.0, Ur Specific [place] 1.010, Urine Protein 15 H, Urine Glucose [...] of the liver with contrast. Reading [facility] Assessment & Plan Assessment/Plan (1) Acute appendicitis: [...] in the morning. Anthony Martin MD Pager: [facility] [address] [place] [address], [address] [place] [address] Office: 01/12/252032 <Electronically signed by Anthony Martin MD> Cosigner Signature (if applicable): CC: Dr. Anthony Martin MD; No Primary Care Physician~ Signed [facility] Work Phone: [phone]) 516-854604-07-2025 Discharge summary [facility] Medical Records Department [address] [place] [address] Emergency Department Summary 01/12/25 MR#: [id number] Acct: [id number] Name: LLUVIA HOLLINGSWORTH Rep #:[id number] : 1995 29 From: Mookie Samuels PCP: Care Physician,No Primary Status :ADM FARTUN [facility] History of Present Illness Chief Complaint: Back [facility] Medical History Contraceptive management Spontaneous vaginal delivery [...] 1 current occupational status: unemployed current occupation: [employer] current occupational exposures/hazards: No pets and animals: Yes (not manage litterbox) pets and animals: cat(s) and dog(s) history of recent travel: No (OK) sexually active: Yes Smoking Status: Current some day smoker tobacco type: e-cigarettes alcohol intake: former details: rarely drinks, special occasions, not while substance use type: does not use well-balanced diet: daily or most days caffeine: No eating out: 1-3 times/week during the past year weight has: remained stable what type of physical activity do you participate in: walking frequency: daily duration: 15-30 minutes/day chriss/anglican: None seatbelt use: always do you feel [...] 98 96 Oxygen Delivery Method Room Air [facility] Narrative Medical decision making narrative: HISTORY OF [...] reviewed, Vital signs reviewed Constitutional: please see [facility] HENT: MMM Eyes: Pupils equal round [...] MEDICAL DECISION MAKING: Chief Complaint: please see [facility] External records reviewed: Reviewed prior imaging studies, allergies Factors affecting care: none Social determinants of health: none History obtained from others: none Consults: General Surgery (Dr. Martin) [facility] Narrative: The patient was initially hemodynamically stable, [...] Dispo: Discharge This note was generated with [employer] dictation software. It may contain incorrectwords, spelling, [...] 82.1 H Lymph % (Auto) 8.6 L [place] % (Auto) 7.0 Eos % (Auto) 1.4 [...] Clarity Clear Urine pH 7.0 Ur Specific [place] 1.010 Urine Protein 15 H Urine Glucose [...] Discharge Plan Disposition Disposition: Acute Care Hospital [facility] Discharge Date/Time: 01/12/25 20:59 What to do if you have Problems For any increased pain, shortness of breath, bleeding, nausea or vomiting, chestpain, or any unexpected problems, contact your Primary Care Provider. Call [facility] ([phone]) or report tothe closest Emergency Room. Call 911 if necessary. 01/12/252227 Cosigner Signature (if applicable): CC: No Primary Care Physician ~ Signed [facility]04-07-2025 History and physical note [facility] Medical Records Department [address] [place] [address] H&P Exam - Surgical 01/12/252030 MR#: [id number] Acct: [id number] Name: LLUVIA HOLLINGSWORTH Rep #:[id number] : 1995 29 From: Anthony baez MD [...] denies nausea or vomiting. She denies fever. [facility] Medical History (Updated 01/12/25 @ 20:32 [...] 1 current occupational status: unemployed current occupation: [employer] current occupational exposures/hazards: No pets and animals: Yes (not manage litterbox) pets and animals: cat(s) and dog(s) history of recent travel: No (OK) sexually active: Yes Smoking Status: Current some day smoker tobacco type: e-cigarettes alcohol intake: former details: rarely drinks, special occasions, not while substance use type: does not use well-balanced diet: daily or most days caffeine: No eating out: 1-3 times/week during the past year weight has: remained stable what type of physical activity do you participate in: walking frequency: daily duration: 15-30 minutes/day chriss/anglican: None seatbelt use: always do you feel [...] 82.1 H, Lymph % (Auto) 8.6 L, [place] % (Auto) 7.0, Eos % (Auto) 1.4, [...] Clarity Clear, Urine pH 7.0, Ur Specific [place] 1.010, Urine Protein 15 H, Urine Glucose [...] in the morning. Anthony Martin MD Pager: [facility] [address] [place] [address], [address] [place] [address] Office: 01/12/252032 Cosigner Signature (if applicable): CC: Dr. Anthony Martin MD; No Primary Care Physician~ Signed [facility]04-07-2025 Radiology Diagnostic study note [facility] [address] [place] [address] Abdomen/Pelvis W IV Cont ONLY MR#: [id number] Acct: [id number] Name: LLUVIA HOLLINGSWORTH Rep #: [id number] : 1995 F 29 From: Cira Betancourt MD PCP: Care Physician,No Primary Status: REG ER Study:Abdomen/Pelvis W IV Cont ONLY Date of E xam: 01/12/25 Exam# [id number] Ordering Dr: Jakub Morales DO PROCEDURE: ABDOMEN/PELVIS [...] Morales, DO; No Primary Care Physician ~ Weigher And Grader: Signed [facility]01-29-2025 Evaluation note* Diagnosis Onset Date Resolution Status [...] November 13 10:51am Positive GBS test deleted Februar y 2024 10:51am History of cardiac anomaly acute [...] 16, 2024 7:45am Positive GBS test deleted Februar y 2024 7:45am Routine Follow-Up noneact graciela December 29, 2024 3:20pm Acute appendicitis resolved January 12, 2025 8:33pm LGSIL on Pap smear of cervix acute January 20, 2025 10:13am IUD (intrauterine device) in place noneactive January 20, 2025 10:13am S/P appendectomy acute January 272024 1:17pm IUD check up noneactive March 03 10:49am [facility] Work Phone: 1(953) 892-226212-20-2024 Evaluation note* Diagnosis Onset Date Resolution Status Admit Date History of cardiac anomaly acute September 26, 2024 1:09pm History of depression acute Sep 1:09pm LGSIL on Pap smear of cervix acute September 26, 2024 1:09pm Obesity (BMI 30.0-34.9) acute D ec2023 1:09pm acute September 26, 2024 1:09pm Rubella non-immune status, antepartum acute September 26 1:09pm Supervision of high-risk acute September 26 1:09pm History of cardiac anomaly acute October 07, 2024 10:44am History of depression acute Sep 10:44am LGSIL on Pap smear of cervix acute October 07, 2024 10:44am Obesity (BMI 30.0-34.9) acute D ecember 2023 10:44am acute October 07, 2024 10:44am Rubella non-immune status, antepartum acute October 07 10:44am Supervision of high-risk acute October 07 10:44am History of cardiac anomaly acute October 21, 2024 9:18am History of depression acute Lio uary 2024 9:18am LGSIL on Pap smear of [...] 13, 2024 10:51am History of depression acute b ru2024 10:51am LGSIL on Pap smear of cervix acute November 13, 2024 10:51am Obesity (BMI 30.0-34.9) acute F ebary 2024 10:51am Positive GBS test acute ua2024 10:51am acute November 13, 2024 10:51am Rubella non-immune status, antepartum acute November 13 10:51am Supervision of high-risk acute November 13 10:51am Uterine size date discrepancy resolved November 132024 10:51am History of cardiac anomaly acute November 16, 2024 7:45am History of depression [facility] 20[facility] 7:45am LGSIL on Pap smear of cervix acute November 16, 2024 7:45am Obesity (BMI 30.0-34.9) acute F ebruary 2024 7:45am Positive GBS test acute uar y 2024 7:45am acute November 16, 2024 7:45am Rubella non-immune status, antepartum acute November 16 7:45am Supervision of high-risk acute November 16 7:45am Vaginal delivery acute November 16, 2024 7:45am Uterine size date discrepancy resolved November 162024 7:45am Routine Follow-Up noneact graciela December 29, 2024 3:20pm Acute appendicitis acute January 12, 2025 8:33pm [facility] Work Phone: 1(935) 344-427006-21-2023 NotePap Smear Specimen AdequacyJune 2022 3:32pmComment.Satisfactory for evaluation. Endocervical and/or squamous metaplasticcells (endocervical component)are present.Areas of partially obscuring inflammatory exudate are present.[facility] INTER[facility]ACED A#[id number] Regional Medical CenterComment on above:Satisfactory for evaluation. Endocervical and/or squamous metaplasticcells (endocervical component)are present.Areas of partially obscuring inflammatory exudate are present.03-28-2023 NotePap Smear Specimen AdequacyJune 2022 3:32pmComment.Satisfactory for evaluation. Endocervical and/or squamous metaplasticcells (endocervical component)are present.Areas of partially obscuring inflammatory exudate are present.[facility] INTER[facility]ACED A#[id number] Regional Medical CenterComment on above:Satisfactory for evaluation. Endocervical and/or squamous metaplasticcells (endocervical component)are present.Areas of partially obscuring inflammatory exudate are present.02-07-2023 Progress note Author Ken Gómez [facility] February 07, 2023 7:52am Note Date/Time February 07, 2023 7:52am [facility] Medical Records Department [address] [place] [address] Progress Note - OBGYN 02/07/23 0750 MR#: [id number] Acct: [id number] Name: LLUVIA HOLLINGSWORTH Rep #:[id number] : 1995 27 From: Ken Gómez NP COORDINATING PRODUCER-C PCP: Care Physician,No Primary Status :ADM IN Location: CK440-5 Subjective Subjective Patient doing well without complaints. Tolerating PO. Ambulating and voiding without difficulty. Feeding well. Denies chest pain, shortness of breath, calf pain/swelling, fevers, chills, lightheadedness. Objective Data Objective Data Vital Signs: Vital Signs Temp Pulse Resp BP Pulse Ox O2 Del Method 98.9 F 80 16 107/60 97 Room Air 02/06/23 19:45 05/03/23 03:45 02/07/23 03:45 02/07/23 03:45 02/06/23 19:45 [...] 0752 <Electronically signed by Ken Gómez NP COORDINATING PRODUCER-C> Cosigner Signature (if applicable): CC: ~ Signed [facility] Work Phone: 1(996) 251-583305-02-2023 Discharge summary Author Lizzette Zheng [facility] February 06, 2023 12:48pm Note Date/Time February 06, 2023 12:48p m [facility] Medical Records Department [address] [place] [address] Instructions for Home/Discharge Instructions 02/06/23 1248 MR#: [id number] Acct: [id number] Name: LLUVIA HOLLINGSWORTH Rep #:[id number] : 1995 27 From: Lizzette Zheng CNM PCP: Care Physician,No Primary Status :ADM IN Discharge Instructions Diet [...] Attending Provider: Lizzette Zheng Primary Care Provider: Care Physician,No Primary Instructions Patient Instructions: Kick Counts, ED False Labor, OB Triage: Return to Hospital or Notify Physician if you Experience: Discharge Orders/Prescriptions Prescriptions: No Action PNV Tabs 20-1 20 mg iron- 1 mg tablet 1 tab PO DAILY Zyrtec 10 mg capsule 10 mg PO DAILY PRN (Reason: allergies) Referrals / Follow Up: Care Physician,No Primary [Primary Care Provider] - 02/06/23 1248<Electronically signed by Lizzette Zheng CNM>Lizzette Zheng CNM CC: No Primary Care Physician ~ Signed [facility] Work Phone: 1([phone]) [phone] Procedure [facility] 02-06-2023 Progress note Author Lizzette Zheng [facility] February 06, 2023 7:47am Note Date/Time February 06, 2023 7:47am [facility] Medical Records Department [address] [place] [address] Progress Note 02/06/23 0743 MR#: [id number] Acct: [id number] Name: LLUVIA HOLLINGSWORTH Rep #:[id number] : 1995 27 From: Lizzette Zheng CNM PCP: Jovanny Physician,No Primary Status :ADM IN Location: [place] [id number] Progress Note patient comfortable with epidural current tracing: FHT: 135 Moderate variability reactive no decelerations category I tracing [place]: regular strong Contractions every 2-3 minutes apart SVE: 8/90/0 at 0630 per nursing exam A/P: continue position changes Start pitocin PRN Anticipate Reviewed with JV, agrees with Plan of Care 02/06/23 0747 <Electronically signed by Lizzette Zheng CNM> Lizzette Zheng CNM Cosigner Signature (if applicable): CC: ~ Signed [facility] Work Phone: 1(592) 113-189805-02-2023 History and physical note Author Opal Golden [facility] February 06, 2023 3:05am Note Date/Time February 06, 2023 3:05am [facility] Medical Records Department [address] [place] [address] H&P Exam - 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 02/06/23 0255 MR#: [id number] Acct: [id number] Name: LLUVIA HOLLINGSWORTH Rep #:[id number] : 1995 27 From: Opal Golden CNM PCP: Care Physician,No Primary Status :ADM IN Location: [place] [address] HPI - General General Date of Admission: [...] Final RUFINA Source: LMP Gestational age: 39+6 [facility] Medical History History of depression Low-lying [...] do you participate in: walking frequency: daily chriss/anglican: None seatbelt use: always do you feel [...] MH-Pt had light spotting after US at [facility] yesterday. Reviewed US:cx >4cm. Previa resolved. [...] any complications: none I have reviewed the [facility] and made any clinically relevant updates. updated on admission, poc and exam. agrees with primary midwifery management. 02/06/23 0305 <Electronically signed by Opal Golden CNM> Cosigner Signature (if applicable): CC: CLARA Golden; No Primary Care Physician~ Signed [facility] Work Phone: 1(440) 418-251305-01-2023 History and physical note Author Opal Golden [facility] February 05, 2023 7:22pm Note Date/Time February 05, 2023 7:22pm [facility] Medical Records Department [address] [place] [address] OB Triage Physician Note 02/05/231918 MR#: [id number] Acct: [id number] Name: LLUVIA HOLLINGSWORTH Rep #:[id number] : 1995 27 From: Opal Golden CNM [...] Other Estimates 02/11/23 Ultrasound #2 39w 1d [facility] Medical History History of depression Low-lying placenta [...] do you participate in: walking frequency: daily chriss/anglican: None seatbelt use: always do you feel [...] MH-Pt had light spotting after US at [facility] yesterday. Reviewed US:cx >4cm. Previa resolved. [...] at 40 weeks KW-+fm. no lof/vb/ctx. shilpa kessler low back pain. discussed IOL at 40 [...] variability reactive no decelerations category I tracing [place]: irregular Contractions Assessment and plan: Reactive NST, reassuring maternal and status patient discharged to home to follow-up in office.See problem list details for additional plan information. Charges/Coding Procedures Urinary/Genital 52xxx-59xxx: 53227-58 non-stress test Interp 02/05/231921 <Electronically signed by pOal spann CNM> Date _ Opal Golden CNM Cosigner Signature (if applicable): Date CC: CLARA Golden; No Primary Care Physician ~ Signed [facility] Work Phone: 1(236) 989-139210-03-2022 NotePap Smear Specimen AdequacyOctober 2021 3:00pmComment.Satisfactory for evaluation. Endocervical and/or squamous metaplasticcells (endocervical component)are present.[facility] A#[id number] [facility] Work Phone: Comment on above:Satisfactory for evaluation. Endocervical and/or squamous metaplasticcells (endocervical component)are present.Consult note Author Arlet Villanueva [facility] Note Date/Time January 14, 2025 10:5 2am [facility] Medical Records Department [address] [place] [address] Counseling Note - Pharmacy 01/14/25 1051 MR#: [id number] Acct: [id number] Name: LLUVIA HOLLINGSWORTH Rep #:[id number] : 1995 29 From: Arlet Villanueva PCP: Care Physician,No Primary Status :ADM FARTUN Y Location: [place] [address] Pharmacy [facility] Service has performed discharge medication reconciliation [...] caps 01/14/25 01/14/25 1052 <Electronically signed by Arlte Villanueva> Date _ Arlet Villanueva Cosigner Signature (if applicable): Date CC: ~ Signed [facility] Work Phone: evaluation note* Diagnosis Onset Date Resolution Status History of cardiac anomaly a cute History of depression acute acute Supervision of high-risk acute Hx: UTI (urinary tract infection) resolved History of cardiac anomaly a cute History of depression acute LGSIL on Pap smear of cervix acute acute Supervision of high-risk [facility] Work Phone: evaluation note* Diagnosis Onset [...] second trimester acute acute Supervision of high-risk [facility] Work Phone: evaluation note* Diagnosis Onset [...] of cervix acute acute Supervision of high-risk [facility] Work Phone: Evaluation note* Diagnosis Onset [...] smear of cervix acute Spontaneous vaginal delivery [facility] Work Phone: evaluation note* Diagnosis Onset [...] Spontaneous vaginal delivery acute care and examination [facility] Work Phone: Evaluation note* Diagnosis Onset [...] screening for STI (s exually transmitted infection) [facility] Work Phone: Evaluation note* Diagnosis Onset [...] LGSIL on Pap smear of cervix acute [facility] Work Phone: History and physical note Author Anthony Martin [facility] Note Date/Time January 12, 2025 8:33 pm [facility] Medical Records Department [address] [place] [address] H&P Exam - Surgical 01/12/252030 MR#: [id number] Acct: [id number] Name: LLUVIA HOLLINGSWORTH Rep #:[id number] : 1995 29 From: Anthony baez MD [...] denies nausea or vomiting. She denies fever. [facility] Medical History (Updated 01/12/25 @ 20:32 [...] 1 current occupational status: unemployed current occupation: [employer] current occupational exposures/hazards: No pets and animals: Yes (not manage litterbox) pets and animals: cat(s) and dog(s) history of recent travel: No ([place]) sexually active: Yes Smoking Status: Current some day smoker tobacco type: e-cigarettes alcohol intake: former details: rarely drinks, special occasions, not while substance use type: does not use well-balanced diet: daily or most days caffeine: No eating out: 1-3 times/week during the past year weight has: remained stable what type of physical activity do you participate in: walking frequency: daily duration: 15-30 minutes/day chriss/anglican: None seatbelt use: always do you feel [...] 82.1 H, Lymph % (Auto) 8.6 L, [place] % (Auto) 7.0, Eos % (Auto) 1.4, [...] Clarity Clear, Urine pH 7.0, Ur Specific [place] 1.010, Urine Protein 15 H, Urine Glucose [...] in the morning. Anthony Martin MD Pager: [facility] [address], [address] [place] [address] Office: 01/12/252032 <Electronically signed by Anthony Martin MD> Cosigner Signature (if applicable): CC: Dr. Anthony Martin MD; No Primary Care Physician~ Signed [facility] Work Phone: Hospital Discharge instructionsAdditional Instructions X-ray negative for fracture small heel spur. Also clinical plantar fasciitis. Postop shoe for comfort. Continue ibuprofen up to 600 once every 6 hours. Follow-up with podiatry.[facility] Work Phone: Progress note Author Ken Gómez [facility] Note Date/Time March 03, 2025 11:01 am [facility] [address], [address] [place] [address] OFFICE VISIT Date of Service: 03/03/25 MR#: [id number] Acct: [id number] Name: LLUVIA HOLLINGSWORTH Rep #: [id number] : 1995 Provider: LUIS Gómez Age/Sex: 29/F Location: [facility] Status: Signed Intake Vital Signs 01/20/25 10:26 03/03/25 10:50 03/03/25 10:54 Height 5 ft 4 in 5 ft 4 in 5 ft 4 in Weight: 205 lb 2 oz BMI 35.2 BP 124/70 H 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 Is patient in pain?: No [...] : No : No Control Method: Mirena [facility] Medical History Acute appendicitis Vaginal delivery [...] 1 current occupational status: unemployed current occupation: [employer] current occupational exposures/hazards: No pets and animals: Yes (not manage litterbox) pets and animals: cat(s) and dog(s) history of recent travel: No ([place]) sexually active: Yes Smoking Status: Current some day smoker tobacco type: e-cigarettes alcohol intake: former details: rarely drinks, special occasions, not while substance use type: does not use well-balanced diet: daily or most days caffeine: No eating out: 1-3 times/week during the past year weight has: remained stable what type of physical activity do you participate in: walking frequency: daily duration: 15-30 minutes/day chriss/anglican: None seatbelt use: always do you feel [...] - full term 8#4oz Male epid ural [facility] J Luis 11/16/24 Renetta 39 live - full term 8lb 6oz Female e pidural [facility] JNoe Dietz Delivery Date: 11/16/24 Last Updated by: [...] 03/03/25 1101 <Electronically signed by Ken sanderson NP COORDINATING PRODUCER-C> Date _ Ken Gómez NP COORDINATING PRODUCER-C Cosigner Signature: Date (if applicable) CC: ~ [facility] Work Phone: Reason for referral (narrative)No reason for referral information [facility] Work Phone: Summary Purpose Family History No Family History Records Found Relationship Condition Age at Onset Recorded Date/T arlen aunt Malignant neoplasm of ovary 45 Relationship Condition Age at Onset Recorded Date/T arlen aunt Malignant neoplasm of ovary 45 mother Spontaneous Unknown Advance Directives No Advanced Directives Records Found Advance Directive Response Recorded Date/ Time Living Will No August 24 10:55pm Power of Information Security Manager No August 24, 2021 10:55pm Advance Directive Response Recorded Date/ Time Living Will No August 24 11:55pm Power of Information Security Manager No August 24, 2021 11:55pm Advance Directive Response Recorded Date/ Time Living Will No February 05, 2023 10 :57pm Power of Information Security Manager No February 05, 2023 10:57pm Advance Directive Response Recorded Date/ Time Living Will No November 16 9:22am Do you have a Healthcare Power of Information Security Manager? No November 16, 2024 9:22am Living Will No January 12, 2025 5:21pm Do you have a Healthcare Power of Information Security Manager? No January 12, 2025 5:21pm Advance Directive Response Recorded Date/ Time Living Will No November 16 9:22am Do you have a Healthcare Power of Information Security Manager? No November 16, 2024 9:22am Living Will No January 12, 2025 9:32pm Do you have a Healthcare Power of Information Security Manager? No January 12, 2025 9:32pm Advance Directive Response Recorded Date/ Time Do you have a Healthcare Power of Information Security Manager? No May 10, 2025 10:02pm Living Will No January 12, 2025 9:32pm Do you have a Healthcare Power of Information Security Manager? No January 12, 2025 9:32pm Chief Complaint [...] 262023 1:09pm Obesity (BMI 30.0-34.9) September 26, 2 024 1:09pm September 26, 2024 1:09pm Rubella non-immune status, antepartum De cember 2023 1:09pm Supervision of high-risk [place] 2023 1:09pm History of cardiac anomaly September 10:44am History of depression October 07 10:44am LGSIL on Pap smear of cervix October 072023 10:44am Obesity (BMI 30.0-34.9) October 07, 2 024 10:44am October 07, 2024 10:44am Rubella non-immune status, antepartum De cember 2023 10:44am Supervision of high-risk Decem [place] 2023 10:44am History of cardiac anomaly October 21, 2024 9:18am History of depression October 21, 2024 9:18am LGSIL on Pap smear of cervix October 9:18am Obesity (BMI 30.0-34.9) October 21 9:18am October 21, 2024 9 :18am Rubella non-immune status, antepartum [facility] 2024 9:18am Supervision of high-risk [place] 2024 9:18am History of cardiac anomaly November 05, 2024 1:17pm History of depression November 05, 2024 1:17pm LGSIL on Pap smear of cervix October 1:17pm Obesity (BMI 30.0-34.9) November 05 1:17pm November 05, 2024 1 :17pm Rubella non-immune status, antepartum [facility] 2024 1:17pm Supervision of high-risk [place] 2024 1:17pm History of cardiac anomaly November [...] 13, 2024 1 0:51am Supervision of high-risk [facility] 2024 10:51am Uterine size date discrepancy November 13, 2024 10:51am Rubella non-immune status, antepartum Fe bruary 2024 10:51am Positive GBS test November 13, 2024 1 0:51am History of cardiac anomaly November 16, 2024 7:45am History of depression November 16, 2024 7:45am LGSIL on Pap smear of cervix November 7:45am Obesity (BMI 30.0-34.9) November 16 7:45am November 16, 2024 7 :45am Supervision of high-risk [facility] 2024 7:45am Uterine size date discrepancy [...] check up March 03, 2025 10:49 am Chief Complaint Admit Date BACK PAIN January 12, 2025 8:31 pm ACUTE APPENDICITIS January 12, 2025 8:33 pm ACUTE APPENDICITIS January 13, 2025 6:41 am ACUTE APPENDICITIS January 14, 2025 8:53 am IUD insertion Mirena January 20, 2025 10 :13am APPY 4-8 January 27, 2025 1:1 7pm 6 wk string check March 03, 2025 10:49 am Foot pain May 10, 2025 9:3 6pm Reason for Visit Admit Date Acute appendicitis January 12, 2025 8:33 pm LGSIL on Pap smear of cervix January 20, 2025 10:13am IUD (intrauterine device) in place January 20, 2025 10:13am S/P appendectomy January 27, 2025 1:1 7pm IUD check up March 03, 2025 10:49 am Additional Source Comments INFORMATION SOURCE (unrecogn ized section and content) DATE CREATED AUTHOR 09/10/2020 [facility] DATE CREATED AUTHOR AUTHOR'S ORGANIZ ATION 09/10/2020 [facility] DATE CREATED AUTHOR AUTHOR'S ORGANIZ ATION 07/07/2021 [facility] DATE CREATED AUTHOR AUTHOR'S ORGANIZ ATION 03/15/2022 [facility] DATE CREATED AUTHOR AUTHOR'S ORGANIZ ATION 07/31/2024 [facility] DATE CREATED AUTHOR AUTHOR'S ORGANIZ ATION 05/17/2025 [facility] Goals (unrecognized section and content) Goals may [...] Inactive Member Role Status Dates Out of Town Doctor Referring Provider Active Dr. Geni De Jesus DO Attending Provider Activ e Dr. Rosalina Perez MD Primary Care Provider Active Team Status: Inactive Member Role Status Dates Dr. Rosalina Perez MD Referring Provider Active Dr. Geni Vande Velde , DO Attending Provider Activ e No Primary Care Physician Primary Care Provider Active Team Status: Inactive Member Role Status Dates Dr. Rosalina Perez MD Referring Provider Active Ken Gómez COORDINATING PRODUCER, COORDINATING PRODUCER-C Attending Provider Active No Primary Care Physician Primary Care Provider Active Team Status: Inactive Member Role Status Dates No Primary Care Physician Primary Care Provider, Refer ring Provider Active Ken Gómez COORDINATING PRODUCER, COORDINATING PRODUCER-C Attending Provider Active Team Status: Inactive Member Role Status Dates No Primary Care Physician Primary Care Provider, Refer ring Provider Active Dr. Geni De Jesus , Attending Provider Activ e Team Status: Inactive Member Role Status Dates No Primary Care Physician Primary Care Provider Active Dr. Geni De Jesus , Attending Provider, Refe rring Provider Active Team [...] Zheng CNM Other Provider Active Ken Gómez COORDINATING PRODUCER, COORDINATING PRODUCER-C Attending Provider Active Team Status: Inactive Member [...] 2024 End: October 07, 2024 Ken Gómez NP, COORDINATING PRODUCER-C Attending Provider Active Start: October 07, 2024 [...] Active Start: November 18, 2024 Ken Gómez COORDINATING PRODUCER, COORDINATING PRODUCER-C Attending Provider Active Start: November 18, 2024 [...] Start: January 13, 2025 Dr. Mookie Morales DO Emergency Provider Active Start: January 13, 2025 Dr. Anthony Martin MD Admit Provider Active Start: January 13, 2025 Dr. Anthony Martin MD Attending Provider Active Start: January 13, 2025 Dr. Anthony Martin MD Other Provider Active Start: January 13, 2025 Team Status: Active Member Role Status Dates No Primary Care Physician Primary Care Provider Active Start: January 14, 2025 Dr. Mookie Morales DO Emergency Provider Active Start: January 14, 2025 [...] 2025 End: January 20, 2025 Ken Gómez COORDINATING PRODUCER, COORDINATING PRODUCER-C Attending Provider Active Start: January 20, 2025 End: January 20, 2025 Team Status: Inactive Member Role Status Dates No Primary Care Physician Primary Care Provider Active Start: January 20, 2025 End: January 20, 2025 Ken Gómez COORDINATING PRODUCER, COORDINATING PRODUCER-C Attending Provider Active Start: January 20, 2025 End: January 20, 2025 Ken Gómez COORDINATING PRODUCER, COORDINATING PRODUCER-C Referring Provider Active Start: January 20, 2025 End: January 20, 2025 Team Status: Inactive Member Role Status Dates No Primary Care Physician Primary Care Provider Active Start: January 27, 2025 End: January 27, 2025 No Primary Care Physician Referring Provider Active Start: January 27, 2025 End: January 27, 2025 Sharmin KENNY PA-C Attending Provider Active Start: January 27, 2025 End: January 27, 2025 Team Status: Inactive Member Role Status Dates No Primary Care Physician Primary Care Provider Active Start: March 03, 2025 End: March 03, 2025 No Primary Care Physician Referring Provider Active Start: March 03, 2025 End: March 03, 2025 Ken Gómez COORDINATING PRODUCER, COORDINATING PRODUCER-C Attending Provider Active Start: March 03, 2025 End: March 03, 2025 Team Status: Active Member Role/Relationship Status Dates No Primary Care Physician Primary Care Provider Active Team Status: Active Member Role/Relationship Status Dates No Primary Care Physician Primary Care Provider Active Start: January 12, 2025 Dr. Mookie Morales DO Emergency Provider Active Start: January 12, 2025 Dr. Anthony Martin MD Attending Provider Active Start: January 12, 2025 Team Status: Inactive Member Role/Relationship Status Dates No Primary Care Physician Primary [...] January 14, 2025 Team Status: Active Member Role/Relationship Status Dates No Primary Care Physician Primary Care Provider Active Start: January 13, 2025 Dr. Mookie Morales DO Emergency Provider Active Start: January 13, 2025 Dr. Anthony Martin MD Admit Provider Active Start: January 13, 2025 Dr. Anthony Martin MD Attending Provider Active Start: January 13, 2025 Dr. Anthony Martin MD Other Provider Active Start: January 13, 2025 Team Status: Active Member Role/Relationship Status Dates No Primary Care Physician Primary Care Provider Active Start: January 14, 2025 Dr. Mookie Morales DO Emergency Provider Active Start: January 14, 2025 Dr. Anthony Martin MD Admit Provider Active Start: January 14, 2025 Dr. Anthony Martin MD Other Provider Active Start: January 14, 2025 Sharmin KENNY PA-C Attending Provider Active Start: January 14, 2025 Team Status: Inactive Member Role/Relationship Status Dates No Primary Care Physician Primary Care Provider Active Start: January 20, 2025 End: January 20, 2025 No Primary Care Physician Referring Provider Active Start: January 20, 2025 End: January 20, 2025 Ken Gómez COORDINATING PRODUCER, COORDINATING PRODUCER-C Attending Provider Active Start: January 20, 2025 End: January 20, 2025 Team Status: Inactive Member Role/Relationship Status Dates No Primary Care Physician Primary Care Provider Active Start: January 20, 2025 End: January 20, 2025 Ken Gómez COORDINATING PRODUCER, COORDINATING PRODUCER-C Attending Provider Active Start: January 20, 2025 End: January 20, 2025 Ken Gómez COORDINATING PRODUCER, COORDINATING PRODUCER-C Referring Provider Active Start: January 20, 2025 End: January 20, 2025 Team Status: Inactive Member Role/Relationship Status Dates No Primary Care Physician Primary Care Provider Active Start: January 27, 2025 End: January 27, 2025 No Primary Care Physician Referring Provider Active Start: January 27, 2025 End: January 27, 2025 Sharmin KENNY PA-C Attending Provider Active Start: January 27, 2025 End: January 27, 2025 Team Status: Inactive Member Role/Relationship Status Dates No Primary Care Physician Primary Care Provider Active Start: March 03, 2025 End: March 03, 2025 No Primary Care Physician Referring Provider Active Start: March 03, 2025 End: March 03, 2025 Ken Gómez COORDINATING PRODUCER, COORDINATING PRODUCER-C Attending Provider Active Start: March 03, 2025 End: March 03, 2025 Team Status: Inactive Member Role/Relationship Status Dates No Primary Care Physician Primary Care Provider Active Start: May 10, 2025 End: May 10, 2025 Dr. Ramy Quach , Emergency Provider Active Start : May 10, 2025 End: May 10, 2025 FOR RECORDS PERTAINING TO PATIENTS WHO [...] BE BASED ON THE PRIMARY CLINICAL RECORDS. [facility] [employer] provides no warranty or guarantee of the accuracy or completeness of information in this document.
== END | disposition home or self-care (01) ==
LOC: US 10:48
PROVIDERS: Referring Provider Nurse Practitioner Women's Health; Visit Provider Nurse Practitioner Women's Health
DX: Z30.431 Encounter for routine checking of intrauterine contraceptive device (principal); N93.9 Abnormal uterine and vaginal bleeding, unspecified
CPT/HCPCS: 76830; 76856